=== PATIENT | female | born 1995 | race African-American/Black ===

== ENCOUNTER 2019-12-09 11:41 | Emergency (ER) | payer OTHER, SELFPAY ==
--- NOTE | ~2019-12-09 | US_ITS ---
EXAMINATION: US OB >= 14 weeks Fetus DATE: 12/09/2019 13:11 INDICATION: Gestational dating. TECHNIQUE: Real-time transabdominal obstetric ultrasound. FINDINGS: No prior studies for comparison. There is a single living fetus in vertex presentation. The placenta is anterior/fundal without place nta previa. Cervical length is 4 cm. cardiac activity and movement is noted with a heart rate of 149 beats per minute. T he amniotic fluid volume is subjectively normal. The following biometric data were obtained: BPD: 46mm corresponds to gestational age 20 weeks 0 days. Head circumference: 174mm corresponds to gestational age 19 weeks 6 days. Abdominal circumference: 152mm corresponds to gestational age 20 weeks 3 days. Femur length: 30mm corresponds to gestational age 19 weeks 1 days. Estimated weight: 316grams +/- 47grams.] IMPRESSION: 1. Single living intrauterine in vertex presentation with an estimated gestational age of 19 weeks 6 days by current ultrasound. EDC by current ultrasound is 04/28/2020. 2. Normal placenta. Reviewed, dictated and finalized at location A. IMPRESSION: 1. Single living intrauterine in vertex presentation with an estimat ed gestational age of 19 weeks 6 days by current ultrasound. EDC by current ult rasound is 04/28/2020. 2. Normal placenta.
[2019-12-09 11:44] VITALS: BP 123/81; PULSE 100; RESP 20; TEMP 36.8; O2SAT 100
--- NOTE | 2019-12-09 12:06 | ED.GENADULT ---
HPI - General Adult General Chief complaint: [employer] <Kay Garcia PA-C - Last Filed: 12/09/19 15:15> Stated complaint: Mucous plug? <Kay Garcia PA-C - Last Filed: 12/09/19 15:15> Time Seen by Provider: 12/09/19 12:03 <Kay Garcia PA-C - Last Filed: 12/09/19 15:15> Source: patient <Kay Garcia PA-C - Last Filed: 12/09/19 15:15> Mode of arrival: ambulatory <Kay Garcia PA-C - Last Filed: 12/09/19 15:15> Limitations: no limitations <Kay Garcia PA-C - Last Filed: 12/09/19 15:15> History of Present Illness HPI narrative: pt is concerned that she lost her mucus plug last evening and she had a large amount of mucus with one void. She denies any other discharge or leaking of fluid. She is complaining of mild carrie beckford' type pain no pelvic pressure. No fever, edema, chest pain, or shortness of breath. She tells me her OB is [facility], but she doesn't know a name. She did not call the office. Last intercourse 48 hrs ago. <Kay Garcia PA-C - Last Filed: 12/09/19 15:15> Onset (ago): hour(s) <Kay Garcia PA-C - Last Filed: 12/09/19 15:15> Severity: mild <Kay Garcia PA-C - Last Filed: 12/09/19 15:15> Quality: aching <BORIS Carpenter Last Filed: 12/09/19 15:15> Pain Consistency: intermittent <Kay Garcia PA-C - Last Filed: 12/09/19 15:15> Associated symptoms: denies other symptoms <Kay Garcia PA-C - Last Filed: 12/09/19 15:15> Related Data Allergies/adverse reactions: Allergies Allergy/AdvReac Type Severity Reaction Status Date / Time No Known Allergies Allergy Verified 12/09/19 11:48 <Kay Garcia PA-C - Last Filed: 12/09/19 15:15> Review of Systems Review of Systems: All systems reviewed & are unremarkable except as noted in HPI and below <Kay Garcia PA-C - Last Filed: 12/09/19 15:15> [facility] Social History Social History: Social History (Updated 12/09/19 @ 12:17 by Kay Garcia PA-C) Smoking status: Never smoker Alcohol intake: never Substance use: never Living arrangements: with family <Kay Garcia PA-C - Last Filed: 12/09/19 15:15> Exam Const: General: no acute distress and alert <Kay Garcia PA-C - Last Filed: 12/09/19 15:15> Orientation/consciousness: patient oriented x3 <Kay Garcia PA-C - Last Filed: 12/09/19 15:15> HENMT: Head: normal to inspection <Kay Garcia PA-C - Last Filed: 12/09/19 15:15> Eyes: Conjunctivae: conjunctivae normal <Kay Garcia PA-C - Last Filed: 12/09/19 15:15> Pupils: Equal, round and reactive pupils present <Kay Garcia PA-C - Last Filed: 12/09/19 15:15> Resp: Effort & Inspection: normal respiratory effort <Kay Garcia PA-C - Last Filed: 12/09/19 15:15> Auscultation: clear to auscultation bilaterally <Kay Garcia PA-C - Last Filed: 12/09/19 15:15> Cardio: Rate: regular rate and tachycardic <Kay Garcia PA-C - Last Filed: 12/09/19 15:15> Rhythm: regular rhythm <Kay Garcia PA-C - Last Filed: 12/09/19 15:15> GI: Inspection: normal to inspection (gravid, no fundal tenderness) <Kay Garcia PA-C - Last Filed: 12/09/19 15:15> GI Palp: Yes Soft to palpation <BORIS Carpenter Last Filed: 12/09/19 15:15> : External Female Exam: normal external appearance <BORIS Carpenter Last Filed: 12/09/19 15:15> Speculum Exam - Vagina: abnormal vaginal discharge white, malodorous (fishy smell, thick white discharge) and caseous <BORIS Carpenter Last Filed: 12/09/19 15:15> Speculum Exam - Cervix: normal appearance of the cervix and Cervical os closed <BORIS Carpenter Last Filed: 12/09/19 15:15> Skin: General skin exam: normal color <BORIS Carpenter Last Filed: 12/09/19 15:15> Rashes: no rashes <BORIS Carpenter Last Filed: 12/09/19 15:15> Neuro: General: patient oriented x3 and moves all extremities <Kay Bentley
[2019-12-09 12:59] LABS: Basophils Percent Auto 0.3 % (0.2-1.2); Eosinophils Absolute Auto 0.2 K/mm3 (0-0.3); Eosinophils Percent Auto 2.4 % (0-4.4); Hematocrit 35.2 % (37.0-47.0); Hemoglobin 11.5 g/dL (12.0-15.0); Immature Granulocyte Absolute 0.03 K/mm3 (0.00-0.031); Immature Granulocyte Percent A 0.5 % (0-0.5); Lymphocytes Absolute Auto 1.76 K/mm3 (0.9-3.2); Lymphocytes Percent Auto 27.8 % (18.3-44.2); Mean Corpuscular HGB Conc 32.7 g/dl (32-36); Mean Corpuscular Volume 91.9 fl (80-100); Mean Platelet Volume 11.7 fl (7.4-10.4); Monocytes Absolute Auto 0.4 K/mm3 (0.1-0.6); Monocytes Percent Auto 6.5 % (2.6-8.5); Neutrophils Percent Auto 62.5 % (45.5-73.1); Platelet Count Result 182 k/mm3 (150-375); Red Blood Count 3.83 M/mm3 (4.2-5.4); Red Cell Distribution Width 13.2 % (11.5-14.5); White Blood Count 6.3 K/mm3 (4.5-10.0)
[2019-12-09 13:04] LABS: Add Urine Microscopic? YES; Appearance Urine Clear (Clear); Bilirubin Urine Negative (Negative); Blood Urine Negative (Negative); Color Urine Yellow (Yellow); Glucose Urine UA Negative (Negative); Ketones Urine Negative (Negative); Leukocyte Esterase Ur Negative LEU/UL (Negative); Mucus Urine Heavy /lpf; Nitrate Urine Negative (Negative); Protein Urine 1+ mg/dL (Negative); RBC Urine 0-2 /hpf (0-2); Squamous Epithelial Cell Urine Few /hpf (Few)
[2019-12-09 13:05] LABS: Specific Grav Ur 1.032 (1.001-1.035)
[2019-12-09 13:16] LABS: Amphetamine Screen Urine Negative (Negative); Barbiturate Screen Urine Negative (Negative); Benzodiazepines Screen Urine Negative (Negative); Cannabinoid Screen Urine Negative (Negative); Cocaine Screen Urine Negative (Negative); Methadone Screen Urine Negative (Negative); Opiate Screen Urine Negative (Negative); Phencyclidine Screen Urine Negative (Negative)
[2019-12-09] MEDS: FLUCONAZOLE 150 MG TABLET PO (15:00)
== END 2019-12-09 15:30 | disposition home or self-care (01) ==
PROVIDERS: Physician Assistant; Emergency Provider General Practice; PCP Family Medicine
DX: O23.592 Infection of other part of genital tract in pregnancy, second trimester (principal); B37.3 Candidiasis of vulva and vagina; B96.89 Other specified bacterial agents as the cause of diseases classified elsewhere; Z3A.19 19 weeks gestation of pregnancy
CPT/HCPCS: 36415; 76805; 80307; 81001; 85025; 86850; 86900; 86901; 87070; 87491; 87591; 87808; 99284; A9270

== ENCOUNTER 2020-02-16 21:05 | Observation (INO) | payer OTHER, SELFPAY ==
[2020-02-16 21:30] VITALS: TEMP 36.5
[2020-02-16 21:32] VITALS: BP 116/77; PULSE 96
[2020-02-16 21:49] LABS: Add Urine Microscopic? NO; Appearance Urine Clear (Clear); Bilirubin Urine Negative (Negative); Blood Urine Negative (Negative); Color Urine Yellow (Yellow); Glucose Urine UA Negative (Negative); Ketones Urine Negative (Negative); Leukocyte Esterase Ur Negative LEU/UL (Negative); Nitrate Urine Negative (Negative); Protein Urine Negative (Negative); Specific Grav Ur 1.015 (1.001-1.035); Urobilinogen Urine Negative mg/dL (<2.0)
--- NOTE | 2020-02-19 18:03 | PM.OBTRLD ---
OB - Triage/Final Diagnosis Visit Information Date of evaluation: 02/16/20 Comments/Additional reasons for admission: back pain Evaluation Laboratory results: Laboratory Tests 02/16/20 21:40 Urine Color Yellow Urine Appearance Clear Urine pH 6.0 Ur Specific Dexter 1.015 Urine Protein Negative Urine Glucose (UA) Negative Urine Ketones Negative Ur Blood (Man) Negative Urine Nitrate Negative Urine Bilirubin Negative Urine Urobilinogen Negative Leukocyte Esterase Rfl Negative
== END 2020-02-16 22:10 | disposition home or self-care (01) ==
PROVIDERS: Advanced Practice Midwife; Admitting Provider Obstetrics & Gynecology; PCP Family Medicine; Visit Provider Obstetrics & Gynecology
DX: O99.89 Other specified diseases and conditions complicating pregnancy, childbirth and the puerperium (principal); M54.9 Dorsalgia, unspecified; Z3A.28 28 weeks gestation of pregnancy
CPT/HCPCS: 81003; G0378; G0379

== ENCOUNTER 2020-03-02 10:44 | Emergency (ER) | payer OTHER, SELFPAY ==
[2020-03-02 10:53] VITALS: BP 113/70; PULSE 98; RESP 16; TEMP 36.9; O2SAT 100
--- NOTE | 2020-03-02 10:57 | ED.EYEPROB ---
HPI - Eye Problem General Chief complaint: Eye Problems Stated complaint: Eye problems Time Seen by Provider: 03/02/20 10:57 Source: patient and RN notes reviewed Mode of arrival: ambulatory Limitations: no limitations History of Present Illness HPI Narrative: 25-year-old female presents with concern for right upper eyelid swelling, pain. Denies vision changes, drainage from the eye, eye redness, eye itching or irritation. Reports she is been using a cold washcloth with no relief. chief complaint: eye pain (Right upper eyelid pain) Related Data Allergies Allergy/AdvReac Type Severity Reaction Status Date / Time No Known Allergies Allergy Verified 12/09/19 11:48 Review of Systems Review of Systems: Narrative: CONSTITUTIONAL: Denies malaise, chills, sweats, or fever. EYES: Denies visual changes, redness, or discharge. Reports right upper eyelid swelling and pain ENT: Denies rhinorrhea, congestion, sinus pain, otalgia or sore throat. CARDIOVASCULAR: Denies chest pain, palpitations, or edema. RESPIRATORY: Denies cough or dyspnea. SKIN: Denies rash or itching. MUSCULOSKELETAL: Denies myalgia. NEUROLOGIC: Denies headache. All systems reviewed & are unremarkable except as noted in HPI and below PMFSH Social History Social History (Updated 12/09/19 @ 12:17 by Kay Garcia PA-C) Smoking status: Never smoker Alcohol intake: never Substance use: never Comments At time of signature, agree with nursing past medical, surgical, social and family history. There is no relevant family history pertinent to the presenting complaint Exam Narrative: Exam Narrative: GENERAL: Well-appearing, well-nourished, and in no acute distress. HEAD: Normocephalic, atraumatic. EYES: PERRLA, conjunctivae clear, sclera clear, and EOMI. No nystagmus. Right upper eyelid edema, tenderness consistent with hordeolum ENT: Nares clear, no rhinorrhea. Mucous membranes moist. NECK: Supple. CHEST: No respiratory distress. Speaks in full sentences. HEART: Regular rate and rhythm. SKIN: Warm, dry, no rash. NEURO: Alert and oriented x3. PSYCH: Normal mood and affect Course Course Emergency Course: Patient is aware of diagnosis, understands and agrees to treatment plan. Anticipatory guidance given. Patient agrees to follow-up as directed and is aware of reasons to seek care at the emergency department. Portions of this record may have been created with voice recognition software Vital Signs Vital signs: Vital Signs Temperature 98.4 F 03/02/20 10:53 Pulse Rate 98 03/02/20 10:53 Respiratory Rate 16 03/02/20 10:53 Blood Pressure 113/70 03/02/20 10:53 Pulse Oximetry 100 03/02/20 10:53 Temperature 98.4 F 03/02/20 10:53 Pulse Rate 98 03/02/20 10:53 Respiratory Rate 16 03/02/20 10:53 Blood Pressure 113/70 03/02/20 10:53 Pulse Oximetry 100 03/02/20 10:53 Reviewed. MDM - Eye Problem MDM Narrative Medical decision making narrative: Consideration of the following conditions may be warranted for the presenting problem, they are not final diagnoses: Bacterial conjunctivitis, allergic conjunctivitis, viral conjunctivitis, foreign body, blepharitis, chalazion, hordeolum, corneal abrasion. Exam findings show no acute concerns or changes; patient is non-toxic appearing and is in no distress. Patient is appropriate for outpatient treatment and follow-up. Critical Care Time Critical Care Time Critical Care Time: No Discharge Plan Discharge Clinical Impression: Hordeolum Qualifiers: Hordeolum type: unspecified type Laterality: right Eyelid: upper Qualified Code(s): H00.011 - Hordeolum externum right upper eyelid Patient Disposition: Home, Self-Care Condition: Stable Instructions: Christina (ED) Additional Instructions: Do not touch or rub your eye. Use a warm washcloth on your eye for 15 minutes 5-6 times daily Use eyedrops as directed Practice good handwashing and hygiene You may take Tylenol or ibu
== END 2020-03-02 11:14 | disposition home or self-care (01) ==
PROVIDERS: Emergency Provider Nurse Practitioner; PCP Family Medicine
DX: H00.011 Hordeolum externum right upper eyelid (principal); R01.1 Cardiac murmur, unspecified
CPT/HCPCS: 99213; G0463

== ENCOUNTER 2020-04-11 18:36 | Observation (INO) | payer OTHER, SELFPAY ==
--- NOTE | 2020-04-11 18:36 | OBADM ---
This patient, Blanka Gooden, admitted to the OB room Labor/Delivery/Recovery 103 for observation. Patient/family oriented to hospital policies and general routines including ID bracelet, bed and alarms, visiting hours, pain management, procedures, bathroom and other care routines, personal items, smoking policy, room service/diet, and visiting hours. Patient/Family are encouraged to report perceived risks to care and to ask questions if they do not understand what they are told or what they should do.
[2020-04-11 20:00] VITALS: BMI 27.2
--- NOTE | 2020-04-17 18:43 | PM.OBTRLD ---
OB - Triage/Final Diagnosis Visit Information Date of evaluation: 04/12/20 Reason for evaluation: threatened labor
== END 2020-04-11 21:57 | disposition home or self-care (01) ==
PROVIDERS: Admitting Provider Obstetrics & Gynecology; PCP Family Medicine; Visit Provider Obstetrics & Gynecology
DX: O47.9 False labor, unspecified (principal); Z3A.00 Weeks of gestation of pregnancy not specified
CPT/HCPCS: G0378; G0379

== ENCOUNTER 2020-04-20 18:15 | Inpatient (IN) | payer OTHER, SELFPAY ==
[2020-04-20] VITALS (10 sets, daily range): BP systolic 115–134; BP diastolic 73–85; PULSE 86–97; TEMP 36.8–37.2; BMI 28.3
[2020-04-20 20:21] LABS: Basophils Percent Auto 0.3 % (0.2-1.2); Eosinophils Absolute Auto 0.1 K/mm3 (0-0.3); Eosinophils Percent Auto 1.5 % (0-4.4); Hematocrit 33.8 % (37.0-47.0); Hemoglobin 10.9 g/dL (12.0-15.0); Immature Granulocyte Absolute 0.06 K/mm3 (0.00-0.031); Immature Granulocyte Percent A 0.8 % (0-0.5); Lymphocytes Absolute Auto 1.95 K/mm3 (0.9-3.2); Lymphocytes Percent Auto 24.7 % (18.3-44.2); Mean Corpuscular HGB Conc 32.2 g/dl (32-36); Mean Corpuscular Hemoglobin 29.5 pg (26-34); Mean Corpuscular Volume 91.6 fl (80-100); Monocytes Absolute Auto 0.6 K/mm3 (0.1-0.6); Monocytes Percent Auto 7.3 % (2.6-8.5); Neutrophils Absolute Auto 5.2 K/mm3 (1.3-6.7); Neutrophils Percent Auto 65.4 % (45.5-73.1); Platelet Count Result 139 k/mm3 (150-375); Red Blood Count 3.69 M/mm3 (4.2-5.4); Red Cell Distribution Width 13.1 % (11.5-14.5); White Blood Count 7.9 K/mm3 (4.5-10.0)
[2020-04-20] MEDS: LACTATED RINGERS 1,000 ML 125 ML IV CONT (20:28)
[2020-04-20] MEDS: OXYTOCIN 30 UNITS/NS 500 ML 30 UNITS/500 ML BAG IV CONT (20:28)
--- NOTE | 2020-04-20 20:36 | LDADM ---
This patient, Blanka Gooden, was admitted to Labor/Delivery/Recovery 107 on 04/20/20 at 18:15. Plans for labor, pain management and were discussed with patient. Patient/family oriented to hospital policies and general routines including ID bracelet, bed and alarms, visiting hours, pain management, procedures, bathroom and other care routines, personal items, smoking policy, room service/diet and guest tray routines, security routines, and visiting hours. Patient/Family are encouraged to report perceived risks to care and to ask questions if they do not understand what they are told or what they should do. See OBIX for further documentation.
[2020-04-20 22:03] LABS: Hepatitis B Surface Antigen Negative (Negative); Rubella IgG Antibody 14.7 IU/ML
[2020-04-21] VITALS (85 sets, daily range): BP systolic 82–135; BP diastolic 25–98; PULSE 73–110; RESP 16; TEMP 36.4–37.2; O2SAT 79–100
--- NOTE | 2020-04-21 00:32 | WPDANESEPP ---
Anes - Eval Pre Procedure Procedure: labor epidural Date/Time: 04/21/20 00:32 Surgeon: roxy Preop Diagnosis: Abd pain post c section Pre Op Diagnosis: Leaking Patient Data Age: 25 Gender: F Height: 5 ft 7 in Weight: 82 kg Last Vital Signs Temp 98.9 F 04/20/20 21:30 Pulse 86 04/20/20 23:30 BP 118/78 04/20/20 23:30 Allergies Allergy/AdvReac Type Severity Reaction Status Date / Time No Known Allergies Allergy Verified 04/07/20 15:38 Home Medications Medication Instructions Recorded Confirmed Type No Home Medications 04/11/20 04/20/20 History Laboratory Tests 04/20/20 04/20/20 04/20/20 20:14 20:14 20:15 WBC 7.9 K/mm3 K/mm3 (4.5-10.0) RBC 3.69 M/mm3 L M/mm3 (4.2-5.4) Hgb 10.9 g/dL L g/dL (12.0-15.0) Hct 33.8 % L % (37.0-47.0) MCV 91.6 fl fl (80-100) MCH 29.5 pg pg (26-34) MCHC 32.2 g/dl g/dl (32-36) RDW 13.1 % % (11.5-14.5) Plt Count 139 k/mm3 L k/mm3 (150-375) MPV 12.0 fl H fl (7.4-10.4) Immature Gran % (Auto) 0.8 % H % (0-0.5) Neut % (Auto) 65.4 % % (45.5-73.1) Lymph % (Auto) 24.7 % % (18.3-44.2) [place] % (Auto) 7.3 % % (2.6-8.5) Eos % (Auto) 1.5 % % (0-4.4) Baso % (Auto) 0.3 % % (0.2-1.2) Lymph # (Auto) 1.95 K/mm3 K/mm3 (0.9-3.2) [place] # (Auto) 0.6 K/mm3 K/mm3 (0.1-0.6) Eos # (Auto) 0.1 K/mm3 K/mm3 (0-0.3) Baso # (Auto) 0.0 K/mm3 K/mm3 (0.0-0.1) Abs Immat Gran (auto) 0.06 K/mm3 H K/mm3 (0.00-0.031) Absolute Neuts (auto) 5.2 K/mm3 K/mm3 (1.3-6.7) Absolute Nucleated RBC 0.0 K/mm3 K/mm3 (0.0-0.012) Nucleated RBC % 0.0 % % (0.0-0.2) RPR Hep Bs Antigen Negative (Negative) Rubella IgG Antibody 14.7 IU/ML IU/ML (10 - ) Blood Type O Positive Antibody Screen Negative 04/20/20 20:15 WBC RBC Hgb Hct MCV MCH MCHC RDW Plt Count MPV Immature Gran % (Auto) Neut % (Auto) Lymph % (Auto) [place] % (Auto) Eos % (Auto) Baso % (Auto) Lymph # (Auto) [place] # (Auto) Eos # (Auto) Baso # (Auto) Abs Immat Gran (auto) Absolute Neuts (auto) Absolute Nucleated RBC Nucleated RBC % RPR Pending Hep Bs Antigen Rubella IgG Antibody Blood Type Antibody Screen Patient hx anesthesia problems: none Family hx anesthesia problems: none PMFSH Past Medical History Medical History (Updated 04/21/20 @ 00:34 by Darion Talley CRNA) 2, currently Murmur Scoliosis STD (female) Family History Family History Mother Congestive heart failure Glaucoma Father Leukemia Social History Social History Smoking status: Never smoker Alcohol intake: never Substance use: never Spiritual care concerns: No Exam Day of Procedure 04/21/20 00:32 Patient weight: normal Neurological: alert and oriented
[2020-04-21] MEDS: LACTATED RINGERS 1,000 ML 125 ML IV CONT (00:45)
--- NOTE | 2020-04-21 04:30 | WPDOBADMIT ---
Obstetrics - Admit Note Admission Note: 25 y/o @ 38 weeks admitted with srom. record reviewed. No pertinent additions to the history and/or any subsequent changes in the physical findings that are not consistent with the expected course of the were found. Additions to the history and/or subsequent changes in the physical findings follow. None.
--- NOTE | 2020-04-21 04:30 | PM.OBPRVD ---
OB - Delivery Note Procedure Delivery date: 04/21/20 Intrapartal events: None Induction method: none Delivery monitor: external FHT and external uterine Route of delivery: Laceration description: None Estimated blood loss (mL): 47 Anesthesia type: Epidural [place] Baby Date of : 04/21/20 Time of : 04:17 Weeks of gestation at delivery: 38 Weight (pounds): 7 Weight (ounces): 10 presentation: vertex position: Right Occiput Anterior cord vessel description: Nuchal Cord and Loose (unable to reduce)
[2020-04-21] MEDS: OXYTOCIN 30 UNITS/NS 500 ML 30 UNITS/500 ML BAG 125 UNITS IV CONT (05:00)
[2020-04-21] MEDS: LORATADINE 10 MG TABLET PO (05:35)
[2020-04-21 07:19] LABS: Rapid Plasma Reagin Non-Reactive (NonReactive)
--- NOTE | 2020-04-21 07:37 | WPDANLDPN2 ---
Anes-Prog Note L&D Date/Time: 04/21/20 07:37 Comfortable throughout: labor Neuraxial method: epidural Epidural/Spinal procedure site: clean & non-tender Neuro status: Neuro function grossly intact. Cardiovascular status: normal Respiratory status: normal Airway patency: baseline Mental status: baseline Post-Op hydration status: normal Vital Signs: Last Vital Signs Temp 36.6 C 04/21/20 03:51 Pulse 90 04/21/20 06:30 BP 115/75 04/21/20 06:30 Pulse Ox 99 04/21/20 04:09 Pain score (VAS): 0/0 I/O: Intake & Output 04/20/20 04/20/20 04/21/20 15:59 23:59 07:59 Intake Total 1500 Balance 1500 Post-procedural complaints: none Patient feedback: Patient satisfied with anesthetic care.
[2020-04-21] MEDS: MULTIVIT/MIN/PREN/FOL AC/IRON TABLET 1 TAB PO (08:04)
[2020-04-21] MEDS: IBUPROFEN 600 MG TABLET PO ×2 (08:04→17:59)
--- NOTE | 2020-04-21 10:52 | OBPPTRN ---
0650 Patient transferred to post room #281 via W/C. Support person present. Oriented to unit, room, information board, rooming in, admission packet and security measures. Patient verbalizes understanding.
[2020-04-21] MEDS: ACETAMINOPHEN 325 MG TABLET 650 MG PO (20:00)
[2020-04-22] MEDS: IBUPROFEN 600 MG TABLET PO ×2 (04:24→17:48)
[2020-04-22 05:57] LABS: Hemoglobin 10.5 g/dL (12.0-15.0)
[2020-04-22] MEDS: ACETAMINOPHEN 325 MG TABLET 650 MG PO (07:24)
[2020-04-22] MEDS: MULTIVIT/MIN/PREN/FOL AC/IRON TABLET 1 TAB PO (07:24)
[2020-04-22] MEDS: DOCUSATE SODIUM 100 MG CAPSULE PO (07:25)
--- NOTE | 2020-04-22 08:30 | PM.OBPNVD ---
OB - PN: Subj Subjective Date/time seen: 04/22/20 08:30 Patient comments: no complaints, pain well controlled, incisional pain, tolerating diet and flatus present OB - PN: Obj Data Labs CBC & Chem 7: 04/22/20 04:31 Labs: Laboratory Results - last 24 hr 04/22/20 04:31 Hgb 10.5 L Hct 32.0 L OB - PN A/P Plan day: 1 Plan: routine care Comments: No problems, routine care Time Spent With Patient Time: Total time spent is greater than 50% in coordination of care (as documented) at patient's floor/unit and/or counseling patient: Exam Const: General: comfortable, no acute distress and alert Resp: Effort & Inspection: normal respiratory effort Auscultation: no crackles, no rales and no rhonchi Cardio: Rate: regular rate Heart sounds: no click, no murmurs and no rubs GI: Inspection: non-distended GI Palp: No Tenderness to palpation present (GI) Auscultation: normal bowel sounds Other: Incision - CDI Extrem: General: normal to inspection, no pedal edema and no calf tenderness
[2020-04-22 08:40] VITALS: BP 108/75; PULSE 84; RESP 16; TEMP 36.5; O2SAT 100
--- NOTE | 2020-04-22 08:54 | WPDANLDPN2 ---
Anes-Prog Note L&D Date/Time: 04/22/20 08:54 Comfortable throughout: labor Neuraxial method: epidural Epidural/Spinal procedure site: clean & non-tender Neuro status: Neuro function grossly intact. Cardiovascular status: normal Respiratory status: normal Airway patency: baseline Mental status: baseline Post-Op hydration status: normal Vital Signs: Last Vital Signs Temp 36.4 C L 04/21/20 19:55 Pulse 78 04/21/20 19:55 Resp 16 04/21/20 19:55 BP 133/88 04/21/20 19:55 Pulse Ox 100 04/21/20 19:55 Post-procedural complaints: none Patient feedback: Patient satisfied with anesthetic care.
--- NOTE | 2020-04-22 13:45 | PC.NURSE ---
consult with pt., mother has a nipple pierced and does not want to remove ring. Advised she can pump with ring in, she can not put to breast with nipple ring in. Mother states she unsure if she wants to pump due to cramping, advise cramping should resolve within a few days. Offered to assist mother with infant on breast not pierced and suggested to pump breast pierced. Mother states she will pump next feeding and does not want assist with . Discussed stimulation and milk supply.
[2020-04-22] MEDS: TETANUS,DIPHTHERIA,AC PERTUSSIS ADULT (0.5 ML) BOOSTRIX IM (17:39)
--- NOTE | 2020-05-15 08:07 | P.DS_ITS ---
DS: Admitting Diagnosis Admitting Diagnosis Admitting Diagnosis: Leaking DS: Discharge Diagnosis Discharge Diagnosis (1) Vaginal delivery: Code(s): O80 - Encounter for full-term uncomplicated delivery Status: Acute OB - DS: Summary OB Procedures : None OB Procedures Intrapartum: Spontaneous Vag Delivery OB Procedures: : None Peripartum Data Delivery Method: Natural Vaginal Laceration description: None complications: none Time Spent with Patient Time attestation: Total time spent providing and/or coordinating discharge services: Discharge Plan Discharge Consulting providers: Leah Espinoza Discharging Clinician: Beau Meraz Patient Disposition: Home, Self-Care Activity: as tolerated Diet: regular Discharge Instructions: Education: Mom and Baby Guide Given to: Mother Follow-Up: Call your delivering provider's office for an appointment to be seen in: 4 Weeks Mom and baby should come to the [facility] for the follow-up appointment. Appointment Date/Time: April at 9:00 am Call [phone] if you are unable to keep your appointment time. BREAST CARE: * Wear a snug supportive bra. * For engorgement discomfort: Breast Feeding: * Apply warm moist washcloths * Express milk as needed to relieve engorgement * Wear loose clothing Bottle Feeding: * May apply ice packs * For sore nipples: * Identify correct latch-on * Apply warm moist washcloths before and after nursing * Air dry nipples after nursing * May apply Lansinoh cream to nipples EPISIOTOMY/PERINEAL CARE: * Until bleeding stops, use your rené bottle after urinating * Change your pad frequently throughout the day * You may take sitz baths several times a day (fill your bathtub with warm water and soak for 20 minutes.) Do NOT bathe in the water * No tub baths until seen by your physician - You may shower ACTIVITY: * Rest as much as possible. * Do not exercise or lift anything heavier than your baby (such as laundry or other children.) * Avoid stairs or driving as much as possible. * Do not put anything into the vagina. No douching, tampons, or sexual activity until seen by physician. NOTIFY PHYSICIAN IF YOU HAVE ANY QUESTIONS OR IF ANY OF THE FOLLOWING SYMPTOMS OCCUR: * If your episiotomy or incision becomes red, swollen, or more painful than what you have experienced in the hospital. * If your vaginal bleeding becomes foul smelling. * If your vaginal bleeding becomes more heavy than a period or if your bleeding changes from pink to bright red. However, you may pass an occasional walnut- sized clot once or twice for the first week . * If you experience a sharp, shooting pain in you calves. * If you discover a hard, reddened area on your breast or if you experience flu- like symptoms. DIET: * Eat regular, well-balanced meals. * Drink plenty of fluids daily. If , drink to thirst. Follow-up/Referrals: Beau Meraz MD [Physician] - Discharge Medications: No Action No Home Medications RF: 0 Date of admission: 04/20/20 18:15 Primary Care Provider: NickLeeroy Admitting Provider: Beau Meraz Attending physician on admission: Beau Meraz
== END 2020-04-22 19:17 | disposition home or self-care (01) | DRG 560 ==
LOC: ANHLDR 18:47 → ANHOB2 04-21 07:15
PROVIDERS: Advanced Practice Midwife; Admitting Provider Obstetrics & Gynecology; PCP Family Medicine; Visit Provider Obstetrics & Gynecology
DX: O69.81X0 Labor and delivery complicated by cord around neck, without compression, not applicable or unspecified (principal); Z37.0 Single live birth; Z3A.37 37 weeks gestation of pregnancy; Z23 Encounter for immunization; O99.89 Other specified diseases and conditions complicating pregnancy, childbirth and the puerperium; M41.9 Scoliosis, unspecified; O99.284 Endocrine, nutritional and metabolic diseases complicating childbirth; E03.9 Hypothyroidism, unspecified; O98.32 Other infections with a predominantly sexual mode of transmission complicating childbirth; A56.8 Sexually transmitted chlamydial infection of other sites
CPT/HCPCS: 36415; 84112; 85014; 85018; 85025; 86592; 86762; 86850; 86900; 86901; 87340; 90471; 90686; 90715; A9270; G0008; J2590; J2795; J7120

== ENCOUNTER 2020-10-09 19:04 | Emergency (ER) | payer OTHER, SELFPAY ==
--- NOTE | 2020-10-09 19:10 | ED.DENTAL ---
HPI - Dental/Oral General Chief complaint: Dental/Oral Stated complaint: tooth pain Time Seen by Provider: 10/09/20 19:15 Source: patient and RN notes reviewed Mode of arrival: ambulatory Limitations: no limitations History of Present Illness HPI Narrative: 25-year-old female presents concern for dental pain. Reports dental pain at tooth numbers 12, which has been broken for some time. Also reports dental pain at tooth #17 which she reports is impacted. Reports she has been to a dentist and cannot afford to have her dental problems repaired. Reports she is just recently got dental insurance and will go see a dentist. Reports she took ibuprofen 1 hour ago. Reports yesterday ibuprofen was helping the pain, today it is not. She denies any drooling, difficulty swallowing, foul taste, fever, headache. MD Complaint: tooth pain Related Data Allergies Allergy/AdvReac Type Severity Reaction Status Date / Time No Known Allergies Allergy Verified 10/09/20 19:12 Review of Systems Review of Systems: Narrative: CONSTITUTIONAL: Denies malaise, chills, sweats, or fever. EYES: Denies visual changes, redness, or discharge. ENT: Denies rhinorrhea, congestion, sinus pain, otalgia or sore throat. Reports left upper and lower dental pain CARDIOVASCULAR: Denies chest pain, palpitations, or edema. RESPIRATORY: Denies cough or dyspnea. SKIN: Denies facial swelling MUSCULOSKELETAL: Denies myalgia. NEUROLOGIC: Denies numbness, weakness, or headache. All systems reviewed & are unremarkable except as noted in HPI and below PMFSH Past Medical History Medical History (Updated 10/09/20 @ 19:23 by Becky Bo NP) 2, currently Murmur Scoliosis STD (female) Family History Family History Mother Congestive heart failure Glaucoma Father Leukemia Social History Social History Smoking status: Never smoker Alcohol intake: never Substance use: never Spiritual care concerns: No Comments At time of signature, agree with nursing past medical, surgical, social and family history. There is no relevant family history pertinent to the presenting complaint Exam Narrative: Exam Narrative: GENERAL: Well-appearing, well-nourished, and in no acute distress. HEAD: Normocephalic, atraumatic. EYES: PERRLA, conjunctivae clear, and EOMI. No nystagmus. ENT: Nares clear. Mucous membranes moist. Oropharynx without edema, erythema or lesions, drooling. Tonsils not enlarged and without exudate. Tooth #12 broken without noted periapical abscess. Tooth #17 noted without periapical abscess, mild gum erythema. No facial swelling noted NECK: Supple. No lymphadenopathy. CHEST: No respiratory distress. Speaks in full sentences. HEART: Regular rate and rhythm. SKIN: Warm, dry, no rash. NEURO: Alert and oriented x3. PSYCH: Normal mood and affect Course Course Emergency Course: Patient is aware of diagnosis, understands and agrees to treatment plan. Anticipatory guidance given. Patient agrees to follow-up as directed and is aware of reasons to seek care at the emergency department. Portions of this record may have been created with voice recognition software Vital Signs Vital signs: Vital Signs Temperature 99.1 F 10/09/20 19:17 Pulse Rate 85 10/09/20 19:17 Respiratory Rate 16 10/09/20 19:17 Blood Pressure 145/96 H 10/09/20 19:17 Pulse Oximetry 99 10/09/20 19:17 Temperature 99.1 F 10/09/20 19:17 Pulse Rate 85 10/09/20 19:17 Respiratory Rate 16 10/09/20 19:17 Blood Pressure 145/96 H 10/09/20 19:17 Pulse Oximetry 99 10/09/20 19:17 Reviewed. Patient has been instructed to follow up with her primary care provider within the next week regarding her elevated blood pressure today. MDM - Dental/Oral MDM Narrative Medical decision making narrative: Patients pain and complaint coupled with physica
[2020-10-09 19:17] VITALS: BP 145/96; PULSE 85; RESP 16; TEMP 37.3; O2SAT 99
== END 2020-10-09 19:31 | disposition home or self-care (01) ==
PROVIDERS: Emergency Provider Nurse Practitioner; PCP Family Medicine
DX: K08.89 Other specified disorders of teeth and supporting structures (principal); R01.1 Cardiac murmur, unspecified; M41.9 Scoliosis, unspecified
CPT/HCPCS: 99213; G0463

== ENCOUNTER 2020-10-09 21:30 | Emergency (ER) | payer OTHER, SELFPAY ==
[2020-10-09 21:34] VITALS: BP 145/99; PULSE 85; RESP 18; TEMP 36.6; O2SAT 100
--- NOTE | 2020-10-09 23:09 | ED.DENTAL ---
HPI - Dental/Oral General Chief complaint: Dental/Oral Stated complaint: dental pain Time Seen by Provider: 10/09/20 22:00 Source: patient Mode of arrival: ambulatory Limitations: no limitations History of Present Illness HPI Narrative: Patient is a 25-year-old female complaining of dental pain, I was wisdom tooth on the left side started earlier today. Patient states that her pain is 9 out of 10, aching. Denies any facial swelling, dysphagia, fever or chills. Denies any neck pain or swelling. Related Data Allergies Allergy/AdvReac Type Severity Reaction Status Date / Time No Known Allergies Allergy Verified 10/09/20 22:04 Review of Systems Review of Systems: All systems reviewed & are unremarkable except as noted in HPI and below PMFSH Past Medical History Medical History 2, currently Murmur Scoliosis STD (female) Family History Family History Mother Congestive heart failure Glaucoma Father Leukemia Social History Social History Smoking status: Never smoker Alcohol intake: never Substance use: never Spiritual care concerns: No Exam Const: General: healthy appearing, no acute distress and alert Nutritional Appearance: well nourished Orientation/consciousness: patient oriented x3 Limitations: no limitations HENMT: Head: normal to inspection General nose exam: Normal external nose present and Normal nares present Face and sinus: sinuses tender and no sinus tenderness Mouth: Yes lip normal Teeth and gingiva: abnormal tooth and associated gingiva (Left lower molar with mild gum swelling) Eyes: Conjunctivae: conjunctivae normal Neck: Neck: normal visual inspection Resp: Effort & Inspection: normal respiratory effort Skin: General skin exam: normal color Extrem: General: normal to inspection Course Vital Signs Vital signs: Vital Signs Temperature 36.6 C 10/09/20 21:34 Pulse Rate 85 10/09/20 21:34 Respiratory Rate 18 10/09/20 21:34 Blood Pressure 145/99 H 10/09/20 21:34 Pulse Oximetry 100 10/09/20 21:34 Temperature 36.6 C 10/09/20 21:34 Pulse Rate 85 10/09/20 21:34 Respiratory Rate 18 10/09/20 21:34 Blood Pressure 145/99 H 10/09/20 21:34 Pulse Oximetry 100 10/09/20 21:34 Discharge Plan Discharge Clinical Impression: Pain, dental Patient Disposition: Home, Self-Care Condition: Stable Instructions: Antibiotic Form, Toothache (ED) Additional Instructions: Follow-up with a dentist tomorrow Prescriptions: New amoxicillin 875 mg tablet 875 mg PO Q12H Qty: 14 RF: 0 Follow-up/Referrals: Nick,Leeroy Thurston MD [Primary Care Provider] - Stand Alone Forms: Work/School Release IP Time of Disposition: 23:13
[2020-10-09] MEDS: HYDROcodone/acetaminophen (*CRX) 5-325 MG TABLET 1 TAB PO (23:30)
[2020-10-09] MEDS: KETOROLAC 30 MG/ML VIAL (*BKC) IM (23:30)
== END 2020-10-09 23:36 | disposition home or self-care (01) ==
PROVIDERS: Emergency Provider Emergency Medicine; PCP Family Medicine
DX: K08.89 Other specified disorders of teeth and supporting structures (principal)
CPT/HCPCS: 96372; 99283; A9270; J1885

== ENCOUNTER 2021-01-06 18:29 | Emergency (ER) | payer OTHER, SELFPAY ==
[2021-01-06 18:40] VITALS: BP 135/79; PULSE 105; RESP 16; TEMP 37.3; O2SAT 99
== END 2021-01-06 19:03 | disposition left against medical advice (07) ==
LOC: EXPCOLL 18:34
PROVIDERS: Emergency Provider Nurse Practitioner; PCP Family Medicine
DX: Z02.89 Encounter for other administrative examinations (principal)
CPT/HCPCS: 99199

== ENCOUNTER 2021-07-19 11:04 | Emergency (ER) | payer OTHER, SELFPAY ==
[2021-07-19 11:08] VITALS: BP 119/73; PULSE 84; RESP 16; TEMP 36.1; O2SAT 100
--- NOTE | 2021-07-19 12:18 | ED.GENADULT ---
HPI - General Adult General Chief complaint: Wound/Laceration Stated complaint: wound check Time Seen by Provider: 07/19/21 11:57 Source: patient Mode of arrival: ambulatory Limitations: no limitations History of Present Illness HPI narrative: Patient presents for evaluation of painful swollen lesion to the right external labia for the last few days. She indicates she was shaving and cut herself in the affected area. Few days later is the time when she first noticed a swelling. She has noted some purulent discharge from the affected area. No fever, chills, nausea, vomiting. She is not diabetic. LMP 06/30/2021. Not on contraception. Related Data Allergies Allergy/AdvReac Type Severity Reaction Status Date / Time No Known Allergies Allergy Verified 07/19/21 11:16 Review of Systems Review of Systems: CONSTITUTIONAL: Denies fever, chills, or sweats. EYES: Denies visual changes, redness, or discharge. ENT: Denies rhinorrhea, congestion, sore throat, or otalgia. CARDIOVASCULAR: Denies chest pain, palpitations, or edema. RESPIRATORY: Denies cough or dyspnea. GASTROINTESTINAL: Denies abdominal pain, nausea, vomiting, or diarrhea. GENITOURINARY: Denies dysuria or hematuria. SKIN: Reports painful swollen lesion to the right labia. MUSCULOSKELETAL: Denies back pain, joint pain, or myalgia. NEUROLOGIC: Denies headache, numbness, dizziness, or weakness. PSYCHIATRIC: Denies anxiety or depression. [facility] Past Medical History Medical History (Updated 07/19/21 @ 13:08 by JUSTINO Mobley, ) 2, currently Murmur Scoliosis STD (female) Surgical History Surgical History No pertinent past surgical history Family History Family History Mother Congestive heart failure Glaucoma Father Leukemia Social History Social History Smoking status: Never smoker Alcohol intake: never Substance use: never Living arrangements: with family Gender identity (if verbalized by the patient): Female Spiritual care concerns: No Exam Narrative: GENERAL: Well-appearing, well-nourished, and in no acute distress. HEAD: Normocephalic, atraumatic. EYES: PERRLA and EOMI. ENT: Nares clear, no rhinorrhea or epistaxis. Mucous membranes moist. Oropharynx without tonsillar hypertrophy exudate or other lesions. Bilateral TMs pearly nichole nonbulging NECK: Supple. No adenopathy or masses. No carotid bruits or JVD CHEST: Clear to auscultation. No respiratory distress. No wheezes rales or rhonchi HEART: Regular rate and rhythm. No murmur heard. Normal peripheral pulses. ABDOMEN: Soft, nontender, nondistended, normal active bowel sounds. EXTREMITIES: Normal range of motion. No edema. SKIN: Approximately 1.5 cm swollen erythematous fluctuant lesion to the right external labia NEURO: No focal deficits. Alert and oriented x3. PSYCH: Normal mood and affect. Course Course Emergency Course: This is a 26-year-old female who presented with complaints of painful swollen lesion to the right labia. On exam she has a cutaneous abscess. After obtaining informed consent. I&D was performed. Patient tolerated well. Advised on wound care. She should complete abx as directed. We will also send her home with some norco which she can take for pain. She should follow up as directed for further evaluation and treatment and return for worsening symptoms. Pt in agreement with plan of care. Vital Signs Vital signs: Vital Signs Temperature 36.1 C L 07/19/21 11:08 Pulse Rate 84 07/19/21 11:08 Respiratory Rate 16 07/19/21 11:08 Blood Pressure 119/73 07/19/21 11:08 Pulse Oximetry 100 07/19/21 11:08 Temperature 36.1 C L 07/19/21 11:08 Pulse Rate 84 07/19/21 11:08 Respiratory Rate 16 07/19/21 11:08 Blood Pressure 119/73 07/19/21 1
== END 2021-07-19 13:28 | disposition home or self-care (01) ==
PROVIDERS: Emergency Provider Nurse Practitioner; PCP Family Medicine
DX: N76.4 Abscess of vulva (principal); M41.9 Scoliosis, unspecified
CPT/HCPCS: 56405; 81025; 87070; 87077; 87205; 99283

== ENCOUNTER 2021-12-09 11:51 | Emergency (ER) | payer OTHER, MEDICAID, SELFPAY ==
[2021-12-09 11:59] VITALS: BP 115/69; PULSE 79; RESP 16; TEMP 36.9; O2SAT 99
--- NOTE | 2021-12-09 12:11 | ED.DENTAL ---
HPI - Dental/Oral General Chief complaint: Dental/Oral Stated complaint: tooth pain Time Seen by Provider: 12/09/21 12:11 Source: patient Mode of arrival: ambulatory Limitations: no limitations History of Present Illness HPI Narrative: 26-year-old female presents with complaint of bump to gum. Is concerned for dental abscess. Reports about 1 month ago she had pain to a right lower tooth. Not having any pain at this time. States this tooth has been broken for a long time . Currently does not have a dentist. Patient is 19 weeks . All systems reviewed and negative except as noted above. Related Data Home Medications Medication Instructions Recorded Confirmed norgestimate-ethinyl estradiol 1 tablet PO DAILY 12/09/21 12/09/21 [Sprintec (28)] Allergies Allergy/AdvReac Type Severity Reaction Status Date / Time No Known Allergies Allergy Verified 12/09/21 11:53 Review of Systems Review of Systems: CONSTITUTIONAL: Denies fever, chills, or sweats. EYES: Denies visual changes, redness, or discharge. ENT: Denies rhinorrhea, congestion, sore throat, or otalgia. Reports right lower dental bump. CARDIOVASCULAR: Denies chest pain, palpitations, or edema. RESPIRATORY: Denies cough or dyspnea. GASTROINTESTINAL: Denies abdominal pain, nausea, vomiting, or diarrhea. GENITOURINARY: Denies dysuria or hematuria. SKIN: Denies rash or itching. MUSCULOSKELETAL: Denies back pain, joint pain, or myalgia. NEUROLOGIC: Denies headache, numbness, or weakness. PSYCHIATRIC: Denies anxiety or depression. All other systems reviewed are negative, except as documented in HPI. [facility] Past Medical History Medical History (Updated 12/09/21 @ 12:17 by Sharyn Zarate NP) 2, currently Murmur Scoliosis STD (female) Surgical History Surgical History No pertinent past surgical history Family History Family History Mother Congestive heart failure Glaucoma Father Leukemia Social History Social History Smoking status: Never smoker Alcohol intake: never Substance use: never Gender identity (if verbalized by the patient): Female Spiritual care concerns: No Comments At time of signature, agree with nursing past medical, surgical, social and family history. There is no relevant family history pertinent to the presenting complaint. Exam Narrative: GENERAL: This is a well-nourished, well-developed patient, in no apparent distress. HEAD: normocephalic, atraumatic. EYES: PERRL. Sclera clear/white. Vision is grossly intact. EARS: External ears normal NOSE: External nose normal MOUTH: Bump noted to gum area just below tooth #30. Concerning for a dental abscess. There is some tenderness on palpation. NECK: Neck supple, non-tender without lymphadenopathy, masses or thyromegaly. CARDIOVASCULAR: Regular rate and rhythm without murmurs, gallops, or rubs. RESPIRATORY: Clear to auscultation. Breath sounds equal bilaterally. No wheezes, rales, or rhonchi. SKIN: warm, Dry, intact with no suspicious lesions or rash, good texture and turgor. NEURO: awake, alert, and oriented to person, place and time. There were no obvious focal neurologic abnormalities. EXTREMITIES: Normal range of motion to all extremities. Course Course Level of Care: Express Care Visit Vital Signs Vital signs: Vital Signs Temperature 36.9 C 12/09/21 11:59 Pulse Rate 79 12/09/21 11:59 Respiratory Rate 16 12/09/21 11:59 Blood Pressure 115/69 12/09/21 11:59 Pulse Oximetry 99 12/09/21 11:59 Temperature 36.9 C 12/09/21 11:59 Pulse Rate 79 12/09/21 11:59 Respiratory Rate 16 12/09/21 11:59 Blood Pressure 115/69 12/09/21 11:59 Pulse Oximetry 99 12/09/21 11:59 Reviewed MDM - Dental/Oral MDM Narrative Medical dec
== END 2021-12-09 12:22 | disposition home or self-care (01) ==
PROVIDERS: Emergency Provider Nurse Practitioner Family; PCP Family Medicine
DX: K04.7 Periapical abscess without sinus (principal)
CPT/HCPCS: 99213; G0463

== ENCOUNTER 2022-02-11 22:00 | Emergency (ER) | payer OTHER, SELFPAY ==
[2022-02-11 22:12] VITALS: BP 135/76; PULSE 95; RESP 18; TEMP 36.3; O2SAT 98
--- NOTE | 2022-02-11 22:35 | ED.DENTAL ---
HPI - Dental/Oral General Chief complaint: Dental/Oral Stated complaint: dental pain Time Seen by Provider: 02/11/22 22:05 Source: RN notes reviewed History of Present Illness HPI Narrative: Patient presents emergency department from home for dental pain. Patient states she has a history of numerous dental caries states that she had seen her dentist at the end of January and they put her on penicillin at that time. States she is on a liquid penicillin that she is unable to swallow pills. States that she has been taking Tylenol for pain with no relief last dose of Tylenol was at 8 PM. He states the pain is in her upper and lower teeth on the left side with radiation in the left ear. States she is approximately [address] weeks is followed by Dr. Meraz denies any fevers or chills the pain Related Data Home Medications Medication Instructions Recorded Confirmed norgestimate 0.25 mg-ethinyl 1 tablet PO DAILY 12/09/21 12/09/21 estradiol 35 mcg tablet (Sprintec (28)) Allergies Allergy/AdvReac Type Severity Reaction Status Date / Time No Known Allergies Allergy Verified 02/11/22 22:19 Review of Systems Review of Systems: Gen.: Denies fevers or chills HEENT: See HPI GI: Denies abdominal pain : Reports Neuro: Denies headache Skin: Denies rash Endo: Denies DM PMFSH Past Medical History Medical History 2, currently Murmur Scoliosis STD (female) Surgical History Surgical History No pertinent past surgical history Family History Family History Mother Congestive heart failure Glaucoma Father Leukemia Social History Social History Smoking status: Never smoker Alcohol intake: never Substance use: never Gender identity (if verbalized by the patient): Female Spiritual care concerns: No Exam Narrative: APPEARANCE: No acute distress, nontoxic, resting in bed HEENT: Normocephalic, atraumatic, TMs clear bilaterally, nares patent, oral mucosa moist, airway patent, numerous dental caries with caries of teeth 10 and 14 and 16 with tenderness to all these on erythema no fluctuance of the jaw tender palpation of the left lower molar tooth #17 RESPIRATORY: No respiratory distress MUSCULOSKELETAl: Moves all extremities. NEURO: Awake and alert. Following commands, speech normal, no focal deficits SKIN:: Warm, dry. Normal Color PSYCHIATRIC: Normal affect/mood Course Course Emergency Course: Discussed with patient results of workup and diagnosis. Discussed need for follow-up with primary care, proper use of medication, and reasons to return to the emergency department. Patient understands and agrees to current treatment plan. Patient states she cannot take any pills and will give liquid clindamycin Vital Signs Vital signs: Vital Signs Temperature 97.4 F L 02/11/22 22:12 Pulse Rate 95 02/11/22 22:12 Respiratory Rate 18 02/11/22 22:12 Blood Pressure 135/76 02/11/22 22:12 Pulse Oximetry 98 02/11/22 22:12 Oxygen Delivery Room Air 02/11/22 22:12 Temperature 97.4 F L 02/11/22 22:12 Pulse Rate 95 02/11/22 22:12 Respiratory Rate 18 02/11/22 22:12 Blood Pressure 135/76 02/11/22 22:12 Pulse Oximetry 98 02/11/22 22:12 Oxygen Delivery Room Air 02/11/22 22:12 Discharge Plan Discharge Clinical Impression: Dental caries, Toothache Patient Disposition: Home, Self-Care Condition: Stable Instructions: Antibiotic Form, Toothache (ED) Additional Instructions: Return for increasing pain fever or any other symptoms of concern Prescriptions: New clindamycin palmitate HCl 75 mg/5 mL recon soln 300 mg PO Q8H 7 Days Qty: 420 0RF No Action norgestimate-ethinyl estradiol [Sprintec (28)] 0.25-
== END 2022-02-11 22:53 | disposition home or self-care (01) ==
LOC: ANHED 22:48
PROVIDERS: Emergency Provider Emergency Medicine; PCP Family Medicine
DX: O99.619 Diseases of the digestive system complicating pregnancy, unspecified trimester (principal); K02.9 Dental caries, unspecified; Z3A.00 Weeks of gestation of pregnancy not specified
CPT/HCPCS: 99283

== ENCOUNTER 2022-02-24 14:00 | Emergency (ER) | payer OTHER, SELFPAY ==
[2022-02-24] VITALS (23 sets, daily range): BP systolic 106–137; BP diastolic 70–87; PULSE 87–104; RESP 21–31; TEMP 36.5; O2SAT 98–100
--- NOTE | ~2022-02-24 | CT_ITS ---
EXAMINATION: CTA chest PE protocol DATE: 02/24/2022 16:08 INDICATION: dyspnea TECHNIQUE: Computed tomography angiography (CTA) of the chest was performed with 100 mL Omnipaque-350 intravenous contrast timed to evaluate the pulmonary arteries. Coronal maximum intensity projection 3D-reconstructions were created by the technologist. The dose-length product (DLP) was 405.16 mGy-cm. Automated exposure control and iterative reconstruction technique were employed. COMPARISON: None. FINDINGS: Study quality: Mildly limited by late contrast phase and lower lung motion, overall adequate. Pulmonary arteries: No pulmonary emboli detected. Thoracic aorta: Normal. Lung parenchyma and airways: Clear. Thoracic inlet, axillae and chest wall: Unremarkable. Mediastinum: Normal. Heart and pericardium: Normal. Coronary artery calcifications: Absent. Pleura: Unremarkable. Upper abdomen: No significant finding. Bones: No acute osseous finding. IMPRESSION: Mildly limited examination as described above, with no definite pulmonary embolus detected. Reviewed, dictated and finalized at location K. IMPRESSION: Mildly limited examination as described above, with no definite pulmonary embol us detected.
--- NOTE | ~2022-02-24 | US_ITS ---
EXAMINATION: US venous doppler [facility] DATE: 02/24/2022 15:19 INDICATION: Shortness of breath. TECHNIQUE: Grayscale images without and with compression and Doppler images of the bilateral lower ex tremity veins were obtained. COMPARISON: None FINDINGS: The right common femoral vein, profunda (deep) femoral vein, femoral vein, popliteal vein, peroneal v ein, posterior tibial veins, gastrocnemius vein, and greater saphenous vein are patent. The left common femoral vein, profunda femoral vein, femoral vein, popliteal vein, peroneal vein, pos terior tibial veins, gastrocnemius vein, and greater saphenous vein are patent. IMPRESSION: 1. Patent bilateral lower extremity veins. No evidence of deep venous thrombosis. Reviewed, dictated and finalized at location K. IMPRESSION: 1. Patent bilateral lower extremity veins. No evidence of deep venous thrombos is.
--- NOTE | 2022-02-24 14:09 | ECG_ITS ---
Measurements Intervals [place] Rate: 88 P: 48 ME: 158 QRS: 33 QRSD: 84 T: 42 QT: 347 QTc: 421 Interpretive Statements SINUS RHYTHM WITH SINUS ARRHYTHMIA BASELINE ARTIFACT- I, III, AVL, V2-V6 NORMAL ECG Electronically Signed On 02-24-2022 22:36:44 CDT by Oli Marshall D.O.
--- NOTE | 2022-02-24 14:15 | ED.SOB ---
HPI - SOB/Dyspnea General Chief Complaint: Shortness of Breath/Dyspnea Stated Complaint: chest pain, dyspnea mitral valve prolapse and 30wk Time Seen by Provider: 02/24/22 14:15 History of Present Illness HPI Narrative: The patient is a 27-year-old female G3, P2 currently 30 weeks presenting to the emergency department for evaluation of shortness of breath and palpitations. Patient reports that she has had palpitations that she noticed while at work today. 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 Patient denies any rhinorrhea, congestion, cough or hemoptysis. She denies any chest or pleuritic pain. Denies any abdominal pain, cramping, vaginal bleeding or loss of fluids she denies flank pain, dysuria or hematuria. She denies leg swelling or calf pain. She denies recent long car or air travel, history of DVT or coagulopathy. This has been complicated by episodes of hypoglycemia. Related Data Home Medications Medication Instructions Recorded Confirmed norgestimate 0.25 mg-ethinyl 1 tablet PO DAILY 12/09/21 12/09/21 estradiol 35 mcg tablet (Sprintec (28)) [id number] 1 mg tablet PO 02/24/22 tablet Allergies Allergy/AdvReac Type Severity Reaction Status Date / Time No Known Allergies Allergy Verified 02/24/22 14:20 Review of Systems Review of Systems: CONSTITUTIONAL: Denies fever, chills, or sweats. ENT: Denies rhinorrhea, congestion, sore throat, or otalgia. CARDIOVASCULAR: Denies chest pain, palpitations, or edema. RESPIRATORY: Denies cough, reports dyspnea although states it is improved currently GASTROINTESTINAL: Denies abdominal pain, nausea, vomiting, or diarrhea. GENITOURINARY: Denies dysuria or hematuria. SKIN: Denies rash or itching. MUSCULOSKELETAL: Denies back pain, joint pain, or myalgia. NEUROLOGIC: Denies headache, numbness, or weakness. [facility] Past Medical History Medical History 2, currently Murmur Scoliosis STD (female) Surgical History Surgical History No pertinent past surgical history Family History Family History Mother Congestive heart failure Glaucoma Father Leukemia Social History Social History Smoking status: Never smoker Alcohol intake: never Substance use: never Gender identity (if verbalized by the patient): Female Spiritual care concerns: No Exam Narrative: GENERAL: Awake, alert, conversant HEAD: Normocephalic, atraumatic. EYES: PERRLA and EOMI. ENT: Nares clear, no rhinorrhea or epistaxis. Mucous membranes moist. NECK: Supple. CHEST: Mild tachypnea, no respiratory distress, breathing even and non labored, lungs are clear to auscultation bilaterally HEART: Regular rate, sinus rhythm ABDOMEN:Non distended, fundus is palpable above the umbilicus, consistent with 30-week , patient without abdominal tenderness throughout EXTREMITIES: Normal range of motion. No edema. SKIN: Warm, dry, no rash. NEURO:No focal deficits. Alert and oriented x3 Course Vital Signs Vital signs: Vital Signs Pulse Rate 99 02/24/22 14:08 Respiratory Rate 26 H 02/24/22 14:08 Temperature 36.5 C 02/24/22 14:10 Pulse Rate 101 H 02/24/22 16:31 Respiratory Rate 28 H 02/24/22 16:31 Blood Pressure 116/82 02/24/22 16:31 Pulse Oximetry 98 02/24/22 16:31 Oxygen Delivery Room Air 02/24/22 14:18 MDM - SOB/Dyspnea MDM Narrative Medical decision making narrative: Patient is a 27-year-old female presenting to the emergency department for evaluation of shortness of breath. At the time of assessment, ABCs are intact and vital signs are stable. Patient does not appear fluid overloaded, she is in no acute distress, and she is oxy
[2022-02-24 14:37] LABS: Basophils Percent Auto 0.3 % (0.2-1.2); Eosinophils Absolute Auto 0.2 K/mm3 (0-0.3); Eosinophils Percent Auto 1.9 % (0-4.4); Hematocrit 34.8 % (37.0-47.0); Hemoglobin 11.1 g/dL (12.0-15.0); Immature Granulocyte Absolute 0.06 K/mm3 (0.00-0.031); Immature Granulocyte Percent A 0.8 % (0-0.5); Lymphocytes Percent Auto 22.5 % (18.3-44.2); Mean Corpuscular HGB Conc 31.9 g/dl (32-36); Mean Corpuscular Hemoglobin 29.5 pg (26-34); Mean Corpuscular Volume 92.6 fl (80-100); Mean Platelet Volume 11.5 fl (7.4-10.4); Monocytes Absolute Auto 0.5 K/mm3 (0.1-0.6); Monocytes Percent Auto 6.8 % (2.6-8.5); Neutrophils Absolute Auto 5.4 K/mm3 (1.3-6.7); Neutrophils Percent Auto 67.7 % (45.5-73.1); Platelet Count Result 158 k/mm3 (150-375); Red Blood Count 3.76 M/mm3 (4.2-5.4); Red Cell Distribution Width 13.3 % (11.5-14.5)
[2022-02-24 14:45] LABS: Alanine Aminotransferase 9 U/L (6-35); Albumin Level 3.8 g/dL (3.5-5.1); Alkaline Phosphatase 85 U/L (38-126); Anion Gap 4 mmol/L (8-16); Aspartate Amino Transferase 20 U/L (14-36); Bilirubin,Total 0.2 mg/dL (0.2-1.3); Blood Urea Nitrogen 5 mg/dL (7-17); Calcium 8.8 mg/dL (8.4-10.2); Carbon Dioxide 24 mmol/L (22-30); Chloride 105 mmol/L (98-107); Estimated CRCL calculation 150 ml/min; Estimated Glomerular Filt Rate > 60; Glucose 83 mg/dL (65-110); Potassium 3.6 mmol/L (3.4-5.0); Sodium 133 mmol/L (137-145)
[2022-02-24 14:46] LABS: Prothrombin Time 13.2 Seconds (11.1-14.7)
[2022-02-24 14:47] LABS: Partial Thromboplastin Time 26.5 SECONDS (22.3-36.8)
[2022-02-24 14:51] LABS: Add Urine Microscopic? NO; Appearance Urine Clear (Clear); Bilirubin Urine Negative (Negative); Blood Urine Negative (Negative); Color Urine Yellow (Yellow); Glucose Urine UA Negative (Negative); Ketones Urine Negative (Negative); Leukocyte Esterase Ur Negative LEU/UL (Negative); Nitrate Urine Negative (Negative); Protein Urine Negative (Negative); Specific Grav Ur 1.025 (1.001-1.035); Urobilinogen Urine 0.2 mg/dL (<2.0)
[2022-02-24 14:52] LABS: D Dimer 1.17 ug/mL (<0.48)
[2022-02-24 14:57] LABS: Troponin I < 0.012 ng/mL (0.000-0.034)
[2022-02-24 15:18] LABS: SARS-CoV-2 RNA PCR Negative
[2022-02-24 15:44] LABS: NT Pro B Type Natriuretic Pept < 11 pg/mL (5-100)
--- NOTE | 2022-03-08 13:55 | HOLTER_ITS ---
ATTENTION: Please disregard results of this Holter monitor as they do not apply to this patient. This report was mistakenly merged with the wrong patient. This report was moved to the correct visit on 03/09/22. Original report was signed by Juan C Reddy MD 03/08/22 [id number]. Holter/Event Monitor Holter/Event Monitor Date of procedure: 03/08/22 Holter/Event Procedure: 24 Hr Holter Monitor Diagnosis: Palpitations Indications: Palpitations Image/Tracing Quality: Acceptable Finding: This is a 24 hour Holter monitor which underlying rhythm was sinus with an average heart rate of 84 beats per minute minimum of 60 beats per minute occurring at 3:12 a.m. and maximum 118 beats per minute occurring at 12:[address] interval and QRS duration are within normal limits. S no prolonged pauses or high-grade AV blocks appreciated. Very rare ventricular ectopy with 2 isolated premature atrial contractions identified. Very rare supraventricular ectopy with only 4 premature atrial contractions identified. No atrial fibrillation, atrial flutter, or other SVT noted. No symptoms returned in conjunction with this study. Conclusion: Underlying sinus rhythm with rare PVCs and PACs without associated symptoms. No SVT, atrial fibrillation, and or atrial flutter noted. Otherwise, fairly unremarkable study. This dictation may have been done utilizing a voice recognition system. Attempts have been made to correct errors. However, there may be uncorrected grammatical, spelling, and recognition errors present. Report Initialized date/time: Juan C Reddy MD 03/08/22 0049 Electronically signed by: Juan C Reddy MD 03/08/22 1900 [facility]
--- NOTE | 2022-03-12 15:40 | P.PCNHOL_ITS ---
Holter/Event Monitor Holter/Event Monitor Date of procedure: 03/12/22 Holter/Event Procedure: 24 Hr Holter Monitor Diagnosis: Palpitations Indications: Palpitations Image/Tracing Quality: Acceptable Finding: Underlying rhythm is sinus and sinus tachycardia with an elevated average heart rate of 101 beats per minute minimum of 64 beats per minute occurring at 5:54 a.m. and maximum 156 beats per minute occurring at 2:05 p.m.. Is no ventricular ectopy noted throughout the study. There was very rare supraventricular ectopy in which 1 atrial pair was identified. There were no prolonged pauses, high- grade AV blocks, atrial fibrillation or atrial flutter observed. No symptoms returned in conjunction with this study. Conclusion: Underlying sinus rhythm and sinus tachycardia with an elevated average heart rate but without SVT, atrial fibrillation, atrial flutter pauses. No ventricular ectopy and only 1 atrial pair identified. No symptoms returned. Clinical correlation advised.
== END 2022-02-24 17:23 | disposition home or self-care (01) ==
PROVIDERS: Emergency Provider Emergency Medicine; PCP Family Medicine
DX: O26.893 Other specified pregnancy related conditions, third trimester (principal); R00.2 Palpitations; R06.00 Dyspnea, unspecified; Z20.822 Contact with and (suspected) exposure to COVID-19; Z3A.30 30 weeks gestation of pregnancy
CPT/HCPCS: 36415; 71275; 80053; 81003; 83880; 84443; 84484; 85025; 85380; 85610; 85730; 93005; 93225; 93226; 93970; 99284; C9803; Q9967; U0003; U0005

== ENCOUNTER 2022-03-15 20:36 | Observation (INO) | payer OTHER, SELFPAY ==
[2022-03-15 20:57] VITALS: BP 106/63; PULSE 83
[2022-03-15 21:00] VITALS: BP 112/67; PULSE 90; BMI 27.0
[2022-03-15 21:15] VITALS: BP 108/65; PULSE 89
[2022-03-15 21:15] LABS: Appearance Urine Slightly Cloudy (Clear); Bilirubin Urine Negative (Negative); Blood Urine Negative (Negative); Color Urine Yellow (Yellow); Glucose Urine UA Negative (Negative); Ketones Urine Negative (Negative); Leukocyte Esterase Ur Negative LEU/UL (Negative); Nitrate Urine Negative (Negative); Protein Urine Negative (Negative); Specific Grav Ur 1.025 (1.001-1.035); Urobilinogen Urine 0.2 mg/dL (<2.0)
[2022-03-15 21:22] LABS: Bacteria Urine Trace /hpf; Mucus Urine Rare /lpf; RBC Urine 0-2 /hpf (0-2); Squamous Epithelial Cell Urine Occasional /hpf (Few); WBC Urine 0-3 /hpf
[2022-03-15 21:27] LABS: Add Urine Microscopic? YES
[2022-03-15 21:30] VITALS: BP 107/72; PULSE 146
--- NOTE | 2022-03-28 17:54 | PM.OBTRLD ---
OB - Triage/Final Diagnosis Visit Information Comments/Additional reasons for admission: I have assessed the risk for this patient, Blanka Gooden, and determined that she would benefit from observation care. Evaluation Laboratory results: Laboratory Tests 03/15/22 21:05 Urine Color Yellow Urine Appearance Slightly cloudy Urine pH 7.0 Ur Specific [place] 1.025 Urine Protein Negative Urine Glucose (UA) Negative Urine Ketones Negative Ur Blood (Man) Negative Urine Nitrate Negative Urine Bilirubin Negative Urine Urobilinogen 0.2 Leukocyte Esterase Rfl Negative Urine RBC 0-2 Urine WBC 0-3 Ur Squamous Epith Cells Occasional Urine Bacteria Trace Urine Mucus Rare Final Diagnosis (1) False labor: Code(s): O47.9 - False labor, unspecified Status: Acute
== END 2022-03-15 21:52 | disposition home or self-care (01) ==
PROVIDERS: Admitting Provider Obstetrics & Gynecology; PCP Family Medicine; Visit Provider Obstetrics & Gynecology
DX: O47.03 False labor before 37 completed weeks of gestation, third trimester (principal); Z3A.32 32 weeks gestation of pregnancy
CPT/HCPCS: 81001; G0378; G0379

== ENCOUNTER 2022-03-18 12:31 | Outpatient (CLI) | payer OTHER, SELFPAY ==
--- NOTE | 2022-03-08 13:53 | WPDHOLTEREM ---
Holter/Event Monitor Holter/Event Monitor Date of procedure: 03/08/22 Holter/Event Procedure: 24 Hr Holter Monitor Diagnosis: Palpitations Indications: Palpitations Image/Tracing Quality: Acceptable Finding: This is a 24 hour Holter monitor which underlying rhythm was sinus with an average heart rate of 84 beats per minute minimum of 60 beats per minute occurring at 3:12 a.m. and maximum 118 beats per minute occurring at 12:15 p.m.. SD interval and QRS duration are within normal limits. S no prolonged pauses or high-grade AV blocks appreciated. Very rare ventricular ectopy with 2 isolated premature atrial contractions identified. Very rare supraventricular ectopy with only 4 premature atrial contractions identified. No atrial fibrillation, atrial flutter, or other SVT noted. No symptoms returned in conjunction with this study. Conclusion: Underlying sinus rhythm with rare PVCs and PACs without associated symptoms. No SVT, atrial fibrillation, and or atrial flutter noted. Otherwise, fairly unremarkable study.
--- NOTE | 2022-03-18 | ECHO_ITS ---
Patient Info Name: Blanka Gooden Age: 27 years : 1995 Gender: Female Ht: 69 in Wt: 183 lbs BSA: 2.03 m2 HR: 81 bpm BP: 111 / 81 mmHg Heart Rhythm: Sinus Rhythm Technical Quality: Good Exam Date: 03/18/2022 12:59 PM Exam Location: [facility] Patient Status: Outpatient Admit Date: 03/18/2022 Staff Ordering Physician: Beau Meraz MD Powder Core Tester: Evelyn Valdivia RDCS Attending Provider: Beau Meraz MD Referring Physician: Kt GARCIA; Exam Type: CA echo doppler color flow Study Info Indications I34.1 - Nonrheumatic mitral (valve) prolapse Complete two-dimensional, color flow and Doppler transthoracic echocardiogram is performed. Summary 1. Complete two-dimensional, color flow and Doppler transthoracic echocardiogram is performed. 2. Normal left ventricular size and thickness with good contractility of all segments. Ejection fraction greater than 70%. Mild decrease in global longitudinal strain of-16% which may represent early systolic dysfunction. 3. Some flattening of the anterior mitral valve leaflet; borderline for mitral valve prolapse. 4. Trace mitral, tricuspid and pulmonic insufficiency. 5. Mild left atrial enlargement. 6. Normal sinus rhythm. Left Ventricle Left ventricular chamber dimension is normal. Left ventricular systolic function is normal, estimated at >70%. There is no increased left ventricular wall thickness. Left ventricular septal wall motion is normal. The left ventricular diastolic function is grade II diastolic dysfunction. Global longitudinal strain is mildly elevated at -16 %. Right Ventricle Right ventricular chamber dimension is normal. Right ventricular systolic function is normal. Left Atria Left atrial chamber dimension is mildly enlarged. Right Atria Right atrial chamber dimension is normal. Aortic Valve The aortic valve is trileaflet. There is no aortic valve sclerosis. There is no aortic valve stenosis. There is no aortic valve regurgitation. Pulmonic Valve The pulmonic valve is normal. There is no pulmonic valve stenosis. There is no pulmonic regurgitation. Mitral Valve The mitral valve has normal leaflets. There is no mitral valve stenosis. There is trace mitral valve regurgitation. Tricuspid Valve The tricuspid valve leaflets are normal. There is no significant tricuspid valve stenosis. There is trace tricuspid valve regurgitation. No pulmonary hypertension, estimated pulmonary arterial systolic pressure is 28 mmHg. Pericardium/Pleural The pericardium appears normal. There is no pericardial effusion. Inferior Vena Cava Normal inferior vena cava with >50% collapse upon inspiration consistent with Empty right atrial pressure, 10 mmHg. Aorta The aortic root size at the sinus of Valsalva is normal. The prox ascending aorta size is normal. Left Ventricular Outflow Tract Name Value Normal LVOT 2D LVOT Diameter 1.9 cm LVOT Doppler LVOT Peak Gradient 4 mmHg LVOT Mean Gradient 3 mmHg LVOT VTI 21 cm LVOT VTI/
== END 2022-03-18 12:32 | disposition home or self-care (01) ==
LOC: ANHCARD 12:33
PROVIDERS: PCP Family Medicine; Visit Provider Obstetrics & Gynecology
DX: I34.1 Nonrheumatic mitral (valve) prolapse (principal)
CPT/HCPCS: 93306

== ENCOUNTER 2022-03-25 10:18 | Outpatient (CLI) | payer OTHER, SELFPAY ==
[2022-03-25 10:36] VITALS: BP 116/70; PULSE 87
[2022-03-25 10:45] VITALS: BP 107/70; PULSE 84
[2022-03-25 11:00] VITALS: BP 108/71; PULSE 90
== END 2022-03-25 11:30 | disposition home or self-care (01) ==
LOC: ANHOBOP 10:22 → ANHOBPP 10:23
PROVIDERS: PCP Family Medicine; Visit Provider Advanced Practice Midwife
DX: O42.90 Premature rupture of membranes, unspecified as to length of time between rupture and onset of labor, unspecified weeks of gestation (principal); Z3A.00 Weeks of gestation of pregnancy not specified
CPT/HCPCS: 84112; 99199

== ENCOUNTER 2022-04-08 17:27 | Emergency (ER) | payer OTHER, SELFPAY ==
[2022-04-08 17:35] VITALS: BP 120/69; PULSE 113; RESP 18; TEMP 36.8; O2SAT 100
--- NOTE | 2022-04-08 18:30 | ED.EAR ---
HPI - Ear Problem General Chief complaint: Ear Stated complaint: ear infection Time Seen by Provider: 04/08/22 18:10 Source: patient, RN notes reviewed and old records reviewed Mode of arrival: ambulatory Limitations: no limitations History of Present Illness HPI Narrative: 27-year-old female who presents to [facility] care with complaints of pain to her ear since last evening. Patient reports that her hearing is decreased to her right ear also. Patient denies any fevers chills or sweats. Patient reports that she has taken some Tylenol for her discomfort. Patient is and is due with 2nd child on May 06. Patient denies any other complaints of illness MD Complaint: ear pain Location: right ear Severity: moderate (7/10) Discharge from ear: Reports no Treatment prior to arrival: oral analgesic (tylenol) Related Data Home Medications Medication Instructions Recorded Confirmed [id number] 1 mg tablet PO 02/24/22 tablet Allergies Allergy/AdvReac Type Severity Reaction Status Date / Time No Known Allergies Allergy Verified 04/08/22 17:42 Review of Systems Review of Systems: CONSTITUTIONAL: Denies fever, chills, or sweats. EYES: Denies visual changes, redness, or discharge. ENT: Denies rhinorrhea, congestion, sore throat, right ear pain with decreased hearing CARDIOVASCULAR: Denies chest pain, palpitations, or edema. RESPIRATORY: Denies cough or dyspnea. GASTROINTESTINAL: Denies abdominal pain, nausea, vomiting, or diarrhea. GENITOURINARY: Denies dysuria or hematuria. SKIN: Denies rash or itching. MUSCULOSKELETAL: Denies back pain, joint pain, or myalgia. NEUROLOGIC: Denies headache, numbness, or weakness. PSYCHIATRIC: Denies anxiety or depression. All systems reviewed & are unremarkable except as noted in HPI and below PMFSH Past Medical History Medical History 2, currently Murmur Scoliosis STD (female) Surgical History Surgical History No pertinent past surgical history Family History Family History Mother Congestive heart failure Glaucoma Father Leukemia Social History Social History Smoking status: Never smoker Alcohol intake: never Substance use: never Gender identity (if verbalized by the patient): Female Spiritual care concerns: No Comments At time of signature, agree with nursing past medical, surgical, social and family history. There is no relevant family history pertinent to the presenting complaint Exam Narrative: GENERAL: Well-appearing, well-nourished, and in no acute distress. HEAD: Normocephalic, atraumatic. EYES: PERRLA and EOMI. ENT: Nares clear, no rhinorrhea or epistaxis. Mucous membranes moist.Right TM normal with ear canal red and excoriated,Left TM normal, throat pink with no lesions or exudates or tonsil swelling NECK: Supple. no lymphadenopathy CHEST: Clear to auscultation. No respiratory distress. SAO2 100% on room air HEART: Regular rate and rhythm. No murmur heard. Normal peripheral pulses. ABDOMEN: Soft, nontender, nondistended, normal active bowel sounds. EXTREMITIES: Normal range of motion. No edema. SKIN: Warm, dry, no rash. NEURO: No focal deficits. Alert and oriented x3. Course Course Level of Care: Express Care Visit Vital Signs Vital signs: Vital Signs Temperature 36.8 C 04/08/22 17:35 Pulse Rate 113 H 04/08/22 17:35 Respiratory Rate 18 04/08/22 17:35 Blood Pressure 120/69 04/08/22 17:35 Pulse Oximetry 100 04/08/22 17:35 Oxygen Delivery Room Air 04/08/22 17:35 Temperature 36.8 C 04/08/22 17:35 Pulse Rate 113 H 04/08/22 17:35 Respiratory Rate 18 04/08/22 17:35 Blood Pressure 120/69 04/08/22 17:35 Pulse Oximetry 100 04/08/22 17:35 Oxygen Delive
== END 2022-04-08 18:53 | disposition home or self-care (01) ==
PROVIDERS: Emergency Provider Registered Nurse; PCP Family Medicine
DX: O99.891 Other specified diseases and conditions complicating pregnancy (principal); Z3A.00 Weeks of gestation of pregnancy not specified; H60.501 Unspecified acute noninfective otitis externa, right ear
CPT/HCPCS: 99213; G0463

== ENCOUNTER 2022-04-13 11:36 | Outpatient (CLI) | payer OTHER, SELFPAY ==
[2022-04-13 12:30] VITALS: BP 108/71; PULSE 86
[2022-04-13 12:59] VITALS: BP 113/80; PULSE 80
== END 2022-04-13 13:05 | disposition home or self-care (01) ==
LOC: ANHOBOP 12:21 → ANHLDR 12:22
PROVIDERS: PCP Family Medicine; Visit Provider Obstetrics & Gynecology
DX: O42.913 Preterm premature rupture of membranes, unspecified as to length of time between rupture and onset of labor, third trimester (principal); Z3A.36 36 weeks gestation of pregnancy
CPT/HCPCS: 59025; 84112; 99199

== ENCOUNTER 2022-04-14 08:16 | Inpatient (IN) | payer OTHER, SELFPAY ==
[2022-04-14] VITALS (37 sets, daily range): BP systolic 91–139; BP diastolic 30–96; PULSE 55–125; RESP 16–18; TEMP 36.4–37.2; O2SAT 78–100; BMI 27.8
--- OUTSIDE RECORDS SUMMARY | 2022-04-14 08:44 | XMS_ITS | Encounter Summary ---
:1995 Author Care Team Providers Name Role Phone Leeroy Romero MD Primary Care Provider [phone] Reason for Visit OB visit Assessment and Plan Assessment Note Patient is ___weeks . Discussed plan. 1. Routine care Discussion Note: None recorded.Patient educational handouts: No information available. Plan of Care Reminders Provider Appointments None recorded. ? ? Lab None recorded. ? ? Referral None recorded. ? ? Procedures None recorded. ? ? Surgeries None recorded. ? ? Imaging None recorded. ? ? Medications None recorded. Medications Administered None recorded. Vitals Height Weight BMI Blood Pressure 5 ft 7 in 182 lbs 28.5 kg/m2 104/70 mm[Hg] Results Lab Results None recorded. Allergies Code Code System Name Reaction Severity Onset NKDA ? ? ? Problems Name Status Onset Date Source ? Active 02/11/2022 ? Procedures Date Name Performed by ? 02/16/2022 US, Echocardiogram, Transthoracic, [facility] (Cardiology & Emg) Complete, W/ Color Flow [address] [place] [address] ([address]) 03/11/2022 Non-stress Test [place] [address] [place] [address] (Work [address]) Vaccine List None recorded. Social History Tobacco Smoking Status Never Smok
--- OUTSIDE RECORDS SUMMARY | 2022-04-14 08:44 | XMS_ITS ---
:1995 Author Care Team Providers Name Role Phone RODERICK ESTEVEZ MD Primary Care Provider [phone] Allergies Code Code System Name Reaction Severity Status Onset NKDA ? Medications Name Status Start Date Stop Date ? ? alprazolam 0.25 mg tablet Completed ? 2020 amoxicillin 875 mg tablet Completed ? 2020 TAKE 1 TABLET BY MOUTH TWICE DAILY UNTIL GONE azithromycin 500 mg tablet Completed ? 11/17 TAKE 2 TABLETS BY MOUTH A ONE TIME DOSE buspirone 7.5 mg tablet Completed ? 04/29/20 21 TAKE 1 TABLET BY MOUTH TWICE DAILY ceftriaxone 500 mg solution for injection Completed ? 10/24/2021 Take 500 mg by injection route as directed. chlorhexidine gluconate 0.12 % mouthwash Completed ? 11/17/2020 RINSE WITH ONE CAPFUL FOR ONE MINUTE AN D SPIT USE TWICE DAILY AFTER BRUSHING AND FLOSSING . Diflucan 200 mg tablet Active ? Not avail able Take 1 tablet every other day x 3 doses. doxycycline hyclate 100 mg tablet Active ? Not available Take 1 tablet twice a day by oral route with meals for 7 days. Euthyrox 25 mcg tablet Active ? Not avail able hydrocodone 5 mg-acetaminophen 325 mg tablet Completed ? 08/26/2020 TAKE 1 TO 2 TABLETS BY MOUTH EVERY 4 TO 6 HOURS NEEDED FOR PAIN WITH A MAX OF 8 TABLETS PER DAY ibuprofen 800 mg tablet Completed ? 08/26/19 21 TAKE 1 TABLET BY MOUTH EVERY 8 HOURS NEEDED FOR PAIN Celestine Fe 08/27 (28) 1 mg-20 mcg (21)/75 mg (7) tablet Active ? Not available TAKE 1 TABLET BY MOUTH ONCE DAILY levothyroxine Completed ? 09/23/2021
--- OUTSIDE RECORDS SUMMARY | 2022-04-14 08:44 | XMS_ITS ---
:1995 Author Care Team Providers Name Role Phone Johanna Vasquez Primary Care Provider Unavailable Allergies Code Code System Name Reaction Severity Status Onset NKDA ? Medications Name Status Start Date Stop Date ? ? acetaminophen 300 mg-codeine 30 mg tablet Completed ? 10/24/2021 amoxicillin 500 mg capsule Completed ? 10/24 cephalexin 500 mg tablet Completed ? 022 TAKE 1 TABLET BY MOUTH EVERY 6 HOURS citalopram 20 mg tablet Completed ? 10/25/19 22 Depo-Provera 150 mg/mL intramuscular suspension Completed 07/13/2019 08/23/2020 inject 1 milliliter (150 mg) by intramuscular route q 3 months doxycycline monohydrate 100 mg capsule Completed 11/29/2020 1 capsule(or tab) po bid for 7 days and may substitute any form of doxycycline and take this 3-4 days after iud insertion estradiol 1 mg tablet Completed 08/23/2020 11/29/2020 take 1 tablet (1 mg) po bid for 5 days as needed for abnormal b leeding fluconazole 150 mg tablet Completed ? 2021 hydrocodone 5 mg-acetaminophen 325 mg tablet Completed ? 10/24/2021 TAKE 1 TO 2 TABLETS BY MOUTH EVERY 6 HOURS NEEDED FOR PAIN hydrocortisone 2.5 % topical ointment Completed 08/23/2020 11/29/2020 apply a thin layer to the affected area(s) by topical route 4 t imes per day ibuprofen 600 mg tablet Active ? Not avai lable ibuprofen 800 mg tablet Completed ? 10/25/19 TAKE 1 TABLET BY MOUTH EVERY 8 HOURS NEEDED Kyleena 17.5 mcg/24 hrs (5yrs) 19.5mg Completed 07/08/2020 05/30/2021 intrauterine device Lidocaine Viscous 2 % mucosal solution Completed ? 10/24/2021 GARGLE AND SPIT 5-10ML BY MOUTH 4 TIMES DAILY
--- OUTSIDE RECORDS SUMMARY | 2022-04-14 08:44 | XMS_ITS | Encounter Summary ---
:1995 Author Care Team Providers Name Role Phone Leeroy Romero MD Primary Care Provider [phone] Reason for Visit vaginal infection Pt is here today c/o vaginal discharge w baylee in color, fishy odor./ discuss bc options forgets to take bcp. Assessment and Plan 1. Vaginitis Suspect BV on exam but will send STD sc reening since voicing a new sexual partner. Yeast prevention sent Recommend [facility]CG's Call if sx's continue Will portal results Time spent in visit is a total of 15 min s with at least 50% of visit consisting of counseling and review of plan of care. ? Diflucan 200 mg tablet ? metronidazole 0.75 % (37.5 mg/5 gram) vaginal gel Discussion Note: None recorded.Patient educational handouts: No information available. Plan of Care Reminders Provider Appointments Test of Cure 05/28/2022 10:15AM Izabel tillman [facility]- Lab None recorded. ? ? Referral None recorded. ? ? Procedures None recorded. ? ? Surgeries None recorded. ? ? Imaging None recorded. ? ? Medications Name Start Date ? ? Diflucan 200 mg tablet ? Take 1 tablet every other day x 3 doses. doxycycline hyclate 100 mg tablet ? Take 1 tablet twice a day by oral route with meals fo r 7 days. Euthyrox 25 mcg tablet ? TAKE 1 TABLET BY MOUTH ONCE DAILY Celestine Fe 08/27 (28) 1 mg-20 mcg (21)/75 mg (7) tablet ? TAKE 1 TABLET BY MOUTH ONCE DAILY metronidazole 0.75 % (37.5 mg/5 gram) vaginal gel ? Insert 1 applicatorful every day by
--- OUTSIDE RECORDS SUMMARY | 2022-04-14 08:44 | XMS_ITS | Encounter Summary ---
:1995 Author Care Team Providers Name Role Phone Leeroy Romero MD Primary Care Provider [phone] Reason for Visit None recorded. Assessment and Plan 1. Reduced movement ? non-stress test Discussion Note: None recorded.Patient educational handouts: No information available. Plan of Care Reminders Provider Appointments None recorded. ? ? Lab None recorded. ? ? Referral None recorded. ? ? Procedures None recorded. ? ? Surgeries None recorded. ? ? Imaging Non-stress Test 03/11/2022 [place] Medications None recorded. Medications Administered None recorded. Vitals None recorded. Results Lab Results None recorded. Allergies Code Code System Name Reaction Severity Onset NKDA ? ? ? Problems Name Status Onset Date Source ? Active 02/11/2022 ? Procedures Date Name Performed by ? 02/16/2022 US, Echocardiogram, Transthoracic, [facility] (Cardiology & Em[facility]) Complete, W/ Color Flow [address] [place] [address] (Work Place) 03/11/2022 Non-stress Test [place] [address] [place] [address] (Work Place) Vaccine List None recorded. Social History Tobacco Smoking Status Never Smoker Do you have difficulty walking or climbing N stairs? What type of diet are you following? REGULAR
--- OUTSIDE RECORDS SUMMARY | 2022-04-14 08:44 | XMS_ITS ---
:1995 Author Care Team Providers Name Role Phone RODERICK ESTEVEZ MD Primary Care Provider [phone] Allergies Code Code System Name Reaction Severity Status Onset NKDA ? Medications Name Status Start Date Stop Date ? ? alprazolam 0.25 mg tablet Completed ? 2021 TAKE 1 TABLET BY MOUTH TWICE DAILY amoxicillin 875 mg tablet Completed ? 2020 TAKE 1 TABLET BY MOUTH TWICE DAILY UNTIL GONE azithromycin 500 mg tablet Completed ? 04/18 Take 2 tablets by oral route at the same time buspirone 7.5 mg tablet Completed ? 03/25/20 22 TAKE 1 TABLET BY MOUTH TWICE DAILY ceftriaxone 500 mg solution for injection Completed ? 02/11/2022 TAKE 500 MG BY INJECTION ROUTE DIRECTED chlorhexidine gluconate 0.12 % mouthwash Completed ? 08/26/2020 RINSE WITH ONE CAPFUL FOR ONE MINUTE AN D SPIT USE TWICE DAILY AFTER BRUSHING AND FLOSSING . doxycycline hyclate 100 mg tablet Completed ? 02/11/2022 TAKE 1 TABLET BY MOUTH TWICE DAILY DIRECTED FOR 7 DAYS Euthyrox 25 mcg tablet Completed ? 2 TAKE 1 TABLET BY MOUTH ONCE DAILY fluconazole 200 mg tablet Completed ? 2021 TAKE 1 TABLET BY MOUTH EVERY OTHER DAY FOR 3 DOSES hydrocodone 5 mg-acetaminophen 325 mg tablet Completed ? 08/26/2020 TAKE 1 TO 2 TABLETS BY MOUTH EVERY 4 TO 6 HOURS NEEDED FOR PAIN WITH A MAX OF 8 TABLETS PER DAY ibuprofen 800 mg tablet Completed ? 03/25/20 22 TAKE 1 TABLET BY MOUTH EVERY 8 HOURS NEEDED FOR PAIN Celestine Fe 08/27 (28) 1 mg-20 mcg (21)/75 mg (7) tablet Completed ? 02/11/2022
--- OUTSIDE RECORDS SUMMARY | 2022-04-14 08:44 | XMS_ITS | Encounter Summary ---
:1995 Author Care Team Providers Name Role Phone Leeroy Romero MD Primary Care Provider [phone] Reason for Visit OB visit OB [id number] EDC 05/06/2022 LMP 07/26/2021 Assessment and Plan 1. Routine care Discussion Note: None recorded.Patient [...] ? Procedures Date Name Performed by ? 03/11/2022 Non-stress Test [place] [address] [place] [address] (Work Place) Vaccine List None recorded. Social History Tobacco Smoking Status Never Smoker Do you have difficulty walking or climbing N stairs? What type of diet are you following? REGULAR Are you able to walk? YESWOREST Are you able to care for yourself? Y Are you blind or do you have difficulty seeing? N
--- OUTSIDE RECORDS SUMMARY | 2022-04-14 08:44 | XMS_ITS | Encounter Summary ---
:1995 Author Care Team Providers Name Role Phone Leeroy Romero MD Primary Care Provider [phone] Reason for Visit pt here c/o having discharge after being with a new partner. wants to be checked Assessment and Plan Assessment Note Gonorrhea, Chlamydia, and trichomonas d one HIV, Hep B and C, RPR not done per patie nt request Encouraged condoms, discussed possible s equelae of STD infections including PID, infertility, acute or chronic pelvic pain continue OCP Will call office if no improvement in sy mptoms Will call if results abnormal, will be o n portal. [facility] due in Apr 08. Venereal disease screening 2. Vaginal discharge Discussion Note: None recorded.Patient educational handouts: No information available. Plan of Care Reminders Provider Appointments Test of Cure 05/28/2022 10:15AM Izabel tillman [facility] Lab None recorded. ? ? Referral None [...] ? Insert 1 applicatorful every day by vaginal route at bedtime for 5 days. Medications Administered None recorded. Vitals
--- OUTSIDE RECORDS SUMMARY | 2022-04-14 08:44 | XMS_ITS | Encounter Summary ---
:1995 Author Care Team Providers Name Role Phone Leeroy Romero MD Primary Care Provider [phone] Reason for Visit new OB Assessment and Plan 1. Routine care Discussion [...] BMI Blood Pressure 5 ft 7 in 180 lbs 28.2 kg/m2 116/76 mm[Hg] Results Lab Results None recorded. Allergies Code Code System Name Reaction Severity Onset NKDA ? ? ? Problems Name Status Onset Date Source ? Active 02/11/2022 ? Procedures None recorded. Vaccine List None recorded. Social History Tobacco Smoking Status Never Smoker Do you have difficulty walking or climbing N stairs? What type of diet are you following? REGULAR Are you able to walk? YESWOREST Are you able to care for yourself? Y Are you blind or do you have difficulty seeing? N Do you have smoke and carbon monoxide detectors Y in your home? In the 14 days before symptom onset, have you N had close contact with a person who is under investigation for COVID-19 while that person was ill?
--- NOTE | 2022-04-14 08:55 | LDADM ---
This patient, Blanka Gooden, was admitted to Labor/Delivery/Recovery 105 on 04/14/22 at 08:16. Plans for labor, pain management and were discussed with patient. Patient/family oriented to hospital policies and general routines including ID bracelet, bed and alarms, visiting hours, pain management, procedures, bathroom and other care routines, personal items, smoking policy, room service/diet and guest tray routines, security routines, and visiting hours. Patient/Family are encouraged to report perceived risks to care and to ask questions if they do not understand what they are told or what they should do. See [facility]BI[facility] for further documentation.
[2022-04-14] MEDS: LACTATED RINGERS 1,000 ML 125 ML IV CONT (09:05)
[2022-04-14 09:08] LABS: Basophils Percent Auto 0.1 % (0.2-1.2); Eosinophils Absolute Auto 0.1 K/mm3 (0-0.3); Hematocrit 35.9 % (37.0-47.0); Hemoglobin 11.7 g/dL (12.0-15.0); Immature Granulocyte Absolute 0.04 K/mm3 (0.00-0.031); Immature Granulocyte Percent A 0.5 % (0-0.5); Lymphocytes Absolute Auto 1.72 K/mm3 (0.9-3.2); Lymphocytes Percent Auto 20.7 % (18.3-44.2); Mean Corpuscular HGB Conc 32.6 g/dl (32-36); Mean Corpuscular Hemoglobin 29.5 pg (26-34); Mean Corpuscular Volume 90.7 fl (80-100); Mean Platelet Volume 11.9 fl (7.4-10.4); Monocytes Absolute Auto 0.4 K/mm3 (0.1-0.6); Monocytes Percent Auto 5.3 % (2.6-8.5); Neutrophils Percent Auto 72.4 % (45.5-73.1); Platelet Count Result 131 k/mm3 (150-375); Red Blood Count 3.96 M/mm3 (4.2-5.4); Red Cell Distribution Width 13.3 % (11.5-14.5); White Blood Count 8.3 K/mm3 (4.5-10.0)
--- NOTE | 2022-04-14 09:23 | WPDANESEPP ---
Anes - Eval Pre Procedure Procedure: labor pain management Date/Time: 04/14/22 09:23 Surgeon: Kt Preop Diagnosis: pain during labor Pre Op Diagnosis: labor Patient Data Age: 27 Gender: F Height: 1.73 m Weight: 83 kg Last Vital Signs Pulse 100 04/14/22 09:15 BP 130/96 H 04/14/22 09:15 O2 Del Method Room Air 04/14/22 08:53 Allergies Allergy/AdvReac Type Severity Reaction Status Date / Time No Known Allergies Allergy Verified 04/08/22 17:42 Home Medications Medication Instructions Recorded Confirmed Type ezxuauxg-[id number]-[id number]-FA 1 mg 1 tablet PO DAILY 02/24/22 04/14/22 History tablet Laboratory Tests 04/14/22 04/14/22 04/14/22 08:50 08:50 08:50 WBC 8.3 K/mm3 K/mm3 (4.5-10.0) RBC 3.96 M/mm3 L M/mm3 (4.2-5.4) Hgb 11.7 g/dL L g/dL (12.0-15.0) Hct 35.9 % L % (37.0-47.0) MCV 90.7 fl fl (80-100) MCH 29.5 pg pg (26-34) MCHC 32.6 g/dl g/dl (32-36) RDW 13.3 % % (11.5-14.5) Plt Count 131 k/mm3 L k/mm3 (150-375) MPV 11.9 fl H fl (7.4-10.4) Immature Gran % (Auto) 0.5 % % (0-0.5) Neut % (Auto) 72.4 % % (45.5-73.1) Lymph % (Auto) 20.7 % % (18.3-44.2) [place] % (Auto) 5.3 % % (2.6-8.5) Eos % (Auto) 1.0 % % (0-4.4) Baso % (Auto) 0.1 % L % (0.2-1.2) Lymph # (Auto) 1.72 K/mm3 K/mm3 (0.9-3.2) [place] # (Auto) 0.4 K/mm3 K/mm3 (0.1-0.6) Eos # (Auto) 0.1 K/mm3 K/mm3 (0-0.3) Baso # (Auto) 0.0 K/mm3 K/mm3 (0.0-0.1) Abs Immat Gran (auto) 0.04 K/mm3 H K/mm3 (0.00-0.031) Absolute Neuts (auto) 6.0 K/mm3 K/mm3 (1.3-6.7) Absolute Nucleated RBC 0.0 K/mm3 K/mm3 (0.0-0.012) Nucleated RBC % 0.0 % % (0.0-0.2) RPR Pending Hep Bs Antigen Rubella IgG Antibody Pending 04/14/22 08:50 WBC RBC Hgb Hct MCV MCH MCHC RDW Plt Count MPV Immature Gran % (Auto) Neut % (Auto) Lymph % (Auto) [place] % (Auto) Eos % (Auto) Baso % (Auto) Lymph # (Auto) [place] # (Auto) Eos # (Auto) Baso # (Auto) Abs Immat Gran (auto) Absolute Neuts (auto) Absolute Nucleated RBC Nucleated RBC % RPR Hep Bs Antigen Pending Rubella IgG Antibody Patient hx anesthesia problems: none Family hx anesthesia problems: none Results Review: All pre-operative results and documents have been reviewed as part of the pre-operative evaluation. [facility] Past Medical History Medical History 2, currently Murmur Scoliosis STD (female) Surgical History Surgical History No pertinent past surgical history Family History Family History Mother Congestive heart failure Glaucoma Father Leukemia Social History Social History Smoking status: Never smoker Alcohol intake: never Substance use: never Gender identity (if verbalized by the patient): Female Spiritual care concerns: No Exam Day of Procedure 04/14/22 09:23
[2022-04-14 09:48] LABS: Rubella IgG Antibody 10.7 IU/ML
[2022-04-14 09:50] LABS: Hepatitis B Surface Antigen Negative (Negative)
[2022-04-14] MEDS: OXYTOCIN 30 UNITS/NS 500 ML 30 UNITS/500 ML BAG 125 UNITS IV CONT (12:28)
--- NOTE | 2022-04-14 13:31 | PM.OBPRVD ---
OB - Delivery Note Procedure Delivery date: 04/14/22 Procedure: Events: Premature Rupture of Membranes Delivery monitor: External FHT and External Uterine Route of delivery: Episiotomy description: None Laceration Description: None Quantitative Blood Loss (ml): 100 Baby Date of : 04/14/22 Time of : 13:31 Weeks of gestation at delivery: 36 gender: Female Weight (pounds): 5 Weight (ounces): 14 score one minute: 8 score five minutes: 9
[2022-04-14] MEDS: IBUPROFEN 600 MG TABLET PO ×2 (14:22→21:37)
[2022-04-14] MEDS: ACETAMINOPHEN 325 MG TABLET 650 MG PO (21:37)
--- NOTE | 2022-04-14 22:00 | PC.NURSE ---
Stated, I'm exhausted and want to get a good nights sleep. Ambien 5mg administered at 2025 for sleep. [place] sent to nursery for the night.
[2022-04-15] VITALS: BP 112/63; PULSE 91; RESP 18; TEMP 37.1
[2022-04-15] MEDS: ACETAMINOPHEN 325 MG TABLET 650 MG PO ×3 (03:42→20:34)
[2022-04-15] MEDS: IBUPROFEN 600 MG TABLET PO ×3 (03:43→20:34)
[2022-04-15] MEDS: TETANUS,DIPHTHERIA,AC PERTUSSIS ADULT (0.5 ML) BOOSTRIX IM (03:45)
[2022-04-15 04:42] LABS: Hematocrit 30.3 % (37.0-47.0)
[2022-04-15 04:43] VITALS: BP 125/77; PULSE 79; RESP 18; TEMP 36.8
[2022-04-15 07:45] VITALS: BP 117/80; PULSE 89; RESP 18; TEMP 36.5; O2SAT 99
[2022-04-15 07:55] LABS: Rapid Plasma Reagin Non-Reactive (NonReactive)
--- NOTE | 2022-04-15 08:25 | PM.OBPNVD ---
OB - PN: Subj Subjective Date/time seen: 04/15/22 08:25 Patient comments: no complaints, pain well controlled, incisional pain, tolerating diet and flatus present OB - PN: Obj Data Labs CBC & Chem 7: 04/15/22 03:49 Labs: Laboratory Results - last 24 hr 04/14/22 04/14/22 04/14/22 08:50 08:50 08:50 WBC 8.3 RBC 3.96 L Hgb 11.7 L Hct 35.9 L MCV 90.7 MCH 29.5 MCHC 32.6 RDW 13.3 Plt Count 131 L MPV 11.9 H Immature Gran % (Auto) 0.5 Neut % (Auto) 72.4 Lymph % (Auto) 20.7 [place] % (Auto) 5.3 Eos % (Auto) 1.0 Baso % (Auto) 0.1 L Lymph # (Auto) 1.72 [place] # (Auto) 0.4 Eos # (Auto) 0.1 Baso # (Auto) 0.0 Abs Immat Gran (auto) 0.04 H Absolute Neuts (auto) 6.0 Absolute Nucleated RBC 0.0 Nucleated RBC % 0.0 RPR Non-reactive Hep Bs Antigen Rubella IgG Antibody 10.7 Blood Type Antibody Screen 04/14/22 04/14/22 04/15/22 08:50 08:50 03:49 WBC RBC Hgb 10.0 L Hct 30.3 L MCV MCH MCHC RDW Plt Count MPV Immature Gran % (Auto) Neut % (Auto) Lymph % (Auto) [place] % (Auto) Eos % (Auto) Baso % (Auto) Lymph # (Auto) [place] # (Auto) Eos # (Auto) Baso # (Auto) Abs Immat Gran (auto) Absolute Neuts (auto) Absolute Nucleated RBC Nucleated RBC % RPR Hep Bs Antigen Negative Rubella IgG Antibody Blood Type O Positive Antibody Screen Negative OB - PN A/P Plan day: 1 Plan: routine care Comments: No problems, routine care Time Spent With Patient Time: Total time spent is greater than 50% in coordination of care (as documented) at patient's floor/unit and/or counseling patient: Exam Const: General: comfortable, no acute distress and alert Resp: Effort & Inspection: normal respiratory effort Auscultation: no crackles, no rales and no rhonchi Cardio: Rate: regular rate Heart sounds: no click, no murmurs and no rubs GI: Inspection: non-distended GI Palp: No Tenderness to palpation present (GI) Auscultation: normal bowel sounds Other: Incision - CDI Extrem: General: normal to inspection, no pedal edema and no calf tenderness
--- NOTE | 2022-04-15 09:30 | PC.NURSE ---
PT introductions made and plan of care discussed per post , pain management, bottle feeding, daily care activities. PT sole recipient of such instructions and no barriers to learning identified at this time. PT received such instructions per one to one discussion, mom baby care guide and demonstrations this shift. PT verbalized understanding of such care.
[2022-04-15 09:40] VITALS: PULSE 89; RESP 18; O2SAT 99
--- NOTE | 2022-04-15 10:52 | WPDANLDPN2 ---
Anes-Prog Note L&D Date/Time: 04/15/22 10:52 Comfortable throughout: labor and delivery Neuraxial method: epidural Epidural/Spinal procedure site: clean & non-tender Neuro status: Neuro function grossly intact. Cardiovascular status: normal Respiratory status: normal Airway patency: baseline Mental status: baseline Post-Op hydration status: normal Vital Signs: Last Vital Signs Temp 36.5 C 04/15/22 07:45 Pulse 89 04/15/22 09:40 Resp 18 04/15/22 09:40 BP 117/80 04/15/22 07:45 Pulse Ox 99 04/15/22 09:40 O2 Del Method Room Air 04/15/22 09:40 Pain score (VAS): 1 I/O: Intake & Output 04/14/22 04/15/22 04/15/22 23:59 07:59 15:59 Intake Total 240 120 Balance 240 120 Patient feedback: Patient satisfied with anesthetic care.
[2022-04-15] MEDS: ACETAMINOPHEN ELIXIR 325 MG/10.15 ML UDC 650 MG PO (17:02)
[2022-04-15] MEDS: IBUPROFEN SUSPENSION 200 MG/10 ML UDC 600 MG PO (17:04)
[2022-04-15 20:00] VITALS: BP 119/81; PULSE 84; RESP 14; TEMP 36.9; O2SAT 100
--- NOTE | 2022-04-15 20:18 | PC.NURSE ---
Patient states she did not swallow the previously given tylenol and motrin suspensions at 1700. She requests the medication be given in pill form and crushed. Medication order updated.
--- NOTE | 2022-04-16 07:57 | P.PNOB_ITS ---
OB - PN: Subj Subjective Date/time seen: 04/16/22 07:57 Patient comments: no complaints baby status: doing well [place] feeding status: exclusively bottle feeding OB - PN: Obj Data Labs CBC & Chem 7: 04/15/22 03:49 OB - PN A/P Plan day: 2 Plan: routine care Time Spent With Patient Time: Total time spent is greater than 50% in coordination of care (as documented) at patient's floor/unit and/or counseling patient: Time with patient: less than 15 minutes Exam Narrative: NAD abdomen soft, nontender, fundus firm below the umbilicus Extremities nontender, 1+ edema
[2022-04-16 08:00] VITALS: BP 107/64; PULSE 81; RESP 16; TEMP 37.1; O2SAT 100
--- NOTE | 2022-04-16 08:02 | PM.DS ---
DS: Admitting Diagnosis Discharge Date 04/16/22 Admitting Diagnosis SROM at term DS: Discharge Diagnosis Discharge Diagnosis (1) , delivered: Code(s): O80 - Encounter for full-term uncomplicated delivery Status: Acute DS: Summary Hospital Course Hospital Course: Blanka was admitted for SROM and labor. She proceeded to have an uncomplicated vaginal delivery and course. Status at Discharge Functional status at discharge: independent ambulation Time Spent with Patient Time attestation: Total time spent providing and/or coordinating discharge services: Exam Narrative: NAD abdomen soft, appropriately tender Ext non tender, 1+ edema DS: Data Data Completed and Pending Pending studies at discharge: Pending at discharge 04/14/22 11:54 Surgical [PTH] Routine Discharge Plan Discharge Attending physician on discharge: Becca Gibson Discharging Clinician: Becca Gibson Anticipated Discharge Date/Time: 04/16/22 08:00 Patient Disposition: Home, Self-Care Activity: pelvic rest Diet: regular Patient Instructions: Antibiotic Form Stand Alone Forms: General Discharge Information Follow-up/Referrals: Beau Meraz MD [Physician] - 4 Weeks Discharge Medications: Continued gwngysls-jml-Pr-FA 1 mg Tablet 1 tablet PO DAILY Date of admission: 04/14/22 08:16 Primary Care Provider: NickLeeroy Admitting Provider: Beau Meraz Attending physician on admission: Beau Meraz Condition: Stable
[2022-04-16] MEDS: MULTIVIT/MIN/PREN/FOL AC/IRON TABLET 1 TAB PO (08:16)
[2022-04-16] MEDS: ACETAMINOPHEN 325 MG TABLET 650 MG PO (08:18)
[2022-04-16] MEDS: IBUPROFEN 600 MG TABLET PO (08:18)
--- NOTE | 2022-04-16 10:14 | PC.NURSE ---
Report received from Di this morning is that patient has decided to pump and feed her baby.
== END 2022-04-16 11:02 | disposition home or self-care (01) | DRG 560 ==
LOC: ANHLDR 08:42 → ANHOB2 04-15 09:46 → ANHLDR 04-19 12:52 → ANHOB2 04-19 12:52
PROVIDERS: Admitting Provider Obstetrics & Gynecology; PCP Family Medicine; Visit Provider Obstetrics & Gynecology
DX: O60.14X0 Preterm labor third trimester with preterm delivery third trimester, not applicable or unspecified (principal); O69.81X0 Labor and delivery complicated by cord around neck, without compression, not applicable or unspecified; Z3A.36 36 weeks gestation of pregnancy; Z37.0 Single live birth
CPT/HCPCS: 36415; 59025; 84112; 85014; 85018; 85025; 86592; 86762; 86850; 86900; 86901; 87340; 88307; 90715; 99199; A9270; J2590; J2795; J7120

== ENCOUNTER 2022-06-12 09:34 | Emergency (ER) | payer OTHER, SELFPAY ==
[2022-06-12 09:41] VITALS: BP 118/80; PULSE 75; RESP 16; TEMP 36.9; O2SAT 99
--- NOTE | 2022-06-12 09:53 | ED.EAR ---
HPI - Ear Problem General Chief complaint: Ear Stated complaint: ear pain Time Seen by Provider: 06/12/22 09:50 Source: patient and RN notes reviewed Mode of arrival: ambulatory Limitations: no limitations History of Present Illness HPI Narrative: 27-year-old female presents concern for 2 day history of right ear pain. She reports that ear hurts when she pulls down. She denies drainage from the ear. She denies hearing changes. She reports history of [place] here. Reports the pain radiates down her neck a little bit. She denies fever, chills, sweats, upper respiratory symptoms such nasal congestion or rhinorrhea. MD Complaint: ear pain Related Data Home Medications Medication Instructions Recorded Confirmed metoclopramide HCl 10 mg tablet 10 mg PO DAILY 06/12/22 06/12/22 sertraline 50 mg tablet 50 mg PO DAILY 06/12/22 06/12/22 Allergies Allergy/AdvReac Type Severity Reaction Status Date / Time No Known Allergies Allergy Verified 06/12/22 09:45 Review of Systems Review of Systems: CONSTITUTIONAL: Denies malaise, chills, sweats, or fever. EYES: Denies visual changes, redness, or discharge. ENT: Denies rhinorrhea, congestion, sinus pain, and sore throat. Reports right ear pain that radiates down the neck CARDIOVASCULAR: Denies chest pain, palpitations, or edema. RESPIRATORY: Denies cough. Denies dyspnea. GASTROINTESTINAL: Denies abdominal pain, nausea, vomiting, diarrhea SKIN: Denies rash or itching. MUSCULOSKELETAL: Denies myalgia. NEUROLOGIC: Denies headache. All systems reviewed & are unremarkable except as noted in HPI and below PMFSH Past Medical History Medical History 2, currently Murmur Scoliosis STD (female) Surgical History Surgical History No pertinent past surgical history Family History Family History Mother Congestive heart failure Glaucoma Father Leukemia Social History Social History Smoking status: Never smoker Alcohol intake: never Substance use: never Gender identity (if verbalized by the patient): Female Spiritual care concerns: No Comments At time of signature, agree with nursing past medical, surgical, social and family history. There is no relevant family history pertinent to the presenting complaint Exam Narrative: GENERAL: Well-appearing, well-nourished, and in no acute distress. HEAD: Normocephalic EYES: PERRLA, conjunctivae clear ENT: Nares clear. Mucous membranes moist. TM pearly nichole with sharp light reflex bilaterally; mild right tragal tenderness a 50 mildly edematous without erythema or purulent drainage. Oropharynx not erythematous without lesions. Tonsils not enlarged and without exudate, no drooling, no hoarseness, no trismus, uvula midline. NECK: Supple. No lymphadenopathy CHEST: Clear to auscultation, breath sounds equal. No wheezing, rhonchi, rales, or stridor. No respiratory distress, speaks in full sentences. HEART: Regular rate and rhythm. No murmur heard. SKIN: Warm, dry, no rash. NEURO: Alert and oriented x3. PSYCH: Normal mood and affect Course Course Emergency Course: Patient is aware of diagnosis, understands and agrees to treatment plan. Anticipatory guidance given. Patient agrees to follow-up as directed and is aware of reasons to seek care at the emergency department. Portions of this record may have been created with voice recognition software Level of Care: Express Care Visit Vital Signs Vital signs: Vital Signs Temperature 98.5 F 06/12/22 09:41 Pulse Rate 75 06/12/22 09:41 Respiratory Rate 16 06/12/22 09:41 Blood Pressure 118/80 06/12/22 09:41 Pulse Oximetry 99 06/12/22 09:41 Oxygen Delivery Room Air 06/12/22 09:41 Temperature 98.5 F 06/12/22 09:41 Pulse Rate 7
== END 2022-06-12 10:04 | disposition home or self-care (01) ==
PROVIDERS: Emergency Provider Nurse Practitioner; PCP Family Medicine
DX: H60.91 Unspecified otitis externa, right ear (principal); M41.9 Scoliosis, unspecified; R01.1 Cardiac murmur, unspecified
CPT/HCPCS: 99213; G0463

== ENCOUNTER 2022-10-27 09:51 | Observation (INO) | payer OTHER, SELFPAY ==
[2022-10-27 09:59] VITALS: BP 117/74; PULSE 91
[2022-10-27 10:00] VITALS: BP 113/76; PULSE 93; RESP 16; TEMP 36.8
--- NOTE | 2022-10-27 10:11 | PC.NURSE ---
Alo OSCAR informed of this pt's arrival with c/o leakage of fluid x's 1 last week and has had an increase in vaginal discharge with clumps of white mucous, pt noticed what looked like small pieces of coffee grounds yesterday on her toilet paper. Pt has an appointment at the office today at 1300, but she became concerned and more worried as she waited so she came to the ED and I was able to take her here. Order received for UA.
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
[2022-10-27 10:36] VITALS: BMI 27.8
--- NOTE | 2022-10-27 10:42 | OBADM ---
This patient, Blanka Gooden, admitted to the OB room 116 for observation. Patient/family oriented to hospital policies and general routines including ID bracelet, bed and alarms, visiting hours, pain management, procedures, bathroom and other care routines, personal items, smoking policy, room service/diet, and visiting hours. Patient/Family are encouraged to report perceived risks to care and to ask questions if they do not understand what they are told or what they should do.
[2022-10-27 10:46] LABS: Appearance Urine Clear (Clear); Bacteria Urine None Seen /hpf; Bilirubin Urine Negative (Negative); Blood Urine Negative (Negative); Color Urine Yellow (Yellow); Glucose Urine UA Negative (Negative); Ketones Urine Negative (Negative); Leukocyte Esterase Ur Negative LEU/UL (Negative); Nitrate Urine Negative (Negative); Non Pathogenic Casts 0-2; Protein Urine Trace mg/dL (Negative); RBC Urine 0-2 /hpf (0-2); Specific Grav Ur 1.023 (1.001-1.035); Squamous Epithelial Cell Urine None seen /hpf (Few); WBC Urine 0-5 /hpf; pH Urine 8.5 (5.0-9.0)
[2022-10-27 10:47] LABS: Add Urine Microscopic? YES
--- NOTE | 2022-10-27 11:02 | PC.NURSE ---
Alo Hammonds CNM returned call and informed of US results. Orders received to discharge and send pt right over to the office for her U/S.
--- NOTE | 2022-10-28 17:11 | PM.OBTRLD ---
OB - Triage/Final Diagnosis Visit Information Date of evaluation: 10/27/22 Reason for evaluation: other (abd cramping) Comments/Additional reasons for admission: I have assessed the risk for this patient, Blanka Gooden, and determined that she would benefit from observation care. Evaluation Laboratory results: Laboratory Tests 10/27/22 10:30 Urine Color Yellow Urine Appearance Clear Urine pH 8.5 Ur Specific [place] 1.023 Urine Protein Trace Urine Glucose (UA) Negative Urine Ketones Negative Ur Blood (Man) Negative Urine Nitrate Negative Urine Bilirubin Negative Urine Urobilinogen 1.0 Leukocyte Esterase Rfl Negative Urine RBC 0-2 Urine WBC 0-5 Ur Squamous Epith Cells None seen Urine Bacteria None seen Urine Casts 0-2
== END 2022-10-27 11:11 | disposition home or self-care (01) ==
PROVIDERS: Advanced Practice Midwife; Admitting Provider Obstetrics & Gynecology; PCP Family Medicine; Visit Provider Obstetrics & Gynecology
DX: O26.891 Other specified pregnancy related conditions, first trimester (principal); R10.9 Unspecified abdominal pain; Z3A.11 11 weeks gestation of pregnancy
CPT/HCPCS: 81001; G0378; G0379

== ENCOUNTER 2023-02-16 16:34 | Outpatient (CLI) | payer OTHER, SELFPAY ==
[2023-02-16 16:58] VITALS: BP 114/70; PULSE 83
[2023-02-16 17:00] VITALS: BP 121/66; PULSE 88
[2023-02-16 17:11] LABS: Basophils Percent Auto 0.3 % (0.2-1.2); Eosinophils Absolute Auto 0.2 K/mm3 (0-0.3); Eosinophils Percent Auto 2.7 % (0-4.4); Hematocrit 34.5 % (37.0-47.0); Hemoglobin 11.2 g/dL (12.0-15.0); Immature Granulocyte Absolute 0.04 K/mm3 (0.00-0.031); Immature Granulocyte Percent A 0.5 % (0-0.5); Lymphocytes Absolute Auto 1.82 K/mm3 (0.9-3.2); Lymphocytes Percent Auto 24.7 % (18.3-44.2); Mean Corpuscular HGB Conc 32.5 g/dl (32-36); Mean Corpuscular Hemoglobin 30.1 pg (26-34); Mean Corpuscular Volume 92.7 fl (80-100); Mean Platelet Volume 11.6 fl (7.4-10.4); Monocytes Absolute Auto 0.5 K/mm3 (0.1-0.6); Monocytes Percent Auto 7.3 % (2.6-8.5); Neutrophils Absolute Auto 4.8 K/mm3 (1.3-6.7); Neutrophils Percent Auto 64.5 % (45.5-73.1); Platelet Count Result 153 k/mm3 (150-375); Red Blood Count 3.72 M/mm3 (4.2-5.4); White Blood Count 7.4 K/mm3 (4.5-10.0)
[2023-02-16 17:15] VITALS: BP 110/71; PULSE 97
[2023-02-16 17:15] LABS: Appearance Urine Clear (Clear); Bilirubin Urine Negative (Negative); Blood Urine Negative (Negative); Color Urine Yellow (Yellow); Glucose Urine UA Negative (Negative); Ketones Urine Negative (Negative); Leukocyte Esterase Ur Negative LEU/UL (NEGATIVE); Nitrate Urine Negative (Negative); Protein Urine Negative (Negative); Specific Grav Ur 1.014 (1.001-1.035); Urobilinogen Urine 0.2 mg/dL (<2.0)
[2023-02-16 17:20] LABS: Alanine Aminotransferase 12 U/L (6-35); Albumin Level 3.5 g/dL (3.5-5.1); Alkaline Phosphatase 84 U/L (38-126); Anion Gap 0 mmol/L (8-16); Aspartate Amino Transferase 17 U/L (14-36); Bilirubin,Total 0.2 mg/dL (0.2-1.3); Blood Urea Nitrogen 7 mg/dL (7-17); Calcium 8.9 mg/dL (8.4-10.2); Carbon Dioxide 27 mmol/L (22-30); Chloride 103 mmol/L (98-107); Estimated Glomerular Filt Rate > 60; Glucose 77 mg/dL (65-110); Potassium 3.6 mmol/L (3.4-5.0); Sodium 130 mmol/L (137-145); Uric Acid 3.6 mg/dL (2.5-7.5)
[2023-02-16 17:22] LABS: Creatinine Urine 75.1 mg/dL; Total Protein Urine Random 6 mg/dL; Ur Ttl Prot Creatinine Ratio 0.08 mg/mg (0-0.20)
[2023-02-16 17:30] VITALS: BP 111/70; PULSE 89
[2023-02-16 17:30] LABS: Add Urine Microscopic? NO
[2023-02-16 17:45] VITALS: BP 110/73; PULSE 95
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
== END 2023-02-16 17:50 | disposition home or self-care (01) ==
LOC: ANHOBOP 16:43 → ANHOBPP 16:43
PROVIDERS: Visit Provider Advanced Practice Midwife
DX: M79.89 Other specified soft tissue disorders (principal)
CPT/HCPCS: 36415; 59025; 80053; 81003; 82570; 84156; 84550; 85025; 87086; 99199

== ENCOUNTER 2023-02-18 21:48 | Observation (INO) | payer OTHER, SELFPAY ==
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
[2023-02-18 21:49] VITALS: BP 130/90; PULSE 102; RESP 15; TEMP 36.6; O2SAT 98
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
[2023-02-18 22:40] LABS: Basophils Percent Auto 0.4 % (0.2-1.2); Eosinophils Absolute Auto 0.1 K/mm3 (0-0.3); Eosinophils Percent Auto 1.3 % (0-4.4); Hematocrit 35.7 % (37.0-47.0); Hemoglobin 11.6 g/dL (12.0-15.0); Immature Granulocyte Absolute 0.05 K/mm3 (0.00-0.031); Immature Granulocyte Percent A 0.6 % (0-0.5); Lymphocytes Absolute Auto 1.91 K/mm3 (0.9-3.2); Lymphocytes Percent Auto 22.4 % (18.3-44.2); Mean Corpuscular HGB Conc 32.5 g/dl (32-36); Mean Corpuscular Hemoglobin 29.8 pg (26-34); Mean Corpuscular Volume 91.8 fl (80-100); Mean Platelet Volume 11.5 fl (7.4-10.4); Monocytes Absolute Auto 0.6 K/mm3 (0.1-0.6); Monocytes Percent Auto 6.5 % (2.6-8.5); Neutrophils Absolute Auto 5.9 K/mm3 (1.3-6.7); Neutrophils Percent Auto 68.8 % (45.5-73.1); Platelet Count Result 166 k/mm3 (150-375); Red Blood Count 3.89 M/mm3 (4.2-5.4); White Blood Count 8.5 K/mm3 (4.5-10.0)
[2023-02-18 22:58] LABS: Alanine Aminotransferase 12 U/L (6-35); Albumin Level 3.4 g/dL (3.5-5.1); Alkaline Phosphatase 93 U/L (38-126); Anion Gap 6 mmol/L (8-16); Aspartate Amino Transferase 18 U/L (14-36); Bilirubin,Total 0.2 mg/dL (0.2-1.3); Blood Urea Nitrogen 8 mg/dL (7-17); Calcium 8.8 mg/dL (8.4-10.2); Carbon Dioxide 23 mmol/L (22-30); Chloride 105 mmol/L (98-107); Estimated CRCL calculation 129 ml/min; Estimated Glomerular Filt Rate > 60; Glucose 91 mg/dL (65-110); Potassium 3.7 mmol/L (3.4-5.0); Sodium 134 mmol/L (137-145)
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
--- NOTE | 2023-02-18 23:46 | OBADM ---
This patient, Blanka Gooden, admitted to the OB room OB Post 115 for observation. Patient/family oriented to hospital policies and general routines including ID bracelet, bed and alarms, visiting hours, pain management, procedures, bathroom and other care routines, personal items, smoking policy, room service/diet, and visiting hours. Patient/Family are encouraged to report perceived risks to care and to ask questions if they do not understand what they are told or what they should do.
[2023-02-18 23:49] VITALS: BP 124/74; PULSE 74; RESP 18; O2SAT 98
[2023-02-19] VITALS (10 sets, daily range): BP systolic 119; BP diastolic 77; PULSE 79–97; RESP 16; TEMP 36.7; O2SAT 95–100
--- NOTE | 2023-02-19 00:29 | PC.NURSE ---
0029- updated Dr. Meraz on maternal and assessments. Discharge orders received.
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
== END 2023-02-19 00:45 | disposition home or self-care (01) ==
LOC: ANHED 23:32 → ANHOBPP 23:55
PROVIDERS: Admitting Provider Obstetrics & Gynecology; Emergency Provider Family Medicine; PCP Physician Assistant Medical; Visit Provider Obstetrics & Gynecology
DX: Z04.1 Encounter for examination and observation following transport accident (principal)
CPT/HCPCS: 36415; 76815; 80053; 85025; 99285; G0378; G0379

== ENCOUNTER 2023-04-01 14:31 | Observation (INO) | payer OTHER, SELFPAY ==
[2023-04-01] VITALS (16 sets, daily range): BP systolic 117; BP diastolic 71; PULSE 86–121; O2SAT 95–100; BMI 30.4
--- NOTE | 2023-04-01 14:52 | OBADM ---
This patient, Blanka Gooden, admitted to the OB room OB Post 113 for observation. Patient/family oriented to hospital policies and general routines including ID bracelet, bed and alarms, visiting hours, pain management, procedures, bathroom and other care routines, personal items, smoking policy, room service/diet, and visiting hours. Patient/Family are encouraged to report perceived risks to care and to ask questions if they do not understand what they are told or what they should do.
[2023-04-01] MEDS: TERBUTALINE SULFATE 1 MG/ML VIAL 0.25 MG SUB-Q ×2 (15:08→15:31)
--- NOTE | 2023-04-01 15:12 | PC.NURSE ---
1502- SCharlie Hammonds [facility] notified of patient and contractions, orders received to give a dose of terb.
--- NOTE | 2023-04-01 16:19 | PC.NURSE ---
1615- S. Cassius [facility] notified, give celestone and nifedipine. Okay to discharge patient with nifedipine daily.
[2023-04-01] MEDS: NIFEdipine 30 MG TAB.ER.24 PO (16:27)
[2023-04-01] MEDS: BETAMETHASONE SOD PHOS/ACETATE 30 MG/5 ML VIAL 12 MG IM (16:28)
--- NOTE | 2023-04-01 16:32 | PC.NURSE ---
SVE: 1/thick/high
--- NOTE | 2023-04-04 16:57 | PM.OBTRLD ---
OB - Triage/Final Diagnosis Visit Information Date of evaluation: 04/01/23 Reason for evaluation: threatened labor Comments/Additional reasons for admission: I have assessed the risk for this patient, Blanka Gooden, and determined that she would benefit from observation care.
== END 2023-04-01 16:42 | disposition home or self-care (01) ==
PROVIDERS: Admitting Provider Obstetrics & Gynecology; PCP Physician Assistant Medical; Visit Provider Obstetrics & Gynecology
DX: O47.03 False labor before 37 completed weeks of gestation, third trimester (principal); Z3A.33 33 weeks gestation of pregnancy
CPT/HCPCS: 96372; A9270; G0378; G0379; J0702; J3105

== ENCOUNTER 2023-04-02 15:38 | Outpatient (CLI) | payer OTHER, SELFPAY ==
[2023-04-02] MEDS: BETAMETHASONE SOD PHOS/ACETATE 30 MG/5 ML VIAL 12 MG IM (15:48)
== END 2023-04-02 15:39 | disposition home or self-care (01) ==
LOC: ANHOBOP 15:43
PROVIDERS: PCP Physician Assistant Medical; Visit Provider Obstetrics & Gynecology
DX: O35.8XX0 Maternal care for other (suspected) fetal abnormality and damage, not applicable or unspecified (principal); Z3A.00 Weeks of gestation of pregnancy not specified
CPT/HCPCS: 96372; J0702

== ENCOUNTER 2023-04-19 08:08 | Observation (INO) | payer OTHER, SELFPAY ==
[2023-04-19] VITALS (7 sets, daily range): BP systolic 115–123; BP diastolic 67–87; PULSE 76–94
--- NOTE | 2023-04-19 10:31 | OBADM ---
This patient, Blanka Gooden, admitted to the OB room Labor/Delivery/Recovery 106 for observation. Patient/family oriented to hospital policies and general routines including ID bracelet, bed and alarms, visiting hours, pain management, procedures, bathroom and other care routines, personal items, smoking policy, room service/diet, and visiting hours. Patient/Family are encouraged to report perceived risks to care and to ask questions if they do not understand what they are told or what they should do.
--- NOTE | 2023-04-20 17:54 | PM.OBTRLD ---
OB - Triage/Final Diagnosis Visit Information Date of evaluation: 04/19/23 Reason for evaluation: threatened labor Comments/Additional reasons for admission: I have assessed the risk for this patient, Blanka Gooden, and determined that she would benefit from observation care.
== END 2023-04-19 10:45 | disposition home or self-care (01) ==
PROVIDERS: Admitting Provider Obstetrics & Gynecology; PCP Physician Assistant Medical; Visit Provider Obstetrics & Gynecology
DX: O47.9 False labor, unspecified (principal); Z3A.00 Weeks of gestation of pregnancy not specified
CPT/HCPCS: 84112; G0378; G0379

== ENCOUNTER 2023-04-25 21:12 | Inpatient (IN) | payer OTHER, SELFPAY ==
[2023-04-25] VITALS (17 sets, daily range): BP systolic 126–140; BP diastolic 78–88; PULSE 86–115; O2SAT 87–100; BMI 31.1
[2023-04-25 21:33] LABS: Basophils Percent Auto 0.3 % (0.2-1.2); Eosinophils Percent Auto 0.5 % (0-4.4); Hematocrit 35.7 % (37.0-47.0); Hemoglobin 11.5 g/dL (12.0-15.0); Immature Granulocyte Absolute 0.05 K/mm3 (0.00-0.031); Immature Granulocyte Percent A 0.6 % (0-0.5); Lymphocytes Absolute Auto 1.72 K/mm3 (0.9-3.2); Lymphocytes Percent Auto 21.8 % (18.3-44.2); Mean Corpuscular HGB Conc 32.2 g/dl (32-36); Mean Corpuscular Hemoglobin 29.5 pg (26-34); Mean Corpuscular Volume 91.5 fl (80-100); Mean Platelet Volume 11.7 fl (7.4-10.4); Monocytes Absolute Auto 0.5 K/mm3 (0.1-0.6); Monocytes Percent Auto 6.7 % (2.6-8.5); Neutrophils Absolute Auto 5.5 K/mm3 (1.3-6.7); Neutrophils Percent Auto 70.1 % (45.5-73.1); Platelet Count Result 145 k/mm3 (150-375); Red Cell Distribution Width 13.2 % (11.5-14.5); White Blood Count 7.9 K/mm3 (4.5-10.0)
--- NOTE | 2023-04-25 21:51 | P.PCNOB_ITS ---
OB - Delivery Note Procedure Delivery date: 04/25/23 Procedure: Induction method: AROM Route of delivery: Specimen: No Quantitative Blood Loss (ml): 60 Anesthesia type: None Disposition: Floor [place] Baby Date of : 04/25/23 Time of : 21:36 Weeks of gestation at delivery: 37 gender: Male presentation: vertex position: Left Occiput Anterior Placenta delivery description: Spontaneous Cord Vessel Description: 3 Vessels, Clamped/Cut and Delayed Cord Clamping score one minute: 9 score five minutes: 9 Narrative: mother and baby skin to skin in stable condition
--- NOTE | 2023-04-25 21:51 | WPDOBADMIT ---
Obstetrics - Admit Note Admission Note: record reviewed. No pertinent additions to the history and/or any subsequent changes in the physical findings that are not consistent with the expected course of the were found. pt admitted after arriving 10 cm by ambulance, arom clear fluid Additions to the history and/or subsequent changes in the physical findings follow. None.
[2023-04-25] MEDS: IBUPROFEN 600 MG TABLET PO (21:56)
--- NOTE | 2023-04-25 23:05 | LDADM ---
This patient, Blanka Gooden, was admitted to Labor/Delivery/Recovery 106 on 04/25/23 at 21:12. Plans for labor, pain management and were discussed with patient. Patient/family oriented to hospital policies and general routines including ID bracelet, bed and alarms, visiting hours, pain management, procedures, bathroom and other care routines, personal items, smoking policy, room service/diet and guest tray routines, security routines, and visiting hours. Patient/Family are encouraged to report perceived risks to care and to ask questions if they do not understand what they are told or what they should do. See OBIX for further documentation.
[2023-04-26 00:30] VITALS: BP 128/77; PULSE 90; RESP 18; TEMP 37; O2SAT 100
[2023-04-26] MEDS: ACETAMINOPHEN 325 MG TABLET 650 MG PO ×4 (01:30→20:02)
[2023-04-26 04:40] VITALS: BP 115/65; PULSE 107; RESP 18; TEMP 36.2; O2SAT 100
[2023-04-26 04:43] LABS: Hematocrit 32.3 % (37.0-47.0); Hemoglobin 10.6 g/dL (12.0-15.0)
[2023-04-26] MEDS: SERTRALINE HCL 50 MG TABLET 100 MG PO (07:09)
[2023-04-26] MEDS: IBUPROFEN 600 MG TABLET PO ×3 (07:10→20:02)
--- NOTE | 2023-04-26 07:12 | PM.OBPNVD ---
OB - PN: Subj Subjective Date/time seen: 04/26/23 07:12 Patient comments: no complaints baby status: doing well [place] feeding status: breast and bottle feeding OB - PN: Obj Data Labs 04/26/23 04:32 Labs: Laboratory Results - last 24 hr 04/25/23 04/26/23 21:27 04:32 WBC 7.9 RBC 3.90 L Hgb 11.5 L 10.6 L Hct 35.7 L 32.3 L MCV 91.5 MCH 29.5 MCHC 32.2 RDW 13.2 Plt Count 145 L MPV 11.7 H Immature Gran % (Auto) 0.6 H Neut % (Auto) 70.1 Lymph % (Auto) 21.8 [place] % (Auto) 6.7 Eos % (Auto) 0.5 Baso % (Auto) 0.3 Lymph # (Auto) 1.72 [place] # (Auto) 0.5 Eos # (Auto) 0.0 Baso # (Auto) 0.0 Abs Immat Gran (auto) 0.05 H Absolute Neuts (auto) 5.5 Absolute Nucleated RBC 0.0 Nucleated RBC % 0.0 Blood Type O Positive Antibody Screen Negative OB - PN A/P Plan day: 1 Plan: routine care Comments: home tomorrow Time Spent With Patient Time: Total time spent is greater than 50% in coordination of care (as documented) at patient's floor/unit and/or counseling patient: Time with patient: less than 15 minutes Exam Narrative: NAD abdomen soft, nontender, fundus firm below the umbilicus Extremities nontender, 1+ edema
[2023-04-26 07:29] LABS: Rapid Plasma Reagin Non-Reactive (NonReactive)
[2023-04-26 07:50] VITALS: BP 115/73; PULSE 88; RESP 18; TEMP 37.3; O2SAT 98
--- NOTE | 2023-04-26 09:44 | PC.NURSE ---
[id number] Patient called for assistance with . On entering the room Introductions were made, mother is on her phone and infant is swaddled in the bassinet no REM visualized. Consulted with patient to assess needs related to . Mother led the conversation with her had made a noise and she thought he might need to eat. We discussed the risks and benefits of bottle feeding (40mls) X two so early, late behaviors, [id number], stimulate, changing position, checking the diaper, early and late feeding cues and to call when the feeding cues are visualized. Resources provided for inpatient name written on the white board. Mother voiced understanding of information and will call when feeding cues are visualized or if the doesn't wake to breastfeed. [id number] - Purposefully rounded to assess for needs. Mother is in the shower and father of baby is holding the infant.
--- NOTE | 2023-04-26 10:10 | PC.NURSE ---
Breast pump provided due to ineffective feedings. Instructions given on cleaning, care, usage, that there should be no pain, pumping schedule for milk production, collection, and storage of human milk. Patient was assessed for correct placement, flange size, to pump for comfort and nipple stretching/stimulation for adequate milk production every 3 hours (8 times in 24 hours) 1-2 times at night. Mother voiced understanding.
[2023-04-26 12:05] VITALS: BP 118/70; PULSE 85; RESP 16; TEMP 37.3; O2SAT 98
[2023-04-26 16:00] VITALS: BP 129/86; PULSE 85; RESP 16; TEMP 36.9; O2SAT 98
[2023-04-26 19:50] VITALS: BP 108/74; PULSE 85; RESP 16; TEMP 36.7
[2023-04-26] MEDS: DOCUSATE SODIUM 100 MG CAPSULE PO (22:30)
[2023-04-27] MEDS: ACETAMINOPHEN 325 MG TABLET 650 MG PO (06:18)
[2023-04-27] MEDS: IBUPROFEN 600 MG TABLET PO (06:18)
--- NOTE | 2023-04-27 07:29 | PM.OBPNVD ---
OB - PN: Subj Subjective Date/time seen: 04/27/23 07:29 pp day 2 doing well no complaints desires d/c home OB - PN: Obj Data Labs 04/26/23 04:32 Labs: Laboratory Results - last 24 hr 04/25/23 21:27 RPR Non-reactive OB - PN A/P Plan day: 2 Plan: routine care and discharge home Time Spent With Patient Time: Total time spent is greater than 50% in coordination of care (as documented) at patient's floor/unit and/or counseling patient: Review of Systems Review of Systems: All systems reviewed & are unremarkable except as noted in HPI and below Exam Const: General: cooperative and healthy appearing Resp: Effort & Inspection: normal respiratory effort Cardio: Rate: regular rate Rhythm: regular rhythm GI: Other: soft Skin: General skin exam: normal color Extrem: Right lower extremity: normal to inspection Left lower extremity: normal to inspection Psych: Appearance: grossly normal
--- NOTE | 2023-04-27 07:30 | P.DS_ITS ---
DS: Admitting Diagnosis Discharge Date 04/27/23 Admitting Diagnosis labor OB - DS: Summary OB Procedures : None OB Procedures Intrapartum: Spontaneous Vag Delivery OB Procedures: : None Time Spent with Patient Time attestation: Total time spent providing and/or coordinating discharge services: Discharge Plan Discharge Attending physician on discharge: Beau Meraz Discharging Clinician: Lizzeth Hammonds Patient Disposition: Home, Self-Care Activity: pelvic rest Diet: regular Patient Instructions: Antibiotic Form Stand Alone Forms: General Discharge Information Follow-up/Referrals: Lizzeth Hammonds, [facility] [Certified Nurse Trust Mail Clerk] - 4 Weeks Discharge Medications: New ibuprofen 600 mg Tablet 600 mg PO Q6H PRN (Reason: Cramping) Qty: 30 0RF Continued sertraline 100 mg tablet 100 mg PO DAILY PNV cmb#95-ferrous fumarate-FA [] 28 mg iron- 800 mcg Tablet 1 tablet PO DAILY Discontinued nifedipine [Procardia XL] 30 mg Tablet Extended Release 24hr 30 mg PO QAM 30 Days Qty: 30 0RF Date of admission: 04/25/23 21:12 Primary Care Provider: FransiscaGonzalo Admitting Provider: Beau Meraz Attending physician on admission: Beau Meraz Condition: Stable
[2023-04-27 08:25] VITALS: BP 117/80; PULSE 82; RESP 16; TEMP 37.3; O2SAT 99
[2023-04-27] MEDS: SERTRALINE HCL 50 MG TABLET 100 MG PO (09:18)
--- NOTE | 2023-04-27 16:43 | PC.NURSE ---
Report received this morning is that mother had infant bottle fed in the nursery all night.
[2023-04-28 11:03] VITALS: BP 131/89; PULSE 80; RESP 16; TEMP 36.9; O2SAT 98
== END 2023-04-27 12:46 | disposition home or self-care (01) | DRG 807 ==
LOC: ANHLDR 21:28 → ANHOB2 04-26 00:26
PROVIDERS: Advanced Practice Midwife; Admitting Provider Obstetrics & Gynecology; PCP Physician Assistant Medical; Visit Provider Obstetrics & Gynecology
DX: O62.3 Precipitate labor (principal); Z37.0 Single live birth; Z3A.37 37 weeks gestation of pregnancy
CPT/HCPCS: 36415; 85014; 85018; 85025; 86592; 86850; 86900; 86901; A9270

== ENCOUNTER 2024-04-03 10:15 | Emergency (ER) | payer OTHER, SELFPAY ==
[2024-04-03 10:32] VITALS: BP 110/78; PULSE 70; RESP 18; TEMP 36.8; O2SAT 100
[2024-04-03 11:37] LABS: EDINFLUASCREEN Positive; EDINFLUBSCREEN Negative
--- NOTE | 2024-04-03 11:37 | ED.URI ---
HPI - URI/Sore Throat General Chief Complaint: Upper Respiratory Infection Stated Complaint: Headache/Runny Nose/Fever History of Present Illness HPI Narrative: patient is a 29-year-old female, presents to [facility] with 24 hour history of fever, body aches, rhinorrhea, sore throat and malaise. 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 She is concerned she may have influenza or COVID-19 because she feels similar today as she did when she had COVID last year. She denies chest pain or shortness of breath, she has no abdominal pain, no nausea vomiting or diarrhea. She has no urinary symptoms. She denies any additional associated symptoms or modifying factors. Related Data Home Medications Medication Instructions Recorded Confirmed vit no.95-ferrous 1 tablet PO DAILY 10/27/22 04/26/23 fumarate 28 mg-folic acid 800 mcg tablet () sertraline 100 mg tablet 100 mg PO DAILY 10/27/22 04/26/23 bupropion HCl 150 mg 24 hr tablet, mg PO 04/03/24 extended release Allergies Allergy/AdvReac Type Severity Reaction Status Date / Time No Known Allergies Allergy Verified 04/03/24 11:06 Review of Systems Constitutional: Comments: refer to HPI ENT: Comments: Refer to HPI Respiratory: Comments: refer to HPI [facility] Past Medical History Medical History 2, currently Murmur Scoliosis STD (female) Surgical History Surgical History No pertinent past surgical history Family History Family History Mother Congestive heart failure Glaucoma Father Leukemia Social History Social History Smoking status: Never smoker Alcohol intake: never Substance use: never Lack of Transportation: No Lack of Food: Never True Current Housing: I Have Housing Concerned About Future Housing: No Difficulty Paying Gas/Electric Bills: No Difficulty Paying for Meds: No Currently Unemployed: No Education: Associate Degree Difficulty w/ Childcare or Family Care: No Living arrangements: with family Gender identity (if verbalized by the patient): Female Spiritual care concerns: No Exam Const: General: healthy appearing and no acute distress Nutritional Appearance: well nourished Orientation/consciousness: patient oriented x3 Limitations: no limitations HENMT: Head: normal to inspection Ears: external ears normal and TM's normal bilaterally Face/Nose/Sinus: Normal external nose present Mouth: Yes Normal oral and palatal mucosa present Throat: posterior oropharynx normal and uvula midline Eyes: Conjunctivae: conjunctivae normal Pupils: Equal, round and reactive pupils present EOM: EOMs intact bilaterally Neck: Neck: normal visual inspection, no lymphadenopathy, no meningeal signs and lymphadenopathy Resp: Effort & Inspection: normal respiratory effort Auscultation: clear to auscultation bilaterally Cardio: Rate: regular rate Rhythm: regular rhythm Back/Spine/Pelvis: Back: no CVA tenderness Skin: General skin exam: normal color Rashes: no rashes Wounds: no wounds Neuro: General: patient oriented x3, moves all extremities, no meningeal signs, no focal motor deficits and CN's II-XI intact bilaterally Cranial nerves: Yes Nystagmus not present Extrem: General: normal to inspection Course Course Emergency Course: influenza a positive, COVID-19 negative. Will treat with Tamiflu, supportive cares also stressed, follow-up with PCP if symptoms are not resolving. Level of Care: Express Care Visit (62790) Vital Signs Vital signs: Vital Signs Temperature 36.8 C 04/03/24 10:32 Pulse Rate 70 04/03/24 10:32 Respiratory Rate 18 04/03/24 10:32 Blood Pressure 110/78 04/03/24 10:32 Pulse Oximetry 100 08
== END 2024-04-03 11:45 | disposition home or self-care (01) ==
PROVIDERS: Emergency Provider Nurse Practitioner Family
DX: J10.1 Influenza due to other identified influenza virus with other respiratory manifestations (principal); Z20.822 Contact with and (suspected) exposure to COVID-19; R01.1 Cardiac murmur, unspecified; M41.9 Scoliosis, unspecified
CPT/HCPCS: 87426; 87804; 99213; G0463

== ENCOUNTER 2024-09-01 18:12 | Emergency (ER) | payer OTHER, SELFPAY ==
--- NOTE | 2024-09-01 18:16 | ED_ITS ---
HPI - General Adult General Chief complaint: Arrhythmia/Palpitations Stated complaint: HEART RACING/DIZZY/SWEATING Time Seen by Provider: 09/01/24 18:27 Source: patient Mode of arrival: ambulatory Limitations: no limitations History of Present Illness HPI narrative: 29 year old female presents with concern for about of feeling dizziness and feeling her heart beat fast. She reports she took a pre workout for the 1st time in the did her normal workout and during the workout she felt dizzy and like ?the huff were closing in?. That feeling only lasted a short while. She felt mildly dizzy when she was walking into the building. She reports she had a stomach illness yesterday and had several bouts of diarrhea. She has also been taking phentermine and topiramate for weight loss for a couple of months. complaint: Dizzy Related Data Home Medications ?Medication ?Instructions ?Recorded ?Confirmed ?Last Taken ?Type sertraline 100 mg tablet 100 mg PO DAILY 10/27/22 04/26/23 1 Day Ago History ~04/25/23 bupropion HCl 150 mg 24 hr tablet, mg PO 04/03/24 Unknown History extended release topiramate 25 mg tablet mg 09/01/24 Unknown History Allergies Allergy/AdvReac Type Severity Reaction Status Date / Time No Known Allergies Allergy Verified 09/01/24 18:23 Review of Systems Review of Systems: CONSTITUTIONAL: Denies malaise, chills, sweats, or fever. EYES: Denies visual changes CARDIOVASCULAR: Denies chest pain, palpitations, or edema. Reports an episode of fast heartbeat RESPIRATORY: Denies cough or dyspnea. GASTROINTESTINAL: Reports diarrhea yesterday GENITOURINARY: Denies dysuria or hematuria. SKIN: Denies rash or itching. MUSCULOSKELETAL: Denies back pain, joint pain, or myalgia. NEUROLOGIC: Denies numbness, weakness, or headache. Reports dizziness All systems reviewed & are unremarkable except as noted in HPI and below PMFSH Past Medical History Medical History 2, currently Murmur Scoliosis STD (female) Surgical History Surgical History No pertinent past surgical history Family History Family History Mother Congestive heart failure Glaucoma Father Leukemia Social History Social History Smoking status: Never smoker Alcohol intake: never Substance use: never Lack of Transportation: No Lack of Food: Never True Current Housing: I Have Housing Concerned About Future Housing: No Difficulty Paying Gas/Electric Bills: No Difficulty Paying for Meds: No Currently Unemployed: No Education: Associate Degree Difficulty w/ Childcare or Family Care: No Living arrangements: with family Gender identity (if verbalized by the patient): Female Spiritual care concerns: No Comments At time of signature, agree with nursing past medical, surgical, social and family history. There is no relevant family history pertinent to the presenting complaint Exam Narrative: GENERAL: Well-appearing, well-nourished, and in no acute distress. HEAD: Normocephalic, atraumatic. EYES: PERRLA, sclera clear, and EOMI. No nystagmus. ENT: Nares clear, no rhinorrhea or epistaxis. Mucous membranes moist. TM pearly nichole with sharp light reflex bilaterally; no tragal tenderness. Oropharynx without erythema or lesions. Tonsils not enlarged and without exudate. NECK: Supple. No lymphadenopathy. CHEST: No respiratory distress. Clear to auscultation. No bony deformities, no asymmetry. Speaks in full sentences. HEART: Regular rate and rhythm. No murmur heard. Normal peripheral pulses. EXTREMITIES: Normal range of motion. No edema. Normal strength and sensation. SKIN: Warm, dry, no visible rash. NEURO: Alert and oriented x3. No focal deficits. Cranial nerves II through XII grossly intact PSYCH: Normal mood and affect Course Course Emergency Course: Patient is aware of diagnosis, understands and agrees to treatment plan. Anticipatory guidance given. Patient agrees to follow-up as directed and is aware of reasons to seek care at the emergency department. Portions of this record may have been created with voice recognition software Level of Care: Express Care Visit Vital Signs Vital signs: Reviewed. Medical Decision Making MDM Narrative Medical decision making narrative: The patient was evaluated by myself in the emergency department. History is obtained from patient who is an independent historian and physical exam was performed.? Available medical records were reviewed at this time. ? Exam findings and EKG show no acute concerns or changes; patient is non-toxic appearing and is in no distress. Patient is appropriate for outpatient treatment and follow-up. ? I have evaluated and discussed social determinants of health with the patient that could potentially impact subsequent diagnosis and treatment plans. ? Differential diagnosis and treatment plan were discussed with the patient. Patient agrees with discussion and after shared medical decision making agrees with plan of care. All questions were answered to the patient's satisfaction. ECG Data EKG #1: ECG completion date: 09/01/24 ECG completion time: 18:46 Ischemic changes: acute STEMI Interpretation: Rate 88, NC interval 144, QRS duration 83 EKG Interpretation: normal rate and sinus rhythm Critical Care Time Critical Care Time Critical Care Time: No Discharge Plan Discharge Clinical Impression: Episode of dizziness Patient Disposition: Home, Self-Care Condition: Stable Instructions: Dizziness (ED) Additional Instructions: Your EKG is normal 1) Please follow-up with your primary care doctor in the next 1-2 days. 2) If you have any worsening of symptoms or any other urgent concerns please go to the ER. 3) Please continue taking your home medications as usual. 4) Please read and follow information included in discharge instructions. Patient Language: Gibralt[place] Prescriptions: No Action bupropion HCl 150 mg tablet extended release 24 hr PO topiramate 25 mg tablet sertraline 100 mg tablet 100 mg PO DAILY Follow-up/Referrals: UNKNOWN,DOCTOR [Primary Care Provider] - Time of Disposition: 18:43
[2024-09-01 18:25] VITALS: BP 112/81; PULSE 98; RESP 16; TEMP 36.8; O2SAT 100
--- NOTE | 2024-09-01 18:28 | PC.NURSE ---
1828 Provider into see patient.
--- NOTE | 2024-09-01 18:34 | ECG_ITS ---
Test Date: 2024-09-01 18:40:19 Measurements Intervals [place] Rate: 88 P: 17 FL: 144 QRS: 46 QRSD: 83 T: 42 QT: 342 QTc: 415 Interpretive Statements SINUS RHYTHM No previous ECG available for comparison Electronically Signed On 09-01-2024 21:24:09 [employer] by Charli Rothman M.D.
== END 2024-09-01 18:47 | disposition home or self-care (01) ==
PROVIDERS: Emergency Provider Nurse Practitioner
DX: R42 Dizziness and giddiness (principal)
CPT/HCPCS: 93005; 99213; G0463

== ENCOUNTER 2024-11-05 11:27 | Emergency (ER) | payer OTHER, SELFPAY ==
[2024-11-05 11:39] VITALS: BP 115/82; PULSE 93; RESP 16; TEMP 36.6; O2SAT 100
--- NOTE | 2024-11-05 12:06 | ED_ITS ---
HPI - Abdominal Pain General Chief Complaint: Abdominal Pain Stated Complaint: Right upper Quad pain/change in stool Time Seen by Provider: 11/05/24 12:07 Source: patient, RN notes reviewed and old records reviewed Mode of arrival: ambulatory Limitations: no limitations History of Present Illness HPI narrative: 29-year-old female presents to the [facility] with right upper quadrant pain and change in stool color. Pain started today. Patient reports that the color change 2 days ago. Reports a formed stool, denies diarrhea. No urinary symptoms. Patient reports that she started Mounjaro on September 27 a pproximately 3 weeks ago. Has also been following a keto diet. Denies nausea or vomiting. Denies fevers. No abdominal pain with palpation. Related Data Home Medications ?Medication ?Instructions ?Recorded ?Confirmed ?Last Taken ?Type Mounjaro 11/05/24 Unknown History escitalopram oxalate 5 mg tablet mg 11/05/24 Unknown History Allergies Allergy/AdvReac Type Severity Reaction Status Date / Time No Known Allergies Allergy Verified 09/01/24 18:23 Review of Systems Review of Systems: All systems reviewed & are unremarkable except as noted in HPI and below Constitutional: Constitutional: Reports no additional constitutional complaints ENT: Reports system reviewed and no additional complaints, except as documented Cardiovascular: Cardiovascular: Reports no additional cardiovascular complaints, Denies chest pain and Denies dyspnea Respiratory: Respiratory: Reports no additional respiratory complaints, Denies chest congestion, Denies cough and Denies dyspnea Gastrointestinal: Gastrointestinal: Reports as per HPI Musculoskeletal: Musculoskeletal: Reports no additional musculoskeletal complaints Integumentary/Breasts: Skin/Breast: Reports system reviewed and no additional complaints, except as docu [facility] Past Medical History Medical History Scoliosis STD (female) Murmur 2, currently Surgical History Surgical History No pertinent past surgical history Family History Family History Mother Congestive heart failure Glaucoma Father Leukemia Social History Social History Smoking status: Never smoker Alcohol intake: never Substance use: never Lack of Transportation: No Lack of Food: Never True Current Housing: I Have Housing Concerned About Future Housing: No Difficulty Paying Gas/Electric Bills: No Difficulty Paying for Meds: No Currently Unemployed: No Education: Associate Degree Difficulty w/ Childcare or Family Care: No Living arrangements: with family Gender identity (if verbalized by the patient): Female Spiritual care concerns: No Comments At the time of my signature, I reviewed and agree with the nursing past medical, surgical, social, and family history. There is no relevant family history per tinent to the patient complaint. Exam Const: General: cooperative, healthy appearing, comfortable, no acute distress, well developed, alert and well nourished Nutritional Appearance: well nourished Orientation/consciousness: patient oriented x3 Limitations: no limitations HENMT: Head: normal to inspection Mouth: Yes Normal oral and palatal mucosa present, Yes lip normal, Yes tongue normal and Yes moist mucous membranes Eyes: General: appearance normal, both eyes and all related structures Alignment and Position: alignment normal Neck: Neck: normal visual inspection, full ROM, no lymphadenopathy and no meningeal signs Chest: Chest palpation & inspection: normal inspection of the chest Resp: Effort & Inspection: normal respiratory effort and able to speak in complete sentences Auscultation: clear to auscultation bilaterally, no crackles, no rales, no rhonchi and no wheezes Cardio: Rate: regular rate GI: GI Palp: No abdominal tenderness, Yes Soft to palpation and No Guarding due to palpation present (GI) Auscultation: normal bowel sounds Skin: General skin exam: normal color and no rashes or lesions noted Neuro: General: patient oriented x3, gait normal, moves all extremities and no meningeal signs Cognition (Neuro): normal cognition Speech: normal speech Gait exam (Neuro): Normal gait present Extrem: General: normal to inspection, full ROM, capillary refill normal and normal gait Psych: Appearance: grossly normal and well kempt Mental Status: mental status grossly normal Speech and movement: Normal speech and movement present and Clear speech present Affect: normal affect Attitude: cooperative Course Course Level of Care: Express Care Visit Vital Signs Vital signs: Vital Signs Temperature 97.9 F 11/05/24 11:39 Pulse Rate 93 11/05/24 11:39 Respiratory Rate 16 11/05/24 11:39 Blood Pressure 115/82 11/05/24 11:39 Pulse Oximetry 100 11/05/24 11:39 Oxygen Delivery Room Air 11/05/24 11:39 Temperature 97.9 F 11/05/24 11:39 Pulse Rate 93 11/05/24 11:39 Respiratory Rate 16 11/05/24 11:39 Blood Pressure 115/82 11/05/24 11:39 Pulse Oximetry 100 11/05/24 11:39 Oxygen Delivery Room Air 11/05/24 11:39 Reviewed MDM - Abdominal Pain MDM Narrative Medical decision making narrative: Patient sitting comfortably in exam room. Nontoxic, vitals stable. Patient with abdominal pain since this morning, not reproducible. Denies fevers nausea vomiting. Reports change in bowels 2 days ago. Discussed with patient that this could be due to the medication she started as well as being on the keto diet. Concern for gallbladder. Patient would rather follow-up with primary care provider but stated if symptoms did get worse or she had further concerns she would proceed to the emergency room Discharge instructions reviewed with patient, as well as provided in writing per nursing staff. The instructions also include specific and strict return/GO TO THE ER as well as f/u information. All questions have been answered, and the patient deny any further questions with discharge and discharge plan. Some parts of this dictation were generated by voice recognition software and may contain typographical and/or grammatical inaccuracies. Differential Diagnosis Differential diagnosis: Likely abdominal pain, gastroenteritis, small bowel obstruction and other (Cholecystitis, cholelithiasis) Critical Care Time Critical Care Time Critical Care Time: No Discharge Plan Discharge Clinical Impression: Right upper quadrant abdominal pain Patient Disposition: Home, Self-Care Condition: Stable Instructions: Cholecystitis (ED), Low Fat Diet (ED) Additional Instructions: call your doctor and get a close follow-up for further evaluation Stop With the keto diet. eat a healthy low-fat diet. Being on with Mounjaro and eating a keto diet put you at risk for gallbladder issues. If the symptoms get worse please proceed to the nearest emergency room Patient Language: Palestinian Prescriptions: No Action escitalopram oxalate 5 mg tablet Mounjaro Follow-up/Referrals: PHYSICIAN NOT ON STAFF,NONSTAFF [Primary Care Provider] - Stand Alone Forms: Work/School Release IP Time of Disposition: 12:18
--- OUTSIDE RECORDS SUMMARY | 2024-11-05 13:00 | XMS_ITS | Encounter Summary ---
Author Organization [facility] Healthcare Address [address] [place] [address] Care Team Providers Care Audit Associate Name Role Phone Leeroy Romero MD Primary Care Provider [phone] Harper Langley Primary Care Provider Callie More NP Primary Care Provider [phone] Encounter Details Date Type Department Care Team (Late st Contact Info) Description 11/12/2021 Telephone Obstetrics and Gynecology Clinic [address] [facility] 3rd Floor [address] [place] [address] Nory Londono Social History Tobacco Use Types Packs/Day Years Used Date Smoking Tobacco: Never Smokeless Tobacco: Never Alcohol Use Standard Drinks/Week Comments Not Currently 0 (1 standard drink = 0.6 oz pur e alcohol) AUDIT-C Answer Date Recorded Q1: How often do you have a drink containing alc ohol? Never 2021 Average Number of Drinks Not on file 021 Q3: How often do you have si x or more drinks on one occasion? Never 2021 PHQ-2 Answer Date Recorded PHQ-2 Total Score (If total score is 3 or more points, staff should administer the PHQ-9) 6 2021 Comments Unknown Sex and Gender Information Value Date Recorded Sex Assigned at Not on file Legal Sex Female 8:39 AM PERSONNEL TECHNICIAN Gender Identity Female 09/24/2021 8:03 AM PERSONNEL TECHNICIAN Sexual Orientation Straight 09/24/2021 8: 03 AM PERSONNEL TECHNICIAN documented as of this encounter Plan of Treatment Not on file documented as of this encounter Visit Diagnoses Not on filedocumented in this encounter Additional Health Concerns Infection Onset Date Last Indicated Resolved Time COVID: Recovered Comment:Added based on recent COVID infection. 08/27/2021 09/01/2021 12/25/2021 3:05 AM C DT documented as of this encounter Care Teams Audit Associate Relationship Specialty Start Date End Date Leeroy Romero MD PCP - General 12/12/20 05/09/22 Harper Langley PA PCP - General Family Medicine 05/10/22 03/15/24 Callie More NP PCP - General Internal Medicine 03/16/24 documented as of this encounter
--- OUTSIDE RECORDS SUMMARY | 2024-11-05 13:00 | XMS_ITS | Clinical Summary ---
Author Organization [facility] Address [address] [place] [address] Care Team Providers Care Top Cager Name Role Phone Leeroy Romero MD Primary Care Provider [phone] Source Comments [facility],non-owned Affiliates and Associated Physician Practices is amultiple site organization consisting of ambulatory clinics and hospital sitesin [place], [place], [place] and [place]. This disclosure is being madepursuant to the Care Everywhere program and may not contain all information available regarding this patient. Last updated 18.[facility] Allergies No known active allergies Medications * Be aware that medications may not be up to date on this document. Alwaysverify current medications with the patient. Medication Sig Dispensed Refills Start Date End Date Status buPROPion XL 24hr (Wellbutrin-XL) 150 MG tablet 03/16/2024 Active sertraline (Zoloft) 50 MG tablet 03/16/2024 Active ketoconazole (Nizoral) 2 % shampooIndications:Ot her seborrheic dermatitis Apply to wet hair, leave on for 3 minutes, then rinse; three times weekly. 30 days supply 120 mL 11 06/19/2024 Active clobetasol (Temovate) 0.05 % solutionIndications:O ther cicatricial alopecia Apply to affected areas on the scalp twice daily. 30 days supply. 50 mL 3 06/21/2024 Active doxycycline hyclate 100 MG tabletIndications:Oth er cicatricial alopecia Take 1 (one) tablet by mouth 2 times daily 60 tablet 3 06/21/2024 Active Active Problems No known active problems Social History Tobacco Use Types Packs/Day Years Used Date Smoking Tobacco: Never Smokeless Tobacco: Never Tobacco Cessation:Counseling Given: Not Answered Sex and Gender Information Value Date Recorded Sex Assigned at Not on file Gender Identity Not on file Sexual Orientation Not on file Plan of Treatment Health Maintenance Due Date Last Done Comments PAP SMEAR 1997 HIV SCREENING 02/13/2012 HEPATITIS C SCREENING 02/08/2015 DTAP/TDAP/TD VACCINES (1 - Tdap) 02/13/2016 HEPATITIS B VACCINE (1 of 3 - 19+ 3-dose series) 02/13/2016 COVID-19 VACCINE (1 - 2023-25 season) 2024 INFLUENZA VACCINE (#1) 2024 , 06/07/2022, 04/22/2020, Additional history exists DEPRESSION SCREENING 08/08/2024 ZOSTER VACCINE (1 of 2) 2047 HIB VACCINE Aged Out No longer eligi ble based on patient's age to complete this topic HPV VACCINE Aged Out No longer eligi ble based on patient's age to complete this topic MENINGOCOCCAL (Group B) VACCINE SHARED DECISION-MAKING Aged Out No longer eligible based on patient's age to complete this topic MENINGOCOCCAL GROUPS A/C/Y/W VACCINE Aged Out No longer eligible based on patient's age to complete this topic PNEUMOCOCCAL VACCINE Aged Out No long er eligible based on patient's age to complete this topic Care Teams Top Cager Relationship Specialty Start Date End Date Leeroy Romero MD [address] [facility] [address] [place] [address] [phone] PCP - General 04/15/22
--- OUTSIDE RECORDS SUMMARY | 2024-11-05 13:00 | XMS_ITS | Encounter Summary ---
Author Organization [facility] Healthcare Address [address] [place] [address] Care Team Providers Care Computer Recycling Worker Name Role Phone Leeroy Romero MD Primary Care Provider [phone] Harper Langley Primary Care Provider aCllie More NP Primary Care Provider [phone] Encounter Details Date Type Department Care Team (Late st Contact Info) Description 01/22/2022 Telephone Specialty Care Clinic [address] [facility] 4th Floor [address] [place] [address] Charlie Foster Social History Tobacco Use Types Packs/Day Years [...] should administer the PHQ-9) 6 2021 Comments Yes Sex and Gender Information Value Date Recorded Sex Assigned at Not on file Legal Sex Female 8:39 AM ENGINEERING EXECUTIVE Gender Identity Female 09/24/2021 8:03 AM ENGINEERING EXECUTIVE Sexual Orientation Straight 09/24/2021 8: 03 AM ENGINEERING EXECUTIVE documented as of this encounter Plan of Treatment Not on file documented as of this encounter Visit Diagnoses Not on filedocumented in this encounter Care Teams Computer Recycling Worker Relationship Specialty Start Date End Date Leeroy Romero MD PCP - General 12/12/20 05/09/22 Harper Langley PA PCP - General Family Medicine 05/10/22 03/15/24 Callie More NP PCP - General Internal Medicine 03/16/24 documented as of this encounter
--- OUTSIDE RECORDS SUMMARY | 2024-11-05 13:00 | XMS_ITS | Clinical Summary ---
Author Organization [facility] Address [facility] [place] [address] Care Team Providers Care Eye Clinic Manager Name Role Phone Callie More NP Primary Care Provider [phone] Allergies No known active allergies Medications sertraline (ZOLOFT) 50 mg tabletIndicatio ns:Mild episode of recurrent major depressive disorder,Anxiet y Take 1 tablet (50 mg total) by mouth daily 30 tablet 11 4 03/16/20 25 Active ketoconazole (NIZORAL) 2 % shampoo Apply to wet hair, leave on for 3 minutes, then rinse; three times weekly. 30 days supply 4 Active clobetasoL (TEMOVATE) 0.05 % external solution Apply to affected areas on the scalp twice daily. 30 days supply. 4 Active buPROPion XL (WELLBUTRIN XL) 300 mg 24 hr tablet Take 1 tablet (300 mg total) by mouth every morning 90 tablet 3 4 07/13/20 25 Active minoxidiL 5 % solution Apply 1 Dose topically daily 180 mL 3 4 Active phentermine (ADIPEX-P) 37.5 mg tablet Take 1 tablet (37.5 mg total) by mouth daily before breakfast 30 tablet 3 4 Active topiramate (TOPAMAX) 50 mg tablet Take 1 tablet (50 mg total) by mouth 2 (two) times a day 60 tablet 11 5 09/12/19 26 Active Hospital, Clinic, or Other Facility Administered Medication Ordered Dose Route Frequency Start Date End Date Status etonogestreL (NEXPLANON) implant 68 mgIndications:Pregna ncy Contraception 68 mg subderm Continuous (implanted device) 06/10/2023 06/09/2026 Active Active Problems Problem Noted Date Diagnosed Date BMI 30.0-30.9,adult 07/13/2024 Assessment & Plan (07/13/2024 3:44 PM PAINTER SUPERVISOR): Patient has been struggling with her weight. We will start phentermine 30 mg daily. I advised her on side effects of the medication. I advised her to break the tablet in half and start with a half dose of the medication. Hair loss 03/16/2024 Assessment & Plan (07/13/2024 3:41 PM PAINTER SUPERVISOR): Start hair skin and Nails vitamin. 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 I advised her to use the ketoconazole shampoo as well. She has been hesitant to start the minoxidil for the traction alopecia however I have encouraged her to do so and discuss the role in minoxidil with stimulating the hair follicles. Additionally I have advised her to speak with the cylinder die machine helper about starting doxycycline, bacteria was also seen with her biopsy for the scarring alopecia. Patient has a history of cyst and pimples on scalp. We discussed long-term treatment of scarring alopecia and the importance of treating it to keep the hair follicles active. Assessment & Plan (03/16/2024 12:48 PM CDT): Referral to dermatology. I suggested patient see a cylinder die machine helper specializes in hair loss. Advised her to take a hair skin and Nails vitamin. We will check labs as well. Mild episode of recurrent major depressive disor [place] 03/16/2024 Assessment & Plan (07/13/2024 3:42 PM PAINTER SUPERVISOR): Continue Zoloft 50 mg daily and increase Wellbutrin to 300 mg daily Medications sent to patient's pharmacy. Discussed medication desired effects, potential side effects, and how to administer the medication. Discussed nonpharmacological interventions such as seeing a therapist, support system, diet, exercise, sleep. Follow up in three months or sooner if needed. Patient verbalizes understanding regarding plan of care and all questions answered. Assessment & Plan (03/16/2024 12:47 PM CDT): We will decrease Zoloft to 50 mg daily and add on Wellbutrin 150 mg daily. Medications sent to patient's pharmacy. Discussed medication desired effects, potential side effects, and how to administer the medication. Discussed nonpharmacological interventions such as seeing a therapist, support system, diet, exercise, sleep. Follow up in 6 weeks or sooner if needed. Patient verbalizes understanding regarding plan of care and all questions answered. Encounter for weight management 03/16/2024 Assessment & Plan (03/16/2024 12:46 PM CDT): Routine health maintenance objectives discussed and orders placed for any outstanding screening studies. Physical exam performed as above. Routine annual labs obtained and will be reviewed with patient when results available. Age-appropriate anticipatory guidance and counseling was provided and reviewed including: Encouraged regular physical activity--moderate activity for a total of 150 minutes per week over 3-5 days. Encouraged healthy diet with regular fresh fruits and vegetables limited in processed carbohydrates. Alcohol use Nicotine use Depression screening Anxiety 03/08/2023 Assessment & Plan (07/13/2024 3:42 PM PAINTER SUPERVISOR): Continue Zoloft and increase Wellbutrin 300 mg. Patient tells me symptoms are controlled Assessment & Plan (03/16/2024 12:48 PM CDT): We will decrease Zoloft to 50 mg and add on Wellbutrin. Patient will follow up in 6 weeks Scoliosis 09/25/2019 Overview (03/16/2024): Denies surgery, brace, or other intervention. Does not follow with ortho/spine. Assessment & Plan (03/16/2024 12:47 PM CDT): Patient is asymptomatic she has never had any complications. MVP (mitral valve prolapse) 11/15/2016 Overview (04/18/2023): Images from the original note were not included. - Hx non-rheumatic MVP. Reports after COVID diagnosis in 08/2021 became more short of breath on exertion and having heart palpitations. Does not have shop superintendent - Last TTE 03/2022 in [place]: Repeat TTE 04/04/23: Normal left ventricular systolic function. No focal wall motion abnormalities. Normal left ventricular size. Left ventricular wall thickness upper limits of normal. Normal left ventricular diastolic function. Ejection fraction is measured at 68 %. Global Longitudinal Strain is -19 %. GLS is normal. The left atrium is normal in size. Normal appearance of the mitral valve. No clear evidence for mitral valve prolapse of the anterior or posterior leaflet. Trivial regurgitation of the mitral valve. Plan: [] Given repeat TTE with no clear evidence of MVP or HF, defer additional Cardiology evaluation at this time. Generally, women with mitral valve prolapse in the absence of other cardiovascular disorders tolerate well and do not develop remarkable cardiac complications. Resolved Problems Problem Noted Date Diagnosed Date Resolved Date BMI 27.0-27.9,adult 03/16/2024 07/13/20 Assessment & Plan (03/16/2024 12:48 PM CDT): Continue following a heart healthy diet with regular physical activity. Right upper quadrant pain 03/16/2024 Assessment & Plan (03/16/2024 5:23 PM CDT): Right upper quadrant ultrasound ordered. Patient advised on red flag symptoms of cholecystitis and when to present to ER. She indicates understanding. No further questions at this time. Encounter for female sterilization procedure 3 03/16/2024 Threatened premature labor in third trimester 04/05/2006/11/2023 Overview (04/18/2023): Increased painful contractions that started 03/31. Was initially evaluated at [facility] and contractions at that time resolved with fluid. She then presented to [facility] on 04/01 with q2-3 min painful contractions. She was monitored at that time and received betamethasone x2. BMZ^04/02. Patient was discharged with nifedipine PRN for contractions -Instructed patient to stop taking nifedipine -[facility] precautions reviewed Undesired future fertility 03/08/2023 0 03/16/2024 Overview (03/08/2023): [place] sterilization consent signed 03/08/23 in clinic. Desires BTL on L&D. Encounter for supervision of normal 03/07/20 23 06/11/2023 Overview (04/18/2023): 1st Trimester: [x] Dating Criteria: ARCHANA 05/14/23 based on 1T w/ OSP [x] Labs: Rh pos, Ab neg, CBC wnl, Rubella Imm, VZV unknown, RPR NR, HIV NR, HepBSAg NR, Hep C Ab NR [x] GC/CT/Trich: neg x2 [x] UCx: no growth [x] vitamins [x] Genetic Screening: obtained, reports LR NIPT [x] CF/SMA carrier screening: not obtained [] Hgb electrophoresis: not obtained [] Pap: To address PP [] EPDS: PNB[facility] referral (if indicated) [] ASA at 12 weeks (if indicated) [x] DM screening: HgbA1c 5.4% (<5.7: no further test until 2T screen, 5.7-6.5: obtain 2h GTT, >6.5: refer to CDP) 2nd Trimester: [x] Anatomy ultrasound: completed with previous OB provider, reports fEIF and measuring big. Incomplete [facility] anatomy 03/08, AGA, Anterior placenta, normal CARL [x] 1hr GTT (24-28wks): 96 [x] Tdap (27-36wks): 04/05 [] Childbirth classes discussed [] education (colostrum, expected breast changes, plan for RTW) and breast pump ordered [] Second trimester education packet 3rd Trimester: [x] CBC/HIV/RPR/T&S: Hgb 11.5 [x] GBS: obtained 04/18 [x] GC/CT/Trich: Neg [x] Final discussion (S2S, Baby Friendly, LC Support, PP experience) [x] Third trimester education packet Last visit: [] Last clinic visit SVE: [] IOL start agent: [] Epidural: desires [] Consents signed: Counseling: [] Method of delivery: anticipate [x] Timing of delivery: IOL 05/08 2000 [x] MOC: [facility], [place] sterilization consent signed 03/08/23 [x] MOF: breast [x] education: completed in all 3 trimesters [x] Earth Boring Machine Operator: in [place] [x] Car seat discussed [] PP depression counseling Hypothyroidism 09/25/2019 03/16/2024 Overview (03/16/2024): Only during Encounters Date Type Department Care Team Description 10/29/2024 Orders Only [facility] Medical [facility] Primary Care at [address] [phone] Callie More NP Mass of lower inner quadrant of left breast (Primary Dx) 09/16/2024 9:15 AM PAINTER SUPERVISOR Telemedicine [facility] Virtual Care [address] [place] [address] Yessi Youssef NP Rash (Primary Dx) 09/16/2024 Patient Self-Triage [facility] HealthCare/ Physicians [address] [place] [address] Mychart, Generic Provider 09/12/2024 Orders Only [facility] Internal Medicine [address] [facility] [address] [place] [phone] Callie More NP from Last 3 Months Immunizations Immunization Administration Dates Next Due DTP / HiB 1995,1997,1997 DTaP 03/18/2001,09/27/1998 HPV, Quadrivalent 07/14/2013,03/03/2013,10/15/19 13 Hep A, Pediatric 12/15/2002 Hep A, Unspecified 12/15/2002,06/02/2002 Hep B, Adolescent or Pediatric 1997,1996,1997 HiB 05/17/1998 IPV 03/18/2001,1997 Influenza, Quadrivalent, Neli l Culture-based MDCK, Preservative Free, Antibiotic Free, Intramuscular 06/07/2022 Influenza, Quadrivalent, Spl it, Intramuscular 05/28/2016 Influenza, Quadrivalent, Spl it, Preservative Free, Intramuscular 08/10/2023,04/22/2020 Influenza, Split 06/03/2007,07/23/2006 Influenza, Trivalent, IM (MDV) 06/15/2011 Influenza, Trivalent, Preser vative Free, Intramuscular 08/05/2012 Influenza, Unspecified 05/28/2024 MMR 03/18/2001,05/17/1998 Meningococcal MCV4P (Menactra) 03/03/2013,2007 OPV 1997,1997 Tdap 04/05/2023, 2,04/22/2020,05/04,03/05/2008 Varicella 03/05/2008,11/29/1998 Surgical History Surgery Date Site/Laterality Comments WISDOM TOOTH EXTRACTION Bilateral ENDOMETRIAL ABLATION 08/08/2023 - 08/07/2024 Medical History Medical History Date Comments Heart murmur Thyroid disease Scoliosis Cancer (HCC) Dad Depression Self Heart disease Mom Hypothyroidism 09/25/2019 Only during preg [place] Family History Medical History Relation Name Comments Cancer Father Samm Gooden Leukemia Father Samm Gooden Heart disease Maternal Grandmother Teresita Bailey Hypertension Maternal Grandmother Teresita Bailey Heart disease Mother DeHavilland Leo Hypertension Mother DeHavilland Leo Anesthesia problems Neg Hx Malig Hypertension Neg Hx Malig Hyperthermia Neg Hx Pseudochol deficiency Neg Hx Relation Name Status Comments Father Samm Gooden Maternal Grandfather Alive Maternal Grandmother Teresita Bailey Alive Mother DeHavilland Leo Alive Paternal Grandfather Paternal Grandmother Social History Tobacco Use Types Packs/Day Years Used Date Smoking Tobacco: Never Smokeless Tobacco: Never Tobacco Cessation:Counseling Given: Not Answered Alcohol Use Standard Drinks/Week Comments Not Currently 0 (1 standard drink = 0.6 oz pur e alcohol) AUDIT-C Answer Date Recorded Q1: How often do you have a drink containing alcohol? Never 03/16/2024 Q2: How many drinks containi ng alcohol do you have on a typical day when you are drinking? Patient does not drink Q3: How often do you have si x or more drinks on one occasion? Never 03/16/2024 PHQ-2 Answer Date Recorded PHQ-2 Total Score (If total score is 3 or more points, staff should administer the PHQ-9) 6 03/16/2024 Hunger Vital Sign Answer Date Recorded Within the past 12 months, y ou worried that your food would run out before you got the money to buy more. Patient declined Within the past 12 months, t he food you bought just didn't last and you didn't have money to get more. Patient declined 10/2022 [place] Depression Scale Answer Date Recorded [place] Depression Scale Total 1 06/10/2023 The thought of harming myself has occurred to me . Never 06/10/2023 Personal Safety Answer Date Recorded Have you ever been in or are you currently in a harmful physical or emotional relationship or is someone making you feel afraid or unsafe? Denies 08/11/2023 Comments No Sex and Gender Information Value Date Recorded Sex Assigned at Not on file Legal Sex Female 8:39 AM PAINTER SUPERVISOR Gender Identity Female 09/24/2021 8:03 AM PAINTER SUPERVISOR Sexual Orientation Straight 09/24/2021 8: 03 AM PAINTER SUPERVISOR Obstetrics History Para Term AB IAB SAB Ectopic Multiple Livin g Live Births 4 4 3 1 4 4 Date Outcome GA Total Labor Labor/2nd/3rd Weight Sex Type Anes PTL Odette A1 A5 Name Clin 017 Term 39w 0d 2.92 kg (6 lb 7 oz) M Vag-S pont Epidur al N Livin g Complications:None Delivery Location:[facility] o[facility]ital 020 Term 37w 6d 3.175 kg (7 lb) F Vag-S pont Epidur al Livin g Complications:None 022 36w 6d F Vag-S pont Epidur al Livin g 023 Term 37w 2d M Vag-S pont Livin g Comments G1-G3 [facility] Last Filed Vital Signs Vital Sign Reading Time Taken Comments Blood Pressure 132/86 07/13/2024 9:39 AM PAINTER SUPERVISOR Pulse 79 07/13/2024 9:39 AM PAINTER SUPERVISOR Temperature 36.2 C (97.1 F) 07/13/2024 9:39 AM PAINTER SUPERVISOR Respiratory Rate 16 07/13/2024 9:39 AM PAINTER SUPERVISOR Oxygen Saturation 97% 07/13/2024 9:39 AM PAINTER SUPERVISOR Inhaled Oxygen Concentration - - Weight 87.7 kg (193 lb 6.4 oz) 07/13/2024 9:39 A M PAINTER SUPERVISOR Height 170.2 cm (5' 7 ) 07/13/2024 9:39 AM PAINTER SUPERVISOR Body Mass Index 30.29 07/13/2024 9:39 AM PAINTER SUPERVISOR Plan of Treatment Health Maintenance Due Date Last Done Comments Covid-19 Vaccine ( season) 2024 05/26/2021 Cervical Cancer Screening 06/10/2024 06/10/2023 Depression Screening 03/16/2025 03/16/2024, 06/10/2023, 2021, Additional history exists Regular Well Visit/Exam 18-64 03/16/2025 03/16/2024 DTaP/Tdap/Td Vaccine (11 - Td or Tdap) 04/05/2033 04/05/2023, 04/15/2022, 04/22/2020, Additional history exists Hepatitis B Screening Completed 1997 , 1997, 1997 Varicella Vaccines Completed 03/05/2008, 11/29/1998 HPV Vaccines Completed 07/14/2013, 02/06, 10/14/2012 Hepatitis C Screening Completed 11/18/2021, 020 Influenza Vaccine Completed 05/28/2024, , 06/07/2022, Additional history exists Pneumococcal vaccine <65 Aged Out No longer eligible based on patient's age to complete this topic Procedures Procedure Name Priority Date/Time Associated Diagnosis Comments PAP WITH REFLEX TO HIGH RISK HPV Routine 06/10/2023 9:14 AM CDT Encounter for initial prescription of implantable subdermal contraceptive HEPATITIS C ANTIBODY Routine 11/18/2021 11:09 AM CDT Supervision of other normal , antepartum from Last 3 Months or Most Recently Relevant to Health Maintenance Results * Pap with reflex to High Risk HPV and Genotyping (Cytology Component) (06/10/2023 9:14 AM CDT) Thin prep (Pap test) 06/10/2023 9:14 AM CDT 06/10/2023 11:47 AM CDT Narrative PATHOLOGY [facility] - 06/14/2023 4:58 PM PAINTER SUPERVISOR EPIC results best viewed via link to PDF [facility] [place] [address] Note to Patients: This report may contain a detailed description of human tissue sent by a health care provider to the laboratory for pathologic evaluation. The content of this report is essential for diagnosis and may provide important critical findings. This information may be unfamiliar to patients to review without a medical professional present. It is advised that the patient review this report in the presence of a health care provider who can answer questions and explain the details. CYTOPATHOLOGY REPORT FINAL Patient Name: HIWOT GOODEN Gender: F : 1995 (Age: 28) Address: [address] [place] [phone] Hospital #: [id number] Service: UNKNOWN Location: Patient Type: [facility] SPECIMEN Taken: 06/10/2023 Received: 06/10/2023 Accessioned: 06/10/2023 Reported: 06/14/2023 Physician(s): Kimberlyn Ramsay M.D. FINAL INTERPRETATION SOURCE OF SPECIMEN Liquid based Thin Prep pap with Reflex HPV: STATEMENT OF ADEQUACY - Satisfactory for evaluation - Endocervical cells/transformation zone sample present GENERAL CATEGORIZATION: - Negative for squamous intraepithelial lesion or malignancy osie/06/14/2023 16:58 DELFINO Godoy(ASCP) Report Electronically Reviewed and Signed Out By DELFINO Godoy(ASCP) 06/14/2023 16:58:35 Cervicovaginal Cytology (Pap Test) Disclaimer: The Pap test is a screening test used to detect cervical cancer and its precursors; it is not a diagnostic procedure. False negative and false positive results do occur. Pap test results should be interpreted in the context of pertinent clinical information and biopsy results as indicated. [facility] Clinical Laboratory Improvement Amendments (CLIA) mandate that cytologic and histologic results be correlated for laboratory quality control assistant & improvement standards. FOR ALL HIGH-GRADE CASES we request submission of follow-up histological material and/or reports that have not been previously provided so that we may fulfill said required standards. Gross Description A. Liquid based Thin Prep pap with Reflex HPV: Cervical/vaginal - Screening ThinPrep Clinical Diagnosis and History Last Menstrual Period: unknown Menstrual History: Unknown The patient is a 28 year old woman with last pap [id number]. Report Images and scanned documents, if included only viewable in PDF version The performance characteristics of some immunohistochemical stains, in-situ hybridization and fluorescence in-situ hybridization tests and immunophenotyping by flow cytometry cited in this report (if any) were determined by the Surgical Pathology Department at [facility] as part of an ongoing quality control head program and in compliance with federally mandated regulations drawn from the Clinical Laboratory Improvement Act of 1988 (CLIA '88). Some of these tests rely on the use of analyte specific reagents and are subject to specific labeling requirements by the US Food and Drug Administration. Such diagnostic tests may only be performed in a facility that is certified by the Department of Health and Human Services as a high complexity laboratory under CLIA '88. The FDA has determined that such clearance or approval is not necessary. This test is used for clinical purposes. It should not be regarded as investigational or for research. Nevertheless, federal rules concerning the medical use of analyte specific reagents require that the following disclaimer be attached to the report: This test was developed and its performance characteristics determined by the Surgical Pathology Department of [facility]. It has not been cleared or approved by the U. S. Food and Drug Administration. Kimberlyn Ramsay MD LAB CYTOLOGY ORDERABL ES Final Result PATHOLOGY [facility] 3rd Floor [place], [place] [phone] * Hepatitis C antibody (11/18/2021 11:09 AM CDT) Hep C Ab Nonreactive Nonreactive [facility] Comment:Antibodies to HCV no t detected. Does NOT exclude the possibility of recent exposure to HCV. Blood 11/18/2021 11:0 9 AM CDT 11/18/2021 12:08 PM CDT David Bonilla NP LAB MICROBIOLOGY - GENERAL O RDERABLES Edited Result - Final [facility] Department [place] [address] from Last 3 Months or Most Recently Relevant to Health Maintenance Insurance [facility] [place] [address] [place] [address] EMPLOYEES Care Teams Eye Clinic Manager Relationship Specialty Start Date End Date Callie More NP PCP - General Internal Medicine 03/16/24
--- OUTSIDE RECORDS SUMMARY | 2024-11-05 13:00 | XMS_ITS | Referral Summary ---
Author Organization [facility] Address [address] [place] [address] Care Team Providers Care Facilities Maintenance Worker Name Role Phone Callie More NP Primary Care Provider [phone] Encounters Date Type Department Care Team Description 11/05/2024 12:59 PM CDT Emergency [facility] Emergency Department [address] [place] [address] 10/29/[address] [facility] Medical [facility] Primary Care at [address] [phone] Callie More NP Mass of lower inner quadrant of left breast (Primary Dx) 09/16/2024 9:15 AM RN ADMISSIONS Telemedicine [facility] Virtual Care [address] [place] [address] Yessi Youssef NP Rash (Primary Dx) 09/16/2024 Patient Self-Triage [facility]/ Physicians [address] [place] [address] Mychart, Generic Provider 09/12/2024 Orders Only [facility] Internal Medicine [address] [facility] [facility] [address] [place] [address] Callie More NP from Last 3 Months Allergies No known active allergies Medications sertraline [...] 07/13/2024 Assessment & Plan (07/13/2024 3:44 PM RN ADMISSIONS): Patient has been struggling with her weight. We will start phentermine 30 mg daily. I advised her on side effects of the medication. I advised her to break the tablet in half and start with a half dose of the medication. Hair loss 03/16/2024 Assessment & Plan (07/13/2024 3:41 PM RN ADMISSIONS): Start hair skin and Nails vitamin. 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 Patient has a history of cyst and pimples on scalp. We discussed long-term treatment of scarring alopecia and the importance of treating it to keep the hair follicles active. Assessment & Plan (03/16/2024 12:48 PM CDT): Referral to dermatology. I suggested patient see a heel sander specializes in hair loss. Advised her to take a hair skin and Nails vitamin. We will check labs as well. Mild episode of recurrent major depressive disor [place] 03/16/2024 Assessment & Plan (07/13/2024 3:42 PM RN ADMISSIONS): Continue Zoloft 50 mg daily and increase [...] 03/08/2023 Assessment & Plan (07/13/2024 3:42 PM RN ADMISSIONS): Continue Zoloft and increase Wellbutrin 300 mg. [...] and having heart palpitations. Does not have neurology physician - Last TTE 03/2022 in [place]: Repeat TTE 04/04/23: Normal left ventricular systolic [...] 03/16/2024 Threatened premature labor in third trimester 04/05/20 23 06/11/2023 Overview (04/18/2023): Increased painful contractions that started 03/31. Was initially evaluated at [facility] and contractions at that time resolved with fluid. She then presented to [facility] on 04/01 with q2-3 min painful contractions. She was monitored at that time and received betamethasone x2. BMZ^04/02. Patient was discharged with nifedipine PRN for contractions -Instructed patient to stop taking nifedipine -[facility] precautions reviewed Undesired future fertility 03/08/2023 0 [...] provider, reports fEIF and measuring big. Incomplete [facility] anatomy 03/08, AGA, Anterior placenta, normal [...] of delivery: IOL 05/08 2000 [x] MOC: ppBTL, [place] sterilization consent signed 03/08/23 [x] MOF: breast [x] education: completed in all 3 trimesters [x] Care Clinician: in [place] [x] Car seat discussed [] PP depression counseling Hypothyroidism 09/25/2019 03/16/2024 Overview (03/16/2024): Only during Immunizations Immunization Administration Dates Next Due DTP [...] Meningococcal MCV4P (Menactra) 03/03/2013,2007 OPV 1997,1997 Tdap 04/05/2023,,04/22/2020,05/04,03/05/2008 Varicella 03/05/2008,11/29/1998 Social History Tobacco Use Types Packs/Day Years [...] money to get more. Patient declined 10/2022 [place] Depression Scale Answer Date Recorded [place] Depression Scale Total 1 06/10/2023 The thought [...] on file Legal Sex Female 8:39 AM RN ADMISSIONS Gender Identity Female 09/24/2021 8:03 AM RN ADMISSIONS Sexual Orientation Straight 09/24/2021 8: 03 AM RN ADMISSIONS Last Filed Vital Signs Vital Sign Reading Time Taken Comments Blood Pressure 132/86 07/13/2024 9:39 AM RN ADMISSIONS Pulse 79 07/13/2024 9:39 AM RN ADMISSIONS Temperature 36.2 C (97.1 F) 07/13/2024 9:39 AM RN ADMISSIONS Respiratory Rate 16 07/13/2024 9:39 AM RN ADMISSIONS Oxygen Saturation 97% 07/13/2024 9:39 AM RN ADMISSIONS Inhaled Oxygen Concentration - - Weight 87.7 kg (193 lb 6.4 oz) 07/13/2024 9:39 A M RN ADMISSIONS Height 170.2 cm (5' 7 ) 07/13/2024 9:39 AM RN ADMISSIONS Body Mass Index 30.29 07/13/2024 9:39 AM RN ADMISSIONS Plan of Treatment Not on file Procedures Procedure Name Priority Date/Time Associated Diagnosis [...] CDT 06/10/2023 11:47 AM CDT Narrative PATHOLOGY [facility] - 06/14/2023 4:58 PM RN ADMISSIONS EPIC results best viewed via link to PDF [facility] [place] [address] Note to Patients: This report may contain [...] the details. CYTOPATHOLOGY REPORT FINAL Patient Name: BLANKA GOODEN Gender: F : 1995 (Age: 28) Address: [address] [place] [id number] Hospital #: [id number] Service: UNKNOWN Location: Patient Type: [facility] SPECIMEN Taken: 06/10/2023 Received: 06/10/2023 Accessioned: 06/10/2023 [...] clinical information and biopsy results as indicated. CMS Clinical Laboratory Improvement Amendments (CLIA) mandate that cytologic and histologic results be correlated for laboratory quality control inspector & improvement standards. FOR ALL HIGH-GRADE CASES [...] 28 year old woman with last pap [id number]. Report Images and scanned documents, if included only viewable in PDF version The performance characteristics of some immunohistochemical stains, in-situ hybridization and fluorescence in-situ hybridization tests and immunophenotyping by flow cytometry cited in this report (if any) were determined by the Surgical Pathology Department at [facility] as part of an ongoing quality coordinator program and in compliance with federally mandated [...] determined by the Surgical Pathology Department of [facility]. It has not been cleared or approved by the U. S. Food and Drug Administration. Kimberlyn Ramsay MD LAB CYTOLOGY ORDERABL ES Final Result PATHOLOGY [facility] IO [address]rd Floor [place], [place] [phone] * Hepatitis C antibody (11/18/2021 11:09 AM CDT) Hep C Ab Nonreactive Nonreactive [facility] Comment:Antibodies to HCV no t detected. Does NOT exclude the possibility of recent exposure to HCV. Blood 11/18/2021 11:0 9 AM CDT 11/18/2021 12:08 PM CDT David Bonilla NP LAB MICROBIOLOGY - GENERAL O RDERABLES Edited Result - Final [facility] Department [place] [address] from Last 3 Months or Most Recently Relevant to Health Maintenance Insurance [facility] [employer] Care Teams Facilities Maintenance Worker Relationship Specialty Start Date End Date Callie More NP PCP - General Internal Medicine 03/16/24
--- OUTSIDE RECORDS SUMMARY | 2024-11-05 13:00 | XMS_ITS | Continuity of Care Document ---
Author Organization [facility] Address [address] [place] [address] Phone Care Team Providers Care Bilingual Customer Service Name Role Phone Margarita Sanchez Unavailable Unavailable Procedures Procedure Date Eye Exam & Treatment Refraction Eye Exam & Treatment Refraction Eye Exam & Treatment Eye Exam & Treatment Advance Directives Directive Yes / No Effective Date File Name No Information Encounters Encounter Description Practice Location Reason(s) For Visit Diagnoses Date Provider Providers Copied on Encounter [facility], [address] [place] [address] [address], [place], [place], [id number], [place] tel:[phone] [facility] No Information 7-201 0 Laura Cleveland [address], [place], [place], [facility], [place]. tel:[phone] [facility], [address], [place], [place], [id number], [place] tel:[phone] [facility] No Information 1200 9 Laura Cleveland [address] , [address], [place], [address], [place]. tel:[phone] [facility], [address], [place], [place], [id number], [place] tel:[phone] [facility] No Information 8 Laura Avila. [address] , [address], [place], [address], [place]. tel:[phone] [facility], [address], [place], [place], [id number], [place] tel:[phone] [facility] No Information 7 Laura Cleveland [address] [facility] , [address], [place], [address], [place]. tel:[phone] Family History Family Member Type Diagnosis Age At Onset No Information Payers Payer name Insurance type Covered republican ID Chanelle fox(s) Medicaid [facility] [id number] Social History Type Description Quantity Date Captured Comments Sex Female Smoking Status No Information Chief Complaint And Reason For Visit No Information Reason For Referral Reason For Referral No Information History Of Present Illness Encounter Date Complaint History Of Prese nt Illness No Information Functional Status Date Functional Assessmen t No Information Instructions Date Instruction Additional Infor mation No Information Assessments Type Assessment Date No Information Patient Care Teams Name Effective Dates (start - stop) Status Members No Information
--- OUTSIDE RECORDS SUMMARY | 2024-11-05 13:00 | XMS_ITS | Encounter Summary ---
Author Organization [facility] [place] [address] [place] [address] Care Team Providers Care Rotary Derrick Operator Name Role Phone Unavailable Primary Care Provider Unavailabl e Prior Encounters Date Type Department Care Team Description 08/27/2019 Converted 13x Documents [facility] [address] [place] [address] <No scans attached> Plan of Treatment Not on file Procedures Procedure Name Priority Date/Time Associated Diagnosis Comments MISSED APPOINTMENT Routine 07/13/2019 2:00 AM INTEGRATION MANAGER CANCELLED APPOINTMENT Routine 07/11/2019 2:00 AM INTEGRATION MANAGER Visit Diagnoses Not on file
--- OUTSIDE RECORDS SUMMARY | 2024-11-05 13:00 | XMS_ITS | Clinical Summary ---
Author Organization [facility] Address [address] [place] [address] Care Team Providers Care Club Waiter/Waitress Name Role Phone Unavailable Primary Care Provider Unavailabl e Social History Tobacco Use Types Packs/Day Years Used Date Smoking Tobacco: Never Assessed Comments Unknown Sex and Gender Information Value Date Recorded Sex Assigned at Not on file Legal Sex Female 5:16 PM PST Gender Identity Not on file Sexual Orientation Not on file Plan of Treatment Not on file
--- OUTSIDE RECORDS SUMMARY | 2024-11-05 13:01 | XMS_ITS | Encounter Summary ---
Author Organization [facility] Facility Care Team Providers Care Industrial Safety Engineer Name Role Phone Unknown, Notinfile Primary Care Provider Unavail able Leeroy Romero MD Primary Care Provider [phone] No, Physician Primary Care Provider [phone] Leeroy Romero MD Primary Care Provider [phone] Harper Langley Primary Care Provider Callie More NP Primary Care Provider [phone] Encounter Details Date Type Department Care Team (Latest Contact Info) Description 11/19/2016 Orders Only [facility] ProviderGeni MD [address] [place] [address] Social History Tobacco Use Types Packs/Day Years Used Date Smoking Tobacco: Never Assessed Comments Unknown Sex and Gender Information Value Date Recorded Sex Assigned at Not on file Legal Sex Female 8:39 AM IT PROJECT COORDINATOR Gender Identity Female 09/24/2021 8:03 AM IT PROJECT COORDINATOR Sexual Orientation Straight 09/24/2021 8: 03 AM IT PROJECT COORDINATOR documented as of this encounter Plan of Treatment Not on file documented as of this encounter Procedures Procedure Name Priority Date/Time Associated Diagnosis Comments CARDIOLOGY REPORT 11/19/2016 12: 00 AM CDT documented in this encounter Results * CARDIOLOGY REPORT (11/19/2016 12:00 AM CDT) Anatomical Region Laterality Modality Other Narrative 11/19/2016 12:00 AM CDT Ordered by an unspecified provider. us Historical Provider [facility] Final Result documented in this encounter Visit Diagnoses Not on filedocumented in this encounter Additional Health Concerns Infection Onset Date Last Indicated Resolved Time COVID: Suspected 12/10/2020 12/11/2020 12/11/2020 9:39 PM CDT COVID: Suspected 08/06/2021 08/06/2021 08/07/2021 12:48 AM IT PROJECT COORDINATOR COVID19 08/13/2021 08/13/2021 08/27/2021 3:05 AM IT PROJECT COORDINATOR COVID: Recovered Comment:Added based on recent COVID infection. 08/27/2021 09/01/2021 12/25/2021 3:05 AM C DT documented as of this encounter Care Teams Industrial Safety Engineer Relationship Specialty Start Date End Date Unknown, Notinfile PCP - General 09/15/18 05/21/19 Leeroy Romero MD PCP - General 05/22/19 10/02/19 No, Physician PCP - General 10/23/19 12/11/20 Leeroy Romero MD PCP - General 12/12/20 05/09/22 Harper Langley PA PCP - General Family Medicine 05/10/22 03/15/24 Callie More NP PCP - General Internal Medicine 03/16/24 documented as of this encounter
--- OUTSIDE RECORDS SUMMARY | 2024-11-05 13:01 | XMS_ITS | Data Portability ---
Author Organization [facility] Saxe Address [address] [address] [place] [address] Assessment Encounter Date Assessment Date Assessment LastModified by Organization Details LastModified Time 02/11/2023 02/11/2023 Patient is __26_weeks . Discussed plan. [email or web address] Not available 02/11/2023 12:11:56 02/25/2023 02/25/2023 Patient is _28__weeks . Discussed plan. [email or web address] Not available 02/25/2023 10:29:55 11/18/2023 11/18/2023 left breast mass, recommend US, order given [email or web address] Not available 11/18/2023 11:46:23 Plan of Treatment Reminders Order Date Submit Date Provider Last Modified By Organization Details Last Modified Time Details Appointments None recorded. Lab None recorded. Referral None recorded. Procedures None recorded. Surgeries None recorded. Imaging US, pelvis 2022 023 [email or web address] Saxe [facility] [address], [address], [place], [address], 3 13:00:46 Medication Orders Cymbalta 30 mg capsule,de layed release 2023 024 [id number], [address] [facility], [place], [place], [id number], 4 11:46:01 Patient TargetsNo targets recorded. Patient InstructionsNo instructions recorded. Reason for Referral None Reported. Results Created Date Observation Date Name Description Value Unit Range Abnormal Flag Note LastModifiedBy Organization Detail LastModifiedTime 02/26/20 23 02/25/2023 HEMAT OCRIT (HCT) HCT 32.8 % (based on docume nted legal sex) 37.4-4 8.3 low Not Available [facility] (Lab) [address] [facility], [place], [address], 02/26/2023 06:12:52 02/26/20 23 02/25/2023 HEMOG LOBIN (HGB) HGB 10.3 g/dL (based on docume nted legal sex) 11.9-1 5.8 low Not Available [facility] (Lab) [address] [facility], [place], [address], 02/26/2023 06:12:53 02/26/20 23 02/25/2023 GTT - GESTA FRANKIE L SCREE N, ACOG OB glucose, 1 hour screen 96 mg/dL 70-139 Not Available [facility] (Lab) [address], [place], [address], 02/26/2023 06:12:53 02/26/20 23 02/25/2023 HIV 1/2 ANTIG EN/AN TIBOD Y, REFLE X CONFI RMATI ON HIV antigen/anti body Nonrea ctive nonrea ctive HIV-1 antig en and HIV-1 /HIV- 2 antib odies were not detec david. No labor atory evide nce of HIV infec tion. Not Available [facility] (Lab) [address], [place], [address], 02/26/2023 06:12:54 01/06/20 24 01/06/2024 DHEA SULFA TE DHEA-sulfate 258 ug/dL Femal e Range s Age(y ) Range (ug/d L) 10-15 34-28 0 15-20 65-36 8 20-25 148-4 07 25-35 99-34 0 35-45 61-33 7 45-55 35-25 6 55-65 19-20 5 65-75 9-246 > 75 12-15 4 Not Available [facility] (Lab) [address] [place], [address], 01/12/2024 18:13:35 01/06/20 24 01/06/2024 ESTRA DIOL estradiol 22.3 pg/mL This assay was perfo rmed using [employer] ratio n reage nts and test kits. Value s obtai yael with other assay metho ds or kits canno t be used inter [facility] . Femal e Estra diol Range s: Folli cular phasE 12.4- 233 pg/mL Ovula tion phasE 41.0- 398 pg/mL Lutea l phasE 22.3- 341 pg/mL Postm enopa usal <5-13 8 pg/mL Healt hy Pregn ant Women 1st Trime ster 154-3 243 pg/mL 2nd Trime ster 1561- 09316 pg/mL 3rd Trime ster 8525- >3000 0 pg/mL Not Available [facility] (Lab) [address] [place], [address], 01/12/2024 18:13:36 01/06/20 24 01/06/2024 PROGE STERO NE progesterone 0.43 NG/mL This assay was perfo rmed using [employer] reage nts and test kits. Value s obtai yael with other assay metho ds or kits canno t be used inter [facility] . Femal e Proge stero ne Range s: Folli cular phasE 0.06- 0.89 ng/mL Ovula tion phasE 0.12- 12.00 ng/mL Lutea l phasE 1.83- 23.90 ng/mL Postm enopa usal <0.05 -0.13 ng/mL Healt hy Pregn ant Women 1st Trime ster 11.0- 44.30 2nd Trime ster 25.40 -83.3 0 3rd Trime ster 58.70 -214. 00 Not Available [facility] (Lab) [address] [place], [address], 01/12/2024 18:13:36 01/06/20 24 01/06/2024 PROLA CTIN prolactin, total 12.20 NG/mL 4.79-2 3.30 This assay was perfo rmed using [employer] n reage nts and test kits. Value s obtai yael with other assay metho ds or kits canno t be used inter [facility] . Not Available [facility] (Lab) [address] [facility], [place], [address], 01/12/2024 18:13:37 01/06/20 24 01/06/2024 LH (LUTE NIZIN G HORMO NE) LH 8.2 mIU/m L This assay was perfo rmed using [employer] reage nts and test kits. Value s obtai yael with other assay metho ds or kits canno t be used inter [facility] . Femal es Mid-F ollic ular: 2.4-1 2.6 mIU/m L Mid-C ycle: 14.0- 95.6 mIU/m L Mid-L uteal : 1.0-1 1.4 mIU/m L Postm enopa use: 7.7-5 8.5 mIU/m L Not Available [facility] (Lab) [address] [facility], [place], [address], 01/12/2024 18:13:37 01/06/20 24 01/06/2024 FSH FSH 9.3 mIU/m L This assay was perfo rmed using [employer] n reage nts and test kits. Value s obtai yael with other assay metho ds or kits canno t be used inter [facility] . Femal es Folli cular : 3.5-1 2.5 mIU/m L Ovula tion: 4.7-2 1.5 mIU/m L Lutea l: 1.7-7 .7 mIU/m L Postm enopa use: 25.8- 134.8 mIU/m L Not Available [facility] (Lab) [address] [facility], [place], [address], 01/12/2024 18:13:38 01/06/20 24 01/06/2024 HUMAN SEX HORMO NE JUAN NG GLOBU KATHY sex hormone binding globulin 26.5 nmole s/L 18.2-1 35.5 Not Available [facility] (Lab) [address] [facility], [place], [address], 01/12/2024 18:13:38 01/06/20 24 01/06/2024 TSH, REFLE X FREE T4 TSH 2.99 uIU/m L 0.30-5 .33 Not Available [facility] (Lab) [address] [facility], [place], [address], 01/12/2024 18:13:39 01/06/20 24 01/06/2024 HEMOG LOBIN A1C hemoglobin A1C 5.4 % 0-5.6 The Ameri can Diabe jimmie Assoc iatio n recom mends that a prima ry goal of thera py allan d be a HBA1C of < 7% and that physi cians shoul d reeva luate the treat ment regim en in patie nts with HBA1C value s consi stent ly > 8%. <5.7% Maribel l 5.7 - 6.4% Incre ased risk for diabe jimmie >=6.5 % Diagn ostic of diabe jimmie <7.0% Goal of thera py >8.0% Actio n sugge sted Not Available [facility] (Lab) [address] [facility], [place], [address], 01/12/2024 18:13:39 01/06/20 24 01/06/2024 TESTO STERO NE, FREE( DIALY SIS) AND TOTAL (LC/M S/MS) testosterone , total 13 NG/dL 2-45 For addit ional infor eddie shahid e refer to http: //nini concepcionque stdia gnost ics.c om/fa q/ Total Testo stero neLCM [facility] Q165 (This link is being provi ded for infor jordan lovell/ educa frankie l purpo ses only. ) This test was devel oped and its ivette tical perfo rmanc e zhang cteri stics have been deter mined by [facility] [place], [place]. It has not been clear ed or appro josué by the U.S. Food and Drug Admin istra tion. This assay has been valid ated pursu ant to the CLIA regul ation s and is used for clini rusty purpo ses. Not Available [facility] (Lab) [address] [place], [address], 01/12/2024 18:13:40 01/06/20 24 01/06/2024 TESTO STERO NE, FREE( DIALY SIS) AND TOTAL (LC/M S/MS) testosterone , free 1.7 pg/mL 0.1-6. 4 This test was devel oped and its ivette tical perfo rmanc e zhang cteri stics have been deter mined by [facility] [place]. It has not been clear ed or appro josué by the U.S. Food and Drug Admin istra tion. This assay has been valid ated pursu ant to the CLIA regul ation s and is used for clini rusty purpo ses. Perfo rming Organ izati on Infor demetrioio n: Site ID: [id number] Name: [facility] k[facility] Addre ss: [id number] [facility] N[place], [place] Direc tor: Danyelle Antonio MD PhD Not Available [facility] (Lab) [address] [place], [address], 01/12/2024 18:13:40 01/06/20 24 01/06/2024 17-OH PROGE STERO NE 17-hydroxypr ogesterone, lc/MS/MS 10 NG/dL Adult Femal e Refer ence Range s for 17-Hy droxy proge stero ne: Pre-M enopa usal Mid Folli cular : 23-10 2 ng/dL Pre-M enopa usal Surge : 67-34 9 ng/dL Pre-M enopa usal Mid Lutea l: 139-4 31 ng/dL Postm enopa usal Phase : < or = 45 ng/dL Pregn victor hugo: First Trime ster: 78-45 7 ng/dL Secon d Trime ster: 90-35 7 ng/dL Third Trime ster: 144-5 78 ng/dL This test was devel oped and its ivette tical perfo rmanc e zhang cteri stics have been deter mined by [facility]. It has not been clear ed or appro josué by FDA. This assay has been valid ated pursu ant to the CLIA regul ation s and is used for clini rusty purpo ses. Perfo rming Organ izati on Infor matio n: Site ID: [id number] Name: [facility]/Chepe melvi [facility] nallely Zimmer cindy , Addre ss: [id number] [address] [facility] [place] [address] Direc tor: Dee granados MD,Ph D,HERBERT Not Available [facility] (Lab) [address] [facility], [place], [address], 01/12/2024 18:13:40 04/01/20 23 04/01/2023 non-s tress test No observ ation record ed. [email or web address] Not Available 04/03 15:11:12 04/28/20 23 04/28/2023 US, pelvi s No observ ation record ed. [email or web address] Saxe [address], [place], [address], 04/28/2023 17:54:12 04/28/20 23 04/28/2023 US, pelvi s No observ ation record ed. [email or web address] [address], [place], [address], 04/29/2023 09:21:00 Result Notes None recorded. Problems Name Problem SNOMED Code Status Onset Date Resolution Date Notes Provider Name and Address Organization Details Recorded Time Pregnanc y 47790475 Completed 201905/26/2020 Isaías Moody [facility] [place] - [facility] 3 14:00:59 Large for gestatio n age fetus 045321085 Completed 04/11/2020 SB states not LGA. growth u/s Isaías gupta [facility] 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 1 13:55:42 Postpart um depressi on [id number] Completed 201903/21/2020 Isaías Moody [facility] 0 15:16:24 Chlamydi al infectio n [id number] Completed + Chlam [id number] Rx sent 04/02 RECHEC K ON 04/22/20* * Isaías Moody [facility], [facility] 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 13:55:[address] Concept Completed 201608/26/2020 Decrease d movement s, third trimeste r, unsp;Rec orded Elsewher e: No [facility]: [employer] Business Technology Professor chepe: N Bryonti ce ID: 0001 Yunior lable Time: 12:30:00 PM Lakisha gupta, [facility] 13:55:56 Uterine size for dates discrepa ncy Completed 201608/26/2020 Uterine size-chrissy e discrepa ncy, first trimeste r;Record ed Elsewher e: No [facility]: [employer] Business Technology Professor chepe: N Bryonti ce ID: 0001 Yunior lable Time: 02:45:00 PM Lakisha gupta, [facility] 13:56:05 Secondar y amenorrh ea 948457155 Completed 201608/26/2020 Secondar y amenorrh ea;Recor ded Elsewher e: No [facility]at [facility] S ource: [employer] Business [employer] Professor chepe: N Bryonti ce ID: 0001 Yunior lable Time: 01:30:00 PM Lakisha gupta [facility] 13:55:53 Syphilis test finding 454725138 Completed 201608/26/2020 Encntr screen for infectio ns w sexl mode of transmis s;Record ed Elsewher e: No [facility] S ource: [employer] Business [employer] Professor chepe: N Bryonti ce ID: 0001 Yunior lable Time: 01:30:00 PM Lakisha gupta [facility] 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 13:55:51 Left lower quadrant pain [id number] Completed 201608/26/2020 LLQ pain;Rec orded Elsewher e: No [facility] our[facility]: [employer]HR Business Technology Professor chepe: N Practi ce ID: 0001 Yunior lable Time: 11:00:00 AM Lakisha Dylan gupta [facility] 13:55:45 Lochia finding Completed 201608/26/2020 Encounte r for routine postpart um follow-u p;Record ed Elsewher e: No Locat ion: [facility] S ource: [employer] Business Technology Professor chepe: N Practi ce ID: 0001 Yunior lable Time: 11:15:00 AM Lakisha Richardson candy, [facility] 13:55:46 Gestatio n less than 9 weeks [id number] Completed 201608/26/2020 Less than 8 weeks gestatio n of pregnanc y;Record ed Elsewher e: No Locat ion: [facility] S ource: EHR Business Technology Professor chepe: N Practi ce ID: 0001 Yunior lable Time: 02:45:00 PM Lakisha gupta [facility] 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 13:55:57 Gestatio n period, 35 weeks [id number] Completed 201608/26/2020 35 weeks gestatio n of pregnanc y;Record ed Elsewher e: No Locat ion: [facility] S ource: EHR Business Technology Professor chepe: N Practi ce ID: 0001 Yunior lable Time: 12:30:00 PM Lakisha gupta, [facility] 13:55:35 Infectio n screenin g Completed 201608/26/2020 Encounte r for screenin g for oth infec/pa rastc diseases ;Recorde d Elsewher e: No Locat ion: [facility] S ource: EHR Business Technology Professor chepe: N Practi ce ID: 0001 Yunior lable Time: 01:30:00 PM Lakisha gupta, [facility] 13:55:43 Pregnanc y detectio n examinat ion Completed 201608/26/2020 Encounte r for pregnanc y test, result positive ;Recorde d Elsewher e: No Locat ion: [facility] S ource: [employer] Business Technology Professor chepe: N Practi ce ID: 0001 Yunior lable Time: 01:30:00 PM Lakisha gupta, [facility] 13:55:50 Gestatio n period, 19 weeks [id number] Completed 201608/26/2020 19 weeks gestatio n of pregnanc y;Practi ce ID: 0001 Lakisha gupta, [facility] 13:55:31 Pregnanc y, childbir th and puerperi um finding Completed 201608/26/2020 Oth pregnanc y related conditio ns, second trimeste r;Practi ce ID: 0001 Lakisha gupta, [facility] 13:55:17 Gestatio n period, 16 weeks [id number] Completed 201608/26/2020 16 weeks gestatio n of pregnanc y;Practi ce ID: 0001 Lakisha gupta, [facility] 13:55:29 Threaten ed miscarri age 74022508 Completed 201608/26/2020 Threaten ed ;Practic e ID: 0001 Lakisha gupta, [facility] 13:56:01 Gestatio n period, 15 weeks [id number] Completed 201608/26/2020 15 weeks gestatio n of pregnanc y;Practi ce ID: 0001 Lakisha gupta, [facility] 13:55:28 Gestatio n period, 34 weeks 89227528 Completed 201608/26/2020 34 weeks gestatio n of pregnanc y;Practi ce ID: 0001 Lakisha gupta, [facility] 13:55:34 False labor before 37 complete d weeks of gestatio n [id number] 410018 Completed 201608/26/2020 False labor before 37 complete d weeks of gest, third tri;Prac lalo ID: 0001 Lakisha gupta, [facility] 13:55:23 Gestatio n period, 31 weeks 87070662 Completed 201608/26/2020 31 weeks gestatio n of pregnanc y;Practi ce ID: 0001 Lakisha gupta, [facility] 13:55:32 Vomiting of pregnanc y 65794049 Completed 201608/26/2020 Late vomiting of pregnanc y;Practi ce ID: 0001 Lakisha gupta, [facility] 13:56:07 Complica tion of pregnanc y, childbir th and/or puerperi um 288931264 Completed 201608/26/2020 Oth diseases and conditio ns compl preg/chl dbrth;Pr actice ID: 0001 Lakisha Dylan gupta, [facility] 13:56:04 Trauma to perineum and/or vulva during delivery 886766370 Completed 201608/26/2020 Other specifie d trauma to perineum and vulva;Pr actice ID: 0001 Lakisha Dylan gupta, [facility] 13:56:02 Gestatio n period, 38 weeks 28254936 Completed 201608/26/2020 38 weeks gestatio n of pregnanc y;Practi ce ID: 0001 Lakisha Dylan gupta, [facility] 13:55:38 Pregnanc y, childbir th and puerperi um finding Completed 201608/26/2020 Oth pregnanc y related conditio ns, third trimeste r;Practi ce ID: 0001 Lakisha Dylan gupta, [facility] 13:55:19 Gestatio n period, 37 weeks 61640055 Completed 201608/26/2020 37 weeks gestatio n of pregnanc y;Practi ce ID: 0001 Lakisha gupta, [facility] 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 01/19/202 1 13:55:41 Gestatio n period, 39 weeks [id number] Completed 201608/26/2020 39 weeks gestatio n of pregnanc y;Practi ce ID: 0001 Lakisha Richardson [facility], [facility] 1 13:55:39 Single live 026923946 Completed 201608/26/2020 Single live ;Pr actice ID: 0001 Lakisha Richardson [facility], [facility] 1 13:55:54 Pregnanc y 10385310 Completed 202105/07/2022 Isaías Moody [facility] 3 14:00:59 Mitral valve prolapse 805238876 Completed Might be Sx-matic related to this. To get Echo. Echo - NL. [facility] Cardiolo gy 04/21/22 @ 9:00 Sharyn Robertson [facility], [facility] 2 14:33:24 Pregnanc y 38479314 Completed 202205/19/2023 Isaías Moody [facility] 3 14:00:59 Mitral valve prolapse 807082822 Active normal echo during 2021 preg Isaías Moody [facility] 3 14:00:55 Mitral valve prolapse 628374131 Completed normal echo during 2021 preg Isaías Moody [facility] 3 14:00:55 Mixed anxiety and depressi ve disorder 571285320 Completed zoloft Isaías Moody [facility] 3 14:00:55 Hypothyr oidism 92914901 Completed 2022 levo 25mcg, repeat 4-6 wks Isaías Moody [facility] 3 14:00:55 High maternal weight gain 32902648 Completed patient has concerns about, it is above average, we cherrie amaro 5 12/17/19 Isaías Moody [facility] 3 14:00:55 Large for gestatio n age fetus 331761667 Completed 96.8% [facility] 14:00:55 Anemia 137046251 Completed 2022 1 tab slowfe daily [facility] 3 14:00:55 Mixed anxiety and depressi ve disorder 255710140 Active 2023 Kimberlyn Winkler [facility] 4 11:21:53 Problem Notes None recorded. Procedures Surgical History Date Name Laterality Status Provider Name and Address Organization Details Recorded Time 4 Tubal Ligation completed [facility] 11/18/2023 11:23:40 3 Date of Last Pap Smear completed Kimberlyn [facility] 09/28/2022 16:56:58 3 extraction of wisdom tooth completed [facility] 09/28/2022 17:05:49 Imaging Results Imaging Date Name Status LastModified by Organiz ation Details LastModified Time 04/01/2023 non-stress test completed [email or web address] Information not available 04/03/2023 15:11:12 04/28/2023 US, pelvis completed [email or web address] [address], [place], [address], 04/28/2023 17:54:12 04/28/2023 US, pelvis completed [email or web address] [address], [place], [address], 04/29/2023 09:21:00 Procedure Notes None recorded. Medical Equipment None Reported. Allergies No known drug allergies Medications Name Sig Start Date Stop Date Status Note LastModified by Organization Details LastModified Time doxycycline monohydrate 25 mg/5 mL oral suspension TAKE 20 ML BY MOUTH EVERY 12 HOURS WITH MEALS FOR 7 DAYS 09/28 completed Not Available Not Available Not Available ibuprofen 800 mg tablet Take 1 tablet every 6 hours by oral route. 11/17 completed Not Available Not Available Not Available fluconazole 150 mg tablet TAKE 1 TABLET BY MOUTH NOW AND REPEAT ON DAY 4 10/27 completed Not Available Not Available Not Available hydrocodone 5 mg-acetamin ophen 325 mg tablet TAKE 1 TO 2 TABLETS BY MOUTH EVERY 4 TO 6 HOURS NEEDED FOR PAIN WITH A MAX OF 8 TABLETS PER DAY 08/26 completed Not Available Not Available Not Available fluconazole 200 mg tablet TAKE 1 TABLET BY MOUTH EVERY OTHER DAY FOR 3 DOSES 02/11 completed Not Available Not Available Not Available metronidazo le 500 mg tablet TAKE 1 TABLET BY MOUTH TWICE DAILY FOR 7 DAYS 11/25 completed Not Available Not Available Not Available Zofran 4 mg tablet Take 1 tablet by oral route 1 hr prior to antibioti cs. 05/29 completed Not Available Not Available Not Available Euthyrox 25 mcg tablet TAKE 1 TABLET BY MOUTH ONCE DAILY 03/25 completed Not Available Not Available Not Available amoxicillin 875 mg tablet TAKE 1 TABLET BY MOUTH TWICE DAILY UNTIL GONE 08/26 completed Not Available Not Available Not Available alprazolam 0.25 mg tablet TAKE 1 TABLET BY MOUTH TWICE DAILY 03/25 completed Not Available Not Available Not Available Zoloft 50 mg tablet Take 1 tablet every day by oral route. 09/28 completed Not Available Not Available Not Available levothyroxi ne 50 mcg tablet Take 1/2 tablet PO daily 2022 active Not Available Not Available Not Avai lable buspirone 7.5 mg tablet TAKE 1 TABLET BY MOUTH TWICE DAILY 03/25 completed Not Available Not Available Not Available ceftriaxone 500 mg solution for injection TAKE 500 MG BY INJECTION ROUTE DIRECTED 02/11 completed Not Available Not Available Not Available Vitamin D2 1,250 mcg (50,000 unit) capsule TAKE 1 CAPSULE BY MOUTH ONCE A WEEK 08/26 completed Not Available Not Available Not Available Zoloft 100 mg tablet Take 1 tablet every day by oral route. 09/28 completed Not Available Not Available Not Available ondansetron 4 mg disintegrat ing tablet DISSOLVE 1 TABLET ON THE TONGUE THREE TIMES DAILY NEEDED 11/17 completed Not Available Not Available Not Available doxycycline hyclate 100 mg tablet TAKE 1 TABLET BY MOUTH TWICE DAILY DIRECTED FOR 7 DAYS 02/11 completed Not Available Not Available Not Available metoclopram shira 10 mg tablet Take 1 tablet 4 times a day by oral route for 30 days. 09/28 completed Not Available Not Available Not Available Depo-Garbage Truck Driver a 150 mg/mL intramuscul ar syringe Inject 1 mL every 3 months by intramusc ular route. 09/28 completed Not Available Not Available Not Available azithromyci n 500 mg tablet Take 2 tablets by oral route at the same time 04/18 completed Not Available Not Available Not Available Jossie 0.35 mg tablet Take 1 tablet every day by oral route. 09/28 completed Not Available Not Available Not Available Cymbalta 30 mg capsule,del ayed release Take 1 capsule every day by oral route. 2023 active Not Available Not Available Not Avai lable chlorhexidi ne gluconate 0.12 % mouthwash RINSE WITH ONE CAPFUL FOR ONE MINUTE AND SPIT USE TWICE DAILY AFTER BRUSHING AND FLOSSING . 08/26 completed Not Available Not Available Not Available sertraline 01/05 completed Not Available Not Available Not Available 11/17 completed Not Available Not Available Not Available Celestine Fe 08/27 (28) 1 mg-20 mcg (21)/75 mg (7) tablet TAKE 1 TABLET BY MOUTH ONCE DAILY 02/11 completed Not Available Not Available Not Available Zafemy 150 mcg-35 mcg/24 hr transdermal patch APPLY 1 PATCH TOPICALLY ONCE A WEEK 02/11 completed Not Available Not Available Not Available Vitals Date Recorded Body height Body mass index (BMI) Body weight Systolic blood pressure Diastolic blood pressure Provider Name and Address Organization Details Last Updated DateTime 02/11/2023 170.18 cm 30.1 kg/m2 73947.73 504 g 109 mm[Hg] 70 mm[Hg] Kimberlyn [facility] 3 12:07:00 Date Recorded Body height Body mass index (BMI) Body weight Systolic blood pressure Diastolic blood pressure Provider Name and Address Organization Details Last Updated DateTime 02/25/2023 170.18 cm 30.2 kg/m2 41780.32 741 g 116 mm[Hg] 75 mm[Hg] Kimberlyn [facility] 3 09:46:53 Date Recorded Body height Body mass index (BMI) Body weight Systolic blood pressure Diastolic blood pressure Provider Name and Address Organization Details Last Updated DateTime 11/18/2023 170.18 cm 26.5 kg/m2 37740.11 g 129 mm[Hg] 89 mm[Hg] [facility] 4 11:21:20 Date Recorded Body height Body mass index (BMI) Body weight Systolic blood pressure Diastolic blood pressure Provider Name and Address Organization Details Last Updated DateTime 01/06/2024 170.18 cm 26.3 kg/m2 34993.52 g 113 mm[Hg] 81 mm[Hg] [facility] 4 15:33:38 Social History Question Answer Notes LastModified by Organizat ion Details LastModified Time Tobacco Smoking Status Never Smoker Rama Fiorella [facility] 08/18/2022 15:18:07 What Is Your Level Of Alcohol Consumption? Occasional Information not available 08/18/2022 If You Are , What Was Your Level Of Alcohol Consumption Prior To ? Occasional Information not available 08/18/2022 How Many Years Have You Consumed Alcohol? 5 Information not available 08/18/2022 Are You Blind Or Do You Have Difficulty Seeing? No [email or web address] Information not available 03/25/2022 What Is Your Level Of Caffeine Consumption? Occasional [email or web address] Information not available 03/25/2022 In The 14 Days Before Symptom Onset, Have You Had Close Contact With A Laboratory-confir med COVID-19 While That Case Was Ill? No [email or web address] Information not available 03/25/2022 In The 14 Days Before Symptom Onset, Have You Had Close Contact With A Person Who Is Under Investigation For COVID-19 While That Person Was Ill? No [email or web address] Information not available 03/25/2022 Have You Been To An Area Known To Be High Risk For COVID-19? No [email or web address] Information not available 03/25/2022 Are You Deaf Or Do You Have Serious Difficulty Hearing? No [email or web address] Information not available 03/25/2022 What Type Of Diet Are You Following? REGULAR [email or web address] Information not available 03/25/2022 Do You Or Have You Ever Used E-cigarettes Or Vape? Never Used Electronic Cigarettes Information not available 08/18/2022 What Is The Highest Grade Or Level Of School You Have Completed Or The Highest Degree You Have Received? 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 No Information not available 08/18/2022 What Was The Date Of Your Most Recent Tobacco Screening? 11/18/2023 [email or web address] Information not available 11/18/2023 Do You Use Protection During Sex? No Information not available 08/18/2022 Do You Use Your Seat Belt Or Car Seat Routinely? Yes [email or web address] Information not available 03/25/2022 Do You Have Smoke And Carbon Monoxide Detectors In Your Home? Yes [email or web address] Information not available 03/25/2022 Do You Or Have You Ever Used Smokeless Tobacco? Never Used Smokeless Tobacco Information not available 08/18/2022 How Much Tobacco Do You Smoke? No [email or web address] Information not available 03/25/2020 Do You Feel Stressed (tense, Restless, Nervous, Or Anxious, Or Unable To Sleep At Night)? [id number] Information not available 08/18/2022 Do You Use Any Illicit Or Recreational Drugs? No Information not available 08/18/2022 Do You Use Sunscreen Routinely? No Information not available 08/18/2022 Have You Used IV Drugs? No Information not available 08/18/2022 Sex: Unknown Functional Status Question Answer Note LastModified by Organizat ion Details LastModified Time Do you have difficulty walking or climbing stairs? No Information not available 08/18/2022 Are you able to walk? YESWOREST [email or web address] Information not available 03/25/2022 Are you able to care for yourself? Yes Information not available 08/18/2022 Do you have difficulty dressing or bathing? No Information not available 08/18/2022 What is your exercise level? Occasional [email or web address] Information not available 03/25/2022 Mental Status None recorded. Family History Relationship Description Onset Age of this Age Resolved Age Notes LastModified by Organization Details LastModified Time Maternal Grandmother Heart disease Not available 2019 16:44:40 Maternal Grandmother Hypertensive disorder [email or web address] Not available 03/24 20:32:08 Maternal Uncle Heart disease Not available 2019 16:44:56 Sister Disorder of thyroid gland Not available 2019 16:45:13 Father Leukemia [email or web address] Not availabl e 08/18/2022 15:12:39 Mother Heart disease [email or web address] Not available 03/24 20:31:51 Mother Hypertensive disorder [email or web address] Not available 03/24 20:32:08 Medical History Condition Response Other N Blood Transfusion N Dermatologic Disorders N Gestational Diabetes N Anxiety Disorder Y Autoimmune disease N Arthritis N Polyps N Infertility N Acid Reflux (GERD) N Cancer N Varicosities N Stroke N Neurologic/Epilepsy N Fibromyalgia N Headaches N Kidney Disease N Heart Problems Y Kidney or Bladder Problems N Eating Disorder N Art (IVF or FET) N Hepatitis/Liver Disease N No Past Medical History N Urinary Tract Infection N Asthma N Trauma/Violence N Thrombophilias N Allergies (Food, seasonal, environmental ) N Breast Cancer N Drug/Latex Allergies/Reactions N Lung Disease Y Defects or Inherited Disease N Breast Problem N Hematologic disorders N Anesthesia Complications N History of STI Y Deep Vein Thrombosis N Polycystic ovary syndrome N History of abnormal pap N Endometriosis N High Cholesterol N Thyroid Problems Y GI Problems N Anemia N Psychiatric Illness N Ovarian Cancer N Diabetes N Pulmonary (TB, Asthma) Y Eczema N Abuse/Domestic Violence N Depression/ depression Y Pre-Eclampsia N Hypertension N Osteoporosis N Gynecological History Statement/Question Response Date of Last Mammogram Date of LMP 01/05/2024 On BCP's at Conception? N N Was last menstrual period normal N STIs/STDs Y HPV Vaccine Y Duration of Flow (days) 4 16 Current Control Method Tubal Ligat ion Age at First Child 7 Frequency of Cycle (Q days) 30 Sexually Active? Y Date of DEXA bone scan Age of first menstrual cycle 14 Date of Last Pap Smear 09/28/2022 Sexual Problems? N Desired Control Method LMP Unknown N Obstetrics History GPAL:G 4 P 3 1 0 4 Type Value Full Term 3 Premature 1 Living 4 Total 4 Past Encounters Encounter ID Performer Location Encounter Start Date Encounter Closed Date Diagnosis/Indication Diagnosis SNOMED-CT Code Diagnosis ICD10 Code Diagnosis Note [id number] Jamil Meraz MD [facility] [address],[place] [address] 03/07/2020 16:15:06 03/07/2020 17:07:10 Large for gestation age fetus 327084789 O35.8XX9 [id number] [facility] [address],[place] [address] 03/13/2020 10:15:08 03/13/2020 10:57:14 Gravid uterus vkqas-arc-nkeds 467738112 O26.843 Z3A.32 [id number] Leah Juniorlea [facility] [address],[place] [address] 03/13/2020 10:15:47 03/13/2020 11:24:07 Routine care 486155910 Z34.93 [id number] Lizzeth Hammonds CNM [facility] [address],[place] [address] 03/25/2020 11:46:54 03/25/2020 12:32:58 Routine care 896742539 Z34.93 [id number] [facility] [address],[place] [address] 04/09/2020 16:57:18 04/09/2020 17:43:36 Excessive growth affecting management of mother 67841681 O36.63X0 Z3A.36 [id number] Jamil Meraz MD [facility] [address],[place] [address] 04/09/2020 16:57:35 04/10/2020 10:52:52 Routine care 072653039 Z34.93 [id number] Lizzeth Hammonds [facility] [address],[place] [address] 04/18/2020 14:11:02 04/18/2020 16:00:35 Routine care 519392792 Z34.93 [id number] Leah Juniordudleykale [facility] [address],[place] [address] 05/29/2020 12:31:30 05/29/2020 13:25:22 state 95296385 Z39.2 Continue to watch for signs/symp toms of post depression . Return one year from last pap smear for a well woman exam. Patient received above instructio ns, and questions have been answered. If you have any questions please call or respond to this email. Patient was made aware of the patient portal and may obtain a paper copy of [facility] 7[facility]89151 Z30.9 Discussed all control options and pt would like mirena IUD. I have discussed in detail all risks and benefits including risk of infection and perforatio n. Pt aware she will need to be atleast 6 weeks post and on her cycle for placement. She will call on the first day of cycle to schedule. [id number] Jamil Meraz MD [facility] [address],[place] [address] 02/11/2022 09:19:11 02/11/2022 10:50:42 Routine care 525437410 Z34.93 [id number] Jamil Meraz MD [facility] [address],[place] [address] 02/25/2022 14:58:15 02/25/2022 16:12:18 Routine care 185012698 Z34.93 [id number] Jamil Meraz MD [facility] [address],[place] [address] 03/11/2022 09:31:13 03/11/2022 10:07:33 Routine care 674974626 Z34.93 [id number] Rehana Cain [facility] [address],[place] [address] 03/11/2022 10:22:29 03/11/2022 12:02:02 Reduced movement 463818694 O36.8199 [id number] [facility] [address],[place] [address] 03/25/2022 10:21:57 03/25/2022 11:45:06 Pica 14754973 F50.89 screening 2437 23419 Z36.89 Routine an tenatal care 339104793 Z34.93 [id number] [facility] [address],[place] [address] 04/06/2022 10:08:23 04/07/2022 09:29:15 Routine care 953841929 Z34.93 [id number] Jamil Meraz MD [facility] [address],[place] [address] 05/20/2022 13:48:00 05/20/2022 14:59:11 Inadequate flow of breast milk 325507861 O92.4 Postoperative care 71638 9007 Z48.89 Unprotecte d sexual intercourse 7263755 Z72.51 depression 58 561052 F53.0 This patient is a 27-year-ol d female presents for post care. She is breast feeding. Her baby is doing well. Her mood is not good. She has issues with anxiety depression . We agreed to start Zoloft. She is not a danger to herself or others. She is not bleeding. She has had sex recently. We talked about starting contracept ion and have a plan to start the progestero ne only pill. She will follow-up in 4 weeks. [id number] Jamil Meraz MD [facility] [address],[place] [address] 08/18/2022 15:12:26 08/18/2022 16:03:04 Mixed anxiety and depressive disorder 183722913 F41.8 this patient is a 27-year-ol d female presents for follow-up on anxiety and depression . Her anxiety was better at the start of the medication but as time went on it became worse. She is breast-fee ding. That is not going well. We talked about treatment options. We are limited with the breastfeed ing. She wants to continue breastfeed ing we agreed to increase her anxiety medication . She is also going to change her contracept ion. She continues to bleed with oral progestero ne contracept ion. She is going to try Depo-Prove ra. She will fruit or nut picker the syringe and bring it back. She will return in 4 weeks. We spent 40 minutes face-to-fa ce. More than 50% was counseling . Discussed contracept ion. We discussed her anxiety depression . We discussed irregular bleeding. Contracept ion care management 991051167 Z30.9 [id number] Neerunena Ramirezson [facility] [address],[place] [address] 09/28/2022 15:48:57 09/28/2022 17:37:08 [id number] Leah Espinoza [facility] [address],[place] [address] 09/28/2022 15:49:20 09/29/2022 17:10:40 Amenorrhea 56506975 N91.2 Gynecologi c examination 25745094 Z01.419 Z11.3 Mass of left breast 1224 082970 8363821 N63.20 Diagnostic u/s ordered. Pt will call us 2 business days after imaging to ensure we have received the report. test positive 815424756 Z32.01 Risk factors addressed: Tobacco Cessation, Safe Sexual Practices, environmen bandar, work hazards, travel restrictio ns, seat belt use.Eat a health well balanced diet, avoid alcohol, tobacco, and street drugs.Enga ge in daily low impact exercise, avoid temperatur e extremes, and cat, rodent, and bird feces.Avoi d travel to areas where zika virus is a concern.Of fered cf/sma/nip t. Handouts given and discussed with patient.Ch ildbirth classes recommende d.New OB sheet given.If previous , counseling .Pt verbalizes that she understand s the importance of above instructio ns.All questions were answered.P atient reminded to have annual well woman examinatio n and address [facility] . [id number] Hiral Mackay [facility] [address],[place] [address] 10/27/2022 12:21:22 10/27/2022 12:58:59 screening 948906073 Z36.82 O36.80X0 Z3A.11 [id number] Becac Gibson MD [facility] [address],[place] [address] 10/27/2022 14:28:50 10/27/2022 15:32:48 Routine care 107363700 Z34.81 Mitral valve prolapse 40 6713083 I34.1 Nausea and vomiting 1693 1999 R11.2 [id number] [facility] [address],[place] [address] 11/25/2022 10:55:17 11/27/2022 15:03:47 Routine care 655638796 Z34.93 [facility] 61238728 E03.9 [id number] Neeru Campbell [facility] [address],[place] [address] 12/16/2022 13:54:52 12/16/2022 16:27:09 screening 599755119 Z36.3 [id number] Jamil Meraz MD [facility] [address],[place] [address] 12/16/2022 13:55:32 12/16/2022 17:00:40 Routine care 709842455 Z34.93 [id number] Lilo Wright [facility] [address],[place] [address] 01/10/2023 17:21:46 01/10/2023 18:28:07 screening 971026250 Z36.2 [id number] Lizzeth Hammonds [facility] [address],[place] [address] 01/12/2023 16:42:41 01/12/2023 17:35:39 Routine care 275581195 Z34.93 [id number] Lizzteh Hammonds [facility] [address],[place] [address] 02/11/2023 11:57:01 02/11/2023 12:28:25 Routine care 150631964 Z34.93 [id number] Lizzeth Hammonds [facility] [address],[place] [address] 02/25/2023 09:24:26 02/25/2023 10:40:16 Routine care 374476817 Z34.93 [id number] Lilo [facility] [address],[place] [address] 04/28/2023 17:22:39 04/29/2023 13:00:46 Pain in pelvis 45141115 R10.2 [id number] Lizzeth Hammonds [facility] [address],[place] [address] 11/18/2023 11:13:34 11/18/2023 12:24:09 Generalized anxiety disorder 66211903 F41.1 f/u 3 mo med check, se risks benefits reviewed, discussed weaning off sertraline then cymbalta daily, to ed if any suicidal thoughts Breast lump 80572110 N63 .0 [id number] Lizzeth Hammonds [facility] [address],[place] [address] 01/06/2024 15:23:01 01/06/2024 15:54:42 Urinary incontinence 330200580 R32 plan pelvic floor PTconsider urology Loss of hair 705485339 L 65.9 plan labspt would like to start back on pills, will await labs Irregular periods 184878 07 N92.6 Mixed anxi ety and depressive disorder 652054992 F41.8 wean off cymbalta x 2 weeks, start lexapro 10 mg daily if any suicidal thoughts to the ERf/u med check 4 mo or sooner if needed Acne 51412313 L70.9 Health Concerns Section Related Observation LastModified by Organization Detai ls LastModified Time None Recorded Concern Status LastModified by Organization Details LastModified Time None Recorded Advance Directives Directive None Recorded Payers Encounter Date Sequence Insurance Name Policy Number Policy Nails Covered Member ID Nails Member ID Guarantor Name 02/11/2023 1 [facility] ON OR AFTER 02/05/21 (MEDICAID REPLACEMENT - HMO) de Ngozi Gooden [id number] de Ngozi Gooden 02/25/2023 1 [facility] ON OR AFTER 02/05/21 (MEDICAID REPLACEMENT - HMO) de Ngozi Gooden [id number] de Ngozi Gooden 04/28/2023 1 [facility] ON OR AFTER 02/05/21 (MEDICAID REPLACEMENT - HMO) de Ngozi Gooden [id number] de Ngozi Gooden 11/18/2023 1 [facility] ON OR AFTER 02/05/21 (MEDICAID REPLACEMENT - HMO) de Ngozi Gooden [id number] de Ngozi Gooden 01/06/2024 1 [facility] ON OR AFTER 02/05/21 (MEDICAID REPLACEMENT - HMO) de Ngozi Gooden [id number] de Ngozi Gooden Notes Date Note Type Note Provider Name and Address Organization Details Recorded Time 11/18/2023 text/html anxiety/depressi on , in [employer] school, on sertraline doesn't think its working, no suicidal thoughtshad BTL, kids doing wellalso c/o lump under left arm, not painful but now been present for 2 months Lizzeth Hammonds, IAN [address], [place], [address], [facility] 11/18/2023 12:16:55 01/06/2024 text/html med check- since starting cymbalta insomnia every night making mood worse. no thoughts of suicide, would like to try something different, has previously tried sertraline with no effectalso concerned about periods, since tubal very irregular, never the same, some months heavy some light, increased facial cystic acne, alopeciaalso has mole on back-no itchingc/o urinary leakage with most activity Lizzeth Hammonds, IAN [address], [place], [address], [place] [facility] 01/06/2024 15:53:34 OBGyn Episode Ob Episode Information Episode Created Date Number of Fetuses Patient Bloodtype Patient rh Status Prepregnancy Weight lbs Domestic Partner Domestic Partner Phone Father Name Conduit Worker Status 03/07/20 20 1 O Positive 160 CLOSED Fetus Data First Name Last Name Admitted to NICU Weight (g) Sex Living Outcome Pediatric Complications Fetus ID Race Codes Race Delivery Type 3458.63 9 F true Full Term [email or web address] [id number] Vaginal Delivery Problems Problem Notes Problem Name Start Date End Date Resolution Snomed Code Not e Large for gestation age fetus 04/11/2020 SELFRESOLVED [id number] SB states not LGA. growth u/s Chlamydial infection [id number] + Chlam [id number] Rx sent 04/02RECHECK ON 04/22/20 Valentino Calculation Initial Valentino Date Initial Exam Date Initial Exam Provider Initial Ultrasound Date Last Menstrual Period Date Ultra Sound Weeks Gestation 05/06/2020 03/07/2020 09/25/2019 07/31/2019 8 Eighteen To Twenty Week Valentino Update Ultra Sound Date Fundal Height At Umbil Quickening Date Ultra Sound Latest Weeks Gestation Final Valentino Confirmed By Final Valentino Confirmed Date Final Valentino Date Ultra Sound Latest Days Gestation 0 [email or web address] 03/07/2020 05/06/20 20 0 Pre- Flowsheet Flowsheet Date 03/07/2020 Issa Score Blood Edema Fundus Height Fundus Units Glucose Ketones Leukocytes Nitrite Labor Signs Protein Cervic Dilation Cervic Effacement Cervic Station 34 Type Weight in lbs Pre/Post Dialysis Refused Weight 176.488574656256 BP Diastolic BP Location Tested BP Systolic BP Type 75 119 Fetus Heart Rate Present A 133 Fetus Movement Comments this patient is a 25-year-ol d 2 para 1001 at 31 weeks gestation who has good dating. She delivered her last baby with mwc. There is concern about large for gestational age. We will continue estimated weight is. Flowsheet Date 03/13/2020 Issa Score Blood Edema Fundus Height Fundus Units Glucose Ketones Leukocytes Nitrite Labor Signs Protein Cervic Dilation Cervic Effacement Cervic Station Type Weight in lbs Pre/Post Dialysis Refused BP Diastolic BP Location Tested BP Systolic BP Type Fetus Heart Rate Present Fetus Movement Comments Flowsheet Date 03/13/2020 Issa Score Blood Edema Fundus Height Fundus Units Glucose Ketones Leukocytes Nitrite Labor Signs Protein Cervic Dilation Cervic Effacement Cervic Station 34 trace Type Weight in lbs Pre/Post Dialysis Refused Weight 178.685959886003 BP Diastolic BP Location Tested BP Systolic BP Type 78 L arm 121 sitting Fetus Heart Rate Present A 154 Fetus Movement A Yes Comments LGA. Recommend repeat 1 hour gtt and repeat growth in 3-4 weeks. Still have not rec'd records from previous provider. Task sent to check on this. Pt is planning to breast and bottle feed. Flowsheet Date 03/25/2020 Issa Score Blood Edema Fundus Height Fundus Units Glucose Ketones Leukocytes Nitrite Labor Signs Protein Cervic Dilation Cervic Effacement Cervic Station neg trace trace Type Weight in lbs Pre/Post Dialysis Refused Weight 176.953390448462 BP Diastolic BP Location Tested BP Systolic BP Type 74 118 Fetus Heart Rate Present A 130 Present Fetus Movement A Yes Comments patient states that having h ip and back pain, contractions, discharge, swelling, and is itchy everywhere, check cmp, bile acids, order maternity support belt Flowsheet Date 04/09/2020 Issa Score Blood Edema Fundus Height Fundus Units Glucose Ketones Leukocytes Nitrite Labor Signs Protein Cervic Dilation Cervic Effacement Cervic Station Type Weight in lbs Pre/Post Dialysis Refused BP Diastolic BP Location Tested BP Systolic BP Type Fetus Heart Rate Present Fetus Movement Comments Flowsheet Date 04/09/2020 Issa Score Blood Edema Fundus Height Fundus Units Glucose Ketones Leukocytes Nitrite Labor Signs Protein Cervic Dilation Cervic Effacement Cervic Station 36 trace Type Weight in lbs Pre/Post Dialysis Refused Weight 178.487311421911 BP Diastolic BP Location Tested BP Systolic BP Type 75 128 Fetus Heart Rate Present A 148 Fetus Movement A Yes Comments Flowsheet Date 04/18/2020 Issa Score Blood Edema Fundus Height Fundus Units Glucose Ketones Leukocytes Nitrite Labor Signs Protein Cervic Dilation Cervic Effacement Cervic Station neg none 37 trace 4cm 60% -2 Type Weight in lbs Pre/Post Dialysis Refused Weight 179.212453072508 BP Diastolic BP Location Tested BP Systolic BP Type 77 120 Fetus Heart Rate Present A 144 Fetus Movement A Yes Comments patient is having some nause a, pain, contractions and mucus discharge Menstrual History Last Menstrual Date Menses Monthly On Bcp Conception Prior Menses Frequency Hcg Plus Date Menarche Onset Age 1207/31/2019 Genetic Screening And Infection History Question Response Note Mental Retardation/Autism false Patient's Age Will Be 35 Years Or Older At Estim ated Date of Delivery false Thalassemia (Puerto Rican, Cayman Islander, Mediterranean, Or Background): MCV < 80 false Neural Tube Defect (Meningomyelocele, Spina Bifi da, Or Anencephaly) false Congenital Heart Defect false Down Syndrome false Bandar-Sachs (eg, Amish, Cajun, Kuwaiti-Estonian) f alse Jaycee Disease false Sickle Cell Disease Or Trait () false Hemophilia Or Other Blood Disorders false Muscular Dystrophy false Cystic Fibrosis false Beaver's Chorea false Intellectual Disability/Autism false If Yes, Was Person Tested For Fragile X? false Other Inherited Genetic Or Chromosomal Disorder false Maternal Metabolic Disorder (eg, Type 1 Diabetes , PKU) false Patient Or Baby's Father Had A Child With Defects Not Listed Above false Recurrent Loss, Or A Stillbirth false Medications (including Suppl ements, Vitamins, Herbs, OTC Drugs), Illicit/Recreational Drugs, Alcohol false If Yes, Agent(s) And Strength/Dosage false Any Other Genetic History false Live With Someone With TB Or Exposed To TB false Patient Or Partner Has History Of Genital Herpes false Rash Or Viral Illness Since Last Menstrual Perio d false History Of STD, Gonorrhea, Chlamydia, HPV, Syphi lis false Other Infection History false History of HIV false History of Hepatitis false Prior GBS-infected child false Hemoglobinopathy Or Carrier false Other Structural Defect false Recent Travel History Outside of Country false Delivery Information Delivery Date Delivery Type Labor Anesthesia Weeks Gestation Incision Type Labor Labor Length Hrs Delivered By Post Complications Tubal Sterilization Discharge Date Comments 0 [facility]- idural 37.6 false [email or web address] Discharge Information Feeding Method Contraceptive Method Maternal HG B and HCT Levels Ob Episode Information Episode Created Date Number of Fetuses Patient Bloodtype Patient rh Status Prepregnancy Weight lbs Domestic Partner Domestic Partner Phone Father Name Conduit Worker Status 03/07/20 20 1 CLOSED Fetus Data First Name Last Name Admitted to NICU Weight (g) Sex Living Outcome Pediatric Complications Fetus ID Race Codes Race Delivery Type 2919.77 [id number] Vaginal Delivery Valentino Calculation Initial Valentino Date Initial Exam Date Initial Exam Provider Initial Ultrasound Date Last Menstrual Period Date Ultra Sound Weeks Gestation 0 Eighteen To Twenty Week Valentino Update Ultra Sound Date Fundal Height At Umbil Quickening Date Ultra Sound Latest Weeks Gestation Final Valentino Confirmed By Final Valentino Confirmed Date Final Valentino Date Ultra Sound Latest Days Gestation 0 0 Menstrual History Last Menstrual Date Menses Monthly On Bcp Conception Prior Menses Frequency Hcg Plus Date Menarche Onset Age Delivery Information Delivery Date Delivery Type Labor Anesthesia Weeks Gestation Incision Type Labor Labor Length Hrs Delivered By Post Complications Tubal Sterilization Discharge Date Comments 7 38 [place] Discharge Information Feeding Method Contraceptive Method Maternal HG B and HCT Levels Ob Episode Information Episode Created Date Number of Fetuses Patient Bloodtype Patient rh Status Prepregnancy Weight lbs Domestic Partner Domestic Partner Phone Father Name Conduit Worker Status 05/02/20 20 1 DELETED Valentino Calculation Initial Valentino Date Initial Exam Date Initial Exam Provider Initial Ultrasound Date Last Menstrual Period Date Ultra Sound Weeks Gestation 0 Eighteen To Twenty Week Valentino Update Ultra Sound Date Fundal Height At Umbil Quickening Date Ultra Sound Latest Weeks Gestation Final Valentino Confirmed By Final Valentino Confirmed Date Final Valentino Date Ultra Sound Latest Days Gestation 0 0 Menstrual History Last Menstrual Date Menses Monthly On Bcp Conception Prior Menses Frequency Hcg Plus Date Menarche Onset Age Delivery Information Delivery Date Delivery Type Labor Anesthesia Weeks Gestation Incision Type Labor Labor Length Hrs Delivered By Post Complications Tubal Sterilization Discharge Date Comments 0 37 Discharge Information Feeding Method Contraceptive Method Maternal HG B and HCT Levels Ob Episode Information Episode Created Date Number of Fetuses Patient Bloodtype Patient rh Status Prepregnancy Weight lbs Domestic Partner Domestic Partner Phone Father Name Conduit Worker Status 02/12/20 22 1 O Positive CLOSED Fetus Data First Name Last Name Admitted to NICU Weight (g) Sex Living Outcome Pediatric Complications Fetus ID Race Codes Race Delivery Type 2664.85 3 F true Prematur [place] [id number] Vaginal Delivery Problems Problem Notes Problem Name Start Date End Date Resolution Snomed Code Not e Mitral valve prolapse [id number] Might be Sx-mat ic related to this. To get Echo. Echo - [facility] Cardiology 04/21/22 @ 9:00 Valentino Calculation Initial Valentino Date Initial Exam Date Initial Exam Provider Initial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
--- OUTSIDE RECORDS SUMMARY | 2024-11-05 13:02 | XMS_ITS | Data Portability ---
Author Organization [facility], Telehealth (patients home) Address [address] [place] [address] Assessment Encounter Date Assessment Date Assessment LastModified by Organization Details LastModified Time 10/16/2024 10/16/2024 Blanka presents to office with Anxiety PHQ9=11 mod GAD12 mod [email or web address] Not available 10/16/2024 19:29:12 Plan of Treatment Reminders Order Date Submit Date Provider Last Modified By Organization Details Last Modified Time Details Appointments Psychiatr ic Follow up 2024 04:00P Gagan De Anda Not available Not available Not available Lab None recorded. Referral None recorded. Procedures None recorded. Surgeries None recorded. Imaging None recorded. Medication Orders Lexapro 5 mg tablet [address] [place] [address] [id number], [address] [place], [place], [id number], 10/16/2024 17:59:24 Patient TargetsNo targets recorded. Patient Instructions Encounter Date Encounter Id Patient Instructions Last Modified By Organization Details Last Modified Time 10/16/2024 [id number] insomnia: care instructions Not available 10/16/2024 20:09:00 Reason for Referral None Reported. Problems Name Problem SNOMED Code Status Onset Date Resolution Date Notes Provider Name and Address Organization Details Recorded Time Generalized anxiety disorder 13036135 Active 2024 Judie De Anda CNM, PMHNP-BC [address], [place], [address], [facility] 17:59:03 Moderate recurrent major depression 21602135 Active 2024 Judie De Anda CNM, [facility] [address], [place], [address], [facility] 19:29:21 Insomnia 649718789 Active 2024 Judie De Anda CNM, [facility] [address], [place], [address], [facility] 19:30:32 Problem Notes None recorded. Procedures Surgical History Date Name Laterality Status Provider Name and Address Organization Details Recorded Time ligation of fallopian tube completed [facility] 10/16/2024 17:05:39 Imaging Results None recorded. Procedure Notes None recorded. Medical Equipment None Reported. Allergies No known drug allergies Medications Name Sig Start Date Stop Date Status Note LastModified by Organization Details LastModified Time permethrin 5 % topical cream APPLY TOPICALLY ONCE FOR 1 DOSE. APPLY FROM HAIRLINE TO SOLES OF FEET AND WASH AFTER 8-14 HOURS. active Not Available Not Available Not Available oseltamivir 75 mg capsule TAKE 1 CAPSULE BY MOUTH EVERY 12 HOURS FOR 5 DAYS active Not Available Not Available N ot Available methylpredni solone 4 mg tablets in a dose pack FOLLOW PACKAGE DIRECTIONS active Not Available Not Available N ot Available clobetasol 0.05 % scalp solution APPLY TO THE AFFECTED AREA ON THE SCALP TWICE DAILY active Not Available Not Available No t Available doxycycline hyclate 100 mg tablet TAKE 1 TABLET BY MOUTH TWICE DAILY active Not Available Not Available No t Available escitalopram 5 mg tablet TAKE 1 TABLET BY MOUTH EVERY DAY active Not Available Not Available No t Available duloxetine 30 mg capsule,tom yed release TAKE 1 CAPSULE BY MOUTH EVERY DAY active Not Available Not Available No t Available Wellbutrin active Not Available Not Av ailable Not Available Mounjaro active Not Available Not Avai lable Not Available Vitals Date Recorded Body height Body mass index (BMI) Body weight Heart rate Systolic blood pressure Diastolic blood pressure Provider Name and Address Organization Details Last Updated DateTime 170.18 cm 25.4 kg/m2 82008.9 6 g 90 /min 117 mm[Hg] 78 mm[Hg] [facility] 17:00:57 Social History Question Answer Notes LastModified by Organizat ion Details LastModified Time Tobacco Smoking Status Former Smoker Bee Torres [facility], [place] [facility] 10/16/2024 17:04:47 What Is Your Level Of Alcohol Consumption? Occasional [email or web address] Information not available 10/16/2024 What Is Your Level Of Caffeine Consumption? None [email or web address] Information not available 10/16/2024 Do You Or Have You Ever Used E-cigarettes Or Vape? Former User Of Electronic Cigarettes [email or web address] Information not available 10/16/2024 How Many Times Per Week Do You Exercise? 5-7 Times Per Week [email or web address] Information not available 10/16/2024 Are There Any Guns Present In Your Home? Yes [email or web address] Information not available 10/16/2024 Do You Feel Safe In Your Home? Yes [email or web address] Information not available 10/16/2024 Do You Feel Stressed (tense, Restless, Nervous, Or Anxious, Or Unable To Sleep At Night)? LQ23307-9 [email or web address] Information not available 10/16/2024 Do You Use Any Illicit Or Recreational Drugs? No [email or web address] Information not available 10/16/2024 Do You Or Have You Ever Used Any Other Forms Of Tobacco Or Nicotine? Yes Information not available 10/16/2024 Do You Have Any Future Plans To Get ? No, I Don't Want To Become [email or web address] Information not available 10/16/2024 Sex: Unknown Functional Status Question Answer Note LastModified by Organization D etails LastModified Time What is your exercise level? Moderate [email or web address] Information not available 10/16/2024 Mental Status None recorded. Family History Relationship Description Onset Age of this Age Resolved Age Notes LastModified by Organization Details LastModified Time Mother Congestive heart failure Not available 2024 17:03:42 Father Malignant lymphoma [email or web address] Not available 2024 17:03:52 Medical History Condition Response Anxiety Disorder Y Depression Y Gynecological History Statement/Question Response Menses Monthly Y HPV Vaccine Y Abnormal Pap N Date of Last Pap Smear Current Control Method Sterilizati on Date of LMP 10/04/2024 Obstetrics History GPAL:G 4 P 4 0 0 0 Type Value Full Term 4 Total 4 Past Encounters Encounter ID Performer Location Encounter Start Date Encounter Closed Date Diagnosis/Indication Diagnosis SNOMED-CT Code Diagnosis ICD10 Code Diagnosis Note [id number] Judie De Anda CNM, [facility]- Main Office [address] [place] [address] 10/16/2024 16:56:44 10/17/2024 10:16:42 Generalized anxiety disorder 18504003 F41.1 start Lexapro 5mg dailyfollo w up in 1 month Moderate r ecurrent major depression 60996623 F33.1 Start lexapro 5 mg daily Insomnia 137112448 G47.0 0 Discussed cognitive behavioral therapy for insomnia. Discussed making a bedtime ritual. Warm shower prior to bed. Warm decaffeina david tea. Limit cell phone use or stimulatin g activity activity prior to bed. If in bed longer than 15 to 20 minutes, recommend getting out of bed. Do not get on cell phone, did not turn on TV. Recommend none stimulatin g activities such as reading a book. Health Concerns Section Related Observation LastModified by Organization Detai ls LastModified Time None Recorded Concern Status LastModified by Organization Details LastModified Time None Recorded Advance Directives Directive None Recorded Payers Encounter Date Sequence Insurance Name Policy Number Policy Nails Covered Member ID Nails Member ID Guarantor Name 10/16/2024 1 [facility] ON OR AFTER 02/05/21 (MEDICAID REPLACEMENT - HMO) Blanka Gooden [id number] Blanka Gooden Notes Date Note Type Note Provider Name and Address Organization Details Recorded Time 10/16/2024 text/html Met with Blanka peck for psychiatric evaluation. Was referred by Callie More [employer] due to increased anxiety, increased irritation and mood swings. Blanka has a history of depression in 2022, anxiety and depression. She is presently not taking any psychiatric medications. Previously was on Zoloft and Wellbutrin. States stopping the Wellbutrin after feeling like her throat was swelling with. Denies any psychiatric hospitalizations.No history of suicide attempts or self-harm.No history of physical, emotional, or sexual abuse.No history of head injuries or seizures.No alcohol use or drug use.Social history Lives with her boyfriend(Zachary), and 4 children ages 1, 2, 4, and 7. 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 Does endorse feelings of worthlessness and helplessness. Isolates herself when overstimulated. Denies feelings of hopelessness, knowing that she will feel better. Sleep is rough, some problems falling asleep due to racing thoughts that keep her awake. Tends to stay up late studying and taking care of the house after the kids go to bed, then has to get up early in the morning for school and to take care of the children. Denies any SI or HI. Denies any auditory hallucinations or visual hallucinations. Does admit to feeling paranoid at times, and feeling as if her house is haunted.Family psychiatric history dad PTSD, sister has some diagnoses but she is unaware of what that is. No history of completed suicides in the family. Judie De Anda CNM, PMHNP-BC [address], [place], [address], [facility] 10/16/2024 20:09:58 OBGyn Episode No OBEpisode recorded.
--- OUTSIDE RECORDS SUMMARY | 2024-11-05 13:03 | XMS_ITS | Encounter Summary ---
Author Organization [facility] Healthcare Address [address] [place] [address] Care Team Providers Care Concrete Tester Name Role Phone Callie More NP Primary Care Provider [phone] Encounter Details Date Type Department Care Team (Late st Contact Info) Description 11/05/2024 12:59 PM CDT Emergency [facility] Emergency Department [address] [place] [address] Social History Tobacco Use Types Packs/Day Years [...] money to get more. Patient declined 10/2022 [place] Depression Scale Answer Date Recorded [place] Depression Scale Total 1 06/10/2023 The thought [...] on file Legal Sex Female 8:39 AM NPS Gender Identity Female 09/24/2021 8:03 AM NPS Sexual Orientation Straight 09/24/2021 8: 03 AM NPS documented as of this encounter Plan of Treatment Not on file documented as of this encounter Visit Diagnoses Not on filedocumented in this encounter Care Teams Concrete Tester Relationship Specialty Start Date End Date Callie More NP PCP - General Internal Medicine 03/16/24 documented as of this encounter
--- OUTSIDE RECORDS SUMMARY | 2024-11-05 13:03 | XMS_ITS | Continuity of Care Document ---
Author Organization [facility] Address [address] [place] [address] Phone Care Team Providers Care Assembler 1St Shift Name Role Phone Margarita Sanchez Unavailable Unavailable Procedures Procedure Date Eye Exam & Treatment Refraction Eye Exam & Treatment Refraction Eye Exam & Treatment Eye Exam & Treatment Advance Directives Directive Yes / No Effective Date File Name No Information Encounters Encounter Description Practice Location Reason(s) For Visit Diagnoses Date Provider Providers Copied on Encounter [facility], [address] [place] [address] [address], [place], [place], [id number], [place] tel:[phone] [facility] No Information 7-201 0 Laura Cleveland [address] , [address], [place], [place], [facility], [place]. tel:[phone] [facility], [address], [place], [place], [id number], [place] tel:[phone] [facility] No Information 1200 9 Laura Cleveland [address] , [address], [place], [address], [place]. tel:[phone] [facility], [address], [place], [place], [id number], [place] tel:[phone] [facility] No Information 8 Laura Avila. [address] , [address], [place], [address], [place]. tel:[phone] [facility], [address], [place], [place], [id number], [place] tel:[phone] [facility] No Information 7 Laura Cleveland [address] , [address], [place], [address], [place]. tel:[phone] Family History Family Member Type Diagnosis Age At Onset No Information Payers Payer name Insurance type Covered libertarian ID Chanelle ofx(s) Medicaid [facility] [id number] Social History Type Description Quantity Date Captured [...]
--- OUTSIDE RECORDS SUMMARY | 2024-11-05 13:03 | XMS_ITS | Data Portability ---
Author Organization [employer] , [facility] Address [address] [place] [address] Assessment No assessment recorded. Plan of Treatment Reminders Order Date Submit Date Provider Last Modified By Organization Details Last Modified Time Details Appointments None recorded. Lab STI panel 2021 022 [facility], [address] [place] [address], [address], 15:07:35 obstetric screen + HIV, serum or blood 2021 022 [employer] [facility], [address] [place], [address], 16:25:23 hepatitis C virus Ab, serum 2021 022 [email or web address] [facility], [address] [place], [address], 16:25:24 sickle cell screen, qual, light microscop y, blood 2021 022 [email or web address] [facility], [address] [place], [address], 16:25:24 HbA1c (hemoglob in A1c), blood 2021 022 [email or web address] [facility], [address] [place], [address], 16:25:24 test, urine 2021 022 galina [facility], [address] [place], [address], 17:23:57 Referral None recorded. Procedures None recorded. Surgeries None recorded. Imaging US, obstetric , 1st trimester 2021 022 [email or web address] Not available 12:37:56 Medication Orders None recorded. Patient TargetsNo targets recorded. Patient InstructionsNo instructions recorded. Reason for Referral None Reported. Results Created Date Observation Date Name Description Value Unit Range Abnormal Flag Note LastModifiedBy Organization Detail LastModifiedTime 10/25/1910/24/2021 pregn victor hugo test, urine HCG positi ve Not Available [facility] [address] [place], [address], 10/24/2021 11:49:20 11/04/19 22 11/05/2021 STI PANEL trichomonas vaginalis TRICH neg negati ve Not Available [place], [address], 11/05/2021 15:07:35 11/04/19 22 11/05/2021 STI PANEL chlamydia trachomatis CT neg negati ve If both Pap and Endoc ervic al swabs are colle cted, the Prese rvCyt Solut ion liqui d Pap speci men must be colle cted befor e the endoc ervic al swab speci men. Not Available [place], [address], 11/05/2021 15:07:35 11/04/19 22 11/05/2021 STI PANEL neisseria gonorrhoeae GC neg negati ve If both Pap and Endoc ervic al swabs are colle cted, the Prese rvCyt Solut ion liqui d Pap speci men must be colle cted befor e the endoc ervic al swab speci men. Not Available [place], [address], 11/05/2021 15:07:35 11/06/19 22 11/03/2021 US, obste tric, 1st trime ster No observ ation record ed. [email or web address], [place], [address], 11/10/2021 14:20:48 Result Notes None recorded. Problems No Known Problems Procedures Surgical History None recorded. Imaging Results Imaging Date Name Status LastModified by Organiz ation Details LastModified Time 11/03/2021 US, obstetric, 1st trimester completed [email or web address] [address], [place], [address], 11/10/2021 14:20:48 Procedure Notes None recorded. Medical Equipment None Reported. Allergies No known drug allergies Medications Name Sig Start Date Stop Date Status Note LastModified by Organization Details LastModified Time amoxicill in 500 mg capsule 10/24 completed Not Available Not Available Not Available ibuprofen 800 mg tablet TAKE 1 TABLET BY MOUTH EVERY 8 HOURS NEEDED 10/24 completed Not Available Not Available Not Available Lidocaine Viscous 2 % mucosal solution GARGLE AND SPIT 5-10ML BY MOUTH 4 TIMES DAILY 10/24 completed Not Available Not Available Not Available fluconazo le 150 mg tablet take 1 tablet (150 mg) by oral route 10/24 completed Not Available Not Available Not Available hydrocodo ne 5 mg-acetam inophen 325 mg tablet TAKE 1 TO 2 TABLETS BY MOUTH EVERY 6 HOURS NEEDED FOR PAIN 10/24 completed Not Available Not Available Not Available metronida zole 500 mg tablet take 1 tablet (500 mg) by oral route 2 times per day 10/24 completed Not Available Not Available Not Available acetamino phen 300 mg-codein e 30 mg tablet 10/24 completed Not Available Not Available Not Available sulfameth oxazole 800 mg-trimet hoprim 160 mg tablet TAKE 1 TABLET BY MOUTH EVERY 12 HOURS 10/24 completed Not Available Not Available Not Available citalopra m 20 mg tablet 10/24 completed Not Available Not Available Not Available estradiol 1 mg tablet take 1 tablet (1 mg) po bid for 5 days as needed for abnormal bleeding 11/29 completed estradio L 1 mg oral tablet RxNorm: [id number] Allow Substitu tion: True Refill Denied: No Edited by: Halie Collier) on 11/30/19 Stopped by: merry( Halie Mendiola) on 11/30/19 21 Not Available Not Available Not Available Depo-Prov era 150 mg/mL intramusc ular suspensio n inject 1 millilit er (150 mg) by intramus cular route q 3 months 08/23 completed Depo-Pro vera 150 mg/mL intramus cular Suspensi on RxNorm: [id number] Allow Substitu tion: True Refill Denied: No Edited by: merry( Halie Mendiola) on 08/23/19 Stopped by: merry( Halie Mendiola) on 08/23/19 Not Available Not Available Not Available IBU 600 mg tablet take 1 tablet (600 mg) by oral route q 6hrs prn pain 05/30 completed IBU 600 mg oral tablet RxNorm: [id number] Allow Substitu tion: True Refill Denied: No Edited by: ashly (Ying Hernandez ) on 05/30/20 Stopped by: ashly (Ying Hernandez ) on 05/30/20 Not Available Not Available Not Available doxycycli ne monohydra te 100 mg capsule 1 capsule( or tab) po bid for 7 days and may substitu te any form of doxycycl ine and take this 3-4 days after iud insertio n 11/29 completed doxycycl ine monohydr ate 100 mg oral capsule RxNorm: [id number] Allow Substitu tion: True Refill Denied: No Edited by: aHlie Collier) on 11/30/19 Stopped by: merry( Halie Mendiola) on 11/30/19 Not Available Not Available Not Available cephalexi n 500 mg tablet TAKE 1 TABLET BY MOUTH EVERY 6 HOURS 10/24 completed Not Available Not Available Not Available hydrocort isone 2.5 % topical ointment apply a thin layer to the affected area(s) by topical route 4 times per day 11/29 completed hydrocor tisone 2.5 % Topical Ointment RxNorm: [id number] Allow Substitu tion: True Refill Denied: No Edited by: merry( Halie Mendiola) on 11/30/19 Stopped by: merry( Halie Mendiola) on 11/30/19 21 Not Available Not Available Not Available ondansetr on 4 mg disintegr ating tablet Place 1 tablet every 6 hours by translin gual route as needed. 2021 active Not Available Not Available Not Avai lable Sprintec (28) 0.25 mg-0.035 mg tablet TAKE 1 TABLET BY MOUTH ONCE DAILY 10/24 completed Not Available Not Available Not Available nitrofura ntoin monohydra te/macroc rystals 100 mg capsule 10/24 completed Not Available Not Available Not Available Kyleena 17.5 mcg/24 hr (up to 5 years) 19.5 mg intrauter ine device 05/30 completed levonorg estreL 17.5 mcg/24 hrs (5 yrs) 19.5 mg Intraute rine Intraute rine Device RxNorm: [id number] Allow Substitu tion: False Refill Denied: No Refill DateOccu rred: 08/23/19 Edited by: Ying Cerrato ) on 05/30/20 Stopped by: ashly (Ying Hernandez ) on 05/30/20 21 Not Available Not Available Not Available Vitals Date Recorded Body height Body mass index (BMI) Body weight Body temperature Systolic blood pressure Diastolic blood pressure Provider Name and Address Organization Details Last Updated DateTime 2 172.72 cm 26.6 kg/m2 50215.9 5 g 97.9 [degF] 122 mm[Hg] 76 mm[Hg] Alize Drew [facility] [employer] 2 11:47:18 Date Recorded Body height Body mass index (BMI) Body weight Body temperature Systolic blood pressure Diastolic blood pressure Provider Name and Address Organization Details Last Updated DateTime 2 172.72 cm 26.5 kg/m2 64630.0 7 g 97.2 [degF] 122 mm[Hg] 82 mm[Hg] Miya Shine [employer] 16:36:26 Social History Question Answer Notes LastModified by Organizat ion Details LastModified Time Tobacco Smoking Status Never Smoker Alize Drew null, [employer] 10/24/2021 11:48:53 What Is Your Level Of Alcohol Consumption? Occasional Information not available 11/03/2021 How Many Years Have You Consumed Alcohol? 4 Information not available 11/03/2021 Are You Blind Or Do You Have Difficulty Seeing? No Information not available 10/24/2021 Are You Deaf Or Do You Have Serious Difficulty Hearing? No Information not available 10/24/2021 What Type Of Diet Are You Following? REGULAR Information not available 10/24/2021 Which Illicit Or Recreational Drugs Have You Used? Marijuana Information not available 10/24/2021 Do You Or Have You Ever Used E-cigarettes Or Vape? Never Used Electronic Cigarettes Information not available 11/03/2021 How Many Children Do You Have? 2 Information not available 10/24/2021 What Is Your Relationship Status? Single Information not available 10/24/2021 Are You Sexually Active? Yes Information not available 10/24/2021 Do You Use Any Illicit Or Recreational Drugs? Yes Information not available 10/24/2021 Have You Used IV Drugs? No Information not available 10/24/2021 Do You Or Have You Ever Used Any Other Forms Of Tobacco Or Nicotine? No Information not available 10/24/2021 Sex: Unknown Functional Status Question Answer Note LastModified by Organization D etails LastModified Time What is your exercise level? None Information not available 10/24/2021 Mental Status None recorded. Family History Relationship Description Onset Age of this Age Resolved Age Notes LastModified by Organization Details LastModified Time Mother Type 1 diabetes mellitus Not available 10/07 15:33:50 Father Malignant neoplastic disease Not available 10/07 15:33:50 Medical History Condition Response Other Cancer N High Blood Pressure N Colon Cancer N Cytomegalovirus N Hyperthyroidism N Breast Cancer N Herpes (HSV) N MRSA N Blood Transfusion N Lung Cancer N Hypothyroidism N Depression N Incontinence N Panic Attacks N Neurological Disorder N Deep Vein Thrombosis N Anxiety Disorder N Autoimmune disease N Arthritis N Shingles N Tuberculosis/Positive PPD N Polycystic Ovarian Syndrome N Cervical Cancer N Chlamydia N Hematuria N Stroke N Varicosities N Seasonal allergies N Crohn's Disease N Alzheimer's/Dementia N COPD/Emphysema N Endometriosis N HPV/Genital Warts N IBS (Irritable Bowel Syndrome) N History of Abnormal Pap N High Cholesterol N Liver Disease N Kidney Infection N Fibromyalgia N Ulcer N Kidney Disease N HIV N Gallbladder disease N Von Willebrand disease N Sickle Cell Disease/Trait N ADD/ADHD N Eating Disorder N Diabetes Mellitus (non-insulin dependent ) N Anemia N Ovarian Problems N Multiple Sclerosis N Gonorrhea N Frequent Urinary Tract infections N Osteopenia N Headaches/migraines N GERD (reflux) N Ovarian Cancer N Diabetes (insulin dependent) N Seizures/Epilepsy N Fibroids N Asthma N Heart Attack N Endometrial Cancer N Lupus N Rubella N Blood Clotting Disorder N Bipolar Disorder N Diabetes Mellitus (during ) N Ulcerative Colitis N Hepatitis N Heart Disease N Pulmonary Embolism N RPR N Chicken Pox N Osteoporosis N Gynecological History Statement/Question Response Flow Light Date of LMP 07/26/2021 Date of Last Pap Smear Duration of Flow (days) 3 Current Control Method Age at Menarche 14 Obstetrics History GPAL:G 2 P 2 0 1 2 Type Value Full Term 2 Induced 1 Living 2 Total 2 Past Encounters Encounter ID Performer Location Encounter Start Date Encounter Closed Date Diagnosis/Indication Diagnosis SNOMED-CT Code Diagnosis ICD10 Code Diagnosis Note [id number] Johanna Vasquez CNM [facility] [address] [place] [address] 10/24/2021 11:08:27 10/27/2021 10:35:40 Amenorrhea 73004652 N91.2 UPT positive today. Bedside scan confirms FHR 150. Precaution s reviewed. Retrun in 1 week for dating scan and NOB labs. [id number] Johanna [facility] [address] [place] [address] 11/03/2021 15:23:57 11/03/2021 18:02:05 Routine care 088973185 Z34.90 Dating based on today's ultrasound as she is unsure of exact date of LMP. Pt is unsure if she wants to continue . Is concerned with baby with autism. Health Concerns Section Related Observation LastModified by Organization Detai ls LastModified Time None Recorded Concern Status LastModified by Organization Details LastModified Time None Recorded Advance Directives Directive None Recorded Payers Encounter Date Sequence Insurance Name Policy Number Policy Nails Covered Member ID Nails Member ID Guarantor Name 10/24/2021 1 [facility] [id number] Chris Gooden [id number] Blanka Gooden 10/24/2021 2 [place] [facility] Blanka Gooden [id number] Blanka Gooden 11/03/2021 1 [facility] [id number] ousmane Ngozi Brooksse Gooden [id number] Blanka Gooden 11/03/2021 2 [place] [facility] Blanka Gooden [id number] Blanka Gooden Notes Date Note Type Note Provider Name and Address Organization Details Recorded Time 10/24/2021 text/html Contraception visitReported bypatient.Type of Contraceptionnone Sexual HistorySexually active Menstrual cycle:no bleeding Presents to start contraception. LMP was 07/26. Was seen at [facility] on 09/03 and was told she was 5 weeks and there was no heartbeat. States she took the pills on 09/08 and noted light bleeding and passage of clots. Has not had bleeding since. Does admit to unprotected intercourse following. UPT positive today. Johanna Vasquez CNM [address] [place], [address], [place] 10/25/2021 17:24:01 11/03/2021 text/html OB ProblemReport ed bypatient.Associated Symptoms:no abdominal pain; no cramping; no bleeding; no vaginal discharge; no vaginal/vulvar itching or irritation; no headache; no dizziness; no breathlessnessNotes:no back painPregnancy Confirmation VisitReported bypatient.obstetrics and gynecologyno bleeding between periods Johanna Vasquez CNM [address] [place], [address], [place] 11/05/2021 21:47:53 OBGyn Episode No OBEpisode recorded.
== END 2024-11-05 12:24 | disposition home or self-care (01) ==
PROVIDERS: Emergency Provider Nurse Practitioner
DX: R10.11 Right upper quadrant pain (principal); M41.9 Scoliosis, unspecified; R01.1 Cardiac murmur, unspecified
CPT/HCPCS: 99211; G0463

== ENCOUNTER 2024-12-23 17:24 | Emergency (ER) | payer OTHER, MEDICAID, SELFPAY ==
[2024-12-23] VITALS (22 sets, daily range): BP systolic 102–123; BP diastolic 66–88; PULSE 68–87; RESP 15–26; TEMP 37.1; O2SAT 99–100
--- NOTE | ~2024-12-23 | XR_ITS ---
CHEST RADIOGRAPH, PA AND LATERAL CLINICAL HISTORY: CHEST PAIN . COMPARISON: 06/25/2016 TECHNIQUE: PA and lateral views of the chest. FINDINGS The cardiomediastinal silhouette is unremarkable. The lungs are clear. IMPRESSION: No focal infiltrate or effusion. Reviewed, dictated and finalized at location A.
--- OUTSIDE RECORDS SUMMARY | 2024-12-23 17:26 | XMS_ITS | Clinical Summary ---
Author Organization [facility] Address [address] [place] [address] Care Team Providers Care Driller Operator Name Role Phone Callie More NP Primary Care Provider [phone] Judie De Anda DOUBLE ENDING MACHINE OPERATOR Unavailable [phone] Allergies No known active allergies Medications naproxen (NAPROSYN) 500 mg tablet Take 1 tablet (500 mg total) by mouth 2 (two) times a day with meals 30 tablet 5 Active traMADoL (ULTRAM) 50 mg tablet Take 1 tablet (50 mg total) by mouth every 6 (six) hours 10 tablet 5 Active ondansetron ODT (ZOFRAN-ODT) 4 mg disintegrating tablet Take 1 tablet (4 mg total) by mouth every 8 (eight) hours as needed for nausea or vomiting 20 tablet 5 Active escitalopram (LEXAPRO) 5 mg tablet Take 1 tablet (5 mg total) by mouth daily Active tirzepatide (MOUNJARO SUBQ) Inject 7.5 mg under the skin every 7 days Active Hospital, Clinic, or Other Facility Administered Medication Ordered Dose Route Frequency Start Date End Date Status etonogestreL (NEXPLANON) implant 68 mgIndications:Pregna ncy Contraception 68 mg subderm Continuous (implanted device) 06/10/2023 06/09/2026 Active Active Problems Problem Noted Date Diagnosed Date BMI 23.0-23.9, adult 11/09/2024 Assessment & Plan (11/09/2024 9:47 AM CDT): Preoperative clearance 11/09/2024 Assessment & Plan (11/09/2024 9:47 AM CDT): Orders: Protime-INR; Future CBC with auto differential; Future Comprehensive metabolic panel; Future aPTT; Future ECG 12 lead RUQ pain 11/09/2024 Assessment & Plan (11/09/2024 9:47 AM CDT): Orders: US Gallbladder; Future Generalized anxiety disorder 10/16/2024 Assessment & Plan (11/09/2024 9:47 AM CDT): Hair loss 03/16/2024 Assessment & Plan (11/09/2024 9:47 AM CDT): Assessment & Plan (07/13/2024 3:41 PM CARNIVAL WORKER): Start hair skin and Nails vitamin. 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 Patient has a history of cyst and pimples on scalp. We discussed long-term treatment of scarring alopecia and the importance of treating it to keep the hair follicles active. Assessment & Plan (03/16/2024 12:48 PM CDT): Referral to dermatology. I suggested patient see a spooler operator specializes in hair loss. Advised her to take a hair skin and Nails vitamin. We will check labs as well. Mild episode of recurrent major depressive disor [place] 03/16/2024 Assessment & Plan (07/13/2024 3:42 PM CARNIVAL WORKER): Continue Zoloft 50 mg daily and increase [...] plan of care and all questions answered. Scoliosis 09/25/2019 Overview (03/16/2024): Denies surgery, brace, [...] and having heart palpitations. Does not have mannequin molder - Last TTE 03/2022 in [place]: Repeat TTE 04/04/23: Normal left ventricular systolic [...] Problem Noted Date Diagnosed Date Resolved Date Insomnia 10/16/2024 11/09/2024 Moderate recurrent major depression 10/16/2024 11/09/2024 BMI 30.0-30.9,adult 07/13/2024 11/10/19 25 Assessment & Plan (07/13/2024 3:44 PM CARNIVAL WORKER): Patient has been struggling with her weight. We will start phentermine 30 mg daily. I advised her on side effects of the medication. I advised her to break the tablet in half and start with a half dose of the medication. BMI 27.0-27.9,adult 03/16/2024 07/13/20 24 Assessment & Plan (03/16/2024 12:48 PM CDT): Continue following a heart healthy diet with regular physical activity. Encounter for weight management 03/16/2024 11/09/2024 Assessment & Plan (03/16/2024 12:46 PM CDT): [...] carbohydrates. Alcohol use Nicotine use Depression screening Right upper quadrant pain 03/16/2024 Assessment & Plan (03/16/2024 5:23 PM CDT): Right upper quadrant ultrasound ordered. Patient advised on red flag symptoms of cholecystitis and when to present to ER. She indicates understanding. No further questions at this time. Encounter for female sterilization procedure 03/16/2024 Threatened premature labor in third trimester 04/05/20 23 06/11/2023 Overview (04/18/2023): Increased painful contractions that started 03/31. Was initially evaluated at [facility] and contractions at that time resolved with fluid. She then presented to [facility] on 04/01 with q2-3 min painful contractions. She was monitored at that time and received betamethasone x2. BMZ^04/02. Patient was discharged with nifedipine PRN for contractions -Instructed patient to stop taking nifedipine -[facility] precautions reviewed Anxiety 03/08/2023 11/09/2024 Assessment & Plan (07/13/2024 3:42 PM CARNIVAL WORKER): Continue Zoloft and increase Wellbutrin 300 mg. Patient tells me symptoms are controlled Assessment & Plan (03/16/2024 12:48 PM CDT): We will decrease Zoloft to 50 mg and add on Wellbutrin. Patient will follow up in 6 weeks Undesired future fertility 03/08/2023 0 03/16/2024 Overview [...] provider, reports fEIF and measuring big. Incomplete [facility] anatomy 03/08, AGA, Anterior placenta, normal CARL [...] education: completed in all 3 trimesters [x] Carroting Machine Operator: in [place] [x] Car seat discussed [] PP depression counseling Hypothyroidism 09/25/2019 03/16/2024 Overview (03/16/2024): Only during Encounters Date Type Department Care Team Description 11/26/2024 Orders Only [facility] Medical Group Primary Care at [address] [phone] Callie More NP Hair loss (Primary Dx); Cold intolerance 11/09/2024 9:02 PM CDT - 11/09/2024 11:59 PM CDT Hospital Encounter [address] [address] Preoperative clearance Discharge Disposition: Discharge to home or self care 11/09/2024 12:30 PM CDT Lab [facility] Medical Group Outpatient Lab at [address] [phone] Preoperative clearance (Primary Dx) 11/09/2024 8:30 AM CDT Office Visit [facility] Group Primary Care at [address] [phone] Callie More NP BMI 23.0-23.9, adult (Primary Dx); Generalized anxiety disorder; Preoperative clearance; RUQ pain; Hair loss; Encounter for weight management; Dizziness 11/05/2024 4:55 PM CDT - 11/05/2024 5:38 PM CDT Emergency [facility] Emergency Department [address] [place] [address] Biliary colic (Primary Dx) Discharge Disposition: Discharge to home or self care 10/29/2024 Orders Only [facility] Medical Group Primary Care at [address] [phone] Callie More NP Mass of lower inner quadrant of left breast (Primary Dx) from Last 3 Months Immunizations Immunization Administration [...] 03/03/2013,2007 OPV [birth year] Tdap 04/05/2023,,04/22/2020,05/04,03/05/2008 Varicella 03/05/2008,11/29/1998 Surgical History Surgery Date Site/Laterality Comments WISDOM TOOTH EXTRACTION Bilateral ENDOMETRIAL ABLATION 08/08/2023 - 08/07/2024 Medical History Medical History Date Comments Heart murmur Thyroid disease Scoliosis Cancer (HCC) Dad Depression Self Heart disease Mom Hypothyroidism 09/25/2019 Only during preg [place] Insomnia 10/16/2024 Moderate recurrent major depression (HCC) 2024 Family History Medical History Relation Name Comments Cancer Father Samm Gooden Leukemia Father Samm Gooden Heart disease Maternal Grandmother Teresita Bailey Hypertension Maternal Grandmother Teresita Leo Heart disease Mother DeHavilland Leo Hypertension Mother [...] more points, staff should administer the PHQ-9) 0 11/09/2024 Hunger Vital Sign Answer Date Recorded Within the past 12 months, y ou worried that your food would run out before you got the money to buy more. Patient declined Within the past 12 months, t he food you bought just didn't last and you didn't have money to get more. Patient declined 10/2022 [place] Depression Scale Answer Date Recorded [place] Depression Scale Total 1 06/10/2023 The thought of harming myself has occurred to me . Never 06/10/2023 Personal Safety Answer Date Recorded Have you ever been in or are you currently in a harmful physical or emotional relationship or is someone making you feel afraid or unsafe? Denies 11/05/2024 Comments No Sex and Gender Information Value Date Recorded Sex Assigned at Not on file Legal Sex Female 8:39 AM CARNIVAL WORKER Gender Identity Female 09/24/2021 8:03 AM CARNIVAL WORKER Sexual Orientation Straight 09/24/2021 8: 03 AM CARNIVAL WORKER Obstetrics History Para Term AB IAB SAB Ectopic Multiple Livin g Live Births 4 4 3 1 4 4 Date Outcome GA Total Labor Labor/2nd/3rd Weight Sex Type Anes PTL Odette A1 A5 Name Clin 017 Term 39w 0d 2.92 kg (6 lb 7 oz) M Vag-S pont Epidur al N Livin g Complications:None Delivery Location:[facility] ospital 020 Term 37w 6d 3.175 kg (7 lb) F Vag-S pont Epidur al Livin g Complications:None 022 36w 6d F Vag-S pont Epidur al Livin g 023 Term 37w 2d M Vag-S pont Livin g Comments G1-G3 [facility] Last Filed Vital Signs Vital Sign Reading Time Taken Comments Blood Pressure 100/78 11/09/2024 8:19 AM CDT Pulse 70 11/09/2024 8:19 AM CDT Temperature 36.7 C (98 F) 11/09/2024 8:19 AM CDT Respiratory Rate 18 11/09/2024 8:19 AM CDT Oxygen Saturation 99% 11/09/2024 8:19 AM CDT Inhaled Oxygen Concentration - - Weight 68.9 kg (152 lb) 11/09/2024 8:19 AM CDT Height 170.2 cm (5' 7 ) 11/09/2024 8:19 AM CDT Body Mass Index 23.81 11/09/2024 8:19 AM CDT Plan of Treatment Health Maintenance Due Date Last Done Comments Covid-19 Vaccine ( season) 2024 05/26/2021 Cervical Cancer Screening 06/10/2024 06/10/2023 Regular Well Visit/Exam 18-64 03/16/2025 03/16/2024 Depression Screening 11/09/2025 11/09/2024, 03/16/2024, 06/10/2023, Additional history exists DTaP/Tdap/Td Vaccine (11 - Td or Tdap) [...] Procedure Name Priority Date/Time Associated Diagnosis Comments EGFR Routine 11/09/2024 9:02 PM CDT Preoperative clearance DIFFERENTIAL AUTO Routine 11/09/2024 9:0 2 PM CDT Preoperative clearance PROTIME-INR Routine 11/09/2024 9:02 PM CDT Preoperative clearance CBC WITH AUTO DIFFERENTIAL Routine 11/09/2024 9:02 PM CDT Preoperative clearance COMPREHENSIVE METABOLIC PANEL Routine 11/09/2024 9:02 PM CDT Preoperative clearance APTT Routine 11/09/2024 9:02 PM CDT Preoperative clearance ECG 12-LEAD Routine 11/09/2024 9:15 AM CDT Preoperative clearance CT ABDOMEN PELVIS W CONTRAST ED 11/05/2024 3:36 PM CDT POCT HCG, URINE Routine 11/05/2024 2:07 PM CDT URINALYSIS AND REFLEX TO MICROSCOPIC AND CULTURE STAT 11/05/2024 2:07 PM CDT EGFR STAT 11/05/2024 1:21 PM CDT DIFFERENTIAL AUTO STAT 11/05/2024 1:2 1 PM CDT LIPASE STAT 11/05/2024 1:21 PM CDT COMPREHENSIVE METABOLIC PANEL STAT 11/05/2024 1:21 PM CDT CBC WITH AUTO DIFFERENTIAL STAT 11/05/2024 1:21 PM CDT PAP WITH REFLEX TO HIGH RISK HPV Routine 06/10/2023 9:14 AM CDT Encounter for initial prescription of implantable subdermal contraceptive HEPATITIS C ANTIBODY Routine 11/18/2021 11:09 AM CDT Supervision of other normal , antepartum from Last 3 Months or Most Recently Relevant to Health Maintenance Results * eGFR (11/09/2024 9:02 PM CDT) eGFR >90 >=60 mL/min/1. 73 m2 Comment: Interpretive Data Reference Interval Normal >/= 90 mL/min/1.73m2 Mildly decreased* 60 - 89 mL/min/1.73m2 Mildly to moderately decreased 45 - 59 mL/min/1.73m2 Moderately to severely decreased 30 - 44 mL/min/1.73m2 Severely decreased 15 - 29 mL/min/1.73m2 Kidney Failure < 15 mL/min/1.73m2 *Relative to young adult level Estimated glomerular filtration rate is determined by the 2020 CKD-EPI equation recommended by the National Kidney Foundation (A Unifying Approach to GFR Estimation: Recommendations of the NKF-ASK Task Force on Reassessing the Inclusion of Race in Diagnosing Kidney Disease, JASN 202). The CKD-EPI equation should not be used for patients with unstable renal function and has not been validated in children and those over 70. Current interpretive data was last reviewed 2021. Blood 11/09/2024 9:02 PM CDT 11/09/2024 10:09 PM CDT us Callie More KERON LAB BLOOD ORDERABLES Final Re sult [facility] [address] Department [place] [address] * Differential, auto (11/09/2024 9:02 PM CDT) Neutrophil abs 2.35 1.50 - 6.50 K/cumm Imm gran abs 0.01 0.00 - 0.10 K/cumm [facility] Lymphocyte abs 1.74 0.80 - 3.30 K/cumm [facility] Monocyte abs 0.35 0.20 - 0.80 K/cumm [facility] Eosinophil abs 0.16 0.00 - 0.50 K/cumm [facility] Basophil abs 0.04 0.00 - 0.10 K/cumm [facility] Neutrophil pct 50.6 % [facility] Comment: Interpretive Data Percent cell count reference ranges are not reported, since discordance with absolute values may lead to misinterpretation of CBC data. Current Interpretive Data was last revised on 2017. Imm gran pct 0.2 % [facility] Comment: Interpretive Data Percent cell count reference ranges are not reported, since discordance with absolute values may lead to misinterpretation of CBC data. Current Interpretive Data was last revised on 2017. Lymphocyte pct 37.4 % [facility] Comment: Interpretive Data Percent cell count reference ranges are not reported, since discordance with absolute values may lead to misinterpretation of CBC data. Current Interpretive Data was last revised on 2017. Monocyte pct 7.5 % [facility] Comment: Interpretive Data Percent cell count reference ranges are not reported, since discordance with absolute values may lead to misinterpretation of CBC data. Current Interpretive Data was last revised on 2017. Eosinophil pct 3.4 % [facility] Comment: Interpretive Data Percent cell count reference ranges are not reported, since discordance with absolute values may lead to misinterpretation of CBC data. Current Interpretive Data was last revised on 2017. Basophil pct 0.9 % [facility] Comment: Interpretive Data Percent cell count reference ranges are not reported, since discordance with absolute values may lead to misinterpretation of CBC data. Current Interpretive Data was last revised on 2017. Blood 11/09/2024 9:02 PM CDT 11/09/2024 10:06 PM CDT Callie More DOUBLE ENDING MACHINE OPERATOR LAB BLOOD ORDERABLES Final Re sult [facility] [address] [place] [address] * (ABNORMAL) CBC with auto differential (11/09/2024 9:02 PM CDT) WBC 4.65 3.80 - 9.90 K/cumm Hgb 12.3 11.9 - 15.5 g/dL [facility] Hct 40.5 35.6 - 45.5 % [facility] Plt 231 150 - 400 K/cumm [facility] MPV 12.5(H) 9.1 - 12.3 fL [facility] RBC 4.35 3.90 - 5.20 M/cumm [facility] MCV 93.1 81.3 - 96.4 fL [facility] MCH 28.3 27.1 - 33.3 pg [facility] MCHC 30.4(L) 32.3 - 35.7 g/dL [facility] RDW CV 13.1 11.1 - 14.9 % [facility] RDW SD 45.0 35.7 - 48.1 fL [facility] NRBC abs 0.00 0.00 - 0.01 K/cumm [facility] Blood 11/09/2024 9:02 PM CDT 11/09/2024 10:06 PM CDT Callie More DOUBLE ENDING MACHINE OPERATOR LAB BLOOD ORDERABLES Final Re sult [facility] [address] [employer] [place], [place] [id number] * aPTT (11/09/2024 9:02 PM CDT) aPTT 36 28 - 38 sec Comment: Interpretive Data Heparin therapeutic range: 66.0 - 100.0 seconds. Range based on correlation with therapeutic heparin activity range of 0.3 - 0.7 Units/mL. Current interpretive data was last revised on 2023. Blood 11/09/2024 9:02 PM CDT 11/09/2024 10:06 PM CDT Callie Derik LAB BLOOD ORDERABLES Final Re sult Performing Organization Address [facility] de Phone Number BRANDEN BARR [address] [place] [address] * Protime-INR (11/09/2024 9:02 PM CDT) PT 12.4 9.7 - 13.0 sec INR 1.14 0.90 - 1.20 [facility] Comment: Interpretive data Oral anticoagulant therapeutic ranges: Venous thromboembolism prophylaxis or treatment: 2.0-3.0 CARDIOLOGY Standard range: 2.0-3.0 High-intensity range: 2.5-3.5 Refer to indication-specific guidelines for appropriate target ranges for prosthetic heart valve replacement. Current interpretive data was last revised on 2019. Blood 11/09/2024 9:02 PM CDT 11/09/2024 10:06 PM CDT Callie More NP LAB BLOOD ORDERABLES Final Re sult Performing Organization Address [facility] de Phone Number LAURENTILYA BARR [address] [facility] [place] [address] * Comprehensive metabolic panel (11/09/2024 9:02 PM CDT) Sodium 138 135 - 145 mmol/L Potassium, pl 3.7 3.3 - 4.9 mmol/L [facility] Chloride 100 97 - 110 mmol/L [facility] CO2 27 22 - 32 mmol/L [facility] Anion gap 11 2 - 15 mmol/L [facility] BUN 9 6 - 25 mg/dL [facility] Creatinine 0.71 0.60 - 1.10 mg/dL [facility] Glucose 75 70 - 199 mg/dL [facility] Comment: Interpretive Data Fasting glucose >/= 126 mg/dl is diagnostic for diabetes. Fasting is defined as no caloric intake for at least 8 hours. Fasting glucose between 100 mg/dl to 125 mg/dl is diagnostic of prediabetes. In a patient with classic symptoms of hyperglycemia or hyperglycemic crisis, a random glucose >/= 200 mg/dl is diagnostic for diabetes. In the absence of unequivocal hyperglycemia, results should be confirmed by repeat testing. The classification and Diagnosis of Diabetes Diabetes Care 2021; 46: S19-S40. Current interpretive data was last revised 2022. Calcium 9.7 8.5 - 10.3 mg/dL [facility] Bilirubin, total 0.4 0.1 - 1.2 mg/dL [facility] Protein, pl 7.4 6.5 - 8.5 g/dL [facility] Albumin 4.5 3.5 - 5.0 g/dL [facility] Alk phos 68 40 - 130 Units/L [facility] ALT 11 7 - 45 Units/L [facility] AST 21 10 - 45 Units/L [facility] Blood 11/09/2024 9:02 PM CDT 11/09/2024 10:06 PM CDT Callie More NP LAB BLOOD ORDERABLES Final Re sult BRANDEN [address] [facility] Department [place] [address] * ECG 12 lead (11/09/2024 9:15 AM CDT) Callie More NP ECG ORDERABLES Final Result * CT Abdomen Pelvis W Contrast (11/05/2024 3:36 PM CDT) Anatomical Region Laterality Modality Body N/A Computed Tomogra phy 11/05/2024 4:17 PM CDT Narrative 11/05/2024 4:20 PM CDT EXAM DESCRIPTION: CT ABDOMEN PELVIS W CONTRAST REASON FOR STUDY: Abdominal pain, acute, nonlocalized Pt arrives with c/o abdominal pain since 0900. Pt is concerned about her gallbladder TECHNIQUE: CT scan of the abdomen and pelvis performed with intravenous and without oral contrast using helical scanning technique with dynamic intravenous contrast injection. Reconstructed coronal and sagittal MPR images reviewed. All images stored on PACS. Automated exposure control was used as a dose optimization technique for this examination. CONTRAST TYPE/DOSE: 75mL of IOVERSOL 350 MG IODINE/ML INTRAVENOUS SYRINGE injected via intravenous COMPARISON: None FINDINGS: LOWER CHEST: No acute findings. Hypoenhancement along the falciform ligament may reflect perfusion variant or focal steatosis. LIVER: Heterogeneous internal attenuation suggesting gallbladder sludge or stones. No wall thickening or pericholecystic fluid or inflammation. GALLBLADDER: Normal. SPLEEN: Normal. PANCREAS: Normal. ADRENALS: Normal. KIDNEYS/URINARY TRACT: Normal. GI: No bowel obstruction. The visualized portion of the appendix has normal caliber without evidence of acute appendicitis. The appendiceal tip is not clearly distinguished from adjacent structures. PERITONEUM: No free intraperitoneal air or free fluid. REPRODUCTIVE: Normal. VASCULATURE: No abdominal aortic aneurysm. MUSCULOSKELETAL: No acute skeletal abnormality. OTHER: No other abnormality. IMPRESSION: No acute findings. Heterogeneous attenuation of the gallbladder which may reflect sludge or stones but without CT evidence of acute cholecystitis. THIS IS AN ELECTRONICALLY VERIFIED FINAL REPORT 11/05/2024 4:20 PM - Electronically signed by Bill Watson M.D. JR: Report ID: [id number] Reading Location: [place] [address] Procedure Note Bill Watson MD - 11/05/2024 EXAM DESCRIPTION: CT ABDOMEN PELVIS W CONTRAST REASON FOR STUDY: Abdominal pain, acute, nonlocalized Pt arrives with c/o abdominal pain since 0900. Pt is concerned about her gallbladder TECHNIQUE: CT scan of the abdomen and pelvis performed with intravenousand without oral contrast using helical scanning technique with dynamic intravenous contrast injection. Reconstructed coronal and sagittal MPRimages reviewed. All images stored on PACS. Automated exposure control was used as a dose optimization technique forthis examination. CONTRAST TYPE/DOSE: 75mL of IOVERSOL 350 MG IODINE/ML INTRAVENOUSSYRINGE injected via intravenous COMPARISON: None FINDINGS: LOWER CHEST: No acute findings. Hypoenhancement along the falciform ligament may reflect perfusion variant or focal steatosis. LIVER: Heterogeneous internal attenuation suggesting gallbladder sludgeor stones. No wall thickening or pericholecystic fluid or inflammation. GALLBLADDER: Normal. SPLEEN: Normal. PANCREAS: Normal. ADRENALS: Normal. KIDNEYS/URINARY TRACT: Normal. GI: No bowel obstruction. The visualized portion of the appendix has normal caliber without evidence of acute appendicitis. The appendicealtip is not clearly distinguished from adjacent structures. PERITONEUM: No free intraperitoneal air or free fluid. REPRODUCTIVE: Normal. VASCULATURE: No abdominal aortic aneurysm. MUSCULOSKELETAL: No acute skeletal abnormality. OTHER: No other abnormality. IMPRESSION: No acute findings. Heterogeneous attenuation of the gallbladder which may reflect sludge or stones but without CT evidence of acute cholecystitis. THIS IS AN ELECTRONICALLY VERIFIED FINAL REPORT 11/05/2024 4:20 PM - Electronically signed by Bill Watson M.D. JR: Report ID: [id number] Reading Location: [place] [address] Arun Campbell MD IMG CT PROCEDURES Final Result * (ABNORMAL) Urinalysis reflex to microscopic and culture Urine (11/05/2024 2:07 PM CDT) Color, ur Yellow Yellow Clarity, ur Clear Clear [facility] ([place]) Specific gravity, ur 1.012 1.003 - 1.030 [facility] ([place]) pH, urine 5.5 [facility] ([place]) [id number]|2024-12-23 17:27:00|2024-12-23 17:26:00|XMS_ITS|BKG DAEMON|External Medical Summaries|[id number]|" Referral Summary Created on: December 23, 2024 Blanka Gooden : 1995 Sex: Female Author Organization [facility] Address [address] [place] [address] Care Team Providers Care Driller Operator Name Role Phone Callie More NP Primary Care Provider [phone] Judie De Anda DOUBLE ENDING MACHINE OPERATOR Unavailable [phone] Encounters Date Type Department Care Team Description 11/26/2024 Orders Only [facility] Medical Group Primary Care at [address] [phone] Callie More NP Hair loss (Primary Dx); Cold intolerance 11/09/2024 9:02 PM CDT - 11/09/2024 11:59 PM CDT Hospital Encounter [address] [id number] Preoperative clearance Discharge Disposition: Discharge to home or self care 11/09/2024 12:30 PM CDT Lab [facility] Medical Group Outpatient Lab at [address] [phone] Preoperative clearance (Primary Dx) 11/09/2024 8:30 AM CDT Office Visit [facility] Group Primary Care at [address] [phone] Callie More NP BMI 23.0-23.9, adult (Primary Dx); Generalized anxiety disorder; Preoperative clearance; RUQ pain; Hair loss; Encounter for weight management; Dizziness 11/05/2024 4:55 PM CDT - 11/05/2024 5:38 PM CDT Emergency [facility] Emergency Department [address] [place] [address] Biliary colic (Primary Dx) Discharge Disposition: Discharge to home or self care 10/29/2024 Orders Only [facility] Medical Group Primary Care at [address] [phone] Therien, Callie, DOUBLE ENDING MACHINE OPERATOR Mass of lower inner quadrant of left breast (Primary Dx) from Last 3 Months Allergies No known active allergies Medications naproxen (NAPROSYN) 500 mg tablet Take 1 tablet (500 mg total) by mouth 2 (two) times a day with meals 30 tablet 5 Active traMADoL (ULTRAM) 50 mg tablet Take 1 tablet (50 mg total) by mouth every 6 (six) hours 10 tablet 5 Active ondansetron ODT (ZOFRAN-ODT) 4 mg disintegrating tablet Take 1 tablet (4 mg total) by mouth every 8 (eight) hours as needed for nausea or vomiting 20 tablet 5 Active escitalopram (LEXAPRO) 5 mg tablet Take 1 tablet (5 mg total) by mouth daily Active tirzepatide (MOUNJARO SUBQ) Inject 7.5 mg under the skin every 7 days Active Hospital, Clinic, or Other Facility Administered Medication Ordered Dose Route Frequency Start Date End Date Status etonogestreL (NEXPLANON) implant 68 mgIndications:Pregna ncy Contraception 68 mg subderm Continuous (implanted device) 06/10/2023 06/09/2026 Active Active Problems Problem Noted Date Diagnosed Date BMI 23.0-23.9, adult 11/09/2024 Assessment & Plan (11/09/2024 9:47 AM CDT): Preoperative clearance 11/09/2024 Assessment & Plan (11/09/2024 9:47 AM CDT): Orders: Protime-INR; Future CBC with auto differential; Future Comprehensive metabolic panel; Future aPTT; Future ECG 12 lead RUQ pain 11/09/2024 Assessment & Plan (11/09/2024 9:47 AM CDT): Orders: US Gallbladder; Future Generalized anxiety disorder 10/16/2024 Assessment & Plan (11/09/2024 9:47 AM CDT): Hair loss 03/16/2024 Assessment & Plan (11/09/2024 9:47 AM CDT): Assessment & Plan (07/13/2024 3:41 PM CARNIVAL WORKER): Start hair skin and Nails vitamin. 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 Patient has a history of cyst and pimples on scalp. We discussed long-term treatment of scarring alopecia and the importance of treating it to keep the hair follicles active. Assessment & Plan (03/16/2024 12:48 PM CDT): Referral to dermatology. I suggested patient see a spooler operator specializes in hair loss. Advised her to take a hair skin and Nails vitamin. We will check labs as well. Mild episode of recurrent major depressive disor [place] 03/16/2024 Assessment & Plan (07/13/2024 3:42 PM CARNIVAL WORKER): Continue Zoloft 50 mg daily and increase [...] plan of care and all questions answered. Scoliosis 09/25/2019 Overview (03/16/2024): Denies surgery, brace, [...] and having heart palpitations. Does not have mannequin molder - Last TTE 03/2022 in [place]: Repeat TTE 04/04/23: Normal left ventricular systolic [...] Problem Noted Date Diagnosed Date Resolved Date Insomnia 10/16/2024 11/09/2024 Moderate recurrent major depression 10/16/2024 11/09/2024 BMI 30.0-30.9,adult 07/13/2024 11/10/19 25 Assessment & Plan (07/13/2024 3:44 PM CARNIVAL WORKER): Patient has been struggling with her weight. We will start phentermine 30 mg daily. I advised her on side effects of the medication. I advised her to break the tablet in half and start with a half dose of the medication. BMI 27.0-27.9,adult 03/16/2024 07/13/20 24 Assessment & Plan (03/16/2024 12:48 PM CDT): Continue following a heart healthy diet with regular physical activity. Encounter for weight management 03/16/2024 11/09/2024 Assessment & Plan (03/16/2024 12:46 PM CDT): [...] carbohydrates. Alcohol use Nicotine use Depression screening Right upper quadrant pain 03/16/2024 Assessment & Plan (03/16/2024 5:23 PM CDT): Right upper quadrant ultrasound ordered. Patient advised on red flag symptoms of cholecystitis and when to present to ER. She indicates understanding. No further questions at this time. Encounter for female sterilization procedure 03/16/2024 Threatened premature labor in third trimester 04/05/20 23 06/11/2023 Overview (04/18/2023): Increased painful contractions that started 03/31. Was initially evaluated at [facility] and contractions at that time resolved with fluid. She then presented to [facility] on 04/01 with q2-3 min painful contractions. She was monitored at that time and received betamethasone x2. BMZ^04/02. Patient was discharged with nifedipine PRN for contractions -Instructed patient to stop taking nifedipine -[facility] precautions reviewed Anxiety 03/08/2023 11/09/2024 Assessment & Plan (07/13/2024 3:42 PM CARNIVAL WORKER): Continue Zoloft and increase Wellbutrin 300 mg. Patient tells me symptoms are controlled Assessment & Plan (03/16/2024 12:48 PM CDT): We will decrease Zoloft to 50 mg and add on Wellbutrin. Patient will follow up in 6 weeks Undesired future fertility 03/08/2023 0 03/16/2024 Overview (03/08/2023): [place] sterilization consent signed 03/08/23 in clinic. Desires BTL on L&D. Encounter for supervision of normal 03/07/2006/11/2023 Overview (04/18/2023): 1st Trimester: [x] Dating Criteria: [...] provider, reports fEIF and measuring big. Incomplete [facility] anatomy 03/08, AGA, Anterior placenta, normal CARL [...] education: completed in all 3 trimesters [x] Carroting Machine Operator: in [place] [x] Car seat discussed [] PP depression [...] more points, staff should administer the PHQ-9) 0 11/09/2024 Hunger Vital Sign Answer Date Recorded Within the past 12 months, y ou worried that your food would run out before you got the money to buy more. Patient declined Within the past 12 months, t he food you bought just didn't last and you didn't have money to get more. Patient declined 10/2022 [place] Depression Scale Answer Date Recorded [place] Depression Scale Total 1 06/10/2023 The thought of harming myself has occurred to me . Never 06/10/2023 Personal Safety Answer Date Recorded Have you ever been in or are you currently in a harmful physical or emotional relationship or is someone making you feel afraid or unsafe? Denies 11/05/2024 Comments No Sex and Gender Information Value Date Recorded Sex Assigned at Not on file Legal Sex Female 8:39 AM CARNIVAL WORKER Gender Identity Female 09/24/2021 8:03 AM CARNIVAL WORKER Sexual Orientation Straight 09/24/2021 8: 03 AM CARNIVAL WORKER Last Filed Vital Signs Vital Sign Reading Time Taken Comments Blood Pressure 100/78 11/09/2024 8:19 AM CDT Pulse 70 11/09/2024 8:19 AM CDT Temperature 36.7 C (98 F) 11/09/2024 8:19 AM CDT Respiratory Rate 18 11/09/2024 8:19 AM CDT Oxygen Saturation 99% 11/09/2024 8:19 AM CDT Inhaled Oxygen Concentration - - Weight 68.9 kg (152 lb) 11/09/2024 8:19 AM CDT Height 170.2 cm (5' 7 ) 11/09/2024 8:19 AM CDT Body Mass Index 23.81 11/09/2024 8:19 AM CDT Plan of Treatment Not on file Procedures Procedure Name Priority Date/Time Associated Diagnosis Comments EGFR Routine 11/09/2024 9:02 PM CDT Preoperative clearance DIFFERENTIAL AUTO Routine 11/09/2024 9:0 2 PM CDT Preoperative clearance PROTIME-INR Routine 11/09/2024 9:02 PM CDT Preoperative clearance CBC WITH AUTO DIFFERENTIAL Routine 11/09/2024 9:02 PM CDT Preoperative clearance COMPREHENSIVE METABOLIC PANEL Routine 11/09/2024 9:02 PM CDT Preoperative clearance APTT Routine 11/09/2024 9:02 PM CDT Preoperative clearance ECG 12-LEAD Routine 11/09/2024 9:15 AM CDT Preoperative clearance CT ABDOMEN PELVIS W CONTRAST ED 11/05/2024 3:36 PM CDT POCT HCG, URINE Routine 11/05/2024 2:07 PM CDT URINALYSIS AND REFLEX TO MICROSCOPIC AND CULTURE STAT 11/05/2024 2:07 PM CDT EGFR STAT 11/05/2024 1:21 PM CDT DIFFERENTIAL AUTO STAT 11/05/2024 1:2 1 PM CDT LIPASE STAT 11/05/2024 1:21 PM CDT COMPREHENSIVE METABOLIC PANEL STAT 11/05/2024 1:21 PM CDT CBC WITH AUTO DIFFERENTIAL STAT 11/05/2024 1:21 PM CDT PAP WITH REFLEX TO HIGH RISK HPV Routine 06/10/2023 9:14 AM CDT Encounter for initial prescription of implantable subdermal contraceptive HEPATITIS C ANTIBODY Routine 11/18/2021 11:09 AM CDT Supervision of other normal , antepartum from Last 3 Months or Most Recently Relevant to Health Maintenance Results * eGFR (11/09/2024 9:02 PM CDT) eGFR >90 >=60 mL/min/1. 73 m2 Comment: Interpretive Data Reference Interval Normal >/= 90 mL/min/1.73m2 Mildly decreased* 60 - 89 mL/min/1.73m2 Mildly to moderately decreased 45 - 59 mL/min/1.73m2 Moderately to severely decreased 30 - 44 mL/min/1.73m2 Severely decreased 15 - 29 mL/min/1.73m2 Kidney Failure < 15 mL/min/1.73m2 *Relative to young adult level Estimated glomerular filtration rate is determined by the 2020 CKD-EPI equation recommended by the National Kidney Foundation (A Unifying Approach to GFR Estimation: Recommendations of the NKF-ASK Task Force on Reassessing the Inclusion of Race in Diagnosing Kidney Disease, JASN 2020). The CKD-EPI equation should not be used for patients with unstable renal function and has not been validated in children and those over 70. Current interpretive data was last reviewed 2021. Blood 11/09/2024 9:02 PM CDT 11/09/2024 10:09 PM CDT us Callie More NP LAB BLOOD ORDERABLES Final Re sult [facility] [id number] Department [place] [address] * Differential, auto (11/09/2024 9:02 PM CDT) Neutrophil abs 2.35 1.50 - 6.50 K/cumm Imm gran abs 0.01 0.00 - 0.10 K/cumm [facility] Lymphocyte abs 1.74 0.80 - 3.30 K/cumm [facility] Monocyte abs 0.35 0.20 - 0.80 K/cumm [facility] Eosinophil abs 0.16 0.00 - 0.50 K/cumm [facility] Basophil abs 0.04 0.00 - 0.10 K/cumm [facility] Neutrophil pct 50.6 % [facility] Comment: Interpretive Data Percent cell count reference ranges are not reported, since discordance with absolute values may lead to misinterpretation of CBC data. Current Interpretive Data was last revised on 2017. Imm gran pct 0.2 % [facility] Comment: Interpretive Data Percent cell count reference ranges are not reported, since discordance with absolute values may lead to misinterpretation of CBC data. Current Interpretive Data was last revised on 2017. Lymphocyte pct 37.4 % [facility] Comment: Interpretive Data Percent cell count reference ranges are not reported, since discordance with absolute values may lead to misinterpretation of CBC data. Current Interpretive Data was last revised on 2017. Monocyte pct 7.5 % [facility] Comment: Interpretive Data Percent cell count reference ranges are not reported, since discordance with absolute values may lead to misinterpretation of CBC data. Current Interpretive Data was last revised on 2017. Eosinophil pct 3.4 % [facility] Comment: Interpretive Data Percent cell count reference ranges are not reported, since discordance with absolute values may lead to misinterpretation of CBC data. Current Interpretive Data was last revised on 2017. Basophil pct 0.9 % [facility] Comment: Interpretive Data Percent cell count reference ranges are not reported, since discordance with absolute values may lead to misinterpretation of CBC data. Current Interpretive Data was last revised on 2017. Blood 11/09/2024 9:02 PM CDT 11/09/2024 10:06 PM CDT Callie More DOUBLE ENDING MACHINE OPERATOR LAB BLOOD ORDERABLES Final Re sult [facility] [address] Department [place] [address] * (ABNORMAL) CBC with auto differential (11/09/2024 9:02 PM CDT) WBC 4.65 3.80 - 9.90 K/cumm Hgb 12.3 11.9 - 15.5 g/dL [facility] Hct 40.5 35.6 - 45.5 % [facility] Plt 231 150 - 400 K/cumm [facility] MPV 12.5(H) 9.1 - 12.3 fL [facility] RBC 4.35 3.90 - 5.20 M/cumm [facility] MCV 93.1 81.3 - 96.4 fL [facility] MCH 28.3 27.1 - 33.3 pg [facility] MCHC 30.4(L) 32.3 - 35.7 g/dL [facility] RDW CV 13.1 11.1 - 14.9 % [facility] RDW SD 45.0 35.7 - 48.1 fL [facility] NRBC abs 0.00 0.00 - 0.01 K/cumm [facility] Blood 11/09/2024 9:02 PM CDT 11/09/2024 10:06 PM CDT Callie More NP LAB BLOOD ORDERABLES Final Re sult Performing Organization Address City/[facility] Co de Phone Number [facility] [address] [place] [address] * aPTT (11/09/2024 9:02 PM CDT) aPTT 36 28 - 38 sec Comment: Interpretive Data Heparin therapeutic range: 66.0 - 100.0 seconds. Range based on correlation with therapeutic heparin activity range of 0.3 - 0.7 Units/mL. Current interpretive data was last revised on 2023. Blood 11/09/2024 9:02 PM CDT 11/09/2024 10:06 PM CDT Callie More NP LAB BLOOD ORDERABLES Final Re [facility]ult [facility] [address] [facility] [place] [address] * Protime-INR (11/09/2024 9:02 PM CDT) PT 12.4 9.7 - 13.0 sec INR 1.14 0.90 - 1.20 [facility] Comment: Interpretive data Oral anticoagulant therapeutic ranges: Venous thromboembolism prophylaxis or treatment: 2.0-3.0 CARDIOLOGY Standard range: 2.0-3.0 High-intensity range: 2.5-3.5 Refer to indication-specific guidelines for appropriate target ranges for prosthetic heart valve replacement. Current interpretive data was last revised on 2019. Blood 11/09/2024 9:02 PM CDT 11/09/2024 10:06 PM CDT us Callie More NP LAB BLOOD ORDERABLES Final Re sult [facility] [address] Department [place] [address] * Comprehensive metabolic panel (11/09/2024 9:02 PM CDT) Sodium 138 135 - 145 mmol/L Potassium, pl 3.7 3.3 - 4.9 mmol/L [facility] Chloride 100 97 - 110 mmol/L [facility] CO2 27 22 - 32 mmol/L [facility] Anion gap 11 2 - 15 mmol/L [facility] BUN 9 6 - 25 mg/dL [facility] Creatinine 0.71 0.60 - 1.10 mg/dL [facility] Glucose 75 70 - 199 mg/dL [facility] Comment: Interpretive Data Fasting glucose >/= 126 mg/dl is diagnostic for diabetes. Fasting is defined as no caloric intake for at least 8 hours. Fasting glucose between 100 mg/dl to 125 mg/dl is diagnostic of prediabetes. In a patient with classic symptoms of hyperglycemia or hyperglycemic crisis, a random glucose >/= 200 mg/dl is diagnostic for diabetes. In the absence of unequivocal hyperglycemia, results should be confirmed by repeat testing. The classification and Diagnosis of Diabetes Diabetes Care 2021; 46: S19-S40. Current interpretive data was last revised 2022. Calcium 9.7 8.5 - 10.3 mg/dL [facility] Bilirubin, total 0.4 0.1 - 1.2 mg/dL [facility] Protein, pl 7.4 6.5 - 8.5 g/dL [facility] Albumin 4.5 3.5 - 5.0 g/dL [facility] Alk phos 68 40 - 130 Units/L [facility] ALT 11 7 - 45 Units/L [facility] AST 21 10 - 45 Units/L [facility] Blood 11/09/2024 9:02 PM CDT 11/09/2024 10:06 PM CDT us Callie More NP LAB BLOOD ORDERABLES Final Re sult [facility] [address] Department [place] [address] * ECG 12 lead (11/09/2024 9:15 AM CDT) Callie More NP ECG ORDERABLES Final Result * CT Abdomen Pelvis W Contrast (11/05/2024 3:36 PM CDT) Anatomical Region Laterality Modality Body N/A Computed Tomogra phy 11/05/2024 4:17 PM CDT Narrative 11/05/2024 4:20 PM CDT EXAM DESCRIPTION: CT ABDOMEN PELVIS W CONTRAST REASON FOR STUDY: Abdominal pain, acute, nonlocalized Pt arrives with c/o abdominal pain since 0900. Pt is concerned about her gallbladder TECHNIQUE: CT scan of the abdomen and pelvis performed with intravenous and without oral contrast using helical scanning technique with dynamic intravenous contrast injection. Reconstructed coronal and sagittal MPR images reviewed. All images stored on PACS. Automated exposure control was used as a dose optimization technique for this examination. CONTRAST TYPE/DOSE: 75mL of IOVERSOL 350 MG IODINE/ML INTRAVENOUS SYRINGE injected via intravenous COMPARISON: None FINDINGS: LOWER CHEST: No acute findings. Hypoenhancement along the falciform ligament may reflect perfusion variant or focal steatosis. LIVER: Heterogeneous internal attenuation suggesting gallbladder sludge or stones. No wall thickening or pericholecystic fluid or inflammation. GALLBLADDER: Normal. SPLEEN: Normal. PANCREAS: Normal. ADRENALS: Normal. KIDNEYS/URINARY TRACT: Normal. GI: No bowel obstruction. The visualized portion of the appendix has normal caliber without evidence of acute appendicitis. The appendiceal tip is not clearly distinguished from adjacent structures. PERITONEUM: No free intraperitoneal air or free fluid. REPRODUCTIVE: Normal. VASCULATURE: No abdominal aortic aneurysm. MUSCULOSKELETAL: No acute skeletal abnormality. OTHER: No other abnormality. IMPRESSION: No acute findings. Heterogeneous attenuation of the gallbladder which may reflect sludge or stones but without CT evidence of acute cholecystitis. THIS IS AN ELECTRONICALLY VERIFIED FINAL REPORT 11/05/2024 4:20 PM - Electronically signed by Bill Watson M.D., JR: Report ID: [id number] Reading Location: [id number] Procedure Note Bill Watson MD - 11/05/2024 EXAM DESCRIPTION: CT ABDOMEN PELVIS W CONTRAST REASON FOR STUDY: Abdominal pain, acute, nonlocalized Pt arrives with c/o abdominal pain since 0900. Pt is concerned about her gallbladder TECHNIQUE: CT scan of the abdomen and pelvis performed with intravenousand without oral contrast using helical scanning technique with dynamic intravenous contrast injection. Reconstructed coronal and sagittal MPRimages reviewed. All images stored on PACS. Automated exposure control was used as a dose optimization technique forthis examination. CONTRAST TYPE/DOSE: 75mL of IOVERSOL 350 MG IODINE/ML INTRAVENOUSSYRINGE injected via intravenous COMPARISON: None FINDINGS: LOWER CHEST: No acute findings. Hypoenhancement along the falciform ligament may reflect perfusion variant or focal steatosis. LIVER: Heterogeneous internal attenuation suggesting gallbladder sludgeor stones. No wall thickening or pericholecystic fluid or inflammation. GALLBLADDER: Normal. SPLEEN: Normal. PANCREAS: Normal. ADRENALS: Normal. KIDNEYS/URINARY TRACT: Normal. GI: No bowel obstruction. The visualized portion of the appendix has normal caliber without evidence of acute appendicitis. The appendicealtip is not clearly distinguished from adjacent structures. PERITONEUM: No free intraperitoneal air or free fluid. REPRODUCTIVE: Normal. VASCULATURE: No abdominal aortic aneurysm. MUSCULOSKELETAL: No acute skeletal abnormality. OTHER: No other abnormality. IMPRESSION: No acute findings. Heterogeneous attenuation of the gallbladder which may reflect sludge or stones but without CT evidence of acute cholecystitis. THIS IS AN ELECTRONICALLY VERIFIED FINAL REPORT 11/05/2024 4:20 PM - Electronically signed by Bill Watson M.D. JR: Report ID: [id number] Reading Location: [place] [address] Arun Campbell MD IMG CT PROCEDURES Final Result * (ABNORMAL) Urinalysis reflex to microscopic and culture Urine (11/05/2024 2:07 PM CDT) Color, ur Yellow Yellow Clarity, ur Clear Clear [facility] ([facility]) Specific gravity, ur 1.012 1.003 - 1.030 [facility] ([place]) pH, urine 5.5 [facility] ([place]) Comment: Interpretive Data U rine pH is affected by diet, medications, systemic acid-base disturbances, and renal tubular function. pH may affect urinary stone formation. For example, urine pH below 6.0 may help reduce the tendency for calcium phosphate stones and pH greater than 6.0 may reduce the tendency for uric acid stone formation. Source: [facility] Current Interpretive Data was last revised on 2017 Protein, ur ql Negative Negative [facility] ([place]) Glucose, ur ql Negative Negative [facility] ([place]) Ketones, ur 2+(A) Negative [facility] ([place]) Bilirubin, ur Negative Negative [facility] ([place]) Blood, ur Negative Negative [facility] ([place]) Urobilinogen, ur <2.0 <2.0 mg/dL [facility] ([place]) Nitrite, ur Negative Negative [facility] ([place]) Leukocyte esterase, ur Negative Negative [facility] ([place]) UA reflex comment Reflex conditions for microscopic UA and culture not met. [facility] ([place]) Urine 11/05/2024 2:07 PM CDT 11/05/2024 2:17 PM CDT Jaimie [facility] MICROBIOLOGY - GENERAL [place] TEE Final Result [facility] ([place]) [facility] Department [place] [address] * POCT hCG, urine (11/05/2024 2:07 PM CDT) HCG, ur, POC Negative Negative Lot Number [id number] QC Backgroud Clear Acceptable QC Control Line Acceptable Urine 11/05/2024 2:07 PM CDT Jaimie [facility]BER POINT OF CARE TEST ORDERABLES F inal Result * eGFR (11/05/2024 1:21 PM CDT) eGFR >90 >=60 mL/min/1. 73 m2 Comment: Interpretive Data Reference Interval Normal >/= 90 mL/min/1.73m2 Mildly decreased* 60 - 89 mL/min/1.73m2 Mildly to moderately decreased 45 - 59 mL/min/1.73m2 Moderately to severely decreased 30 - 44 mL/min/1.73m2 Severely decreased 15 - 29 mL/min/1.73m2 Kidney Failure < 15 mL/min/1.73m2 *Relative to young adult level Estimated glomerular filtration rate is determined by the 2020 CKD-EPI equation recommended by the National Kidney Foundation (A Unifying Approach to GFR Estimation: Recommendations of the NKF-ASK Task Force on Reassessing the Inclusion of Race in Diagnosing Kidney Disease, JASN 202). The CKD-EPI equation should not be used for patients with unstable renal function and has not been validated in children and those over 70. Current interpretive data was last reviewed 2021.
--- OUTSIDE RECORDS SUMMARY | 2024-12-23 17:26 | XMS_ITS | Data Portability ---
Author Organization [facility] [employer] [facility], Telehealth (patients home) Address [address] [place] [address] Assessment Encounter Date Assessment Date Assessment LastModified by Organization Details LastModified Time 10/16/2024 10/16/2024 Blanka presents to office with Anxiety PHQ9=11 mod GAD12 mod [email or web address] Not available 10/16/2024 19:29:12 Plan of Treatment Reminders Order Date Submit Date Provider Last Modified By Organization Details Last Modified Time Details Appointments None recorded. Lab None recorded. Referral None recorded. Procedures None recorded. Surgeries None recorded. Imaging None recorded. Medication Orders Lexapro 5 mg tablet 025 025 [id number], [address], [place], [id number], 17:59:24 Patient TargetsNo targets recorded. Patient Instructions Encounter Date Encounter Id Patient Instructions Last Modified By Organization Details Last Modified Time 10/16/2024 [id number] insomnia: care instructions [email or web address] Not available 10/16/2024 20:09:00 Reason for Referral None Reported. Problems Name Problem SNOMED Code Status Onset Date Resolution Date Notes Provider Name and Address Organization Details Recorded Time Generalized anxiety disorder 15040531 Active 2024 Judie De Anda CNM, PMHNP-BC [address], [place], [address], [facility] 17:59:03 Moderate recurrent major depression 08056510 Active 2024 Judie De Anda CNM, PMHNP-BC [address], [place], [address], [facility] 19:29:21 Insomnia 234843580 Active 2024 Judie De Anda, IAN, [facility] [address], [place], [address], [facility] 19:30:32 Problem Notes None recorded. Procedures Surgical History Date Name Laterality Status Provider Name and Address Organization Details Recorded Time ligation of fallopian tube completed Bee Brian [facility] 10/16/2024 17:05:39 Imaging Results None recorded. Procedure [...] Last Updated DateTime 170.18 cm 25.4 kg/m2 06753.9 6 g 90 /min 117 mm[Hg] 78 mm[Hg] Bee Torres [facility] 17:00:57 Social History Question Answer Notes LastModified by Organizat ion Details LastModified Time Tobacco Smoking Status Former Smoker Bee Torres [facility], [facility] 10/16/2024 17:04:47 What Is Your Level Of Caffeine Consumption? None [email or web address] Information not available 10/16/2024 How Many Times Per Week Do You Exercise? 5-7 Times Per Week [email or web address] Information not available 10/16/2024 Are There Any Guns Present In Your Home? Yes [email or web address] Information not available 10/16/2024 Do You Feel Safe In Your Home? Yes [email or web address] Information not available 10/16/2024 Do You Have Any Future Plans To Get ? No, I Don't Want To Become [email or web address] Information not available 10/16/2024 Sex: Unknown Functional Status Question Answer Note LastModified by [employer] Details LastModified Time Do you use any illicit or recreational drugs? No [email or web address] Information not available 10/16/2024 Do you or have you ever used any other forms of tobacco or nicotine? Yes [email or web address] Information not available 10/16/2024 What is your level of alcohol consumption? Occasional [email or web address] Information not available 10/16/2024 Do you or have you ever used e-cigarettes or vape? Former user of electronic cigarettes [email or web address] Information not available 10/16/2024 What is your exercise level? Moderate [email or web address] Information not available 10/16/2024 Mental Status Question Answer Note LastModified by Organization D etails LastModified Time Do you feel stressed (tense, restless, nervous, or anxious, or unable to sleep at night)? [id number] [email or web address] Information not available 10/16/2024 Family History Relationship Description Onset Age of this Age Resolved Age Notes LastModified by Organization Details LastModified Time Mother Congestive heart failure [email or web address] Not available 2024 17:03:42 Father Malignant lymphoma [email or web address] Not available 2024 17:03:52 Medical History Condition Response Depression Y Anxiety Disorder Y Gynecological History Statement/Question Response Menses Monthly [...] Judie De Anda CNM, PMP- Main Office [address] [place] [address] 10/16/2024 16:56:44 10/17/2024 10:16:42 Generalized anxiety disorder 53537744 F41.1 start Lexapro 5mg dailyfollo w up in 1 month Moderate r ecurrent major depression 30193829 F33.1 Start lexapro 5 mg daily Insomnia 122224501 G47.0 0 Discussed cognitive behavioral therapy for [...] Nails Member ID Guarantor Name 10/16/2024 1 [facility] ON OR AFTER 02/05/21 (MEDICAID REPLACEMENT - HMO) Blanka Gooden [id number] Blanka Gooden Notes Date Note Type Note Provider Name and Address Organization Details Recorded Time 10/16/2024 text/html Met with Blanka peck for psychiatric evaluation. Was referred by Callie More IMPLEMENTATION CONSULTANT due to increased anxiety, increased irritation and [...] De Anda CNM, PMHNP-BC [address], [place], [address], [facility] 10/16/2024 20:09:58 OBGyn Episode No OBEpisode recorded.
--- NOTE | 2024-12-23 17:27 | ECG_ITS ---
Test Date: 2024-12-23 17:31:51 Measurements Intervals [place] Rate: 75 P: 44 NM: 187 QRS: 49 QRSD: 75 T: 50 QT: 354 QTc: 396 Interpretive Statements SINUS RHYTHM Compared to ECG 09/01/2024 18:40:19 No significant changes Electronically Signed On 12-24-2024 10:42:56 CDT by Andrea Luong M.D.
--- OUTSIDE RECORDS SUMMARY | 2024-12-23 17:27 | XMS_ITS | Clinical Summary ---
Author Organization [facility] Address [address] [place] [address] Care Team Providers Care Weight Count Operator Name Role Phone Unavailable Primary Care [...]
--- OUTSIDE RECORDS SUMMARY | 2024-12-23 17:27 | XMS_ITS | Continuity of Care Document ---
Author Organization [facility] [place] [address] [place] [address] Phone Care Team Providers Care Electrical Project Engineer Name Role Phone Margarita Sanchez Unavailable Unavailable Procedures Procedure Date Eye Exam & Treatment Refraction Eye Exam & Treatment Refraction Eye Exam & Treatment Eye Exam & Treatment Advance Directives Directive Yes / No Effective Date File Name No Information Encounters Encounter Description Practice Location Reason(s) For Visit Diagnoses Date Provider Providers Copied on Encounter [facility], [address] [place] [address] [address], [place], [place], [id number], [place] tel:[phone] [facility] No Information 7-201 0 Laura Cleveland [address] , [address], [place], [place], [facility], [place]. tel:[phone] [facility], [address], [place], [place], [id number], [place] tel:[phone] [facility] No Information 1200 9 Laura Cleveland [address] , [address], [place], [address], [place]. tel:[phone] [facility], [address], [place], [place], [id number], [place] tel:[phone] [facility] No Information 8 Laura Avila. [address] , [address], [place], [address], [place]. tel:[phone] [facility], [address], [place], [place], [id number], [place] tel:[phone] [facility] No Information 7 Laura Cleveland [address] , [address], [place], [address], [place]. tel:[phone] Family History Family Member Type Diagnosis Age At Onset No Information Payers Payer name Insurance type Covered constitution party ID Chanelle fox(s) Medicaid [facility] [id number] Social History Type Description Quantity Date Captured [...]
--- OUTSIDE RECORDS SUMMARY | 2024-12-23 17:27 | XMS_ITS | Encounter Summary ---
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
--- OUTSIDE RECORDS SUMMARY | 2024-12-23 17:27 | XMS_ITS | Data Portability ---
Author Organization [facility] , [facility] Address [address] [place] [address] Assessment No assessment recorded. Plan of Treatment Reminders Order Date Submit Date Provider Last Modified By Organization Details Last Modified Time Details Appointments None recorded. Lab STI panel 2021 022 [facility], [address] [place] [address], [address], 15:07:35 obstetric screen + HIV, serum or blood 2021 022 [employer] [facility], [address] [place], [address], 16:25:23 hepatitis C virus Ab, serum 2021 022 [email or web address] [facility], [address] [place], [address], 16:25:24 sickle cell screen, qual, light microscop y, blood 2021 022 [email or web address] [employer] [facility], [address] [place], [address], 16:25:24 HbA1c (hemoglob in A1c), blood 2021 022 [email or web address] [facility], [address] [place], [address], 16:25:24 test, urine 2021 022 galina [facility], [address] [place], [address], 17:23:57 Referral None recorded. Procedures None recorded. [...] test, urine HCG positi ve Not Available [facility] [address] [place], [address], 10/24/2021 11:49:20 11/04/19 22 11/05/2021 STI PANEL trichomonas vaginalis TRICH neg negati ve Not [place], [address], 11/05/2021 15:07:35 11/04/19 22 11/05/2021 STI PANEL chlamydia trachomatis CT neg negati ve If both Pap and Endoc ervic al swabs are colle cted, the Prese rvCyt Solut ion liqui d Pap speci men must be colle cted befor e the endoc ervic al swab speci men. [place], [address], 11/05/2021 15:07:35 11/04/19 22 11/05/2021 STI PANEL neisseria gonorrhoeae GC neg negati ve If both Pap and Endoc ervic al swabs are colle cted, the Prese rvCyt Solut ion liqui d Pap speci men must be colle cted befor e the endoc ervic al swab speci men. [place], [address], 11/05/2021 15:07:35 11/06/19 22 11/03/2021 US, obste tric, 1st trime ster No observ ation record ed. [email or web address] [address], [place], [address], 11/10/2021 14:20:48 Result Notes None recorded. Problems No Known Problems Procedures Surgical History None recorded. Imaging Results Imaging Date Name Status LastModified by Organiz ation Details LastModified Time 11/03/2021 US, obstetric, 1st trimester completed [email or web address] [address], [place], [address], 11/10/2021 14:20:48 Procedure Notes None recorded. Medical [...] estradio L 1 mg oral tablet RxNorm: [id number] Allow Substitu tion: True Refill Denied: No Edited by: Halie Collier) on 11/30/19 Stopped by: merry( Halie Mendiola) on 11/30/19 21 Not Available Not Available Not Available Depo-Prov era 150 mg/mL intramusc ular suspensio n inject 1 millilit er (150 mg) by intramus cular route q 3 months 08/23 completed Depo-Pro vera 150 mg/mL intramus cular Suspensi on RxNorm: [id number] Allow Substitu tion: True Refill Denied: No Edited by: merry( Halie Mendiola) on 08/23/19 Stopped by: merry( Halie Mendiola) on 08/23/19 Not Available Not Available Not Available IBU 600 mg tablet take 1 tablet (600 mg) by oral route q 6hrs prn pain 05/30 completed IBU 600 mg oral tablet RxNorm: 704726 Allow Substitu tion: True Refill Denied: No [...] monohydr ate 100 mg oral capsule RxNorm: 6571023 Allow Substitu tion: True Refill Denied: No [...] hydrocor tisone 2.5 % Topical Ointment RxNorm: 015792 Allow Substitu tion: True Refill Denied: No [...] mg Intraute rine Intraute rine Device RxNorm: 4271524 Allow Substitu tion: False Refill Denied: No [...] Updated DateTime 2 172.72 cm 26.6 kg/m2 90442.9 5 g 97.9 [degF] 122 mm[Hg] 76 mm[Hg] Alize Drew [facility] [employer] 2 11:47:18 Date Recorded Body height Body mass index (BMI) Body weight Body temperature Systolic blood pressure Diastolic blood pressure Provider Name and Address Organization Details Last Updated DateTime 2 172.72 cm 26.5 kg/m2 65409.0 7 g 97.2 [degF] 122 mm[Hg] 82 mm[Hg] Miya Shine [facility] 16:36:26 Social History Question Answer Notes LastModified by Organizat ion Details LastModified Time Tobacco Smoking Status Never Smoker Alize Drew null, [facility] 10/24/2021 11:48:53 How Many Years Have You Consumed Alcohol? [...] You Used? Marijuana Information not available 10/24/2021 How Many Children Do You Have? 2 Information not available 10/24/2021 What Is Your Relationship Status? Single Information not available 10/24/2021 Are You Sexually Active? Yes Information not available 10/24/2021 Have You Used IV Drugs? No Information not available 10/24/2021 Sex: Unknown Functional Status Question Answer Note LastModified by Organizat ion Details LastModified Time Do you use any illicit or recreational drugs? Yes Information not available 10/24/2021 Do you or have you ever used any other forms of tobacco or nicotine? No Information not available 10/24/2021 What is your level of alcohol consumption? Occasional Information not available 11/03/2021 Do you or have you ever used e-cigarettes or vape? Never used electronic cigarettes Information not available 11/03/2021 What is your exercise level? None Information [...] Colon Cancer N Cytomegalovirus N Hyperthyroidism N Blood Transfusion N MRSA N Herpes (HSV) N Breast Cancer N Lung Cancer N Depression N Hypothyroidism N Incontinence N Panic Attacks N Neurological [...] SNOMED-CT Code Diagnosis ICD10 Code Diagnosis Note [id number] Johanna Vasquez CNM [facility] [address] [place] [address] 10/24/2021 11:08:27 10/27/2021 10:35:40 Amenorrhea 75826248 N91.2 UPT positive today. Bedside scan confirms FHR 150. Precaution s reviewed. Retrun in 1 week for dating scan and NOB labs. [id number] Johanna Vasquez CNM [facility] [address] [place] [address] 11/03/2021 15:23:57 11/03/2021 18:02:05 Routine care 988697655 Z34.90 Dating based on today's ultrasound as she is unsure of exact date of LMP. Pt is unsure if she wants to continue . Is concerned with baby with autism. Health Concerns Section Related Observation LastModified by Organization Detai ls LastModified Time None Recorded Concern Status LastModified by Organization Details LastModified Time None Recorded Advance Directives Directive None Recorded Payers Insurance Date Sequence Insurance Name Policy Number Policy Nails Covered Member ID Nails Member ID Guarantor Name 11/20/2021 2 [place] [facility] Blanka Gooden [id number] Blanka Gooden 11/20/2021 1 [facility] [id number] [place] [id number] Blanka Gooden Notes Date Note Type Note Provider Name and Address Organization Details Recorded Time 10/24/2021 text/html Contraception visitReported bypatient.Type of Contraceptionnone Sexual HistorySexually active Menstrual cycle:no bleeding Presents to start contraception. LMP was 07/26. Was seen at [facility] on 09/03 and was told she was 5 weeks and there was no heartbeat. States she took the pills on 09/08 and noted light bleeding and passage of clots. Has not had bleeding since. Does admit to unprotected intercourse following. UPT positive today. Johanna Vasquez CNM [address] [place], [address], [facility] 10/25/2021 17:24:01 11/03/2021 text/html OB ProblemReport ed bypatient.Associated Symptoms:no abdominal pain; no cramping; no bleeding; no vaginal discharge; no vaginal/vulvar itching or irritation; no headache; no dizziness; no breathlessnessNotes:no back painPregnancy Confirmation VisitReported bypatient.obstetrics and gynecologyno bleeding between periods Johanna Vasquez CNM [address] [place], [address], [facility] 11/05/2021 21:47:53 OBGyn Episode No OBEpisode recorded.
--- OUTSIDE RECORDS SUMMARY | 2024-12-23 17:27 | XMS_ITS | Clinical Summary ---
Author Organization [facility] [employer] Address [address] [place] [address] Care Team Providers Care Manager Clinical Research Name Role Phone Leeroy Romero MD Primary Care Provider [phone] Source Comments [facility] [employer],non-owned Affiliates and Associated Physician Practices is amultiple site organization consisting of ambulatory clinics and hospital sitesin [place], [place], [place]. This disclosure is being madepursuant to the Care Everywhere program and may not contain all information available regarding this patient. Last updated 18.[facility] Allergies No known active allergies Medications * Be aware that medications may not be up to date on this document. Alwaysverify current medications with the patient. buPROPion XL 24hr (Wellbutrin-XL) 150 MG tablet 4 Active sertraline (Zoloft) 50 MG tablet 4 Active ketoconazole (Nizoral) 2 % shampooIndicatio ns:Other seborrheic dermatitis Apply to wet hair, leave on for 3 minutes, then rinse; three times weekly. 30 days supply 120 mL 11 4 Active clobetasol (Temovate) 0.05 % solutionIndicati ons:Other cicatricial alopecia Apply to affected areas on the scalp twice daily. 30 days supply. 50 mL 3 4 Active doxycycline hyclate 100 MG tabletIndication s:Other cicatricial alopecia Take 1 (one) tablet by mouth 2 times daily 60 tablet 3 4 Active Active Problems No known active problems Social History Tobacco Use Types Packs/Day Years Used Date Smoking Tobacco: Never Smokeless Tobacco: Never Tobacco Cessation:Counseling Given: Not Answered Comments Unknown Sex and Gender Information Value Date Recorded Sex Assigned at Not on file Legal Sex Female 11:17 AM CDT Gender Identity Not on file Sexual Orientation Not on file Plan of Treatment Health Maintenance Due Date Last Done Comments PAP SMEAR 1997 HIV SCREENING 02/13/2012 HEPATITIS C SCREENING 02/08/2015 DTAP/TDAP/TD VACCINES (1 - Tdap) 02/13/2016 HEPATITIS B VACCINE (1 of 3 - 19+ 3-dose series) 02/13/2016 COVID-19 VACCINE (1 - 2023- season) 2024 DEPRESSION SCREENING 08/08/2024 INFLUENZA VACCINE (Season Ended) 2025 08/10/2023, 06/07/2022, 04/22/2020, Additional history exists ZOSTER VACCINE (1 of 2) 2047 HIB [...] on patient's age to complete this topic Insurance [facility] Care Teams Manager Clinical Research Relationship Specialty Start Date End Date Leeroy Romero MD [address] [place] [address] PCP - General 04/15/22
--- OUTSIDE RECORDS SUMMARY | 2024-12-23 17:27 | XMS_ITS | Data Portability ---
Author Organization [facility] [place] Address [address] [place] [address] [place] [address] Assessment Encounter Date Assessment Date Assessment LastModified by Organization Details LastModified Time 02/11/2023 02/11/2023 Patient is __26_weeks . Discussed plan. [email or web address] Not available 02/11/2023 12:11:56 02/25/2023 02/25/2023 Patient is _28__weeks . Discussed plan. [email or web address] Not available 02/25/2023 10:29:55 11/18/2023 11/18/2023 left breast mass, recommend US, order given Not available 11/18/2023 11:46:23 Plan of Treatment Reminders Order Date Submit Date Provider Last Modified By Organization Details Last Modified Time Details Appointments None recorded. Lab None recorded. Referral None recorded. Procedures None recorded. Surgeries None recorded. Imaging US, pelvis 2022 023 [email or web address] [place] [facility] [address], [address], [place], [address], 3 13:00:46 Medication Orders Cymbalta 30 mg capsule,de layed release 2023 024 [place] [facility][id number], [address] [facility], [place], [place], [id number], 4 11:46:01 Patient TargetsNo targets recorded. Patient InstructionsNo instructions recorded. Reason for Referral None Reported. Results Created Date Observation Date Name Description Value Unit Range Abnormal Flag Note LastModifiedBy Organization Detail LastModifiedTime 02/26/20 23 02/25/2023 HEMAT OCRIT (HCT) HCT 32.8 % (based on docume nted legal sex) 37.4-4 8.3 low Not Available [facility] (Lab) [address] [facility], [place], [address], 02/26/2023 06:12:52 02/26/20 23 02/25/2023 HEMOG LOBIN (HGB) HGB 10.3 g/dL (based on docume nted legal sex) 11.9-1 5.8 low Not Available [facility] (Lab) [address] [facility], [place], [address], 02/26/2023 06:12:53 02/26/20 23 02/25/2023 GTT - GESTA FRANKIE L SCREE N, ACOG OB glucose, 1 hour screen 96 mg/dL 70-139 Not Available [facility] (Lab) [address] [facility], [place], [address], 02/26/2023 06:12:53 02/26/20 23 02/25/2023 HIV 1/2 ANTIG EN/AN TIBOD Y, REFLE X CONFI RMATI ON HIV antigen/anti body Nonrea ctive nonrea ctive HIV-1 antig en and HIV-1 /HIV- 2 antib odies were not detec david. No labor atory evide nce of HIV infec tion. Not Available [facility] (Lab) [address] [facility] [facility], [place], [address], 02/26/2023 06:12:54 01/06/20 24 01/06/2024 DHEA SULFA TE DHEA-sulfate 258 ug/dL Femal e Range s Age(y ) Range (ug/d L) 10-15 34-28 0 15-20 65-36 8 20-25 148-4 07 25-35 99-34 0 35-45 61-33 7 45-55 35-25 6 55-65 19-20 5 65-75 9-246 > 75 12-15 4 Not Available [facility] (Lab) [address] [place], [address], 01/12/2024 18:13:35 01/06/20 24 01/06/2024 ESTRA DIOL estradiol 22.3 pg/mL This assay was perfo rmed using [employer] ratio n reage nts and test kits. Value s obtai yael with other assay metho ds or kits canno t be used inter [facility] . Femal e Estra diol Range s: Folli cular phasE 12.4- 233 pg/mL Ovula tion phasE 41.0- 398 pg/mL Lutea l phasE 22.3- 341 pg/mL Postm enopa usal <5-13 8 pg/mL Healt hy Pregn ant Women 1st Trime ster 154-3 243 pg/mL 2nd Trime ster 1561- 33647 pg/mL 3rd Trime ster 8525- >3000 0 pg/mL Not Available [facility] (Lab) [address] [place], [address], 01/12/2024 18:13:36 01/06/20 24 01/06/2024 PROGE STERO NE progesterone 0.43 NG/mL This assay was perfo rmed using [employer] n reage nts and test kits. Value s obtai yael with other assay metho ds or kits canno t be used inter [facility] . Femal e Proge stero ne Range s: Folli cular phasE 0.06- 0.89 ng/mL Ovula tion phasE 0.12- 12.00 ng/mL Lutea l phasE 1.83- 23.90 ng/mL Postm enopa usal <0.05 -0.13 ng/mL Healt hy Pregn ant Women 1st Trime ster 11.0- 44.30 2nd Trime ster 25.40 -83.3 0 3rd Trime ster 58.70 -214. 00 Not Available [facility] (Lab) [address] [place], [address], 01/12/2024 18:13:36 01/06/20 24 01/06/2024 PROLA CTIN prolactin, total 12.20 NG/mL 4.79-2 3.30 This assay was perfo rmed using [employer] ratio n reage nts and test kits. Value s obtai yael with other assay metho ds or kits canno t be used inter [facility] . Not Available [facility] (Lab) [address] [facility], [place], [address], 01/12/2024 18:13:37 01/06/20 24 01/06/2024 LH (LUTE NIZIN G HORMO NE) LH 8.2 mIU/m L This assay was perfo rmed using [employer] n reage nts and test kits. Value s obtai yael with other assay metho ds or kits canno t be used inter [facility] . Femal es Mid-F ollic ular: 2.4-1 2.6 mIU/m L Mid-C ycle: 14.0- 95.6 mIU/m L Mid-L uteal : 1.0-1 1.4 mIU/m L Postm enopa use: 7.7-5 8.5 mIU/m L Not Available [facility] (Lab) [address] [facility], [place], [address], 01/12/2024 18:13:37 01/06/20 24 01/06/2024 FSH FSH 9.3 mIU/m L This assay was perfo rmed using [employer] ratio n reage nts and test kits. Value s obtai yael with other assay metho ds or kits canno t be used inter [facility] . Femal es Folli cular : 3.5-1 2.5 mIU/m L Ovula tion: 4.7-2 1.5 mIU/m L Lutea l: 1.7-7 .7 mIU/m L Postm enopa use: 25.8- 134.8 mIU/m L Not Available [facility] (Lab) [address] [place], [address], 01/12/2024 18:13:38 01/06/20 24 01/06/2024 HUMAN SEX HORMO NE JUAN NG GLOBU KATHY sex hormone binding globulin 26.5 nmole s/L 18.2-1 35.5 Not Available [facility] (Lab) [address] [facility], [place], [address], 01/12/2024 18:13:38 01/06/20 24 01/06/2024 TSH, REFLE X FREE T4 TSH 2.99 uIU/m L 0.30-5 .33 Not Available [facility] (Lab) [address] [facility], [place], [address], 01/12/2024 18:13:39 01/06/20 24 01/06/2024 HEMOG LOBIN A1C hemoglobin A1C 5.4 % 0-5.6 The Ameri can Diabe jimmie Assoc iatio n recom mends that a prima ry goal of thera py isabelleul d be a HBA1C of < 7% and that physi cians shoul d reeva luate the treat ment regim en in patie nts with HBA1C value s consi stent ly > 8%. <5.7% Maribel l 5.7 - 6.4% Incre ased risk for diabe jimmie >=6.5 % Diagn ostic of diabe jimmie <7.0% Goal of thera py >8.0% Actio n sugge sted Not Available [facility] (Lab) [address] [facility] [facility], [place], [address], 01/12/2024 18:13:39 01/06/20 24 01/06/2024 TESTO STERO NE, FREE( DIALY SIS) AND TOTAL (LC/M S/MS) testosterone , total 13 NG/dL 2-45 For addit ional infor eddie shahid e refer to http: //nini concepcionque stdia gnost ics.c om/fa q/ Total Testo stero neLCM [facility] Q165 (This link is being provi ded for infor jordan lovell/ educa frankie l purpo ses only. ) This test was devel oped and its ivette tical perfo rmanc e zhang cteri stics have been deter mined by [employer] ostic s [place]. It has not been clear ed or appro josué by the U.S. Food and Drug Admin istra tion. This assay has been valid ated pursu ant to the CLIA regul ation s and is used for clini rusty purpo ses. Not Available [facility] (Lab) [address] [place], [address], 01/12/2024 18:13:40 01/06/20 24 01/06/2024 TESTO STERO NE, FREE( DIALY SIS) AND TOTAL (LC/M S/MS) testosterone , free 1.7 pg/mL 0.1-6. 4 This test was devel oped and its ivette tical perfo rmanc e zhang cteri stics have been deter mined by [employer] [place]. It has not been clear ed or appro josué by the U.S. Food and Drug Admin istra tion. This assay has been valid ated pursu ant to the CLIA regul ation s and is used for clini rusty purpo ses. Perfo rming Organ izati on Infor jordan n: Site ID: AMD Name: [employer] kati s Bryce [place] [facility] Addre ss: [id number] [employer] [place], [place] Direc tor: Danyelle Antonio MD PhD Not Available [facility] (Lab) [address] [place], [address], 01/12/2024 18:13:40 01/06/20 24 01/06/2024 17-OH PROGE [...] [facility]/Chepe melvi [facility] nallely stewartjayleen , Addre ss: [id number] [address] [facility] [place] [address] Direc tor: Dee granados MD,Ph D,HERBERT Not Available [facility] (Lab) [address] [facility] [facility], [place], [address], 01/12/2024 18:13:40 04/01/20 23 04/01/2023 non-s tress test No observ ation record ed. Not Available 04/03 15:11:12 04/28/20 23 04/28/2023 US, pelvi s No observ ation record ed. [email or web address] [place] [address], [place], [address], 04/28/2023 17:54:12 04/28/20 23 04/28/2023 US, pelvi s No observ ation record ed. [email or web address] [facility], [place], [address], 04/29/2023 09:21:00 Result Notes None recorded. Problems Name Problem SNOMED Code Status Onset Date Resolution Date Notes Provider Name and Address Organization Details Recorded Time Pregnanc y 83082812 Completed 201905/26/2020 Isaías Moody [facility] [place] - [facility] 3 14:00:59 Large for gestatio n age fetus 132888284 Completed 04/11/2020 SB states not LGA. growth u/s Isaías gupta [facility] 0 14:26:46 Hypothyr oidism 87375170 Completed 201908/26/2020 Lakisha Richardson [facility] 1 13:55:42 Postpart um depressi on 85693859 Completed 201903/21/2020 Isaías Moody [facility] 0 15:16:24 Chlamydi al infectio n 590876186 Completed + Chlam 34W3D Rx sent 04/02 RECHEC K ON 04/22/20* * Isaías Moody [facility], [facility] 0 14:26:46 Gestatio n period, 10 weeks 45392730 Completed 201608/26/2020 10 weeks gestatio n of pregnanc y;Record ed Elsewher e: No [facility] [employer] Controller chepe: N Bryonti ce ID: 0001 Yunior lable Time: 11:00:00 AM Lakisha gupta [facility] 1 13:55:26 Pain Completed 201608/26/2020 Lower abdomina l pain;Rec orded Elsewher e: No Locat ion: [facility] S ource: [employer] Operations Controller chepe: N Practi ce ID: 0001 Yunior lable Time: 10:15:00 AM Lakisha gupta [facility] 1 13:55:21 Normal pregnanc y in multigra elana [id number] 4106 Completed 201608/26/2020 Encounte r for suprvsn of normal pregnanc y, third trimeste r;Record ed Elsewher e: No Locat ion: [facility] S ource: [employer] Controller chepe: N Bryonti ce ID: 0001 Yunior lable Time: 11:45:00 AM Lakisha gupta [facility] 13:55:[address] Concept Completed 201608/26/2020 Decrease d movement s, third trimeste r, unsp;Rec orded Elsewher e: No [facility] S ource: [employer] Controller chepe: N Bryonti ce ID: 0001 Yunior lable Time: 12:30:00 PM Lakisha gupta, [facility] 13:55:56 Uterine size for dates discrepa ncy Completed 201608/26/2020 Uterine size-chrissy e discrepa ncy, first trimeste r;Record ed Elsewher e: No [facility]: [employer] Controller chepe: N Bryonti ce ID: 0001 Yunior lable Time: 02:45:00 PM Lakisha gupta, [facility] 13:56:05 Secondar y amenorrh ea 758635120 Completed 201608/26/2020 Secondar y amenorrh ea;Recor ded Elsewher e: No Locat ion: [facility] S ource: [employer] Controller chepe: N Bryonti ce ID: 0001 Yunior lable Time: 01:30:00 PM Lakisha gupta [facility] 13:55:53 Syphilis test finding 357347760 Completed 201608/26/2020 Encntr screen for infectio ns w sexl mode of transmis s;Record ed Elsewher e: No [facility]: [employer] Controller chepe: N Bryonti ce ID: 0001 Yunior lable Time: 01:30:00 PM Lakisha gupta, [facility] 13:55:59 Pregnanc y, childbir th and puerperi um finding Completed 201608/26/2020 Encntr for suprvsn of normal first preg, second trimeste r;Record ed Elsewher e: No Locat ion: [facility] S ource: [employer] Controller chepe: N Practi ce ID: 0001 Yunior lable Time: 09:45:00 AM Lakisha gupta [facility] 13:55:51 Left lower quadrant pain 649012441 Completed 201608/26/2020 LLQ pain;Rec orded Elsewher e: No Locat ion: [facility] S ource: [employer] Controller chepe: N Practi ce ID: 0001 Yunior lable Time: 11:00:00 AM Lakisha gupta [facility] 13:55:45 Lochia finding Completed 201608/26/2020 Encounte r for routine postpart um follow-u p;Record ed Elsewher e: No Locat ion: [facility] S ource: [employer] Controller chepe: N Practi ce ID: 0001 Yunior lable Time: 11:15:00 AM Lakisha gupta, [facility] 13:55:46 Gestatio n less than 9 weeks 285662792 Completed 201608/26/2020 Less than 8 weeks gestatio n of pregnanc y;Record ed Elsewher e: No Locat ion: [facility] S ource: [employer] Controller chepe: N Practi ce ID: 0001 Yunior lable Time: 02:45:00 PM Lakisha gupta [facility] 13:55:[address] Concept Completed 201608/26/2020 Encntr for breaker tender exam (general ) (routine ) w/o abn findings ;Recorde d Elsewher e: No Locat ion: [facility] S ource: [employer] Controller chepe: N Practi ce ID: 0001 Yunior lable Time: 01:30:00 PM Lakisha gupta, [facility] 13:55:57 Gestatio n period, 35 weeks 83015632 Completed 201608/26/2020 35 weeks gestatio n of pregnanc y;Record ed Elsewher e: No Locat ion: [facility] S ource: [employer] Controller chepe: N Practi ce ID: 0001 Yunior lable Time: 12:30:00 PM Lakisha gupta, [facility] 13:55:35 Infectio n screenin g Completed 201608/26/2020 Encounte r for screenin g for oth infec/pa rastc diseases ;Recorde d Elsewher e: No Locat ion: [facility] S ource: [employer] Controller chepe: N Practi ce ID: 0001 Yunior lable Time: 01:30:00 PM Lakisha gupta, [facility] 13:55:43 Pregnanc y detectio n examinat ion Completed 201608/26/2020 Encounte r for pregnanc y test, result positive ;Recorde d Elsewher e: No Locat ion: [facility] S ource: [employer] Controller chepe: N Practi ce ID: 0001 Yunior lable Time: 01:30:00 PM Lakisha gupta, [facility] 13:55:50 Gestatio n period, 19 weeks 97891122 Completed 201608/26/2020 19 weeks gestatio n of pregnanc y;Practi ce ID: 0001 Lakisha gupta, [facility] 13:55:31 Pregnanc y, childbir th and puerperi um finding Completed 201608/26/2020 Oth pregnanc y related conditio ns, second trimeste r;Practi ce ID: 0001 Lakisha Dylan gupta, [facility] 13:55:17 Gestatio n period, 16 weeks 28685251 Completed 201608/26/2020 16 weeks gestatio n of pregnanc y;Practi ce ID: 0001 Lakisha Dylan gupta, [facility] 13:55:29 Threaten ed miscarri age 96602573 Completed 201608/26/2020 Threaten ed ;Practic e ID: 0001 Lakisha gupta, [facility] 13:56:01 Gestatio n period, 15 weeks 2919209 Completed 201608/26/2020 15 weeks gestatio n of pregnanc y;Practi ce ID: 0001 Lakisha gupta, [facility] 13:55:28 Gestatio n period, 34 weeks 71984720 Completed 201608/26/2020 34 weeks gestatio n of pregnanc y;Practi ce ID: 0001 Lakisha gupta, [facility] 13:55:34 False labor before 37 complete d weeks of gestatio n 51996308478 341547 Completed 201608/26/2020 False labor before 37 complete d weeks of gest, third tri;Prac lalo ID: 0001 Lakisha Richardson null, [facility] 13:55:23 Gestatio n period, 31 weeks 10225991 Completed 201608/26/2020 31 weeks gestatio n of pregnanc y;Practi ce ID: 0001 Lakisha gupta, [facility] 13:55:32 Vomiting of pregnanc y 49212853 Completed 201608/26/2020 Late vomiting of pregnanc y;Practi ce ID: 0001 Lakisha gupta, [facility] 13:56:07 Complica tion of pregnanc y, childbir th and/or puerperi um 884159585 Completed 201608/26/2020 Oth diseases and conditio ns compl preg/chl dbrth;Pr actice ID: 0001 Lakisha [place] candy, [facility] 13:56:04 Trauma to perineum and/or vulva during delivery 240063663 Completed 201608/26/2020 Other specifie d trauma to perineum and vulva;Pr actice ID: 0001 Lakisha Dylan candy, [facility] 13:56:02 Gestatio n period, 38 weeks 96811478 Completed 201608/26/2020 38 weeks gestatio n of pregnanc y;Practi ce ID: 0001 Lakisha Dylan candy, [facility] 13:55:38 Pregnanc y, childbir th and puerperi um finding Completed 201608/26/2020 Oth pregnanc y related conditio ns, third trimeste r;Practi ce ID: 0001 Lakisha Dylan gupta, [facility] 13:55:19 Gestatio n period, 37 weeks 42524785 Completed 201608/26/2020 37 weeks gestatio n of pregnanc y;Practi ce ID: 0001 Lakisha Dylan gupta, [facility] 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 13:55:41 Gestatio n period, 39 weeks 14261025 Completed 201608/26/2020 39 weeks gestatio n of pregnanc y;Practi ce ID: 0001 Lakisha Richardson null, [facility] 1 13:55:39 Single live from singleto n pregnanc y 329004285 Completed 201608/26/2020 Single live ;Pr actice ID: 0001 Lakisha Richardson null, [facility] 13:55:54 Pregnanc y 32562868 Completed 202105/07/2022 Isaías Moody [facility], [facility] 3 14:00:59 Mitral valve prolapse 696047103 Completed Might be Sx-matic related to this. To get Echo. Echo - NL. [facility] Cardiolo gy 04/21/22 @ 9:00 Sharyn urias [facility], [facility] 2 14:33:24 Pregnanc y 43915447 Completed 202205/19/2023 Isaías Moody [facility], [facility] 3 14:00:59 Mitral valve prolapse 463882192 Active normal echo during 2021 preg Isaías Moody [facility], [facility] 3 14:00:55 Mitral valve prolapse 117177367 Completed normal echo during 2021 preg Isaías Moody [facility], [facility] 3 14:00:55 Mixed anxiety and depressi ve disorder 309235814 Completed zoloft Isaías Moody [facility], [facility] 3 14:00:55 Hypothyr oidism 51223015 Completed 2022 levo 25mcg, repeat 4-6 wks Isaías Moody [facility], [facility] 3 14:00:55 High maternal weight gain 06989109 Completed patient has concerns about, it is above average, we cherrie amaro 5 12/17/19 23 Isaías Moody [facility] 3 14:00:55 Large for gestatio n age fetus 700194541 Completed 96.8% at 20 Katherineyonis Moody [facility] 3 14:00:55 Anemia 939713870 Completed 2022 1 tab slowfe daily [facility] 14:00:55 Mixed anxiety and depressi ve disorder 541644974 Active 2023 Kimberlyn Winkler [facility] 4 11:21:53 Problem Notes None recorded. Procedures Surgical History Date Name Laterality Status Provider Name and Address Organization Details Recorded Time 4 Tubal Ligation completed [facility] 11/18/2023 11:23:40 3 Date of Last Pap [facility]ear [facility] 09/28/2022 16:56:58 3 extraction of wisdom tooth completed [facility] 09/28/2022 17:05:49 Imaging Results Imaging Date Name Status LastModified by Organiz ation Details LastModified Time 04/01/2023 non-stress test completed Information not available 04/03/2023 15:11:12 04/28/2023 US, pelvis completed [email or web address] [place] [address], [place], [address], 04/28/2023 17:54:12 04/28/2023 US, pelvis completed [email or web address] [address], [place], [address], 04/29/2023 09:21:00 Procedure Notes None recorded. Medical [...] completed Not Available Not Available Not Available Depo-Doll Wig Hackler a 150 mg/mL intramuscul ar syringe Inject [...] completed Not Available Not Available Not Available Cleestine Fe 08/27 (28) 1 mg-20 mcg (21)/75 [...] Updated DateTime 02/11/2023 170.18 cm 30.1 kg/m2 11247.73 504 g 109 mm[Hg] 70 mm[Hg] [facility] 3 12:07:00 Date Recorded Body height Body mass index (BMI) Body weight Systolic blood pressure Diastolic blood pressure Provider Name and Address Organization Details Last Updated DateTime 02/25/2023 170.18 cm 30.2 kg/m2 54986.32 741 g 116 mm[Hg] 75 mm[Hg] [facility] 3 09:46:53 Date Recorded Body height Body mass index (BMI) Body weight Systolic blood pressure Diastolic blood pressure Provider Name and Address Organization Details Last Updated DateTime 11/18/2023 170.18 cm 26.5 kg/m2 41020.11 g 129 mm[Hg] 89 mm[Hg] [facility] 4 11:21:20 Date Recorded Body height Body mass index (BMI) Body weight Systolic blood pressure Diastolic blood pressure Provider Name and Address Organization Details Last Updated DateTime 01/06/2024 170.18 cm 26.3 kg/m2 46989.52 g 113 mm[Hg] 81 mm[Hg] [facility] 4 15:33:38 Social History Question Answer Notes LastModified by Organizat ion Details LastModified Time Tobacco Smoking Status Never Smoker Rama Barros [facility] 08/18/2022 15:18:07 If You Are , What Was Your Level Of Alcohol Consumption Prior To ? Occasional Information not available 08/18/2022 How Many Years Have You Consumed Alcohol? 5 Information not available 08/18/2022 [id number]|2024-12-23 17:27:00|2024-12-23 17:27:00|XMS_ITS|ASHLEY GAGNON|External Medical Summaries|[id number]|" Encounter Summary Created on: December 23, 2024 Blanka Gooden : 1995 Sex: Female Author Organization [facility] Facility Care Team Providers Care [employer] Ma[employer] Name Role Phone Unknown, Notinfile Primary Care Provider Unavail able Leeroy Romero MD Primary Care Provider [phone] No, Physician Primary Care Provider [phone] Leeroy Romero MD Primary Care Provider [phone] Harper Langley Primary Care Provider Callie More NP Primary Care Provider [phone] Callie More NP Primary Care Provider Judie De Anda RECONCILIATION SPECIALIST Unavailable [phone] Encounter Details Date Type Department Care Team (Latest Contact Info) Description 11/19/2016 Orders Only [facility]INCON[facility] ProviderGeni MD [address] [place] [address] Social History Tobacco Use Types Packs/Day Years Used Date Smoking Tobacco: Never Assessed Comments Unknown Sex and Gender Information Value Date Recorded Sex Assigned at Not on file Legal Sex Female 8:39 AM VICE PRESIDENT OF NURSING Gender Identity Female 09/24/2021 8:03 AM VICE PRESIDENT OF NURSING Sexual Orientation Straight 09/24/2021 8: 03 AM VICE PRESIDENT OF NURSING documented as of this encounter Plan of [...] COVID: Suspected 08/06/2021 08/06/2021 08/07/2021 12:48 AM VICE PRESIDENT OF NURSING COVID19 08/13/2021 08/13/2021 08/27/2021 3:05 AM VICE PRESIDENT OF NURSING COVID: Recovered Comment:Added based on recent COVID infection. 08/27/2021 09/01/2021 12/25/2021 3:05 AM C DT documented as of this encounter Care Teams Motel Maid Relationship Specialty Start Date End Date Unknown, Notinfile PCP - General 09/15/18 05/21/19 Leeroy Romero MD PCP - General 05/22/19 10/02/19 No, Physician PCP - General 10/23/19 12/11/20 Leeroy Romero MD PCP - General 12/12/20 05/09/22 Harper Langley PA PCP - General Family Medicine 05/10/22 03/15/24 Callie More NP PCP - General Internal Medicine 03/16/24 11/05/24 Callie More NP [address] [place] [address] PCP - General Internal Medicine 11/06/24 Judie De Anda, RECONCILIATION SPECIALIST [address] [place] [address] Dental Therapist Midwifery 11/09/24 Ben Huff DO [address] [place] [address] 11/09/24 documented as of this encounter "
--- OUTSIDE RECORDS SUMMARY | 2024-12-23 17:27 | XMS_ITS | Encounter Summary ---
Author Organization [facility] Healthcare Address [address] [place] [address] Care Team Providers Care Gauge And Weigh Machine Operator Name Role Phone Leeroy Romero MD Primary Care Provider [phone] Harper Langley Primary Care Provider Callie More NP Primary Care Provider [phone] Callie More QUOTATION CLERK Primary Care Provider [phone] Judie De Anda QUOTATION CLERK Unavailable [phone] Encounter Details Date Type Department Care Team (Late st Contact Info) Description 01/22/2022 Telephone [facility] [address] 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 INSTRUCTOR Gender Identity Female 09/24/2021 8:03 AM CHEMISTRY LAB INSTRUCTOR Sexual Orientation Straight 09/24/2021 8: 03 AM CHEMISTRY LAB INSTRUCTOR documented as of this encounter Plan of Treatment Not on file documented as of this encounter Visit Diagnoses Not on filedocumented in this encounter Care Teams Gauge And Weigh Machine Operator Relationship Specialty Start Date End Date Leeroy Romero MD PCP - General 12/12/20 05/09/22 Harper Langley PA PCP - General Family Medicine 05/10/22 03/15/24 Callie More NP PCP - General Internal Medicine 03/16/24 11/05/24 Callie More NP [address] [address] PCP - General Internal Medicine 11/06/24 Judie De Anda NP [address] [place] [address] Dental Technologist Midwifery 11/09/24 Ben Huff DO [address] [place] [address] 11/09/24 documented as of this encounter
[2024-12-23 17:55] LABS: Basophils Percent Auto 0.5 % (0.2-1.2); Eosinophils Absolute Auto 0.2 K/mm3 (0-0.3); Eosinophils Percent Auto 3.4 % (0-4.4); Hematocrit 38.6 % (37.0-47.0); Hemoglobin 12.5 g/dL (12.0-15.0); Immature Granulocyte Absolute 0.01 K/mm3 (0.00-0.031); Immature Granulocyte Percent A 0.2 % (0-0.5); Lymphocytes Absolute Auto 2.06 K/mm3 (0.9-3.2); Lymphocytes Percent Auto 33.1 % (18.3-44.2); Mean Corpuscular HGB Conc 32.4 g/dl (32-36); Mean Corpuscular Hemoglobin 29.4 pg (26-34); Mean Corpuscular Volume 90.8 fl (80-100); Mean Platelet Volume 10.7 fl (7.4-10.4); Monocytes Absolute Auto 0.4 K/mm3 (0.1-0.6); Monocytes Percent Auto 5.8 % (2.6-8.5); Neutrophils Absolute Auto 3.6 K/mm3 (1.3-6.7); Platelet Count Result 241 k/mm3 (150-375); Red Blood Count 4.25 M/mm3 (4.2-5.4); White Blood Count 6.2 K/mm3 (4.5-10.0)
[2024-12-23 18:04] LABS: Alanine Aminotransferase 22 U/L (6-35); Albumin Level 4.4 g/dL (3.5-5.1); Alkaline Phosphatase 60 U/L (38-126); Anion Gap 8 mmol/L (4-12); Aspartate Amino Transferase 22 U/L (14-36); Bilirubin,Total 0.4 mg/dL (0.2-1.3); Blood Urea Nitrogen 14 mg/dL (7-17); Calcium 9.5 mg/dL (8.4-10.2); Carbon Dioxide 24 mmol/L (22-30); Chloride 105 mmol/L (98-107); Estimated CRCL calculation 69 ml/min; Estimated Glomerular Filt Rate > 60; Glucose 88 mg/dL (65-110); Lipase 66 U/L (23-300); Potassium 3.8 mmol/L (3.4-5.0); Sodium 137 mmol/L (137-145)
[2024-12-23 18:16] LABS: Troponin I < 0.012 ng/mL (0.000-0.034)
[2024-12-23 18:19] LABS: INR 1.1; Prothrombin Time 14.1 Seconds (11.1-14.7)
[2024-12-23 18:20] LABS: Partial Thromboplastin Time 28.4 Seconds (22.3-36.8)
--- NOTE | 2024-12-23 18:53 | ED_ITS ---
HPI - Chest Pain General Chief Complaint: Chest Pain <Leslie Barnes PA-C - Last Filed: 12/23/24 18:54> Stated Complaint: CHEST PAIN X2D <Leslie Barnes PA-C - Last Filed: 12/23/24 18:54> Time Seen by Provider: 12/23/24 19:05 <Leslie Barnes PA-C - Last Filed: 12/23/24 18:54> Focused HPI: 29-year-old female presents to emergency department for chest pain and lightheadedness for the past day. Patient states she has had lightheaded when she goes from sitting to standing position. She is is reporting pain to the substernal region, better when she applies pressure to her chest and worse with movement. she denies associated shortness of breath, cough or congestion, hemoptysis, lower extremity edema history of VTE. states earlier today she noticed some sharp pains in both of her axilla but that has since resolved. GENERAL: Well-appearing, well-nourished, and in no acute distress. HEAD: Normocephalic, atraumatic. CHEST: Clear to auscultation. No respiratory distress. HEART: Regular rate and rhythm. NEURO: Alert and oriented x3. Patient screened in triage and initial orders placed. Additional care and disposition to be based upon diagnostic testing and treatment. <Leslie Barnes PA-C - Last Filed: 12/23/24 18:54> History of Present Illness HPI narrative: agree with MSE <Nyla Feldman MD - Last Filed: 12/24/24 01:06> Related Data Home Medications: Home Medications Medication Instructions Recorded Confirmed Last Taken Type Julitounjaro 11/05/24 Unknown History escitalopram oxalate 5 mg tablet mg 11/05/24 Unknown History <BORIS Edmond Last Filed: 12/23/24 18:54> Allergies/Adverse Reactions: Allergies Allergy/AdvReac Type Severity Reaction Status Date / Time No Known Allergies Allergy Verified 12/23/24 17:25 <Leslie Barnes PA-C - Last Filed: 12/23/24 18:54> Review of Systems 2 Review of Systems: All systems reviewed & are unremarkable except as noted in HPI and below <Nyla Feldman MD - Last Filed: 12/24/24 01:06> [facility] Past Medical History Medical History: Medical History Scoliosis STD (female) Murmur 2, currently <Leslie Barnes PA-C - Last Filed: 12/23/24 18:54> Surgical History Surgical History: Surgical History No pertinent past surgical history <Leslie Barnes PA-C - Last Filed: 12/23/24 18:54> Family History Family History: Family History Mother Congestive heart failure Glaucoma Father Leukemia <Leslie Barnes PA-C - Last Filed: 12/23/24 18:54> Social History Social History: Social History Smoking status: Never smoker Alcohol intake: never Substance use: never Lack of Transportation: No Lack of Food: Never True Current Housing: I Have Housing Concerned About Future Housing: No Difficulty Paying Gas/Electric Bills: No Difficulty Paying for Meds: No Currently Unemployed: No Education: Associate Degree Difficulty w/ Childcare or Family Care: No Living arrangements: with family Gender identity (if verbalized by the patient): Female Spiritual care concerns: No <Leslie Branes PA-C - Last Filed: 12/23/24 18:54> Exam 2 Narrative: EXAMINATION OF ORGAN SYSTEMS/BODY AREAS: Constitutional: Vital signs per nursing GENERAL:[No acute distress, non-toxic appearing.] HEAD: Normal with no signs of head trauma. EYES: EOMI, conjunctiva normal ENT: Hearing grossly intact LUNGS: Nonlabored breathing. HEART: [Regular rate and rhythm] ABD: [Soft], [nontender to palpation] EXT: Normal range of motion SKIN: [No rashes or lesions.] NEURO: [Alert and oriented x 3. No gross focal sensory or strength deficits.] PSYCH: Normal affect <Nyla Feldman MD - Last Filed: 12/24/24 01:06> Course Vital Signs Vital signs: Vital Signs Temperature 98.8 F 12/23/24 17:42 Pulse Rate 70 12/23/24 17:42 Respiratory Rate 16 12/23/24 17:42 Blood Pressure 110/66 12/23/24 17:42 Pulse Oximetry 100 12/23/24 17:42 Oxygen Delivery Room Air 12/23/24 17:42 Temperature 98.8 F 12/23/24 17:42 Pulse Rate 80 12/23/24 22:41 Respiratory Rate 16 12/23/24 17:42 Blood Pressure 115/81 12/23/24 22:41 Pulse Oximetry 100 12/23/24 22:42 Oxygen Delivery Room Air 12/23/24 22:42 <Leslie Barnes PA-C - Last Filed: 12/23/24 18:54> Vital Signs Temperature 98.8 F 12/23/24 17:42 Pulse Rate 70 12/23/24 17:42 Respiratory Rate 16 12/23/24 17:42 Blood Pressure 110/66 12/23/24 17:42 Pulse Oximetry 100 12/23/24 17:42 Oxygen Delivery Room Air 12/23/24 17:42 Temperature 98.8 F 12/23/24 17:42 Pulse Rate 80 12/23/24 22:41 Respiratory Rate 16 12/23/24 17:42 Blood Pressure 115/81 12/23/24 22:41 Pulse Oximetry 100 12/23/24 22:42 Oxygen Delivery Room Air 12/23/24 22:42 <Nyla Feldman MD - Last Filed: 12/24/24 01:06> MDM - Chest Pain MDM Narrative Medical decision making narrative: ED COURSE AND MEDICAL DECISION MAKINF presenting with chest pain. EKG done in triage negative for acute ischemic changes. Cardiac workup is initiated. EKG: Performed in triage and interpreted by me. Normal sinus rhythm. Rate 75. Normal axis. HI normal. QRS duration normal. QTc normal. No pathologic Q waves. No ST segment elevation or depression to suggest acute ischemia. No RV strain pattern. HEART score is 0 with no acute ischemic changes on EKG and negative troponin making ACS unlikely. Negative PERC making PE unlikely. Presentation not consistent with dissection or aneurysm without radiation of pain or pulse deficits. CXR negative for mediastinal widening. No abdominal pain or signs of sepsis that would be concerning for esophageal perforation or mediastinitis. No cardiomegaly or JVD to suggest pericardial effusion/tamponade. Creatinine slightly elevated however patient states that she took creatine and did not hydrate enough, she is given fluids and Toradol here and on re- evaluation feels much better and would like to go home. On repeat evaluation just prior to discharge, the patient is no acute distress. I had a long discussion with the patient and with shared decision making, she is comfortable with outpatient management. She was given clear return instructions by myself in person as well as on discharge paperwork. Procedures: Pulse oximetry interpretation - not hypoxic. EKG interpretation. Review of medical records. <Nyla Feldman MD - Last Filed: 12/24/24 01:06> Lab Data Result diagrams: 12/23/24 17:47 12/23/24 17:47 <Leslie Barnes PA-C - Last Filed: 12/23/24 18:54> Labs: Lab Results 12/23/24 12/23/24 Range/Units 17:47 20:57 WBC 6.2 (4.5-10.0) K/mm3 RBC 4.25 (4.2-5.4) M/mm3 Hgb 12.5 (12.0-15.0) g/dL Hct 38.6 (37.0-47.0) % MCV 90.8 (80-100) fl MCH 29.4 (26-34) pg MCHC 32.4 (32-36) g/dl RDW 13.0 (11.5-14.5) % Plt Count 241 D (150-375) k/mm3 MPV 10.7 H (7.4-10.4) fl Immature Gran % (Auto) 0.2 (0-0.5) % Neut % (Auto) 57.0 (45.5-73.1) % Lymph % (Auto) 33.1 (18.3-44.2) % Lipscomb % (Auto) 5.8 (2.6-8.5) % Eos % (Auto) 3.4 (0-4.4) % Baso % (Auto) 0.5 (0.2-1.2) % Lymph # (Auto) 2.06 (0.9-3.2) K/mm3 Lipscomb # (Auto) 0.4 (0.1-0.6) K/mm3 Eos # (Auto) 0.2 (0-0.3) K/mm3 Baso # (Auto) 0.0 (0.0-0.1) K/mm3 Abs Immat Gran (auto) 0.01 (0.00-0.031) K/mm3 Absolute Neuts (auto) 3.6 (1.3-6.7) K/mm3 Absolute Nucleated RBC 0.000 (0.0-0.012) K/mm3 Nucleated RBC % 0.0 (0.0-0.2) % PT 14.1 (11.1-14.7) Seconds INR 1.1 APTT 28.4 (22.3-36.8) Seconds Sodium 137 (137-145) mmol/L Potassium 3.8 (3.4-5.0) mmol/L Chloride 105 (98-107) mmol/L Carbon Dioxide 24 (22-30) mmol/L Anion Gap 8 (4-12) mmol/L BUN 14 D (7-17) mg/dL Creatinine 1.05 H (0.7-1.0) mg/dL Estim Creat Clear Calc 69 ml/min Estimated GFR > 60 (59 - ) Glucose 88 (65-110) mg/dL Calcium 9.5 (8.4-10.2) mg/dL Total Bilirubin 0.4 (0.2-1.3) mg/dL AST 22 (14-36) U/L ALT 22 (6-35) U/L Alkaline Phosphatase 60 (38-126) U/L Troponin I < 0.012 < 0.012 (0.000-0.034) ng/mL Total Protein 7.0 (6.3-8.2) g/dL Albumin 4.4 (3.5-5.1) g/dL Lipase 66 (23-300) U/L <Leslie Barnes PA-C - Last Filed: 12/23/24 18:54> Lab Results 12/23/24 12/23/24 Range/Units 17:47 20:57 WBC 6.2 (4.5-10.0) K/mm3 RBC 4.25 (4.2-5.4) M/mm3 Hgb 12.5 (12.0-15.0) g/dL Hct 38.6 (37.0-47.0) % MCV 90.8 (80-100) fl MCH 29.4 (26-34) pg MCHC 32.4 (32-36) g/dl RDW 13.0 (11.5-14.5) % Plt Count 241 D (150-375) k/mm3 MPV 10.7 H (7.4-10.4) fl Immature Gran % (Auto) 0.2 (0-0.5) % Neut % (Auto) 57.0 (45.5-73.1) % Lymph % (Auto) 33.1 (18.3-44.2) % Lipscomb % (Auto) 5.8 (2.6-8.5) % Eos % (Auto) 3.4 (0-4.4) % Baso % (Auto) 0.5 (0.2-1.2) % Lymph # (Auto) 2.06 (0.9-3.2) K/mm3 Lipscomb # (Auto) 0.4 (0.1-0.6) K/mm3 Eos # (Auto) 0.2 (0-0.3) K/mm3 Baso # (Auto) 0.0 (0.0-0.1) K/mm3 Abs Immat Gran (auto) 0.01 (0.00-0.031) K/mm3 Absolute Neuts (auto) 3.6 (1.3-6.7) K/mm3 Absolute Nucleated RBC 0.000 (0.0-0.012) K/mm3 Nucleated RBC % 0.0 (0.0-0.2) % PT 14.1 (11.1-14.7) Seconds INR 1.1 APTT 28.4 (22.3-36.8) Seconds Sodium 137 (137-145) mmol/L Potassium 3.8 (3.4-5.0) mmol/L Chloride 105 (98-107) mmol/L Carbon Dioxide 24 (22-30) mmol/L Anion Gap 8 (4-12) mmol/L BUN 14 D (7-17) mg/dL Creatinine 1.05 H (0.7-1.0) mg/dL Estim Creat Clear Calc 69 ml/min Estimated GFR > 60 (59 - ) Glucose 88 (65-110) mg/dL Calcium 9.5 (8.4-10.2) mg/dL Total Bilirubin 0.4 (0.2-1.3) mg/dL AST 22 (14-36) U/L ALT 22 (6-35) U/L Alkaline Phosphatase 60 (38-126) U/L Troponin I < 0.012 < 0.012 (0.000-0.034) ng/mL Total Protein 7.0 (6.3-8.2) g/dL Albumin 4.4 (3.5-5.1) g/dL Lipase 66 (23-300) U/L <Nyla Feldman MD - Last Filed: 12/24/24 01:06> Discharge Plan Discharge Clinical Impression: Chest pain <Leslie Barnes PA-C - Last Filed: 12/23/24 18:54> Patient Disposition: Home <Leslie Barnes PA-C - Last Filed: 12/23/24 18:54> Condition: Stable <Leslie Barnes PA-C - Last Filed: 12/23/24 18:54> Instructions: Chest Pain (ED) <Leslie Barnes PA-C - Last Filed: 12/23/24 18:54> Additional Instructions: Please follow up with your doctor; make sure you are keeping hydrated; you can always return to the ER for any further issues. <Leslie Barnes PA-C - Last Filed: 12/23/24 18:54> Patient Language: Filipino <Leslie Barnes PA-C - Last Filed: 12/23/24 18:54> Prescriptions: No Action escitalopram oxalate 5 mg tablet Mounjaro <Leslie Barnes PA-C - Last Filed: 12/23/24 18:54> Follow-up/Referrals: Therien,Callie Yanez APRN [Primary Care Provider] - <Leslie Barnes PA-C - Last Filed: 12/23/24 18:54>
--- NOTE | 2024-12-23 20:56 | ECG_ITS ---
Test Date: 2024-12-23 20:58:51 Measurements Intervals [place] Rate: 73 P: 41 WI: 241 QRS: 42 QRSD: 83 T: 28 QT: 358 QTc: 396 Interpretive Statements SINUS RHYTHM WITH FIRST DEGREE AV BLOCK Compared to ECG 12/23/2024 17:31:51 First degree AV block now present Electronically Signed On 12-24-2024 10:44:19 CDT by Andrea Luong M.D.
[2024-12-23] MEDS: SODIUM CHLORIDE 0.9% IV 1,000 ML 999 ML IV CONT (20:59)
[2024-12-23] MEDS: KETOROLAC 15 MG/ML VIAL (*BKC) IV PUSH (20:59)
--- OUTSIDE RECORDS SUMMARY | 2024-12-23 21:23 | XMS_ITS | Clinical Summary ---
Author Organization [facility] Address [address] [place] [address] Care Team Providers Care Plant Engineer Name Role Phone Leeroy Romero MD Primary Care Provider [phone] Source Comments [facility],non-owned Affiliates and Associated Physician Practices is amultiple site organization consisting of ambulatory clinics and hospital sitesin [place], [place], [place] and [place]. This disclosure is being madepursuant to the Care Everywhere program and may not contain all information available regarding this patient. Last updated 18.[facility] Allergies No known active allergies Medications * [...] patient's age to complete this topic Insurance [facility] Care Teams Plant Engineer Relationship Specialty Start Date End Date Leeroy Romero MD [address] [place] [address] PCP - General 04/15/22
--- OUTSIDE RECORDS SUMMARY | 2024-12-23 21:23 | XMS_ITS | Encounter Summary ---
Author Organization [facility] Address [address] [place] [address] Care Team Providers Care Buckle Stapler Name Role Phone Unavailable Primary Care Provider Unavailabl e Prior Encounters Date Type Department Care Team Description 08/27/2019 Converted 13x Documents [facility] [address] [place] [address] <No scans attached> Plan of Treatment Not on file Procedures Procedure Name Priority Date/Time Associated Diagnosis Comments MISSED APPOINTMENT Routine 07/13/2019 2:00 AM STENCIL CUTTER MACHINE CANCELLED APPOINTMENT Routine 07/11/2019 2:00 AM STENCIL CUTTER MACHINE Visit Diagnoses Not on file
--- OUTSIDE RECORDS SUMMARY | 2024-12-23 21:23 | XMS_ITS | Clinical Summary ---
Author Organization [facility] Address [address] [place] [address] Care Team Providers Care Aircraft Sheet Metal Mechanic Name Role Phone Callie More NP Primary Care Provider [phone] Judie De Anda PALEONTOLOGY TEACHER Unavailable [phone] Allergies No known active allergies Medications naproxen [...] CDT): Assessment & Plan (07/13/2024 3:41 PM CHAPLAINCY): Start hair skin and Nails vitamin. 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 Patient has a history of cyst and pimples on scalp. We discussed long-term treatment of scarring alopecia and the importance of treating it to keep the hair follicles active. Assessment & Plan (03/16/2024 12:48 PM CDT): Referral to dermatology. I suggested patient see a cdl flatbed truck driver specializes in hair loss. Advised her to take a hair skin and Nails vitamin. We will check labs as well. Mild episode of recurrent major depressive disor [place] 03/16/2024 Assessment & Plan (07/13/2024 3:42 PM CHAPLAINCY): Continue Zoloft 50 mg daily and increase [...] and having heart palpitations. Does not have newspaper delivery driver - Last TTE 03/2022 in [place]: Repeat TTE 04/04/23: Normal left ventricular systolic [...] 25 Assessment & Plan (07/13/2024 3:44 PM CHAPLAINCY): Patient has been struggling with her weight. [...] that started 03/31. Was initially evaluated at [facility] and contractions at that time resolved with fluid. She then presented to [facility] on 04/01 with q2-3 min painful contractions. She was monitored at that time and received betamethasone x2. BMZ^04/02. Patient was discharged with nifedipine PRN for contractions -Instructed patient to stop taking nifedipine -[facility] precautions reviewed Anxiety 03/08/2023 11/09/2024 Assessment & Plan (07/13/2024 3:42 PM CHAPLAINCY): Continue Zoloft and increase Wellbutrin 300 mg. [...] provider, reports fEIF and measuring big. Incomplete [facility] anatomy 03/08, AGA, Anterior placenta, normal CARL [...] education: completed in all 3 trimesters [x] Gold Layer: in [place] [x] Car seat discussed [] PP depression counseling Hypothyroidism 09/25/2019 03/16/2024 Overview (03/16/2024): Only during Encounters Date Type Department Care Team Description 11/26/2024 Orders Only [facility] Primary Care at [address] [phone] Callie More NP Hair loss (Primary Dx); Cold intolerance 11/09/2024 9:02 PM CDT - 11/09/2024 11:59 PM CDT Hospital Encounter [address] [address] Preoperative clearance Discharge Disposition: Discharge to home or self care 11/09/2024 12:30 PM CDT Lab [facility] Outpatient Lab at [address] [phone] Preoperative clearance (Primary Dx) 11/09/2024 8:30 AM CDT Office Visit [facility] Group Primary Care at [address] [phone] Callie More NP BMI 23.0-23.9, adult (Primary Dx); Generalized anxiety disorder; Preoperative clearance; RUQ pain; Hair loss; Encounter for weight management; Dizziness 11/05/2024 4:55 PM CDT - 11/05/2024 5:38 PM CDT Emergency [facility] Emergency Department [address] [place] [address] Biliary colic (Primary Dx) Discharge Disposition: Discharge to home or self care 10/29/2024 Orders Only [facility] Primary Care at [address] [phone] Callie More NP Mass of [...] money to get more. Patient declined 10/2022 [place] Depression Scale Answer Date Recorded [place] Depression Scale Total 1 06/10/2023 The thought [...] on file Legal Sex Female 8:39 AM CHAPLAINCY Gender Identity Female 09/24/2021 8:03 AM CHAPLAINCY Sexual Orientation Straight 09/24/2021 8: 03 AM CHAPLAINCY Obstetrics History Para Term AB IAB SAB Ectopic Multiple Livin g Live Births 4 4 3 1 4 4 Date Outcome GA Total Labor Labor/2nd/3rd Weight Sex Type Anes PTL Odette A1 A5 Name Clin 017 Term 39w 0d 2.92 kg (6 lb 7 oz) M Vag-S pont Epidur al N Livin g Complications:None Delivery Location:[facility] 020 Term 37w 6d 3.175 kg (7 lb) F Vag-S pont Epidur al Livin g Complications:None 022 36w 6d F Vag-S pont Epidur al Livin g 023 Term 37w 2d M Vag-S pont Livin g Comments G1-G3 [facility] Last Filed Vital Signs Vital Sign Reading [...] LAB BLOOD ORDERABLES Final Re sult BRANDEN [address] Department [place] [address] * Differential, auto (11/09/2024 9:02 PM CDT) Neutrophil abs 2.35 1.50 - 6.50 K/cumm Imm gran abs 0.01 0.00 - 0.10 K/cumm [facility] Lymphocyte abs 1.74 0.80 - 3.30 K/cumm [facility] Monocyte abs 0.35 0.20 - 0.80 K/cumm [facility] Eosinophil abs 0.16 0.00 - 0.50 K/cumm [facility] Basophil abs 0.04 0.00 - 0.10 K/cumm [facility] Neutrophil pct 50.6 % [facility] Comment: Interpretive Data Percent cell count reference ranges are not reported, since discordance with absolute values may lead to misinterpretation of CBC data. Current Interpretive Data was last revised on 2017. Imm gran pct 0.2 % [facility] Comment: Interpretive Data Percent cell count reference ranges are not reported, since discordance with absolute values may lead to misinterpretation of CBC data. Current Interpretive Data was last revised on 2017. Lymphocyte pct 37.4 % [facility] Comment: Interpretive Data Percent cell count reference [...] revised on 2017. Eosinophil pct 3.4 % [facility] Comment: Interpretive Data Percent cell count reference [...] CDT 11/09/2024 10:06 PM CDT Callie More PALEONTOLOGY TEACHER LAB BLOOD ORDERABLES Final Re sult [facility] [address] [place] [address] * (ABNORMAL) CBC with auto differential (11/09/2024 9:02 PM CDT) WBC 4.65 3.80 - 9.90 K/cumm Hgb 12.3 11.9 - 15.5 g/dL [facility] Hct 40.5 35.6 - 45.5 % [facility] Plt 231 150 - 400 K/cumm [facility] MPV 12.5(H) 9.1 - 12.3 fL [facility] RBC 4.35 3.90 - 5.20 M/cumm [facility] MCV 93.1 81.3 - 96.4 fL [facility] MCH 28.3 27.1 - 33.3 pg [facility] MCHC 30.4(L) 32.3 - 35.7 g/dL [facility] RDW CV 13.1 11.1 - 14.9 % [facility] CH RDW SD 45.0 35.7 - 48.1 fL [facility] NRBC abs 0.00 0.00 - 0.01 K/cumm [facility] Blood 11/09/2024 9:02 PM CDT 11/09/2024 10:06 PM CDT Callie More PALEONTOLOGY TEACHER LAB BLOOD ORDERABLES Final Re sult [facility] [address] [employer] [place], [place] [id number] * aPTT (11/09/2024 9:02 PM CDT) aPTT [...] ORDERABLES Final Re sult Performing Organization Address [facility] de Phone Number BRANDEN [address]ARR [address] [place] [address] * Protime-INR (11/09/2024 9:02 PM CDT) PT 12.4 9.7 - 13.0 sec INR 1.14 0.90 - 1.20 [facility] Comment: Interpretive data Oral anticoagulant therapeutic ranges: Venous thromboembolism prophylaxis or treatment: 2.0-3.0 CARDIOLOGY Standard range: 2.0-3.0 High-intensity range: 2.5-3.5 Refer to indication-specific guidelines for appropriate target ranges for prosthetic heart valve replacement. Current interpretive data was last revised on 2019. Blood 11/09/2024 9:02 PM CDT 11/09/2024 10:06 PM CDT Callie More NP LAB BLOOD ORDERABLES Final Re sult Performing Organization Address [facility] de Phone Number LAURENTILYA BARR [address] [address] [facility] [employer] [place] [address] * Comprehensive metabolic panel (11/09/2024 9:02 PM CDT) Sodium 138 135 - 145 mmol/L Potassium, pl 3.7 3.3 - 4.9 mmol/L [facility] Chloride 100 97 - 110 mmol/L [facility] CO2 27 22 - 32 mmol/L [facility] Anion gap 11 2 - 15 mmol/L [facility] BUN 9 6 - 25 mg/dL [facility] Creatinine 0.71 0.60 - 1.10 mg/dL [facility] [...] LAB BLOOD ORDERABLES Final Re sult BRANDEN [address] [facility] Department [place] [address] * ECG 12 lead (11/09/2024 9:15 AM [...] by Bill Watson M.D. JR: Report ID: [id number] Reading Location: [place] [address] Procedure Note Bill Watson MD - 11/05/2024 [...] by Bill Watson M.D. JR: Report ID: [id number] Reading Location: [place] [address] Arun Campbell MD IMG CT PROCEDURES Final Result * (ABNORMAL) Urinalysis reflex to microscopic and culture Urine (11/05/2024 2:07 PM CDT) Color, ur Yellow Yellow Clarity, ur Clear Clear [facility] ([place]) Specific gravity, ur 1.012 1.003 - 1.030 [facility] ([place]) pH, urine 5.5 [facility] ([place]) [id number]|2024-12-23 21:23:00|2024-12-23 21:22:00|XMS_ITS|BKG DAEMON|External Medical Summaries|[id number]|" Referral Summary Created on: December 23, 2024 Blanka Gooden : 1995 Sex: Female Author Organization [facility] Address [address] [place] [address] Care Team Providers Care Aircraft Sheet Metal Mechanic Name Role Phone Callie More NP Primary Care Provider [phone] Judie De Anda PALEONTOLOGY TEACHER Unavailable [phone] Encounters Date Type Department Care Team Description 11/26/2024 Orders Only [facility] Primary Care at [address] [phone] Callie More NP Hair loss (Primary Dx); Cold intolerance 11/09/2024 9:02 PM CDT - 11/09/2024 11:59 PM CDT Hospital Encounter [address] [id number] Preoperative clearance Discharge Disposition: Discharge to home or self care 11/09/2024 12:30 PM CDT Lab [facility] Outpatient Lab at [address] [phone] Preoperative clearance (Primary Dx) 11/09/2024 8:30 AM CDT Office Visit [facility] Primary Care at [address] [phone] Callie More NP BMI 23.0-23.9, adult (Primary Dx); Generalized anxiety disorder; Preoperative clearance; RUQ pain; Hair loss; Encounter for weight management; Dizziness 11/05/2024 4:55 PM CDT - 11/05/2024 5:38 PM CDT Emergency [facility] Emergency Department [address] [place] [address] Biliary colic (Primary Dx) Discharge Disposition: Discharge to home or self care 10/29/2024 Orders Only [facility] Primary Care at [address] [phone] Therien, Callie, PALEONTOLOGY TEACHER Mass of lower inner quadrant of left [...] CDT): Assessment & Plan (07/13/2024 3:41 PM CHAPLAINCY): Start hair skin and Nails vitamin. 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 Patient has a history of cyst and pimples on scalp. We discussed long-term treatment of scarring alopecia and the importance of treating it to keep the hair follicles active. Assessment & Plan (03/16/2024 12:48 PM CDT): Referral to dermatology. I suggested patient see a cdl flatbed truck driver specializes in hair loss. Advised her to take a hair skin and Nails vitamin. We will check labs as well. Mild episode of recurrent major depressive disor [place] 03/16/2024 Assessment & Plan (07/13/2024 3:42 PM CHAPLAINCY): Continue Zoloft 50 mg daily and increase [...] and having heart palpitations. Does not have newspaper delivery driver - Last TTE 03/2022 in [place]: Repeat TTE 04/04/23: Normal left ventricular systolic [...] 25 Assessment & Plan (07/13/2024 3:44 PM CHAPLAINCY): Patient has been struggling with her weight. [...] that started 03/31. Was initially evaluated at [facility] and contractions at that time resolved with fluid. She then presented to [facility] on 04/01 with q2-3 min painful contractions. She was monitored at that time and received betamethasone x2. BMZ^04/02. Patient was discharged with nifedipine PRN for contractions -Instructed patient to stop taking nifedipine -[facility] precautions reviewed Anxiety 03/08/2023 11/09/2024 Assessment & Plan (07/13/2024 3:42 PM CHAPLAINCY): Continue Zoloft and increase Wellbutrin 300 mg. [...] provider, reports fEIF and measuring big. Incomplete [facility] anatomy 03/08, AGA, Anterior placenta, normal CARL [...] education: completed in all 3 trimesters [x] Gold Layer: in [place] [x] Car seat discussed [] PP depression [...] money to get more. Patient declined 10/2022 [place] Depression Scale Answer Date Recorded [place] Depression Scale Total 1 06/10/2023 The thought [...] on file Legal Sex Female 8:39 AM CHAPLAINCY Gender Identity Female 09/24/2021 8:03 AM CHAPLAINCY Sexual Orientation Straight 09/24/2021 8: 03 AM CHAPLAINCY Last Filed Vital Signs Vital Sign Reading [...] NP LAB BLOOD ORDERABLES Final Re sult [facility] [address] [address] Department [place] [address] * Differential, auto (11/09/2024 9:02 PM CDT) Neutrophil abs 2.35 1.50 - 6.50 K/cumm Imm gran abs 0.01 0.00 - 0.10 K/cumm [facility] Lymphocyte abs 1.74 0.80 - 3.30 K/cumm [facility] Monocyte abs 0.35 0.20 - 0.80 K/cumm [facility] Eosinophil abs 0.16 0.00 - 0.50 K/cumm [facility] Basophil abs 0.04 0.00 - 0.10 K/cumm [facility] Neutrophil pct 50.6 % [facility] Comment: Interpretive [...] CDT 11/09/2024 10:06 PM CDT Callie More PALEONTOLOGY TEACHER LAB BLOOD ORDERABLES Final Re sult [facility] [address] [address] Department [place] [address] * (ABNORMAL) CBC with auto differential (11/09/2024 9:02 PM CDT) WBC 4.65 3.80 - 9.90 K/cumm Hgb 12.3 11.9 - 15.5 g/dL [facility] Hct 40.5 35.6 - 45.5 % [facility] Plt 231 150 - 400 K/cumm [facility] MPV 12.5(H) 9.1 - 12.3 fL [facility] RBC 4.35 3.90 - 5.20 M/cumm [facility] MCV 93.1 81.3 - 96.4 fL [facility] MCH 28.3 27.1 - 33.3 pg [facility] MCHC 30.4(L) 32.3 - 35.7 g/dL [facility] RDW CV 13.1 11.1 - 14.9 % [facility] RDW SD 45.0 35.7 - 48.1 fL [facility] NRBC abs 0.00 0.00 - 0.01 K/cumm [facility] Blood 11/09/2024 9:02 PM CDT 11/09/2024 10:06 PM CDT Callie More NP LAB BLOOD ORDERABLES Final Re sult Performing Organization Address [facility] Co de Phone Number [facility] [address] [place] [address] * aPTT (11/09/2024 9:02 PM [...] NP LAB BLOOD ORDERABLES Final Re s[facility] [address] [address] [facility] [place] [address] * Protime-INR (11/09/2024 9:02 PM CDT) PT 12.4 9.7 - 13.0 sec INR 1.14 0.90 - 1.20 [facility] Comment: Interpretive data Oral anticoagulant therapeutic ranges: Venous thromboembolism prophylaxis or treatment: 2.0-3.0 CARDIOLOGY Standard range: 2.0-3.0 High-intensity range: 2.5-3.5 Refer to indication-specific guidelines for appropriate target ranges for prosthetic heart valve replacement. Current interpretive data was last revised on 2019. Blood 11/09/2024 9:02 PM CDT 11/09/2024 10:06 PM CDT us Callie More NP LAB BLOOD ORDERABLES Final Re sult [facility] [address] Department [place] [address] * Comprehensive metabolic panel (11/09/2024 9:02 PM [...] BLOOD ORDERABLES Final Re sult BRANDEN [address] [address] [address] Department [place] [address] * ECG 12 lead (11/09/2024 9:15 AM [...] by Bill Watson M.D., JR: Report ID: [id number] Reading Location: [id number] Procedure Note Bill Watson MD - 11/05/2024 [...] by Bill Watson M.D. JR: Report ID: [id number] Reading Location: [place] [address] Arun Campbell MD IMG CT PROCEDURES Final [...] tendency for uric acid stone formation. Source: [facility] Current Interpretive Data was last revised on [...] TEE Final Result [facility] ([place]) 1 [facility] Department [place] [address] * POCT hCG, urine (11/05/2024 2:07 PM [...]
--- OUTSIDE RECORDS SUMMARY | 2024-12-23 21:23 | XMS_ITS | Continuity of Care Document ---
Author Organization [facility] Address [address] [place] [address] Phone Care Team Providers Care Road Gang Supervisor Name Role Phone Margarita Sanchez Unavailable Unavailable Procedures Procedure Date Eye Exam & Treatment Refraction Eye Exam & Treatment Refraction Eye Exam & Treatment Eye Exam & Treatment Advance Directives Directive Yes / No Effective Date File Name No Information Encounters Encounter Description Practice Location Reason(s) For Visit Diagnoses Date Provider Providers Copied on Encounter [facility], [address] [place] [address] [address], [place], [place], [id number], [place] tel:[phone] SEC [facility] No Information 7-201 0 Laura Cleveland [address] , [address], [place], [place], [facility], [place]. tel:[phone] [facility], [address], [place], [place], [id number], [place] tel:[phone] [facility] No Information 1200 9 Laura Cleveland [address] , [address], [place], [address], [place]. tel:[phone] [facility], [address], [place], [place], [id number], [place] tel:[phone] [facility] No Information 8 Laura Avila. [address] , [address], [place], [address], [place]. tel:[phone] [facility], [address], [place], [place], [id number], [place] tel:[phone] [facility] No Information 7 Laura Cleveland [address] [address] , [address], [place], [address], [place]. tel:[phone] Family History Family Member Type Diagnosis Age At Onset No Information Payers Payer name Insurance type Covered libertarian ID Chanelle fox(s) Medicaid [facility] [id number] Social History Type Description Quantity Date Captured [...]
--- OUTSIDE RECORDS SUMMARY | 2024-12-23 21:23 | XMS_ITS | Clinical Summary ---
Author Organization [facility] [place] [address] [place] [address] Care Team Providers Care Broommaking Supervisor Name Role Phone Unavailable Primary Care Provider [...]
--- OUTSIDE RECORDS SUMMARY | 2024-12-23 21:23 | XMS_ITS | Encounter Summary ---
Author Organization [facility] Address [address] [place] [address] Care Team Providers Care Bookkeepers Supervisor Name Role Phone Leeroy Romero MD Primary Care Provider [phone] Harper Langley Primary Care Provider Callie More NP Primary Care Provider [phone] Callie More REDRAWER Primary Care Provider [phone] Judie De Anda REDRAWER Unavailable [phone] Encounter Details Date Type Department Care Team (Late st Contact Info) Description 01/22/2022 Telephone [facility] [address] [facility] 4th [address] [place] [address] Charlie Foster Social History Tobacco [...] on file Legal Sex Female 8:39 AM BIOINFORMATICIST Gender Identity Female 09/24/2021 8:03 AM BIOINFORMATICIST Sexual Orientation Straight 09/24/2021 8: 03 AM BIOINFORMATICIST documented as of this encounter Plan of Treatment Not on file documented as of this encounter Visit Diagnoses Not on filedocumented in this encounter Care Teams Bookkeepers Supervisor Relationship Specialty Start Date End Date Leeroy Romero MD PCP - General 12/12/20 05/09/22 Harper Langley PA PCP - General Family Medicine 05/10/22 03/15/24 Callie More NP PCP - General Internal Medicine 03/16/24 11/05/24 Callie More NP [address] [address] PCP - General Internal Medicine 11/06/24 Judie De Anda NP [address] [place] [address] [facility] 11/09/24 Ben Huff DO [address] [place] [address] 11/09/24 documented as of this encounter
--- OUTSIDE RECORDS SUMMARY | 2024-12-23 21:23 | XMS_ITS | Encounter Summary ---
Author Organization [facility] Care Team Providers Care Setter Up Name Role Phone Unknown, Notinfile Primary Care Provider Unavail able Leeroy Romero MD Primary Care Provider [phone] No, Physician Primary Care Provider [phone] Leeroy Romero MD Primary Care Provider [phone] Harper Langley Primary Care Provider Callie More NP Primary Care Provider Callie More PREDATORY ANIMAL EXTERMINATOR Primary Care Provider [phone] Judie De Anda PREDATORY ANIMAL EXTERMINATOR Unavailable [phone] Encounter Details Date Type Department Care Team (Latest Contact Info) Description 11/19/2016 Orders Only [facility] ProviderGeni MD [address] [place] [address] Social History Tobacco Use Types Packs/Day Years Used Date Smoking Tobacco: Never Assessed Comments Unknown Sex and Gender Information Value Date Recorded Sex Assigned at Not on file Legal Sex Female 8:39 AM FINANCIAL SYSTEMS DIRECTOR Gender Identity Female 09/24/2021 8:03 AM FINANCIAL SYSTEMS DIRECTOR Sexual Orientation Straight 09/24/2021 8: 03 AM FINANCIAL SYSTEMS DIRECTOR documented as of this encounter Plan of [...] COVID: Suspected 08/06/2021 08/06/2021 08/07/2021 12:48 AM FINANCIAL SYSTEMS DIRECTOR COVID19 08/13/2021 08/13/2021 08/27/2021 3:05 AM FINANCIAL SYSTEMS DIRECTOR COVID: Recovered Comment:Added based on recent COVID infection. 08/27/2021 09/01/2021 12/25/2021 3:05 AM C DT documented as of this encounter Care Teams Setter Up Relationship Specialty Start Date End Date Unknown, Notinfile PCP - General 09/15/18 05/21/19 Leeroy Romero MD PCP - General 05/22/19 10/02/19 No, Physician PCP - General 10/23/19 12/11/20 Leeroy Romero MD PCP - General 12/12/20 05/09/22 Harper Langley PA PCP - General Family Medicine 05/10/22 03/15/24 Callie More NP PCP - General Internal Medicine 03/16/24 11/05/24 Callie More NP [address] [address] PCP - General Internal Medicine 11/06/24 Judie De Anda, PREDATORY ANIMAL EXTERMINATOR [address] [place] [address] [facility] 11/09/24 Ben Huff DO [address] [place] [address] 11/09/24 documented as of this encounter
[2024-12-23 21:24] LABS: Troponin I < 0.012 ng/mL (0.000-0.034)
[2024-12-24 01:14] VITALS: BP 120/70; PULSE 76; RESP 18; TEMP 36.8; O2SAT 94
== END 2024-12-24 01:15 | disposition home or self-care (01) ==
PROVIDERS: Emergency Medicine; Emergency Provider Emergency Medicine; PCP Nurse Practitioner
DX: R07.9 Chest pain, unspecified (principal)
CPT/HCPCS: 36415; 71046; 80053; 83690; 84484; 85025; 85610; 85730; 93005; 96361; 96374; 99284; J1885; J7030

== ENCOUNTER 2025-03-19 22:22 | Emergency (ER) | payer OTHER, MEDICAID, SELFPAY ==
[2025-03-19 22:24] VITALS: BP 122/81; PULSE 82; RESP 18; TEMP 36.6; O2SAT 100
--- OUTSIDE RECORDS SUMMARY | 2025-03-19 22:25 | XMS_ITS | Encounter Summary ---
Author Organization [facility] Healthcare Address [address] [place] [address] Care Team Providers Care Torch Straightener And Heater Name Role Phone Callie More TUNG NUT GROWER Primary Care Provider [phone] Judie De Anda TUNG NUT GROWER Unavailable Encounter Details Date Type Department Care Team (Late st Contact Info) Description 02/17/2025 Results Follow-Up [facility] Convenient Care at [address] [address] Lilo Hauser PA [address] [place] [address] [address] [place] [address] Aerobic and anaerobic culture and gram stain Abscess Breast, left Social History Tobacco Use Types Packs/Day Years [...] money to get more. Patient declined 10/2022 [place] Depression Scale Answer Date Recorded [place] Depression Scale Total 1 06/10/2023 The thought [...] on file Legal Sex Female 8:39 AM DIESEL ENGINE ERECTOR Gender Identity Female 09/24/2021 8:03 AM DIESEL ENGINE ERECTOR Sexual Orientation Straight 09/24/2021 8: 03 AM DIESEL ENGINE ERECTOR documented as of this encounter Miscellaneous Notes * Result Encounter Note - Lilo Hauser PA - 02/17/2025 8:12 AM CDT Please discuss final wound culture result with patient, bacteria was susceptible to Bactrim as prescribed. She should f/u w/ pcp if symptoms persist. documented in this encounter Plan of Treatment Not on file documented as of this encounter Visit Diagnoses Not on filedocumented in this encounter Care Teams Torch Straightener And Heater Relationship Specialty Start Date End Date Callie More NP [address] [place] [address] PCP - General Internal Medicine 11/06/24 Judie De Anda NP [address] [place] [address] Spinner Operator Midwifery 11/09/24 Ben Huff DO [address] [place] [address] 11/09/24 documented as of this encounter
--- OUTSIDE RECORDS SUMMARY | 2025-03-19 22:25 | XMS_ITS | Clinical Summary ---
Author Organization [facility] Address [address] [place] [address] Care Team Providers Care Construction Site Crossing Guard Name Role Phone Leeroy Romero MD Primary Care Provider [phone] Source Comments [facility],non-owned Affiliates and Associated Physician Practices is amultiple site organization consisting of ambulatory clinics and hospital sitesin [place], [place], [place] and [place]. This disclosure is being madepursuant to the Care Everywhere program and may not contain all information available regarding this patient. Last updated 18.[facility] Allergies No known active allergies Medications * [...] Health Maintenance Due Date Last Done Comments HIV SCREENING 02/13/2012 HEPATITIS C SCREENING 02/08/2015 DTAP/TDAP/TD VACCINES (1 - Tdap) 02/13/2016 HEPATITIS B VACCINE (1 of 3 - 19+ 3-dose series) 02/13/2016 PAP SMEAR 2018 HPV VACCINE (1 - 3-dose SCDM series) 02/13/2024 COVID-19 VACCINE (2023- season) 2024 DEPRESSION SCREENING 08/08/2024 INFLUENZA VACCINE (#1) 2025 , 06/07/2022, 04/22/2020, Additional history exists ZOSTER VACCINE [...] patient's age to complete this topic Insurance [facility] Care Teams Construction Site Crossing Guard Relationship Specialty Start Date End Date Leeroy Romero MD [address] [place] [address] PCP - General 04/15/22
--- OUTSIDE RECORDS SUMMARY | 2025-03-19 22:25 | XMS_ITS | Encounter Summary ---
Author Organization [facility] Health Address [address] [place] [address] Care Team Providers Care Senior Litigation Paralegal Name Role Phone Unavailable Primary Care Provider Unavailabl e Prior Encounters Date Type Department Care Team Description 08/27/2019 Converted 13x Documents [facility] [address] [place] [address] <No scans attached> Plan of Treatment Not on file Procedures Procedure Name Priority Date/Time Associated Diagnosis Comments MISSED APPOINTMENT Routine 07/13/2019 2:00 AM ESTATE PLANNING COUNSELOR CANCELLED APPOINTMENT Routine 07/11/2019 2:00 AM ESTATE PLANNING COUNSELOR Visit Diagnoses Not on file
--- OUTSIDE RECORDS SUMMARY | 2025-03-19 22:25 | XMS_ITS | Continuity of Care Document ---
Author Organization [facility] Address [address] [place] [address] Phone Care Team Providers Care Thaw Shed Heater Tender Name Role Phone Margarita Sanchez Unavailable Unavailable Procedures Procedure Date Eye Exam & Treatment Refraction Eye Exam & Treatment Refraction Eye Exam & Treatment Eye Exam & Treatment Advance Directives Directive Yes / No Effective Date File Name No Information Encounters Encounter Description Practice Location Reason(s) For Visit Diagnoses Date Provider Providers Copied on Encounter [facility], [address] [place] [address] [address], [place], [place], [id number], [place] tel:[phone] [facility] No Information 7-201 0 Laura Cleveland [address], [place], [place], [facility], [place]. tel:[phone] [facility], [address], [place], [place], [id number], [place] tel:[phone] [facility] No Information 1200 9 Laura Cleveland [address] , [address], [place], [address], [place]. tel:[phone] [facility], [address], [place], [place], [id number], [place] tel:[phone] [facility] No Information 8 Laura Avila. [address] , [address], [place], [address], [place]. tel:[phone] [facility], [address], [place], [place], [id number], [place] tel:[phone] [facility] No Information 7 Laura Cleveland [address] , [address], [place], [address], [place]. tel:[phone] Family History Family Member Type Diagnosis Age At Onset No Information Payers Payer name Insurance type Covered republican ID Chnaelle fox(s) Medicaid [facility] [id number] Social History Type Description Quantity Date Captured [...]
--- OUTSIDE RECORDS SUMMARY | 2025-03-19 22:25 | XMS_ITS | Encounter Summary ---
Author Organization [facility] Healthcare Address [address] [place] [address] Care Team Providers Care Electrical Instrumentation Technician Name Role Phone Leeroy Romero MD Primary Care Provider [phone] Harper Langley Primary Care Provider Callie More NP Primary Care Provider Callie More NET SQL DEVELOPER Primary Care Provider [phone] Judie De Anad NET SQL DEVELOPER Unavailable [phone] Encounter Details Date Type Department Care Team (Late st Contact Info) Description 01/22/2022 Telephone [facility] [address] [facility] 4th Floor [address] [place] [address] Charlie Foster Social History Tobacco [...] on file Legal Sex Female 8:39 AM MACHINE ICER Gender Identity Female 09/24/2021 8:03 AM MACHINE ICER Sexual Orientation Straight 09/24/2021 8: 03 AM MACHINE ICER documented as of this encounter Plan of Treatment Not on file documented as of this encounter Visit Diagnoses Not on filedocumented in this encounter Care Teams Electrical Instrumentation Technician Relationship Specialty Start Date End Date Leeroy Romero MD PCP - General 12/12/20 05/09/22 Harper Langley PA PCP - General Family Medicine 05/10/22 03/15/24 Callie More NP PCP - General Internal Medicine 03/16/24 11/05/24 Callie More NP [address] [address] PCP - General Internal Medicine 11/06/24 Judie De Anda NP [address] [place] [address] Sheet Metal Assembler Midwifery 11/09/24 Ben Huff DO [address] [place] [address] 11/09/24 documented as of this encounter
--- OUTSIDE RECORDS SUMMARY | 2025-03-19 22:25 | XMS_ITS | Clinical Summary ---
Author Organization [facility] Address [address] [place] [address] Phone Care Team Providers Care Program Checker Name Role Phone Unavailable Primary Care Provider Unavailabl e Social History Tobacco Use Types Packs/Day Years Used Date Smoking Tobacco: Never Assessed Comments Unknown Sex and Gender Information Value Date Recorded Sex Assigned at Not on file Legal Sex Female 3:21 PM DRESS CAP MAKER Gender Identity Not on file Sexual Orientation Not on file Plan of Treatment Health Maintenance Due Date Last Done Comments HPV VACCINES (1 - 3-dose series) 02/13/2012 DTAP/TDAP/TD VACCINES (1 - Tdap) 02/13/2016 HEPATITIS B VACCINES (1 of 3 - 19+ 3-dose series) 03/2016 CERVICAL CANCER SCREENING 2018 HPV/Cotest (21-29) 2018 PAP SMEAR 2018 INFLUENZA VACCINE (#1) 2025
--- OUTSIDE RECORDS SUMMARY | 2025-03-19 22:25 | XMS_ITS | Encounter Summary ---
Author Organization [facility] Facility Care Team Providers Care Rn Care Manager Name Role Phone Unknown, Notinfile Primary Care Provider Unavail able Leeroy Romero MD Primary Care Provider [phone] No, Physician Primary Care Provider [phone] Leeroy Romero MD Primary Care Provider [phone] Harper Langley Primary Care Provider Callie More NP Primary Care Provider [phone] Callie More COUPON REDEMPTION CLERK Primary Care Provider [phone] Judie De Anda COUPON REDEMPTION CLERK Unavailable [phone] Encounter Details Date Type Department Care Team (Latest Contact Info) Description 11/19/2016 Orders Only [facility] ProviderGeni MD [address] [place] [address] Social History Tobacco Use Types Packs/Day Years Used Date Smoking Tobacco: Never Assessed Comments Unknown Sex and Gender Information Value Date Recorded Sex Assigned at Not on file Legal Sex Female 8:39 AM HARNESS AND BAG INSPECTOR Gender Identity Female 09/24/2021 8:03 AM HARNESS AND BAG INSPECTOR Sexual Orientation Straight 09/24/2021 8: 03 AM HARNESS AND BAG INSPECTOR documented as of this encounter Plan of [...] COVID: Suspected 08/06/2021 08/06/2021 08/07/2021 12:48 AM HARNESS AND BAG INSPECTOR COVID19 08/13/2021 08/13/2021 08/27/2021 3:05 AM HARNESS AND BAG INSPECTOR COVID: Recovered Comment:Added based on recent COVID infection. 08/27/2021 09/01/2021 12/25/2021 3:05 AM C DT documented as of this encounter Care Teams Rn Care Manager Relationship Specialty Start Date End Date Unknown, Notinfile PCP - General 09/15/18 05/21/19 Leeroy Romero MD PCP - General 05/22/19 10/02/19 No, Physician PCP - General 10/23/19 12/11/20 Leeroy Romero MD PCP - General 12/12/20 05/09/22 Harper Langley PA PCP - General Family Medicine 05/10/22 03/15/24 Callie More NP PCP - General Internal Medicine 03/16/24 11/05/24 Callie More NP [address] [address] PCP - General Internal Medicine 11/06/24 Judie De Anda, COUPON REDEMPTION CLERK [address] [place] [address] Application Technical Designer Midwifery 11/09/24 Ben Huff DO [address] [place] [address] 11/09/24 documented as of this encounter
--- OUTSIDE RECORDS SUMMARY | 2025-03-19 22:25 | XMS_ITS | Clinical Summary ---
Author Organization [facility] Health Address [address] [address] [place] [address] Care Team Providers Care Net Software Engineer Name Role Phone Unavailable Primary Care Provider [...]
--- OUTSIDE RECORDS SUMMARY | 2025-03-19 22:25 | XMS_ITS | Clinical Summary ---
Author Organization [facility] Address [address] [place] [address] Care Team Providers Care Water Resources Program Director Name Role Phone Callie More NP Primary Care Provider [phone] Judie De Anda VICE PRESIDENT CONSULTING SERVICES Unavailable [phone] Allergies No known active allergies Medications ondansetron ODT (ZOFRAN-ODT) 4 mg disintegrating tablet Take 1 tablet (4 mg total) by mouth every 8 (eight) hours as needed for nausea or vomiting 20 tablet 11/06/19 25 Active amoxicillin-clavul anate (AUGMENTIN) 875-125 mg per tablet Take 1 tablet by mouth every 12 (twelve) hours 02/01/20 25 Active naproxen (NAPROSYN) 500 mg tablet Take 1 tablet (500 mg total) by mouth 2 (two) times a day with meals 30 tablet 02/06/20 25 Active Additional Information Patient not taking.Reported on 02/21/2025 rizatriptan (MAXALT) 10 mg tabletIndications: Migraine Take 1 tablet (10 mg total) by mouth once as needed for migraine May repeat in 2 hours if unresolved. Do not exceed 30 mg in 24 hours. 9 tablet 1 02/06/20 25 026 Active buPROPion (WELLBUTRIN) 75 mg tablet Take 1 tablet (75 mg total) by mouth 2 (two) times a day 60 tablet 3 02/13/20 25 026 Active escitalopram (LEXAPRO) 10 mg tablet Take 1 tablet (10 mg total) by mouth daily 90 tablet 4 02/15/20 25 Active mupirocin (BACTROBAN) 2 % ointment Apply topically 2 (two) times a day 22 g 02/22/20 25 Active sulfamethoxazole-t rimethoprim (Bactrim DS) 800-160 mg per tabletIndications: Wound drainage Take 1 tablet by mouth 2 (two) times a day for 10 days 20 tablet 02/11/20 25 025 Additional Information Patient not taking.Reported on 02/21/2025 Hospital, Clinic, or Other Facility Administered Medication Ordered Dose Route Frequency Start Date End Date Status etonogestreL (NEXPLANON) implant 68 mgIndications:Pregna ncy Contraception 68 mg subderm Continuous (implanted device) 06/10/2023 06/09/2026 Active Active Problems Problem Noted Date Diagnosed Date BMI 23.0-23.9, adult 11/09/2024 Assessment & Plan (02/05/2025 9:10 AM CDT): Encouraged regular physical activity--moderate activity for a total of 150 minutes per week over 3-5 days. Encouraged healthy diet with regular fresh fruits and vegetables limited in processed carbohydrates. Assessment & Plan (11/09/2024 9:47 AM CDT): [...] CDT): Assessment & Plan (07/13/2024 3:41 PM ANESTHESIOLOGIST ASSISTANT CERTIFIED): Start hair skin and Nails vitamin. 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 Patient has a history of cyst and pimples on scalp. We discussed long-term treatment of scarring alopecia and the importance of treating it to keep the hair follicles active. Assessment & Plan (03/16/2024 12:48 PM CDT): Referral to dermatology. I suggested patient see a power marketer specializes in hair loss. Advised her to take a hair skin and Nails vitamin. We will check labs as well. Mild episode of recurrent major depressive disor [place] 03/16/2024 Assessment & Plan (07/13/2024 3:42 PM ANESTHESIOLOGIST ASSISTANT CERTIFIED): Continue Zoloft 50 mg daily and increase [...] and having heart palpitations. Does not have geological engineer - Last TTE 03/2022 in [place]: Repeat TTE 04/04/23: Normal left ventricular systolic [...] 25 Assessment & Plan (07/13/2024 3:44 PM ANESTHESIOLOGIST ASSISTANT CERTIFIED): Patient has been struggling with her weight. [...] that started 03/31. Was initially evaluated at [facility] and contractions at that time resolved with fluid. She then presented to [facility] on 04/01 with q2-3 min painful contractions. She was monitored at that time and received betamethasone x2. BMZ^04/02. Patient was discharged with nifedipine PRN for contractions -Instructed patient to stop taking nifedipine -[facility] precautions reviewed Anxiety 03/08/2023 11/09/2024 Assessment & Plan (07/13/2024 3:42 PM ANESTHESIOLOGIST ASSISTANT CERTIFIED): Continue Zoloft and increase Wellbutrin 300 mg. [...] provider, reports fEIF and measuring big. Incomplete [facility] anatomy 03/08, AGA, Anterior placenta, [...] education: completed in all 3 trimesters [x] Cardiopulmonary Technologist: in [place] [x] Car seat discussed [] PP depression counseling Hypothyroidism 09/25/2019 03/16/2024 Overview (03/16/2024): Only during Encounters Date Type Department Care Team Description 02/21/2025 8:30 AM CDT Office Visit [facility] at [address] [phone] Lilo Hauser PA Visit for wound check (Primary Dx) 02/18/2025 Nurse Triage [facility] Medical [facility] at [address] [phone] Callie More NP 02/17/2025 Results Follow-Up [facility] at [address] [phone] Lilo Hauser PA Aerobic and anaerobic culture and gram stain Abscess Breast, left 02/17/2025 Telephone [facility] at [address] [phone] Sharyn Garcia MA 02/17/2025 Telephone [facility] at [address] [phone] Lilo Hauser PA 02/15/2025 Telephone [facility] Primary [facility] at [address] [phone] Callie More NP Additional Services Or Orders 02/15/2025 Telephone [facility] at [address] [phone] Candis Martinez NP 02/14/2025 Orders Only [facility] Primary Care at [address] [phone] Callie More NP 2025 Orders Only [facility] Primary Care at [address] [phone] Callie More NP 02/10/2025 4:53 PM CDT - 02/10/2025 11:59 PM CDT Hospital Encounter [address] [address] Wound drainage Discharge Disposition: Discharge to home or self care 02/10/2025 11:30 AM CDT Office Visit [facility] at [address] [phone] Candis Martinez NP Wound drainage (Primary Dx) 02/05/2025 7:30 AM CDT Office Visit [facility] Primary Care at [address] [phone] Callie More NP BMI 23.0-23.9, adult (Primary Dx); S/P breast augmentation 01/19/2025 7:45 PM CDT Telemedicine [facility] Care [address] [place] [phone] Erin Eason NP Acute bacterial conjunctivitis of right eye (Primary Dx) 01/19/2025 Patient Self-Triage [facility] [address] [place] [address] Mychart, Generic Provider 01/01/2025 Results Follow-Up [facility] Primary Care at [address] [phone] Callie More NP Urinalysis reflex to microscopic and culture Urine, Comprehensive metabolic panel, CBC with auto differential, Additional followed-up results: 2 12/28/2024 3:00 PM CDT Lab [facility] Outpatient Lab at [address] [phone] 12/28/2024 2:55 PM CDT - 12/28/2024 11:59 PM CDT Hospital Encounter [address] [address] Flank pain; Abnormal white blood cell (WBC) count Discharge Disposition: Discharge to home or self care 12/28/2024 Orders Only [facility] at [address] [phone] Callie More NP Flank pain (Primary Dx); Abnormal white blood cell (WBC) count; Elevated serum creatinine 12/25/2024 Orders Only [facility] Primary Care at [address] [phone] ProviderGeni MD 12/25/2024 Documentation [facility] Medical [facility] at [address] [phone] Callie More NP from Last 3 Months [...] EXTRACTION Bilateral ENDOMETRIAL ABLATION 08/08/2023 - 08/07/2024 COMBINED AUGMENTATION MAMMAP LASTY AND ABDOMINOPLASTY 02/01/2025 Bilateral Medical History Medical History Date Comments Heart [...] money to get more. Patient declined 10/2022 [place] Depression Scale Answer Date Recorded [place] Depression Scale Total 1 06/10/2023 The thought [...] on file Legal Sex Female 8:39 AM ANESTHESIOLOGIST ASSISTANT CERTIFIED Gender Identity Female 09/24/2021 8:03 AM ANESTHESIOLOGIST ASSISTANT CERTIFIED Sexual Orientation Straight 09/24/2021 8: 03 AM ANESTHESIOLOGIST ASSISTANT CERTIFIED Obstetrics History Para Term AB IAB SAB Ectopic Multiple Livin g Live Births 4 4 3 1 4 4 Date Outcome GA Total Labor Labor/2nd/3rd Weight Sex Type Anes PTL Odette A1 A5 Name Clin 017 Term 39w 0d 2.92 kg (6 lb 7 oz) M Vag-S pont Epidur al N Livin g Complications:None Delivery Location:[facility] ospital 020 Term 37w 6d 3.175 kg (7 lb) F Vag-S pont Epidur al Livin g Complications:None 022 36w 6d F Vag-S pont Epidur al Livin g 023 Term 37w 2d M Vag-S pont Livin g Comments G1-G3 [facility] Last Filed Vital Signs Vital Sign Reading Time Taken Comments Blood Pressure 114/75 02/21/2025 8:35 AM CDT Pulse 70 02/21/2025 8:35 AM CDT Temperature 37 C (98.6 F) 02/21/2025 8:35 AM CDT Respiratory Rate 18 02/21/2025 8:35 AM CDT Oxygen Saturation 95% 02/21/2025 8:35 AM CDT Inhaled Oxygen Concentration - - Weight 71 kg (156 lb 8 oz) 02/21/2025 8:35 AM CD T Height 170.2 cm (5' 7.01) 02/21/2025 8:35 AM CD T Body Mass Index 24.51 02/21/2025 8:35 AM CDT Plan of Treatment Health Maintenance Due Date Last Done Comments Covid-19 Vaccine ( season) 2024 05/26/2021 Cervical Cancer Screening 06/10/2024 06/10/2023 Regular Well Visit/Exam 18-64 03/16/2025 03/16/2024 Influenza Vaccine (#1) 2025 , 08/10/2023, 06/07/2022, Additional history exists Depression Screening 11/09/2025 11/09/2024, 03/16/2024, 06/10/2023, Additional history exists DTaP/Tdap/Td Vaccine (11 - Td or Tdap) 04/05/2033 04/05/2023, 04/15/2022, 04/22/2020, Additional history exists Hepatitis B Screening Completed 1995 , [birth year] Varicella Vaccines Completed 03/05/2008, 11/29/1998 HPV Vaccines Completed 07/14/2013, 02/06, 10/14/2012 Hepatitis C Screening Completed 11/18/2021, 020 Pneumococcal vaccine <65 Aged Out No longer eligible based on patient's age to complete this topic Procedures Procedure Name Priority Date/Time Associated Diagnosis Comments AEROBIC AND ANAEROBIC CULTURE AND GRAM STAIN Routine 02/10/2025 6:02 PM CDT Wound drainage EGFR Routine 12/28/2024 2:55 PM CDT Flank pain Abnormal white blood cell (WBC) count DIFFERENTIAL AUTO Routine 12/28/2024 2:5 5 PM CDT Flank pain Abnormal white blood cell (WBC) count CBC WITH AUTO DIFFERENTIAL Routine 12/28/2024 2:55 PM CDT Flank pain Abnormal white blood cell (WBC) count COMPREHENSIVE METABOLIC PANEL Routine 12/28/2024 2:55 PM CDT Flank pain Abnormal white blood cell (WBC) count URINALYSIS AND REFLEX TO MICROSCOPIC AND CULTURE Routine 12/28/2024 2:55 PM CDT Flank pain Abnormal white blood cell (WBC) count XR ABDOMEN 2 VIEWS W CHEST 1 VIEW Schedule Routine, Read Routine (OP Routine) 12/25/2024 4:59 PM CDT PAP WITH REFLEX TO HIGH RISK HPV Routine 06/10/2023 9:14 AM CDT Encounter for initial prescription of implantable subdermal contraceptive HEPATITIS C ANTIBODY Routine 11/18/2021 11:09 AM CDT Supervision of other normal , antepartum from Last 3 Months or Most Recently Relevant to Health Maintenance Results * (ABNORMAL) Aerobic and anaerobic culture and gram stain Abscess Breast, left (02/10/2025 6:02 PM CDT) Direct Specimen Exam Stain: No polymorphonuclear leukocytes seen. Few Gram Positive Cocci Comment:Testing performed by : [facility], [address] [place]., [address] Report Final Report: Abundant Mixed skin microorganisms. Includes the following: Rare Pseudomonas aeruginosa (.) BRANDEN Comment:Testing performed by : [facility], [address] [place]., [address] Organism MIXED SKIN MICROORGANISMS. BRANDEN Organism PSEUDOMONAS AERUGINOSA BRANDEN Abscess (Breast, left) 02/10/2025 6:02 PM CDT 02/10/2025 8:35 PM CDT Narrative [facility] - 02/17/2025 8:09 AM CDT Testing performed by [facility] ([phone]) Specimens submitted from normally sterile body sites will have all bacterial morphotypes identified. Specimens that contain grossly mixed jose e and/or are from body sites that are not normally sterile will be examined for Staphylococcus aureus, Pseudomonas aeruginosa, beta-hemolytic strep, vancomycin-resistant Enterococcus, Bacteroides, Parabacteroides, Clostridium perfringens and fungus. If any of these are isolated, the organism will be reported. Current interpretive data was last revised on 2019. Organism Antibiotic Method Susceptibility Pseudomonas aeruginosa Aztreonam INTERPRETATION Susceptible Pseudomonas aeruginosa Ceftazidime INTERPRETATION Susceptible Pseudomonas aeruginosa Ciprofloxacin INTERPRETATION Susceptible Pseudomonas aeruginosa Cefepime INTERPRETATION Susceptible Pseudomonas aeruginosa Imipenem INTERPRETATION Susceptible Pseudomonas aeruginosa Meropenem INTERPRETATION Susceptible Pseudomonas aeruginosa Piperacillin/Tazobactam INTERPR ETATION Susceptible Pseudomonas aeruginosa Tobramycin INTERPRETATION Susceptible us Candis Martinez NP LAB MICROBIOLOGY - GENERAL ORD ERABLES Final Result [facility] [address] [address] Department [place] [address] * eGFR (12/28/2024 2:55 PM CDT) Pathologist [facility] eGFR >90 >=60 mL/min/1. 73 m2 Comment: [...] interpretive data was last reviewed 2021. Blood 12/28/2024 2:55 PM CDT 12/28/2024 9:24 PM CDT Callie More NP LAB BLOOD ORDERABLES Final Re sult [facility] [address] [address] Department [place] [address] * Differential, auto (12/28/2024 2:55 PM CDT) Pathologist [facility] Neutrophil abs 3.19 1.50 - 6.50 K/cumm Imm gran abs 0.01 0.00 - 0.10 K/cumm [facility] Lymphocyte abs 2.30 0.80 - 3.30 K/cumm [facility] Monocyte abs 0.37 0.20 - 0.80 K/cumm [facility] Eosinophil abs 0.22 0.00 - 0.50 K/cumm [facility] Basophil abs 0.04 0.00 - 0.10 K/cumm [facility] Neutrophil pct 52.0 % [facility] Comment: Interpretive Data Percent cell count reference ranges are not reported, since discordance with absolute values may lead to misinterpretation of CBC data. Current Interpretive Data was last revised on 2017. Imm gran pct 0.2 % [facility] Comment: Interpretive Data Percent cell count reference ranges are not reported, since discordance with absolute values may lead to misinterpretation of CBC data. Current Interpretive Data was last revised on 2017. Lymphocyte pct 37.5 % [facility] Comment: Interpretive Data Percent cell count reference ranges are not reported, since discordance with absolute values may lead to misinterpretation of CBC data. Current Interpretive Data was last revised on 2017. Monocyte pct 6.0 % [facility] Comment: Interpretive Data Percent cell count reference ranges are not reported, since discordance with absolute values may lead to misinterpretation of CBC data. Current Interpretive Data was last revised on 2017. Eosinophil pct 3.6 % [facility] Comment: Interpretive Data Percent cell count reference ranges are not reported, since discordance with absolute values may lead to misinterpretation of CBC data. Current Interpretive Data was last revised on 2017. Basophil pct 0.7 % [facility] Comment: Interpretive Data Percent cell count reference ranges are not reported, since discordance with absolute values may lead to misinterpretation of CBC data. Current Interpretive Data was last revised on 2017. Blood 12/28/2024 2:55 PM CDT 12/28/2024 9:20 PM CDT Callie More NP LAB BLOOD ORDERABLES Final Re sult [facility] [address] [address] Department of Laboratories [place], [place] [phone] * Urinalysis reflex to microscopic and culture Urine (12/28/2024 2:55 PM CDT) Color, ur Straw Yellow Clarity, ur Clear Clear BRANDEN Specific gravity, ur 1.010 1.003 - 1.030 BRANDEN pH, urine 6.0 [facility] Comment: Interpretive Data U rine pH is affected by diet, medications, systemic acid-base disturbances, and renal tubular function. pH may affect urinary stone formation. For example, urine pH below 6.0 may help reduce the tendency for calcium phosphate stones and pH greater than 6.0 may reduce the tendency for uric acid stone formation. Source: [facility] Current Interpretive Data was last revised on 2017 Protein, ur ql Negative Negative [facility] Glucose, ur ql Negative Negative [facility] Ketones, ur Negative Negative [facility] Bilirubin, ur Negative Negative [facility] Blood, ur Negative Negative [facility] Urobilinogen, ur <2.0 <2.0 mg/dL [facility] Nitrite, ur Negative Negative [facility] Leukocyte esterase, ur Negative Negative [facility] UA reflex comment Reflex conditions for microscopic UA and culture not met. [facility] Urine 12/28/2024 2:55 PM CDT 12/28/2024 9:20 PM CDT Callie More NP LAB MICROBIOLOGY - GENERAL OR DERABLES Final Result [facility] [address] [address] Department [place] [address] * (ABNORMAL) CBC with auto differential (12/28/2024 2:55 PM CDT) WBC 6.13 3.80 - 9.90 K/cumm Hgb 12.5 11.9 - 15.5 g/dL [facility] Hct 40.4 35.6 - 45.5 % [facility] Plt 229 150 - 400 K/cumm [facility] MPV 11.5 9.1 - 12.3 fL [facility] RBC 4.31 3.90 - 5.20 M/cumm [facility] MCV 93.7 81.3 - 96.4 fL [facility] MCH 29.0 27.1 - 33.3 pg [facility] MCHC 30.9(L) 32.3 - 35.7 g/dL [facility] RDW CV 13.0 11.1 - 14.9 % [facility] RDW SD 44.6 35.7 - 48.1 fL [facility] NRBC abs 0.00 0.00 - 0.01 K/cumm [facility] Blood 12/28/2024 2:55 PM CDT 12/28/2024 9:20 PM CDT Callie More NP LAB [place]LOOD [place] [address] [address] Department [place] [address] * Comprehensive metabolic panel (12/28/2024 2:55 PM CDT) Sodium 136 135 - 145 mmol/L Potassium, pl 3.8 3.3 - 4.9 mmol/L [facility] Chloride 102 97 - 110 mmol/L [facility] CO2 23 22 - 32 mmol/L [facility] Anion gap 11 2 - 15 mmol/L [facility] BUN 14 6 - 25 mg/dL [facility] Creatinine 0.60 0.60 - 1.10 mg/dL [facility] Glucose 83 70 - 199 mg/dL [facility] Comment: [...] interpretive data was last revised 2022. Calcium 9.6 8.5 - 10.3 mg/dL [facility] Bilirubin, total 0.3 0.1 - 1.2 mg/dL [facility] Protein, pl 7.1 6.5 - 8.5 g/dL [facility] Albumin 4.2 3.5 - 5.0 g/dL [facility] Alk phos 76 40 - 130 Units/L [facility] ALT 14 7 - 45 Units/L [facility] AST 26 10 - 45 Units/L [facility] Blood 12/28/2024 2:55 PM CDT 12/28/2024 9:20 PM CDT us Callie More VICE PRESIDENT CONSULTING SERVICES LAB BLOOD ORDERABLES Final Re sult [facility] [address] [address] Department [place] [address] * XR Abdomen 2 Views W Chest 1 View (12/25/2024 4:59 PM CDT) Anatomical Region Laterality Modality Body, Abdomen N/A Radiographic Lala ging Historical Provider IMElida XR PROCEDURES Final R esult * Pap with reflex to High Risk HPV and Genotyping (Cytology Component) (06/10/2023 9:14 AM CDT) Thin prep (Pap test) 06/10/2023 9:14 AM CDT 06/10/2023 11:47 AM CDT Narrative PATHOLOGY [facility] - 06/14/2023 4:58 PM ANESTHESIOLOGIST ASSISTANT CERTIFIED EPIC results best viewed via link to PDF [facility] [place] [address] Note to Patients: This report may contain [...] Gender: F : 1995 (Age: 28) Address: [address] [place] [id number] Hospital #: [id number] Service: UNKNOWN Location: Patient Type: [facility] SPECIMEN Taken: 06/10/2023 Received: 06/10/2023 Accessioned: 06/10/2023 Reported: 06/14/2023 Physician(s): Kimberlyn Ramsay M.D. FINAL INTERPRETATION SOURCE OF SPECIMEN Liquid based Thin Prep pap with Reflex HPV: STATEMENT OF ADEQUACY - Satisfactory for evaluation - Endocervical cells/transformation zone sample present GENERAL CATEGORIZATION: - Negative for squamous intraepithelial lesion or malignancy [facility]/06/14/2023 16:58 DELFINO Godoy([facility]) Report Electronically Reviewed and Signed Out By DELFINO Godyo([facility]) 06/14/2023 16:58:35 Cervicovaginal Cytology (Pap Test) Disclaimer: The Pap test is a screening test used to detect cervical cancer and its precursors; it is not a diagnostic procedure. False negative and false positive results do occur. Pap test results should be interpreted in the context of pertinent clinical information and biopsy results as indicated. [facility] Clinical Laboratory Improvement Amendments (CLIA) mandate that cytologic and histologic results be correlated for laboratory dairy quality assurance officer & improvement standards. FOR ALL HIGH-GRADE CASES [...] determined by the Surgical Pathology Department at [facility] as part of an ongoing quality reviewer program and in compliance with federally mandated [...] determined by the Surgical Pathology Department of [facility]. It has not been cleared or approved by the U. S. Food and Drug Administration. Kimberlyn Ramsay MD LAB CYTOLOGY ORDERABL ES Final Result PATHOLOGY [facility] 3rd Floor [place], [place] [phone] * Hepatitis C antibody (11/18/2021 11:09 AM CDT) Hep C Ab Nonreactive Nonreactive [facility] Comment:Antibodies to HCV no t detected. Does NOT exclude the possibility of recent exposure to HCV. Blood 11/18/2021 11:0 9 AM CDT 11/18/2021 12:08 PM CDT David Bonilla NP LAB MICROBIOLOGY - GENERAL O RDERABLES Edited Result - Final Performing Organization Address City/[facility]/ZIP Co de Phone Number [facility] [address] Department [place] [address] from Last 3 Months or Most Recently Relevant to Health Maintenance Insurance [facility] [employer] Care Teams Water Resources Program Director Relationship Specialty Start Date End Date Callie More NP [address] [place] [address] PCP - General Internal Medicine 11/06/24 Judie De Anda NP [address] [address] [employer] Midwif[employer] 11/09/24 Ben Huff DO [address] [place] [address] 11/09/24
--- OUTSIDE RECORDS SUMMARY | 2025-03-19 22:25 | XMS_ITS | Encounter Summary ---
Author Organization [facility] Healthcare Address [address] [place] [address] Care Team Providers Care Vacuum Applicator Operator Name Role Phone Callie More STUD DRIVER Primary Care Provider [phone] Judie De Anda STUD DRIVER Unavailable [phone] Encounter Details Date Type Department Care Team (Late st Contact Info) Description 02/17/2025 Telephone [facility] Medical Group [facility] at [place] [address] [place] [address] Lilo Hauser PA [address] [place] [address] [address] [place] [address] Social History Tobacco Use Types Packs/Day Years [...] money to get more. Patient declined 10/2022 [place] Depression Scale Answer Date Recorded [place] Depression Scale Total 1 06/10/2023 The thought [...] on file Legal Sex Female 8:39 AM RESEARCH ANALYST Gender Identity Female 09/24/2021 8:03 AM RESEARCH ANALYST Sexual Orientation Straight 09/24/2021 8: 03 AM RESEARCH ANALYST documented as of this encounter Miscellaneous Notes * Telephone Encounter - Sharyn Garcia MA - 02/17/2025 8:11 AM CDT Patient states the wound is draining still but white drainage, antibiotic prescribed started last Tuesday. Patient states that when she takes the medication soon after she feels like she is going to pass out. Spoke with provider, provider states Patient needs to be reevaluated due to antibiotic being finished, and still symptomatic. Patient states understanding. * Telephone Encounter - Callie Sánchez - 02/17/2025 8:05 AM CDT Patient called about her Culture results, that were taken on the . I made her aware the final result had not come in. She would like a call back when they are resulted. documented in this encounter Plan of Treatment Not on file documented as of this encounter Visit Diagnoses Not on filedocumented in this encounter Care Teams Vacuum Applicator Operator Relationship Specialty Start Date End Date Callie More NP [address] [facility] [address] [place] [address] PCP - General Internal Medicine 4/1/25 Judie De Anda, STUD DRIVER [address] [place] [address] Products Mechanical Design Engineer Midwifery 11/09/24 Ben Huff DO [address] [place] [address] 11/09/24 documented as of this encounter
[2025-03-19 22:37] LABS: Hematocrit 38.3 % (37.0-47.0); Hemoglobin 12.3 g/dL (12.0-15.0); Immature Granulocyte Percent A 0.1 % (0-0.5); Lymphocytes Absolute Auto 3.31 K/mm3 (0.9-3.2); Mean Corpuscular HGB Conc 32.1 g/dl (32-36); Mean Corpuscular Hemoglobin 29.1 pg (26-34); Mean Corpuscular Volume 90.5 fl (80-100); Nucleated Red Blood Cells Absolute Auto 0.000 K/mm3 (0.0-0.012); Nucleated Red Blood Cells Perc 0.0 % (0.0-0.2); Platelet Count Result 182 k/mm3 (150-375); Red Blood Count 4.23 M/mm3 (4.2-5.4); White Blood Count 6.9 K/mm3 (4.5-10.0)
[2025-03-19 23:03] LABS: Alanine Aminotransferase 14 U/L (6-35); Albumin Level 4.4 g/dL (3.5-5.1); Alkaline Phosphatase 96 U/L (38-126); Anion Gap 8 mmol/L (4-12); Aspartate Amino Transferase 20 U/L (14-36); Bilirubin,Total 0.3 mg/dL (0.2-1.3); Blood Urea Nitrogen 12 mg/dL (7-17); Calcium 9.4 mg/dL (8.4-10.2); Carbon Dioxide 24 mmol/L (22-30); Chloride 105 mmol/L (98-107); Estimated CRCL calculation 106 ml/min; Estimated Glomerular Filt Rate > 60; Glucose 98 mg/dL (65-110); Lipase 55 U/L (23-300); Potassium 3.8 mmol/L (3.4-5.0); Sodium 137 mmol/L (137-145); Total Protein 7.5 g/dL (6.3-8.2)
--- NOTE | 2025-03-19 23:42 | PC.NURSE ---
Pt is ambulatory to intake desk and states she is wanting to leave and follow up with her PCP. Pt states her feeling has gone away or at least less than what it was. Rn states we always recommend to be seen but we can't force pt to stay. Pt asked about her blood work and this RN states we cant give results out in triage but if anything was critical pt would have been pulled back sooner. Pt was given a portal pamphlet to access her results at this time. Pt states she rather follow up with her doctor than wait here. pt exited ed with steady gait. pt walked out before being seen. pt advised to come back in if anything worsens.
--- OUTSIDE RECORDS SUMMARY | 2025-03-19 23:49 | XMS_ITS | Encounter Summary ---
Author Organization [facility] Facility Care Team Providers Care Acrobatic Dancer Name Role Phone Unknown, Notinfile Primary Care Provider Unavail able Leeroy Romero MD Primary Care Provider [phone] No, Physician Primary Care Provider [phone] Leeroy Romero MD Primary Care Provider [phone] Harper Langley Primary Care Provider Callie More NP Primary Care Provider [phone] Callie More GROCERY SUPERVISOR Primary Care Provider [phone] Judie De Anda GROCERY SUPERVISOR Unavailable [phone] Encounter Details Date Type Department Care Team (Latest Contact Info) Description 11/19/2016 Orders Only [facility]IN[facility] ProviderGeni MD [address] [place] [address] Social History Tobacco Use Types Packs/Day Years Used Date Smoking Tobacco: Never Assessed Comments Unknown Sex and Gender Information Value Date Recorded Sex Assigned at Not on file Legal Sex Female 8:39 AM CIVIL CLERK Gender Identity Female 09/24/2021 8:03 AM CIVIL CLERK Sexual Orientation Straight 09/24/2021 8: 03 AM CIVIL CLERK documented as of this encounter Plan of [...] COVID: Suspected 08/06/2021 08/06/2021 08/07/2021 12:48 AM CIVIL CLERK COVID19 08/13/2021 08/13/2021 08/27/2021 3:05 AM CIVIL CLERK COVID: Recovered Comment:Added based on recent COVID infection. 08/27/2021 09/01/2021 12/25/2021 3:05 AM C DT documented as of this encounter Care Teams Acrobatic Dancer Relationship Specialty Start Date End Date Unknown, Notinfile PCP - General 09/15/18 05/21/19 Leeroy Romero MD PCP - General 05/22/19 10/02/19 No, Physician PCP - General 10/23/19 12/11/20 Leeroy Romero MD PCP - General 12/12/20 05/09/22 Harper Langley PA PCP - General Family Medicine 05/10/22 03/15/24 Callie More NP PCP - General Internal Medicine 03/16/24 11/05/24 Callie More NP [address] [address] PCP - General Internal Medicine 11/06/24 Judie De Anda, GROCERY SUPERVISOR [address] [place] [address] Rf Engineer Midwifery 11/09/24 Ben Huff DO [address] [place] [address] 11/09/24 documented as of this encounter
--- OUTSIDE RECORDS SUMMARY | 2025-03-19 23:49 | XMS_ITS | Clinical Summary ---
Author Organization [facility] Address [address] [place] [id number] Phone Care Team Providers Care Beam Worker Name Role Phone Unavailable Primary Care Provider Unavailabl e Social History Tobacco Use Types Packs/Day Years Used Date Smoking Tobacco: Never Assessed Comments Unknown Sex and Gender Information Value Date Recorded Sex Assigned at Not on file Legal Sex Female 3:21 PM DIET CONSULTANT Gender Identity Not on file Sexual Orientation [...]
--- OUTSIDE RECORDS SUMMARY | 2025-03-19 23:49 | XMS_ITS | Clinical Summary ---
Author Organization [facility] Health Address [address] [facility] [place] [address] Care Team Providers Care Silvering Department Supervisor Name Role Phone Unavailable Primary Care [...]
--- OUTSIDE RECORDS SUMMARY | 2025-03-19 23:49 | XMS_ITS | Encounter Summary ---
Author Organization [facility] Healthcare Address [address] [place] [address] Care Team Providers Care Landscape Management Technician Name Role Phone Callie More CLINICAL LABORATORY AIDE Primary Care Provider [phone] Judie De Anda CLINICAL LABORATORY AIDE Unavailable [phone] Encounter Details Date Type Department Care Team (Late st Contact Info) Description 02/17/2025 Results Follow-Up [facility] Medical Group Convenient Care at [address] [address] Lilo Hauser PA [address] [place] [address] [address] [place] [address] Aerobic and anaerobic culture and [...] money to get more. Patient declined 10/2022 Amelia Depression Scale Answer Date Recorded Amelia Depression Scale Total 1 06/10/2023 The thought [...] on file Legal Sex Female 8:39 AM JAILER/TRAINING OFFICER Gender Identity Female 09/24/2021 8:03 AM JAILER/TRAINING OFFICER Sexual Orientation Straight 09/24/2021 8: 03 AM JAILER/TRAINING OFFICER documented as of this encounter Miscellaneous Notes [...] on filedocumented in this encounter Care Teams Landscape Management Technician Relationship Specialty Start Date End Date Callie More NP [address] [place] [address] PCP - General Internal Medicine 11/06/24 Judie De Anda NP [address] [place] [address] [facility] 11/09/24 Ben Huff DO [address] [place] [address] 11/09/24 documented as of this encounter
--- OUTSIDE RECORDS SUMMARY | 2025-03-19 23:49 | XMS_ITS | Continuity of Care Document ---
Author Organization [facility] Address [address] [place] [address] Phone Care Team Providers Care Roofer Helper Name Role Phone Margarita Sanchez Unavailable Unavailable Procedures Procedure Date Eye Exam & Treatment Refraction Eye Exam & Treatment Refraction Eye Exam & Treatment Eye Exam & Treatment Advance Directives Directive Yes / No Effective Date File Name No Information Encounters Encounter Description Practice Location Reason(s) For Visit Diagnoses Date Provider Providers Copied on Encounter [facility], [address] [place] [address] [address], [place], [place], [id number], [place] tel:[phone] [facility] No Information 7-201 0 Laura Cleveland [address], [place], [place], [facility], [place]. tel:[phone] [facility], [address], [place], [place], [id number], [place] tel:[phone] [facility] No Information 1200 9 Laura Cleveland [address] , [address], [place], [address], [place]. tel:[phone] [facility], [address], [place], [place], [id number], [place] tel:[phone] [facility] No Information 8 Laura Avila. [address] , [address], [place], [address], [place]. tel:[phone] [facility], [address], [place], [place], [id number], [place] tel:[phone] [facility] No Information 7 Laura Cleveland [address] [facility] [address] , [address], [place], [address], [place]. tel:[phone] Family History Family Member Type Diagnosis Age At Onset No Information Payers Payer name Insurance type Covered alliance party ID Chanelle fox(s) Medicaid [facility] [id number] Social History Type Description Quantity Date Captured [...]
--- OUTSIDE RECORDS SUMMARY | 2025-03-19 23:49 | XMS_ITS | Encounter Summary ---
Author Organization [facility] Health Address [address] [place] [address] Care Team Providers Care Morgue Librarian Name Role Phone Unavailable Primary Care Provider Unavailabl e Prior Encounters Date Type Department Care Team Description 08/27/2019 Converted 13x Documents [facility] [address] [place] [address] <No scans attached> Plan of Treatment Not on file Procedures Procedure Name Priority Date/Time Associated Diagnosis Comments MISSED APPOINTMENT Routine 07/13/2019 2:00 AM TELECOM ASSISTANT CANCELLED APPOINTMENT Routine 07/11/2019 2:00 AM TELECOM ASSISTANT Visit Diagnoses Not on file
--- OUTSIDE RECORDS SUMMARY | 2025-03-19 23:49 | XMS_ITS | Encounter Summary ---
Author Organization [facility] Healthcare Address [address] [place] [address] Care Team Providers Care Stave Mill Hand Name Role Phone Leeroy Romero MD Primary Care Provider [phone] Harper Langley Primary Care Provider Callie More NP Primary Care Provider [phone] Callie More LONG TERM CARE SOCIAL WORKER Primary Care Provider [phone] Judie De Anda LONG TERM CARE SOCIAL WORKER Unavailable [phone] Encounter Details Date Type Department Care Team (Late st Contact Info) Description 01/22/2022 Telephone [facility] [address] [facility] 4th Floor [address] [place] [address] Charlie Foster Social History Tobacco [...] on file Legal Sex Female 8:39 AM VESSEL SPECIALIST Gender Identity Female 09/24/2021 8:03 AM VESSEL SPECIALIST Sexual Orientation Straight 09/24/2021 8: 03 AM VESSEL SPECIALIST documented as of this encounter Plan of Treatment Not on file documented as of this encounter Visit Diagnoses Not on filedocumented in this encounter Care Teams Stave Mill Hand Relationship Specialty Start Date End Date Leeroy Romero MD PCP - General 12/12/20 05/09/22 Harper Langley PA PCP - General Family Medicine 05/10/22 03/15/24 Callie More NP PCP - General Internal Medicine 03/16/24 11/05/24 Callie More NP [address] [address] PCP - General Internal Medicine 11/06/24 Judie De Anda NP [address] [place] [address] Traffic Chief Midwifery 11/09/24 Ben Huff DO [address] [place] [address] 11/09/24 documented as of this encounter
--- OUTSIDE RECORDS SUMMARY | 2025-03-19 23:49 | XMS_ITS | Clinical Summary ---
Author Organization [facility] Address [address] [place] [address] Care Team Providers Care Trust Accounts Supervisor Name Role Phone Callie More NP Primary Care Provider [phone] Judie De Anda CASE RESOLUTION SPECIALIST Unavailable [phone] Allergies No known active allergies Medications [...] CDT): Assessment & Plan (07/13/2024 3:41 PM UTILITIES ESTIMATOR AND DRAFTER): Start hair skin and Nails vitamin. 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 Patient has a history of cyst and pimples on scalp. We discussed long-term treatment of scarring alopecia and the importance of treating it to keep the hair follicles active. Assessment & Plan (03/16/2024 12:48 PM CDT): Referral to dermatology. I suggested patient see a intermediate teacher specializes in hair loss. Advised her to take a hair skin and Nails vitamin. We will check labs as well. Mild episode of recurrent major depressive disor [place] 03/16/2024 Assessment & Plan (07/13/2024 3:42 PM UTILITIES ESTIMATOR AND DRAFTER): Continue Zoloft 50 mg daily and increase [...] and having heart palpitations. Does not have fish inspector - Last TTE 03/2022 in [place]: Repeat TTE 04/04/23: Normal left ventricular systolic [...] 25 Assessment & Plan (07/13/2024 3:44 PM UTILITIES ESTIMATOR AND DRAFTER): Patient has been struggling with her weight. [...] that started 03/31. Was initially evaluated at [facility] and contractions at that time resolved with fluid. She then presented to [facility] on 04/01 with q2-3 min painful contractions. She was monitored at that time and received betamethasone x2. BMZ^04/02. Patient was discharged with nifedipine PRN for contractions -Instructed patient to stop taking nifedipine -[facility] precautions reviewed Anxiety 03/08/2023 11/09/2024 Assessment & Plan (07/13/2024 3:42 PM UTILITIES ESTIMATOR AND DRAFTER): Continue Zoloft and increase Wellbutrin 300 mg. [...] education: completed in all 3 trimesters [x] Front Services Agent: in [place] [x] Car seat discussed [] PP depression counseling Hypothyroidism 09/25/2019 03/16/2024 Overview (03/16/2024): Only during Encounters Date Type Department Care Team Description 02/21/2025 8:30 AM CDT Office Visit [facility] at [address] [phone] Lilo Hauser PA Visit for wound check (Primary Dx) 02/18/[address] [facility] Primary Care at [address] [phone] Callie More NP 02/17/2025 Results Follow-Up [facility]ient Care at [address] [phone] Lilo Hauser PA Aerobic and anaerobic culture and gram stain Abscess Breast, left 02/17/[address] [facility] at [address] [phone] Sharyn Garcia MA 02/17/[address] [facility] at [address] [address] Lilo Hauser PA 02/15/2025 Telephone [facility] Primary Care at [address] [phone] Callie More NP Additional Services Or Orders 02/15/[address] [facility] at [address] [phone] Candis Martinez NP 02/14/[address] [facility] Primary Care at [address] [phone] Callie More NP [address] [facility] Primary Care at [address] [phone] Callie More NP 02/10/2025 4:53 PM CDT - 02/10/2025 11:59 PM CDT Hospital Encounter [address] [address] Wound drainage Discharge Disposition: Discharge to home or self care 02/10/2025 11:30 AM CDT Office Visit [facility] at [address] [phone] Candis Martinez NP Wound drainage (Primary Dx) 02/05/2025 7:30 AM CDT Office Visit [facility] Primary Care at [address] [phone] Callie More NP BMI 23.0-23.9, adult (Primary Dx); S/P breast augmentation 01/19/2025 7:45 PM CDT Telemedicine [facility] Care [address] [place] [phone] Erin Eason NP Acute bacterial conjunctivitis of right eye (Primary Dx) 01/19/2025 Patient Self-Triage [facility] [address] [place] [address] Mychart, Generic Provider 01/01/2025 Results Follow-Up [facility] Primary Care at [address] [phone] Callie More NP Urinalysis reflex to microscopic and culture Urine, Comprehensive metabolic panel, CBC with auto differential, Additional followed-up results: 2 12/28/2024 3:00 PM CDT Lab [facility] Outpatient Lab at [address] [phone] 12/28/2024 2:55 PM CDT - 12/28/2024 11:59 PM CDT Hospital Encounter [address] [address] Flank pain; Abnormal white blood cell (WBC) count Discharge Disposition: Discharge to home or self care 12/28/2024 Orders Only [facility] Primary Care at [address] [phone] Callie More NP Flank pain (Primary Dx); Abnormal white blood cell (WBC) count; Elevated serum creatinine 12/25/2024 Orders Only [facility] Primary Care at [address] [phone] ProviderGeni MD 12/25/[address] [facility] Primary Care at [address] [phone] Callie More NP from Last [...] money to get more. Patient declined 10/2022 [place] Depression Scale Answer Date Recorded [place] Depression Scale Total 1 06/10/2023 The thought [...] on file Legal Sex Female 8:39 AM UTILITIES ESTIMATOR AND DRAFTER Gender Identity Female 09/24/2021 8:03 AM UTILITIES ESTIMATOR AND DRAFTER Sexual Orientation Straight 09/24/2021 8: 03 AM UTILITIES ESTIMATOR AND DRAFTER Obstetrics History Para Term AB IAB SAB Ectopic Multiple Livin g Live Births 4 4 3 1 4 4 Date Outcome GA Total Labor Labor/2nd/3rd Weight Sex Type Anes PTL Odette A1 A5 Name Clin 017 Term 39w 0d 2.92 kg (6 lb 7 oz) M Vag-S pont Epidur al N Livin g Complications:None Delivery Location:[facility] ospital 020 Term 37w 6d 3.175 kg (7 lb) F Vag-S pont Epidur al Livin g Complications:None 022 36w 6d F Vag-S pont Epidur al Livin g 023 Term 37w 2d M Vag-S pont Livin g Comments G1-G3 [facility] Last Filed Vital Signs Vital Sign Reading [...] Gram Positive Cocci Comment:Testing performed by : [facility], [address] [place]., [address] Report Final Report: Abundant Mixed skin microorganisms. Includes the following: Rare Pseudomonas aeruginosa (.) BRANDEN Comment:Testing performed by : [facility], [address] [place]., [address] Organism MIXED SKIN MICROORGANISMS. BRANDEN Organism PSEUDOMONAS AERUGINOSA BRANDEN Abscess (Breast, left) 02/10/2025 6:02 PM CDT 02/10/2025 8:35 PM CDT Narrative [facility] - 02/17/2025 8:09 AM CDT Testing performed by [facility] Microbiology Laboratory ([phone]) Specimens submitted from normally sterile body sites [...] - GENERAL ORD ERABLES Final Result BRANDEN [address] [place] [address] * eGFR (12/28/2024 2:55 PM CDT) Pathologist [facility] eGFR >90 >=60 mL/min/1. 73 m2 Comment: [...] NP LAB BLOOD ORDERABLES Final Re sult [facility] [address] Department [place] [address] * Differential, auto (12/28/2024 2:55 PM CDT) Pathologist [facility] Neutrophil abs 3.19 1.50 - 6.50 K/cumm Imm gran abs 0.01 0.00 - 0.10 K/cumm [facility] Lymphocyte abs 2.30 0.80 - 3.30 K/cumm [facility] Monocyte abs 0.37 0.20 - 0.80 K/cumm [facility] Eosinophil abs 0.22 0.00 - 0.50 K/cumm [facility] Basophil abs 0.04 0.00 - 0.10 K/cumm [facility] Neutrophil pct 52.0 % [facility] Comment: Interpretive Data Percent cell [...] LAB BLOOD ORDERABLES Final Re sult BRANDEN [address] [address] Department of Laboratories [place], [place] [id number] * Urinalysis reflex to microscopic and culture [...] for uric acid stone formation. Source: [facility] Current Interpretive Data was last revised [...] for microscopic UA and culture not met. [facility] Urine 12/28/2024 2:55 PM CDT 12/28/2024 9:20 PM CDT Callie More NP LAB MICROBIOLOGY - GENERAL OR DERABLES Final Result [facility] [address] [address] Department [place] [address] * (ABNORMAL) CBC with auto differential (12/28/2024 2:55 PM CDT) WBC 6.13 3.80 - 9.90 K/cumm Hgb 12.5 11.9 - 15.5 g/dL [facility] Hct 40.4 35.6 - 45.5 % [facility] Plt 229 150 - 400 K/cumm [facility] MPV 11.5 9.1 - 12.3 fL [facility] RBC 4.31 3.90 - 5.20 M/cumm [facility] MCV 93.7 81.3 - 96.4 fL [facility] MCH 29.0 27.1 - 33.3 pg [facility] MCHC 30.9(L) 32.3 - 35.7 g/dL [facility] RDW CV 13.0 11.1 - 14.9 % [facility] RDW SD 44.6 35.7 - 48.1 fL [facility] NRBC abs 0.00 0.00 - 0.01 K/cumm [facility] Blood 12/28/2024 2:55 PM CDT 12/28/2024 9:20 PM CDT Callie More NP LAB [place]LOOD [place] [address] [address] Department [place] [address] * Comprehensive metabolic panel (12/28/2024 2:55 PM [...] 12/28/2024 9:20 PM CDT us Callie More CASE RESOLUTION SPECIALIST LAB BLOOD ORDERABLES Final Re sult [facility] [address] [address] Department [place] [address] * XR Abdomen 2 Views W Chest 1 View (12/25/2024 4:59 PM CDT) Anatomical Region Laterality Modality Body, Abdomen N/A Radiographic Lala ging Historical Provider IMElida XR PROCEDURES Final R esult * Pap with reflex to High Risk HPV and Genotyping (Cytology Component) (06/10/2023 9:14 AM CDT) Thin prep (Pap test) 06/10/2023 9:14 AM CDT 06/10/2023 11:47 AM CDT Narrative PATHOLOGY [facility] - 06/14/2023 4:58 PM UTILITIES ESTIMATOR AND DRAFTER EPIC results best viewed via link to PDF [facility] [place] [address] Note to Patients: This report may contain [...] Gender: F : 1995 (Age: 28) Address: [address] [place] [id number] Hospital #: [id number] Service: UNKNOWN Location: Patient Type: [facility] SPECIMEN Taken: 06/10/2023 Received: 06/10/2023 Accessioned: 06/10/2023 Reported: 06/14/2023 Physician(s): Kimberlyn Ramsay M.D. FINAL INTERPRETATION SOURCE OF SPECIMEN Liquid based Thin Prep pap with Reflex HPV: STATEMENT OF ADEQUACY - Satisfactory for evaluation - Endocervical cells/transformation zone sample present GENERAL CATEGORIZATION: - Negative for squamous intraepithelial lesion or malignancy medical center clinice/06/14/2023 16:58 DELFINO Godoy([facility]) Report Electronically Reviewed and Signed Out By DELFINO Godoy([facility]) 06/14/2023 16:58:35 Cervicovaginal Cytology (Pap Test) Disclaimer: The Pap test is a screening test used to detect cervical cancer and its precursors; it is not a diagnostic procedure. False negative and false positive results do occur. Pap test results should be interpreted in the context of pertinent clinical information and biopsy results as indicated. [facility] Clinical Laboratory Improvement Amendments (CLIA) mandate that cytologic and histologic results be correlated for laboratory quality rep & improvement standards. FOR ALL HIGH-GRADE CASES [...] by the Surgical Pathology Department at [facility] as part of an ongoing software quality assurance engineer program and in compliance with federally mandated [...] by the Surgical Pathology Department of [facility]. It has not been cleared or approved by the U. S. Food and Drug Administration. Kimberlyn Ramsay MD LAB CYTOLOGY ORDERABL ES Final Result PATHOLOGY [facility] 3rd Floor [place], [place] [phone] * Hepatitis C antibody (11/18/2021 11:09 AM CDT) Hep C Ab Nonreactive Nonreactive [facility] Comment:Antibodies to HCV no t detected. Does NOT exclude the possibility of recent exposure to HCV. Blood 11/18/2021 11:0 9 AM CDT 11/18/2021 12:08 PM CDT David Bonilla NP LAB MICROBIOLOGY - GENERAL O RDERABLES Edited Result - Final Performing Organization Address City/[facility]/ZIP Co de Phone Number [facility] [place] [address] from Last 3 Months or Most Recently Relevant to Health Maintenance Insurance [facility] [employer] Care Teams Trust Accounts Supervisor Relationship Specialty Start Date End Date Callie More NP [address] [place] [address] PCP - General Internal Medicine 11/06/24 Judie De Anda NP [address] [place] [address] Butcher Assistant Midwifery 11/09/24 Ben Huff DO [address] [place] [address] 11/09/24
--- OUTSIDE RECORDS SUMMARY | 2025-03-19 23:49 | XMS_ITS | Encounter Summary ---
Author Organization [facility] Healthcare Address [address] [place] [address] Care Team Providers Care Billposter Name Role Phone Callie More FEATHER CUTTING MACHINE FEEDER Primary Care Provider [phone] Judie De Anda FEATHER CUTTING MACHINE FEEDER Unavailable [phone] Encounter Details Date Type Department Care Team (Late st Contact Info) Description 02/17/2025 Telephone [facility] Medical Group Convenient Care at [place] [id number] [place] [address] Lilo Hauser PA [address] [place] [address] [address] [place] [address] Social History Tobacco Use Types [...] money to get more. Patient declined 10/2022 [place] Depression Scale Answer Date Recorded [place] Depression Scale Total 1 06/10/2023 The thought [...] on file Legal Sex Female 8:39 AM CREDIT REVIEW MANAGER Gender Identity Female 09/24/2021 8:03 AM CREDIT REVIEW MANAGER Sexual Orientation Straight 09/24/2021 8: 03 AM CREDIT REVIEW MANAGER documented as of this encounter Miscellaneous Notes [...] on filedocumented in this encounter Care Teams Billposter Relationship Specialty Start Date End Date Callie More NP [address] [facility] [address] [place] [address] PCP - General Internal Medicine 4/1/25 Judie De Anda, FEATHER CUTTING MACHINE FEEDER [address] [place] [address] Research Intern Midwifery 11/09/24 Ben Huff DO [address] [place] [address] 11/09/24 documented as of this encounter
--- OUTSIDE RECORDS SUMMARY | 2025-03-19 23:49 | XMS_ITS | Clinical Summary ---
Author Organization [facility] Address [address] [place] [address] Care Team Providers Care Cup Machine Operator Name Role Phone Leeroy Romero MD Primary Care Provider [phone] Source Comments [facility],non-owned Affiliates and Associated Physician Practices is amultiple site organization consisting of ambulatory clinics and hospital sitesin [place], [place], [place] and [place]. This disclosure is being madepursuant to the Care Everywhere program and may not contain all information available regarding this patient. Last updated 18.[facility] Allergies No known active allergies Medications * [...] patient's age to complete this topic Insurance [facility] Care Teams Cup Machine Operator Relationship Specialty Start Date End Date Leeroy Romero MD [address] [place] [address] PCP - General 04/15/22
== END 2025-03-19 23:42 | disposition left against medical advice (07) ==
PROVIDERS: Emergency Provider Student in an Organized Health Care Education/Training Program; PCP Nurse Practitioner
DX: R10.11 Right upper quadrant pain (principal)
CPT/HCPCS: 36415; 80053; 83690; 85025; 99199

== ENCOUNTER 2025-04-04 08:37 | Emergency (ER) | payer OTHER, MEDICAID, SELFPAY ==
[2025-04-04 08:50] VITALS: BP 118/81; PULSE 77; RESP 18; TEMP 36.7; O2SAT 100
--- NOTE | 2025-04-04 09:24 | ED_ITS ---
HPI - URI/Sore Throat General Chief Complaint: Upper Respiratory Infection Stated Complaint: + COVID Source: patient and RN notes reviewed Mode of arrival: ambulatory Limitations: no limitations History of Present Illness HPI Narrative: 30 y/o female presented after testing positive for covid at home last night, with c/o sore throat, headache, body aches, sinus pressure/congestion, cough, fever/chills. Onset 2 days. Family with similar symptoms. Denies sob, wheezing, n/v/d. MD elicited complaint: cough Related Data Home Medications ?Medication ?Instructions ?Recorded ?Confirmed ?Last Taken ?Type Mounjaro 11/05/24 Unknown History bupropion HCl 75 mg tablet mg PO 04/04/25 Unknown His tory escitalopram oxalate 10 mg tablet mg 04/04/25 Unknown History Allergies Allergy/AdvReac Type Severity Reaction Status Date / Time No Known Allergies Allergy Verified 04/04/25 08:49 Review of Systems Review of Systems: CONSTITUTIONAL: denies malaise, body aches, chills, sweats, fever EYES: Denies visual changes, redness, or discharge ENT: Reports rhinorrhea, congestion, sinus pain, otalgia, sore throat CARDIOVASCULAR: Denies chest pain, palpitations, edema RESPIRATORY: Reports cough, post nasal drainage. Denies dyspnea GASTROINTESTINAL: Denies abdominal pain, nausea, vomiting, diarrhea SKIN: Denies rash or itching NEUROLOGIC: reports headache PMFSH Past Medical History Medical History Scoliosis STD (female) Murmur 2, currently Surgical History Surgical History No pertinent past surgical history Family History Family History Mother Congestive heart failure Glaucoma Father Leukemia Social History Social History Smoking status: Never smoker Alcohol intake: never Substance use: never Lack of Transportation: No Lack of Food: Never True Current Housing: I Have Housing Concerned About Future Housing: No Difficulty Paying Gas/Electric Bills: No Difficulty Paying for Meds: No Currently Unemployed: No Education: Associate Degree Difficulty w/ Childcare or Family Care: No Living arrangements: with family Gender identity (if verbalized by the patient): Female Spiritual care concerns: No Exam Narrative: GENERAL: well-appearing, nontoxic no acute distress. EYES: conjunctivae clear ENT: Mucous membranes moist. TMs pearly nichole with dull light reflex bilaterally; no tragal tenderness. Oropharynx not erythematous without lesions or exudate, no drooling, no hoarseness, no trismus, uvula midline. No tripod positioning, muffled voice, soft palate or pharyngeal wall bulging NECK: Supple. No lymphadenopathy CHEST: Clear to auscultation, breath sounds equal. HEART: Regular rate and rhythm. No murmur heard. SKIN: Warm, dry, no rash. NEURO: Alert and oriented x3. PSYCH: Normal mood and affect Course Course Emergency Course: Patient is aware of diagnosis, understands and agrees to treatment plan. Anticipatory guidance given. Patient agrees to follow-up as directed and is aware of reasons to seek care at the emergency department. Portions of this record may have been created with voice recognition software Level of Care: Express Care Visit Vital Signs Vital signs: Vital Signs Temperature 98.0 F 04/04/25 08:50 Pulse Rate 77 04/04/25 08:50 Respiratory Rate 18 04/04/25 08:50 Blood Pressure 118/81 04/04/25 08:50 Pulse Oximetry 100 04/04/25 08:50 Oxygen Delivery Room Air 04/04/25 08:50 Temperature 98.0 F 04/04/25 08:50 Pulse Rate 77 04/04/25 08:50 Respiratory Rate 18 04/04/25 08:50 Blood Pressure 118/81 04/04/25 08:50 Pulse Oximetry 100 04/04/25 08:50 Oxygen Delivery Room Air 04/04/25 08:50 reviewed MDM - URI/Sore Throat MDM Narrative Medical decision making narrative: Pos home covid test, family sick. Discussed physical exam findings, negative covid in clinic today. Advised supportive measures and signs/symptoms to go to the ER. Pt is appropriate for outpt treatment and f/u. Differential Diagnosis Differential diagnosis: Likely upper respiratory infection, sinusitis and viral infection Discharge Plan Discharge Clinical Impression: Viral infection Patient Disposition: Home Condition: Stable Instructions: Antibiotic Form, Upper Respiratory Infection (ED) Additional Instructions: COVID test was negative here. The following updated recommendations have been made by the CDC and local Health Departments, regarding COVID-19: - When people get sick with a respiratory virus, they stay home and away from others. - Return to normal activities when, for at least 24 hours, symptoms are improving overall, and if a fever was present, it has been gone without use of a fever-reducing medication. - Once people resume normal activities, they are encouraged to take additional prevention strategies for the next 5 days to curb disease spread, such as taking more steps for guide rail cleaner air, enhancing hygiene practices, wearing a well-fitting mask, keeping a distance from others, and/or getting tested for respiratory viruses. - Enhanced precautions are especially important to protect those most at risk for severe illness, including those over 65 and people with weakened immune systems. -discussed with your employer return to work restrictions Rest, stay hydrated. Tylenol and ibuprofen every 8 hours as needed Flonase/nasal spray, Zyrtec, cough syrup cold/flu medications for symptoms as needed Follow up with your primary care provider, call to schedule an appointment. Go to the ER for worsening symptoms or concerns. Patient Language: Spanish Prescriptions: No Action Sunita bupropion HCl 75 mg tablet PO escitalopram oxalate 10 mg tablet Follow-up/Referrals: Derik,Callie Yanez APRN [Primary Care Provider, Unknown] Stand Alone Forms: Work/School Release IP Time of Disposition: 09:32
[2025-04-04 09:27] LABS: EDCOVIDSCREEN Negative (Negative)
== END 2025-04-04 09:37 | disposition home or self-care (01) ==
PROVIDERS: Emergency Provider Nurse Practitioner Family; PCP Nurse Practitioner
DX: B34.9 Viral infection, unspecified (principal); Z20.822 Contact with and (suspected) exposure to COVID-19; R01.1 Cardiac murmur, unspecified
CPT/HCPCS: 87426; 99212; G0463